=== PATIENT | female | born 1935 | race Caucasian/White ===

== ENCOUNTER → 2019-08-31 11:00 | Outpatient (BNVA) | payer MEDICAID, SELFPAY | PROVIDERS: PCP Nurse Practitioner Family; Visit Provider Nurse Practitioner Family | DX: I10 Essential (primary) hypertension (principal); E11.9 Type 2 diabetes mellitus without complications; E78.5 Hyperlipidemia, unspecified | CPT/HCPCS: 80053; 80061; 82044; 83036; 85025 ==

== ENCOUNTER → 2019-12-01 11:44 | Outpatient (BNVA) | payer MEDICAID, SELFPAY | PROVIDERS: PCP Nurse Practitioner Family; Visit Provider Nurse Practitioner Family | DX: E11.9 Type 2 diabetes mellitus without complications (principal) | CPT/HCPCS: 80053; 80061; 83036; 85025 ==

== ENCOUNTER → 2020-02-29 11:21 | Outpatient (BNVA) | payer MEDICAID, SELFPAY | PROVIDERS: PCP Nurse Practitioner Family; Visit Provider Nurse Practitioner Family | DX: E11.9 Type 2 diabetes mellitus without complications (principal); E78.5 Hyperlipidemia, unspecified; I10 Essential (primary) hypertension | CPT/HCPCS: 80053; 80061; 82306; 83036; 85025 ==

== ENCOUNTER 2020-04-26 13:44 | Inpatient (IN) | payer MEDICAID, SELFPAY ==
[2020-04-26] VITALS (68 sets, daily range): BP systolic 47–135; BP diastolic 25–84; PULSE 94–185; RESP 14–26; TEMP 32.2–34.9; O2SAT 89–100; BMI 21.7
--- NOTE | 2020-04-26 13:48 | CTR_ITS ---
PROCEDURE INFORMATION: Exam: CT Head Without Contrast Exam date and time: 04/26/2020 5:38 PM Age: 84 years old Clinical indication: Coma or unconsciousness; Additional info: Loc TECHNIQUE: Imaging protocol: Computed tomography of the head without contrast. Radiation optimization: All CT scans at this facility use at least one of these dose optimization techniques: automated exposure control; mA and/or kV adjustment per patient size (includes targeted exams where dose is matched to clinical indication); or iterative reconstruction. COMPARISON: No relevant prior studies available. RADIATION DOSE METRICS: Total DLP (mGy-cm): 841.2 FINDINGS: Brain: There is moderate cerebral atrophy. There is mild diffuse heterogeneity of the white matter attenuation, consistent with chronic white matter ischemic changes. No intracranial hemorrhage. No intracranial mass. No acute brain ischemia. No midline shift of brain. Simon matter and white matter interfaces are preserved. Cerebral ventricles: No ventriculomegaly. Bones/joints: Unremarkable. No acute fracture. Paranasal sinuses: Visualized sinuses are unremarkable. No fluid levels. Mastoid air cells: Visualized mastoid air cells are well aerated. Orbital cavity: Bilateral lens replacements. Vasculature: Intracranial atherosclerosis. Soft tissues: Unremarkable. CT/CT head wo con* [id number] IMPRESSION: Negative for acute intracranial abnormality. Radiation Dose CTDIVOL = (mGy): DLP = 841.2 (mGy-cm)
--- NOTE | 2020-04-26 13:50 | ECG_ITS ---
[facility] Test Date: 2020-04-26 Pat Name: Sheri Szymanski Department: Room: Gender: Female Seo Consultant: : [id number] Requested By: Kemal Herring Order Number: [id number] [place] MD: Enio Mackenzie M.D. Measurements Intervals Lapel Rate: 93 P: 64 OH: 140 QRS: 1 QRSD: 89 T: 84 QT: 377 QTc: 470 Interpretive Statements SINUS RHYTHM POSSIBLE LEFT ATRIAL ENLARGEMENT [-0.1mV P WAVE IN V1/V2] SEPTAL MYOCARDIAL INFARCTION , OF INDETERMINATE AGE [40+ ms Q WAVE IN V1/V2] Compared to ECG 07/10/2017 13:12:15 Myocardial infarct finding now present Sinus arrhythmia no longer present Electronically Signed On 04-26-2020 16:00:41 HEEL BLACKER by Enio Mackenzie M.D. [id number]
--- NOTE | 2020-04-26 13:54 | W.ED.GENADLT ---
HPI - General Adult General: Chief complaint: Altered Mental Status Stated complaint: DKA/ UNCONSCIOUS Time Seen by Provider: 04/26/20 13:48 History of Present Illness: HPI narrative: 84-year-old female presents to the emergency room via EMS after being intubated by RSI with ketamine and rocuronium in the field. She was found by her family unresponsive EMS reports when she when they arrived she had respiratory rate in the 20s he had a slight grimace but no significant response. His R side and intubated and arrived here. No CPR was done at any time. She is diabetic although she is not on any insulin. Family had last seen her last night. She has an IO in the left anterior tibia. She has no obvious injuries. EMS reports that the house was very rundown. Reports she had been feeling well earlier in the week had been little nauseous generally feeling sick and having flulike symptoms. Onset (ago): unknown Associated symptoms: Reports malaise and nausea; Deny chest pain, cough, dyspnea, fevers/chills, headache(s), short of breath or vomiting Treatments prior to arrival: other (Intubation) Review of Systems General: Reports: ROS unobtainable due to endotracheal tube (Some review of systems obtained from family) Const: Reports: malaise Card: Denies: chest pain Resp: Denies: dyspnea GI: Reports: nausea; Denies: vomiting Neuro: Denies: headache(s) PFS ED PFSH: Medical History Diabetes Hyperlipidemia Hypertension Surgical History History of left hip replacement (~2014) Family History Daughter Diabetes Denies family history of Anesthesia complication Bleeding disorder Social History Smoking and tobacco status: never smoked Alcohol intake: never Adopted: No Caregiver/support person: Yes Lives independently: Yes Housing: House Marital status: Single Current occupational exposures/hazards: No Pets and animals: Yes Pets & animals: cat(s) History of recent travel: No Sexually active: No Current gender identity: Female Mackenzie/Congregation: [employer] Special mackenzie needs: No Financial difficulty paying for basics: Not Applicable Physical Exam HENMT: COMMON NORMALS: normocephalic, atraumatic and hearing grossly normal bilaterally HEAD & SCALP: normocephalic and atraumatic Neck/C-Spine: COMMON NORMALS: full ROM, no lymphadenopathy, supple and no JVD Lymph: LYMPHATIC: no lymphadenopathy noted and no lymphedema noted Resp: COMMON NORMALS: normal respiratory effort, No retractions, No use of accessory muscles and clear to auscultation bilaterally AUSCULTATION: clear to auscultation bilaterally Cardio: COMMON NORMALS: no JVD, regular rate, regular rhythm and No murmurs present (Cardio) RATE: regular rate RHYTHM: regular rhythm GI: COMMON NORMALS: Soft to palpation and No hepatosplenomegaly present AUSCULTATION: Yes normoactive bowel sounds PALPATION: Yes Soft to palpation, No Tenderness to palpation present (GI), No Guarding due to palpation present (GI) and Yes No hepatosplenomegaly present Extremity: COMMON NORMALS: normal to inspection, capillary refill normal, no clubbing, cyanosis or edema, no calf tenderness and no pedal edema Skin: COMMON NORMALS: no rashes or lesions noted GENERAL SKIN EXAM: no rashes or lesions noted Procedures Central Line Placement Right SC: Time Out Performed: Yes Patient Placed on Monitor/Pulse Ox: Yes MD Prep: mask, gown and gloves Central Line Prep: Chlorhexidine scrub and sterile drapes applied Ultrasound Used for Placement: Yes Central Line Lumen Inserted: triple Post Procedure: sutured in place, good blood return, all ports aspirated, flushed, capped and sterile dressing applied Post Procedure X-Ray: tip of catheter in good position and no pneumothorax seen Patient Tolerated Procedure: well Complications: none Course Vital Signs: Vital signs: Vital Signs Temperature 100.4 F H 04/30/20 04:00 Pulse Rate 102 H 04/30/20 08:00 Respiratory Rate 15 04/30/20 11:25 Blood Pressure 147/63 04/30/20 09:00 Pulse Oximetry 93 04/30/20 09:00 MDM - General Adult MDM Narrative: Medical decision making narrative: Patient in pretty significant DKA with a peak pH is 6.96. She has been given fluids and insulin bicarb started on potassium. She is not needed any further sedation her pressure was almost nondetectable when she first arrived she is currently on Levophed. We are covering her with antibiotics due to just the logistics of all of her medications we have not yet had the CTs done to have a CT head abdomen and pelvis pending. I discussed with Dr. Herrera and orders have been written diabetic ketoacidosis Lab Data: Labs: Lab Results 04/26/20 04/26/20 04/26/20 Range/Units 13:49 14:00 14:00 WBC (4.0-10.0) 10^3/ uL RBC (4.1-5.3) 10^6/u L Hgb (11.5-15.3) g/dL Hct (37.0-47.0) % MCV (81-99) fL MCH (28.0-34.0) pg MCHC (30.0-36.0) g/dL RDW (12.1-15.1) % Plt Count (130-400) 10^3/c mm MPV (7.4-10.4) fL Neut % (Auto) % Lymph % (Auto) % [place]ac % (Auto) % Eos % (Auto) % Baso % (Auto) % Neut # (Auto) (1.8-7.7) 10^3/u L Lymph # (Auto) (0.8-4.8) 10^3/u L [place] # (Auto) (0.2-0.9) 10^3/u L Eos # (Auto) (0.0-0.8) 10^3/u L Baso # (Auto) (0.0-0.1) 10^3/u L Nucleated RBC % (a uto) % Nucleated RBCs # /100WBC PT (12.1-14.9) SECO NDS INR (0.8-1.2) APTT (23.9-36.7) SECO NDS Specimen Type Arterial Sample Site Radial, right ABG pH 6.96 L* (7.35-7.45) ABG pCO2 23.1 L (35-45) mmHg ABG pO2 491.0 H (80.0-100.0) mmH g ABG HCO3 5.2 L (22-26) mmol/L ABG O2 Saturation > 100.0 ABG Base Excess -25.5 L (-2.0-2.0) mmol/ L Rayshawn Test Pos A-a O2 Gradient 23.7 H (5-10) mmHg Hematocrit 44.8 (37-47) % Hgb O2 Saturation 98.7 (95-100) % Carboxyhemoglobin 0.3 L (0.4-20.1) %THgb Methemoglobin 1.0 (0.4-1.5) % Total Hemoglobin 14.6 (12-16) g/dL Sodium 141.0 (131-143) mmol/L Potassium 4.5 (3.5-5.0) mmol/L Glucose 743.0 H (70-115) mg/dL Ionized Calcium 1.3 (1.1-1.4) mmol/L O2 Delivery Device Vent FiO2 100.0 % Tidal Volume 0.35 PEEP 8.0 cmH20 Slitter And Cutter Operator ID Ed Chloride (98-107) mmol/L Carbon Dioxide (22-29) mmol/L Anion Gap (5-19) BUN (8-23) mg/dL Creatinine (0.5-0.9) mg/dL GFR Calculation POC Glucose (70-110) mg/dL Calculated Osmolal ity (285-295) mOsm/k g Lactic Acid 4.0 H (0.5-2.2) mmol/L Calcium (8.5-10.5) mg/dL Magnesium (1.7-2.3) mg/dL Total Bilirubin (0.15-1.2) mg/dL AST (0-32) U/L ALT (0-33) U/L Alkaline Phosphata se (35-105) IU/L Ammonia 33 (11-51) umol/L Creatine Kinase (26-192) U/L Troponin T Baselin e (0-10) ng/L Total Protein (6.6-8.7) g/dL Albumin (3.5-5.2) g/dL Globulin (1.3-4.6) g/dL Lipase (13-60) U/L Procalcitonin (0-0.5) ng/mL Urine Color (Yellow) Urine Appearance (CLEAR) Urine pH (5-7) Ur Specific Gravit y (1.005-1.030) Urine Protein (Negative) Urine Glucose (UA) (Normal) Urine Ketones (Negative) Urine Blood (Negative) Urine Nitrate (Negative) Urine Bilirubin (Negative) Urine Urobilinogen (Negative) mg/dL Ur Leukocyte Lashay ase (Negative) Urine RBC (0-2) /hpf Urine WBC (0-5) /hpf Ur Squamous Epith Cells (0-5) /hpf Amorphous Sediment /hpf Urine Bacteria (NONE) /hpf Hyaline Casts /lpf Fine Granular Cast s /lpf Urine Mucus /hpf Ur Random Sodium mmol/L Ur Random Potassiu m mmol/L Ur Random Chloride mmol/L Urine Opiates Scre en (Negative) ng/mL Ur Barbiturates Sc reen (Negative) ng/mL Ur Phencyclidine S crn (Negative) ng/mL Ur Amphetamines Sc reen (Negative) ng/mL U Benzodiazepines Scrn (Negative) ng/mL Urine Cocaine Scre en (Negative) ng/mL U Marijuana (THC) Screen (Negative) ng/mL Serum Ketones (Negative) 04/26/20 04/26/20 04/26/20 Range/Units 14:00 14:00 14:00 WBC 13.8 H (4.0-10.0) 10^3/ uL RBC 4.29 (4.1-5.3) 10^6/u L Hgb 14.0 (11.5-15.3) g/dL Hct 44.6 (37.0-47.0) % MCV 104.0 H (81-99) fL MCH 32.6 (28.0-34.0) pg MCHC 31.4 (30.0-36.0) g/dL RDW 13.6 (12.1-15.1) % Plt Count 222 (130-400) 10^3/c mm MPV 11.8 H (7.4-10.4) fL Neut % (Auto) 82.4 % Lymph % (Auto) 7.6 % Arenac % (Auto) 6.9 % Eos % (Auto) 0.1 % Baso % (Auto) 0.4 % Neut # (Auto) 11.37 H (1.8-7.7) 10^3/u L Lymph # (Auto) 1.1 (0.8-4.8) 10^3/u L A[place]ac # (Auto) 1.0 H (0.2-0.9) 10^3/u L Eos # (Auto) 0.0 (0.0-0.8) 10^3/u L Baso # (Auto) 0.1 (0.0-0.1) 10^3/u L Nucleated RBC % (a uto) 0 % Nucleated RBCs # 0.0 /100WBC PT (12.1-14.9) SECO NDS INR (0.8-1.2) APTT (23.9-36.7) SECO NDS Specimen Type Sample Site ABG pH (7.35-7.45) ABG pCO2 (35-45) mmHg ABG pO2 (80.0-100.0) mmH g ABG HCO3 (22-26) mmol/L ABG O2 Saturation ABG Base Excess (-2.0-2.0) mmol/ L Rayshawn Test A-a O2 Gradient (5-10) mmHg Hematocrit (37-47) % Hgb O2 Saturation (95-100) % Carboxyhemoglobin (0.4-20.1) %THgb Methemoglobin (0.4-1.5) % Total Hemoglobin (12-16) g/dL Sodium 139 (131-143) mmol/L Potassium 4.7 (3.5-5.0) mmol/L Glucose 754 H* (70-115) mg/dL Ionized Calcium (1.1-1.4) mmol/L O2 Delivery Device FiO2 % Tidal Volume PEEP cmH20 Slitter And Cutter Operator ID Chloride 98 (98-107) mmol/L Carbon Dioxide 6 L* (22-29) mmol/L Anion Gap 39.7 H (5-19) BUN 58 H (8-23) mg/dL Creatinine 2.9 H (0.5-0.9) mg/dL GFR Calculation Not Reportable POC Glucose (70-110) mg/dL Calculated Osmolal ity 341 H (285-295) mOsm/k g Lactic Acid (0.5-2.2) mmol/L Calcium 9.3 (8.5-10.5) mg/dL Magnesium 2.6 H (1.7-2.3) mg/dL Total Bilirubin 0.3 (0.15-1.2) mg/dL AST 9 (0-32) U/L ALT 10 (0-33) U/L Alkaline Phosphata se 60 (35-105) IU/L Ammonia (11-51) umol/L Creatine Kinase 128 (26-192) U/L Troponin T Baselin e 168 H* (0-10) ng/L Total Protein 6.0 L (6.6-8.7) g/dL Albumin 3.8 (3.5-5.2) g/dL Globulin 2.2 (1.3-4.6) g/dL Lipase 5681 H (13-60) U/L Procalcitonin 8.24 H (0-0.5) ng/mL Urine Color (Yellow) Urine Appearance (CLEAR) Urine pH (5-7) Ur Specific Gravit y (1.005-1.030) Urine Protein (Negative) Urine Glucose (UA) (Normal) Urine Ketones (Negative) Urine Blood (Negative) Urine Nitrate (Negative) Urine Bilirubin (Negative) Urine Urobilinogen (Negative) mg/dL Ur Leukocyte Lashay ase (Negative) Urine RBC (0-2) /hpf Urine WBC (0-5) /hpf Ur Squamous Epith Cells (0-5) /hpf Amorphous Sediment /hpf Urine Bacteria (NONE) /hpf Hyaline Casts /lpf Fine Granular Cast s /lpf Urine Mucus /hpf Ur Random Sodium mmol/L Ur Random Potassiu m mmol/L Ur Random Chloride mmol/L Urine Opiates Scre en (Negative) ng/mL Ur Barbiturates Sc reen (Negative) ng/mL Ur Phencyclidine S crn (Negative) ng/mL Ur Amphetamines Sc reen (Negative) ng/mL U Benzodiazepines Scrn (Negative) ng/mL Urine Cocaine Scre en (Negative) ng/mL U Marijuana (THC) Screen (Negative) ng/mL Serum Ketones (Negative) 04/26/20 04/26/20 04/26/20 Range/Units 14:00 14:00 14:12 WBC (4.0-10.0) 10^3/ uL RBC (4.1-5.3) 10^6/u L Hgb (11.5-15.3) g/dL Hct (37.0-47.0) % MCV (81-99) fL MCH (28.0-34.0) pg MCHC (30.0-36.0) g/dL RDW (12.1-15.1) % Plt Count (130-400) 10^3/c mm MPV (7.4-10.4) fL Neut % (Auto) % Lymph % (Auto) % [place] % (Auto) % Eos % (Auto) % Baso % (Auto) % Neut # (Auto) (1.8-7.7) 10^3/u L Lymph # (Auto) (0.8-4.8) 10^3/u L [place]ac # (Auto) (0.2-0.9) 10^3/u L Eos # (Auto) (0.0-0.8) 10^3/u L Baso # (Auto) (0.0-0.1) 10^3/u L Nucleated RBC % (a uto) % Nucleated RBCs # /100WBC PT 18.00 H (12.1-14.9) SECO NDS INR 1.44 H (0.8-1.2) APTT 27.2 (23.9-36.7) SECO NDS Specimen Type Sample Site ABG pH (7.35-7.45) ABG pCO2 (35-45) mmHg ABG pO2 (80.0-100.0) mmH g ABG HCO3 (22-26) mmol/L ABG O2 Saturation ABG Base Excess (-2.0-2.0) mmol/ L Rayshawn Test A-a O2 Gradient (5-10) mmHg Hematocrit (37-47) % Hgb O2 Saturation (95-100) % Carboxyhemoglobin (0.4-20.1) %THgb Methemoglobin (0.4-1.5) % Total Hemoglobin (12-16) g/dL Sodium (131-143) mmol/L Potassium (3.5-5.0) mmol/L Glucose (70-115) mg/dL Ionized Calcium (1.1-1.4) mmol/L O2 Delivery Device FiO2 % Tidal Volume PEEP cmH20 Slitter And Cutter Operator ID Chloride (98-107) mmol/L Carbon Dioxide (22-29) mmol/L Anion Gap (5-19) BUN (8-23) mg/dL Creatinine (0.5-0.9) mg/dL GFR Calculation POC Glucose > 600 H* (70-110) mg/dL Calculated Osmolal ity (285-295) mOsm/k g Lactic Acid (0.5-2.2) mmol/L Calcium (8.5-10.5) mg/dL Magnesium (1.7-2.3) mg/dL Total Bilirubin (0.15-1.2) mg/dL AST (0-32) U/L ALT (0-33) U/L Alkaline Phosphata se (35-105) IU/L Ammonia (11-51) umol/L Creatine Kinase (26-192) U/L Troponin T Baselin e (0-10) ng/L Total Protein (6.6-8.7) g/dL Albumin (3.5-5.2) g/dL Globulin (1.3-4.6) g/dL Lipase (13-60) U/L Procalcitonin (0-0.5) ng/mL Urine Color (Yellow) Urine Appearance (CLEAR) Urine pH (5-7) Ur Specific Gravit y (1.005-1.030) Urine Protein (Negative) Urine Glucose (UA) (Normal) Urine Ketones (Negative) Urine Blood (Negative) Urine Nitrate (Negative) Urine Bilirubin (Negative) Urine Urobilinogen (Negative) mg/dL Ur Leukocyte Lashay ase (Negative) Urine RBC (0-2) /hpf Urine WBC (0-5) /hpf Ur Squamous Epith Cells (0-5) /hpf Amorphous Sediment /hpf Urine Bacteria (NONE) /hpf Hyaline Casts /lpf Fine Granular Cast s /lpf Urine Mucus /hpf Ur Random Sodium mmol/L Ur Random Potassiu m mmol/L Ur Random Chloride mmol/L Urine Opiates Scre en (Negative) ng/mL Ur Barbiturates Sc reen (Negative) ng/mL Ur Phencyclidine S crn (Negative) ng/mL Ur Amphetamines Sc reen (Negative) ng/mL U Benzodiazepines Scrn (Negative) ng/mL Urine Cocaine Scre en (Negative) ng/mL U Marijuana (THC) Screen (Negative) ng/mL Serum Ketones Positive H (Negative) 04/26/20 04/26/20 04/26/20 Range/Units 14:49 14:49 15:24 WBC (4.0-10.0) 10^3/ uL RBC (4.1-5.3) 10^6/u L Hgb (11.5-15.3) g/dL Hct (37.0-47.0) % MCV (81-99) fL MCH (28.0-34.0) pg MCHC (30.0-36.0) g/dL RDW (12.1-15.1) % Plt Count (130-400) 10^3/c mm MPV (7.4-10.4) fL Neut % (Auto) % Lymph % (Auto) % [place] % (Auto) % Eos % (Auto) % Baso % (Auto) % Neut # (Auto) (1.8-7.7) 10^3/u L Lymph # (Auto) (0.8-4.8) 10^3/u L [place] # (Auto) (0.2-0.9) 10^3/u L Eos # (Auto) (0.0-0.8) 10^3/u L Baso # (Auto) (0.0-0.1) 10^3/u L Nucleated RBC % (a uto) % Nucleated RBCs # /100WBC PT (12.1-14.9) SECO NDS INR (0.8-1.2) APTT (23.9-36.7) SECO NDS Specimen Type Sample Site ABG pH (7.35-7.45) ABG pCO2 (35-45) mmHg ABG pO2 (80.0-100.0) mmH g ABG HCO3 (22-26) mmol/L ABG O2 Saturation ABG Base Excess (-2.0-2.0) mmol/ L Rayshawn Test A-a O2 Gradient (5-10) mmHg Hematocrit (37-47) % Hgb O2 Saturation (95-100) % Carboxyhemoglobin (0.4-20.1) %THgb Methemoglobin (0.4-1.5) % Total Hemoglobin (12-16) g/dL Sodium (131-143) mmol/L Potassium (3.5-5.0) mmol/L Glucose (70-115) mg/dL Ionized Calcium (1.1-1.4) mmol/L O2 Delivery Device FiO2 % Tidal Volume PEEP cmH20 Slitter And Cutter Operator ID Chloride (98-107) mmol/L Carbon Dioxide (22-29) mmol/L Anion Gap (5-19) BUN (8-23) mg/dL Creatinine (0.5-0.9) mg/dL GFR Calculation POC Glucose > 600 H* (70-110) mg/dL Calculated Osmolal ity (285-295) mOsm/k g Lactic Acid (0.5-2.2) mmol/L Calcium (8.5-10.5) mg/dL Magnesium (1.7-2.3) mg/dL Total Bilirubin (0.15-1.2) mg/dL AST (0-32) U/L ALT (0-33) U/L Alkaline Phosphata se (35-105) IU/L Ammonia (11-51) umol/L Creatine Kinase (26-192) U/L Troponin T Baselin e (0-10) ng/L Total Protein (6.6-8.7) g/dL Albumin (3.5-5.2) g/dL Globulin (1.3-4.6) g/dL Lipase (13-60) U/L Procalcitonin (0-0.5) ng/mL Urine Color Yellow (Yellow) Urine Appearance Clear (CLEAR) Urine pH 5 (5-7) Ur Specific Gravit y 1.020 (1.005-1.030) Urine Protein Trace (Negative) Urine Glucose (UA) 4+ H (Normal) Urine Ketones 2+ H (Negative) Urine Blood 2+ H (Negative) Urine Nitrate Negative (Negative) Urine Bilirubin Neg (Negative) Urine Urobilinogen Norm (Negative) mg/dL Ur Leukocyte Lashay ase Negative (Negative) Urine RBC 0-4 H (0-2) /hpf Urine WBC 0-4 H (0-5) /hpf Ur Squamous Epith Cells 0-4 H (0-5) /hpf Amorphous Sediment 1+ /hpf Urine Bacteria 1+ H (NONE) /hpf Hyaline Casts 0-4 H /lpf Fine Granular Cast s 0-4 H /lpf Urine Mucus 1+ /hpf Ur Random Sodium 38 mmol/L Ur Random Potassiu m 25 mmol/L Ur Random Chloride 13 mmol/L Urine Opiates Scre en Negative (Negative) ng/mL Ur Barbiturates Sc reen Negative (Negative) ng/mL Ur Phencyclidine S crn Negative (Negative) ng/mL Ur Amphetamines Sc reen Negative (Negative) ng/mL U Benzodiazepines Scrn Negative (Negative) ng/mL Urine Cocaine Scre en Negative (Negative) ng/mL U Marijuana (THC) Screen Negative (Negative) ng/mL Serum Ketones (Negative) Critical Care Time Critical Care Time: Critical Care Time: Yes Total Critical Care Time: 120 Attestation: This case had a high probability of a clinically significant, sudden, or life threatening deterioration of this patient's condition which required my full and direct attention, intervention and personal management. Discharge Plan Discharge Patient Disposition: Admitted As Inpatient Admit Provider: Vaibhav Palma Clinical Impression: Diabetic keto-acidosis Condition: Stable Coding Level of Care Code ED Director [employer] for Chg Fwd Exam Comprehensive
--- NOTE | 2020-04-26 14:07 | XR_ITS ---
WS: [id number] Left leg including the tibia and fibula, AP and lateral views, 04/26/2020 Clinical Data: possible missing needle parts Comparison: None. Findings: No fractures or dislocations are seen. The tibia and fibula are intact. The soft tissues are normal. No radiopaque needle fragments are seen in the soft tissues. XR/XR tibia fibula LT 2V [id number] Impression: Negative for radiopaque foreign bodies.
--- NOTE | 2020-04-26 14:08 | XR_ITS ---
WS: [id number] Portable AP upright chest, 04/26/2020 Clinical Data: dyspnea/cough Comparison: Portable chest, 06/01/2014. Findings: There is an endotracheal tube above the shelia. No nodules, masses or effusions are seen. N o pneumonia or pneumothorax is present. The left diaphragm is flattened. The heart is normal. Pulmona ry vascularity is not increased. The aortic arch and descending aorta show calcification and tortuosi ty. Monitor leads are on the chest wall. XR/XR chest 1V portable [id number] Impression: 1. Satisfactory position of endotracheal tube. 2. Atherosclerosis.
[2020-04-26 14:15] LABS: Glucose Point of Care > 600 mg/dL (70-110)
[2020-04-26 14:22] LABS: Basophils # 0.1 10^3/uL (0.0-0.1); Basophils % 0.4 %; Eosinophils % 0.1 %; Hematocrit 44.6 % (37.0-47.0); Lymphocytes # 1.1 10^3/uL (0.8-4.8); Lymphocytes % 7.6 %; Mean Corpuscular HGB Conc 31.4 g/dL (30.0-36.0); Mean Corpuscular Hemoglobin 32.6 pg (28.0-34.0); Mean Platelet Volume 11.8 fL (7.4-10.4); Monocytes % 6.9 %; Neutrophils # 11.37 10^3/uL (1.8-7.7); Neutrophils % 82.4 %; Nucleated Red Blood Cells % 0 %; Platelet Count 222 10^3/cmm (130-400); Red Blood Count 4.29 10^6/uL (4.1-5.3); Red Cell Distribution Width 13.6 % (12.1-15.1); White Blood Count 13.8 10^3/uL (4.0-10.0)
[2020-04-26 14:22] LABS: ABG PCO2 23.1 mmHg (35-45); ABG PH Result 6.96 (7.35-7.45); Alveolar-Arterial Oxygen Gradi 23.7 mmHg (5-10); Arterial Blood Gas Hematocrit 44.8 % (37-47); Base Excess ABG -25.5 mmol/L (-2.0-2.0); Blood Gas Allen Test Pos; Blood Gas Operator Identificat ED; Blood Gas Sample Site Radial, right; Blood Gas Sample Type Arterial; Blood Gas Tidal Volume 0.35; Carboxyhemoglobin 0.3 %THgb (0.4-20.1); HCO3 ABG 5.2 mmol/L (22-26); HGB O2 Sat 98.7 % (95-100); Ionized Calcium Level - ABG 1.3 mmol/L (1.1-1.4); Oxygen Device VENT; Oxygen Saturation ABG > 100.0; Potassium Level - ABG 4.5 mmol/L (3.5-5.0); Total Hemoglobin 14.6 g/dL (12-16)
[2020-04-26] MEDS: ondansetron 2 mg/ML SDV 2 mL 4 MG IVP (14:29)
[2020-04-26] MEDS: levofloxacin-dextrose 5 % 750 MG/150 ML PREMIX 100 MG IV (14:31)
[2020-04-26 14:44] LABS: INR 1.44 (0.8-1.2)
[2020-04-26 14:45] LABS: Partial Thromboplastin Time 27.2 SECONDS (23.9-36.7)
[2020-04-26] MEDS: sodium bicarbonate 8.4% 1 mEq/mL 50mL Syr 100 MEQ IVP (14:46)
[2020-04-26 14:49] LABS: Ammonia 33 umol/L (11-51)
[2020-04-26 14:51] LABS: Troponin(5th) Baseline 168 ng/L (0-10)
[2020-04-26] MEDS: lidocaine 1% 5 ML in potassium chloride premix 100 ML 25 ML IV (14:52)
--- NOTE | 2020-04-26 14:54 | PC.NURSE ---
EKG done at 1350 and shown to ER doctor
[2020-04-26 14:58] LABS: Procalcitonin 8.24 ng/mL (0-0.5)
[2020-04-26] MEDS: insulin regular-human 100 units/1 mL 10 UNIT IVP (14:58)
[2020-04-26] MEDS: insulin regular-human 250 UNIT in sodium chloride 0.9% 250 ML IV (15:00)
[2020-04-26 15:08] LABS: Urine Appearance Clear (CLEAR); Urine Color Yellow (Yellow); pH Urine 5 (5-7)
[2020-04-26 15:09] LABS: Add Urine Culture? No; Add Urine Microscopic? YES; Amorphous Sediment Urine 1+ /hpf; Bacteria Urine 1+ /hpf; Bilirubin Urine Neg (Negative); Blood Urine 2+ (Negative); Fine Granular Casts Urine 0-4 /lpf; Glucose Urine UA 4+ (Normal); Hyaline Casts Urine 0-4 /lpf; Ketones Urine 2+ (Negative); Leukocyte Esterase Urine Negative (Negative); Mucus Urine 1+ /hpf; Nitrate Urine Negative (Negative); Protein Urine Trace (Negative); RBC Urine 0-4 /hpf (0-2); Squamous Epithelial Cell Urine 0-4 /hpf (0-5); Urobilinogen Urine Norm (Negative); WBC Urine 0-4 /hpf (0-5)
[2020-04-26 15:09] LABS: Alanine Aminotransferase 10 U/L (0-33); Albumin Level 3.8 g/dL (3.5-5.2); Alkaline Phosphatase 60 IU/L (35-105); Anion Gap 39.7 (5-19); Aspartate Amino Transferase 9 U/L (0-32); Blood Urea Nitrogen 58 mg/dL (8-23); Calcium 9.3 mg/dL (8.5-10.5); Chloride 98 mmol/L (98-107); Creatine Phosphokinase 128 U/L (26-192); Globulin 2.2 g/dL (1.3-4.6); Magnesium 2.6 mg/dL (1.7-2.3); Potassium 4.7 mmol/L (3.5-5.1); Sodium 139 mmol/L (136-145); Total Bilirubin 0.3 mg/dL (0.15-1.2)
[2020-04-26 15:14] LABS: Carbon Dioxide 6 mmol/L (22-29)
[2020-04-26 15:17] LABS: Ketone (Acetest) Serum Positive (Negative)
[2020-04-26] MEDS: sodium bicarbonate 150 MEQ in dextrose 5% 1,000 ML 100 MEQ IV (15:17)
[2020-04-26 15:18] LABS: Osmolality Calculated 341 mOsm/kg (285-295)
[2020-04-26 15:19] LABS: Glucose 754 mg/dL (65-115)
[2020-04-26 15:32] LABS: Glucose Point of Care > 600 mg/dL (70-110)
--- NOTE | 2020-04-26 15:42 | CTR_ITS ---
PROCEDURE INFORMATION: Exam: CT Angiography Chest With Contrast Exam date and time: 04/26/2020 5:38 PM Age: 84 years old Clinical indication: Abdominal tenderness; Shortness of breath; Additional info: Resp failure, dka TECHNIQUE: Imaging protocol: Computed tomographic angiography of the chest with contrast. 3D rendering (Not supervised by radiologist): MIP and/or 3D reconstructed images were created by the technologist. Radiation optimization: All CT scans at this facility use at least one of these dose optimization techniques: automated exposure control; mA and/or kV adjustment per patient size (includes targeted exams where dose is matched to clinical indication); or iterative reconstruction. Contrast material: VISI 320; Contrast volume: 95 ml; Contrast route: INTRAVENOUS (IV); COMPARISON: CR XR chest 1V portable [id number] 04/26/2020 4:23 PM RADIATION DOSE METRICS: Total DLP (mGy-cm): 1535.38 FINDINGS: Tubes, catheters and devices: Endotracheal tube is positioned about 2.5 cm above the shelia. Right chest central venous catheter placed via right subclavian vein terminates in the mid superior vena cava in good position. Pulmonary arteries: Main pulmonary artery mildly dilated. No pulmonary artery filling defects. Aorta: Moderate calcified atherosclerotic plaque of thoracic aorta without acute abnormality. Thyroid: Mild soft tissue edema or free fluid around the region of the thyroid gland is nonspecific. Lungs: Moderate emphysema. Mild dependent opacities in the lower lobes most consistent with subsegmental atelectasis. No focal pulmonary consolidation. Pleural spaces: Negative for pleural effusion. Negative for pneumothorax. Heart: No pericardial effusion. No cardiac chamber dilation. Lymph nodes: Unremarkable. No enlarged lymph nodes. Bones/joints: No aggressive bone lesions. No acute thoracic fractures are identified. In the right lateral paraspinal aspect of T10-T11 level there is a rounded low-attenuation mass with circumscribed borders which appears to extend from the right neural foramen region with widening and scalloping of the neural foramen itself. The lesion measures about 3.4 cm x 3.1 cm. There may be additional, smaller are rounded neural foraminal lesions at other intervertebral levels such as the left side of T10-T11, bilaterally at T9-T10. Soft tissues: Unremarkable. IMPRESSION: 1. Negative for pulmonary embolism. 2. Moderate emphysema. 3. Bilateral lower lobe subsegmental atelectasis. 4. Incidental finding of paraspinal masses, most prominent in the right lateral paraspinal aspect of T10-T11 with some scalloping and expansion of the right neural foramen evident. 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 There may be smaller tumors of other intervertebral levels as well. PROCEDURE INFORMATION: Exam: CT Abdomen And Pelvis With Contrast Exam date and time: 04/26/2020 5:38 PM Age: 84 years old Clinical indication: Abdominal tenderness; Shortness of breath; Additional info: Resp failure, dka TECHNIQUE: Imaging protocol: Computed tomography of the abdomen and pelvis with contrast. Radiation optimization: All CT scans at this facility use at least one of these dose optimization techniques: automated exposure control; mA and/or kV adjustment per patient size (includes targeted exams where dose is matched to clinical indication); or iterative reconstruction. Contrast material: VISI 320; Contrast volume: 95 ml; Contrast route: INTRAVENOUS (IV); COMPARISON: CR XR chest 1V portable [id number] 04/26/2020 4:23 PM RADIATION DOSE METRICS: Total DLP (mGy-cm): 1535.38 FINDINGS: Liver: Normal. No mass. Gallbladder and bile ducts: Normal. No calcified stones. No ductal dilation. Pancreas: Diffuse atrophy of the pancreas with fatty replacement. No focal mass. Spleen: Normal. No splenomegaly. Adrenal glands: Possibly small nodule of the right adrenal gland. 1.7 cm x 1.2 cm enhancing nodule. Kidneys and ureters: Atrophic renal parenchyma. Several bilateral simple renal cortical cysts. No acute perinephric inflammation. Stomach and bowel: Stomach is moderately distended with fluid. No evidence of bowel obstruction. Appendix: No evidence of appendicitis. Intraperitoneal space: No loculated intraperitoneal fluid collection. Vasculature: Large volume of calcified atherosclerotic wall plaque of abdominal aorta. No aneurysm. No active bleeding. No arterial occlusion. Lymph nodes: Unremarkable. No enlarged lymph nodes. Urinary bladder: Bladder decompressed via Ferris catheter. Reproductive: Hysterectomy. Bones/joints: Left hip arthroplasty with unremarkable appearance. Soft tissues: Upper abdominal fat stranding changes are noted which are nonspecific. CT/CT angio chest w abd pel w con IMPRESSION: 1. Mild fat stranding changes in the upper abdomen, cannot exclude sequela of acute pancreatitis. Otherwise, no convincing evidence of acute abdominopelvic abnormality. 2. Incidental finding of small right adrenal nodule, indeterminate characterization by this exam. 3. Bilateral renal cortical cystic lesions with simple CT features. COMMENTS: Consistent with the [employer]'s Incidental Findings Committee white paper (J Am Shine Radiol 2018): Any incidental renal lesion less than 1 cm or classified as too small to characterize, or any incidental cystic renal lesion characterized as simple-appearing, is likely benign. No follow-up imaging is recommended for these lesions per consensus recommendations based on imaging criteria. Radiation Dose CTDIVOL = (mGy): DLP = 1535.38~1535.38 (mGy-cm)
--- NOTE | 2020-04-26 15:50 | ECG_ITS ---
[facility] Test Date: 2020-04-26 Pat Name: Sheri Szymanski Department: Room: [facility]04 Gender: Female Clinical Appeals Rn: : 1935 Requested By: Kemal Herring Order Number: [id number] [place] MD: Enio Mackenzie M.D. 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 [id number]
[2020-04-26] MEDS: piperacillin-tazobactam 3.375 GM in sodium chloride 0.9% (plus) 50 ML IV (15:54)
--- NOTE | 2020-04-26 15:55 | USCV_ITS ---
Sheri Szymanski Age: 84 Gender: F : 1935 Exam Date: 04/26/2020 15:58 Ordering Phys: Vaibhav Palma MD Technologist: Ronald Garcia Exam Location: [facility] – [place] Indication: TACH 140 HR BP: 100 / 68 HR: 157 Rhythm: Sinus Technical Quality: Fair MEASUREMENTS (Male / Female) Normal Values 2D ECHO LV Ejection Fraction MOD 2C 64.1 % LV Ejection Fraction 2C AL 65.5 % LA Width 3.2 cm LA Height 3.6 cm RA Width 2.6 cm RA Height 3.7 cm FINDINGS Left Ventricle Normal left ventricular cavity size. Normal left ventricular systolic function. Left ventricular ejection fraction is estimated at 60 %. In the presence of tachycardia most likely atrial fibrillation diastolic function cannot be assessed accurately. Right Ventricle Right Atrium Left Atrium Mitral Valve Aortic Valve Tricuspid Valve Pulmonic Valve Pericardium Aorta CONCLUSIONS 1-Normal left ventricular cavity size. Normal left ventricular systolic function. Left ventricular ejection fraction is estimated at 60 %. In the presence of tachycardia most likely atrial fibrillation diastolic function cannot be assessed accurately. 2-There is no pericardial effusion. 3-In the absence of Doppler data cannot assess valvular regurgitation or stenosis however it appeared to me that the valves are opening and closing fine. Please order echocardiogram once heart rate is stable for full exam including Doppler assessment. 4-There is no pericardial effusion. 5-There are no prior echocardiogram studies to compare. Camacho Roman MD (Electronically Signed) Final Date: 26 April 2020 18:19 S
[2020-04-26 16:09] LABS: Reflex Lactate Order REFLEX LACTIC ORDERD
[2020-04-26] MEDS: neomycin-poly-bacitracin oint 0.9 gm Pkt 1 APPLIC TOPICAL (16:12)
--- NOTE | 2020-04-26 16:15 | PM.HP ---
Providers/Chief Complaint Admitting Physician: Vaibhav Palma MD Primary Care Provider: GEO Rueda Chief Complaint: DKA/ UNCONSCIOUS History of Present Illness Sheri Szymanski is a 84 year old female with past medical history of hypertension, hyperlipidemia, type 2 diabetes mellitus with most recent HbA1c 6.4 in February 2020 was brought into the EMS today after she was found unresponsive at her home. She was intubated in the field. Most of the history taken by an daughters who are at bedside. Daughter spoke to her at on 10 AM yesterday morning and after that nobody was able to get in touch with her so they called EMS today. On arrival EMS found her unresponsive and hence she was intubated. As per the daughter patient has been fairly well other than occasional abdominal pain and nausea for last 2 weeks. They deny of patient having any cough, fever, known exposure to Covid COVID-19, recent changes in medications. 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 Arrival to the ER patient's blood pressure was 50 systolic and by temperature was 92 Fahrenheit. Blood work in the ER showed a white count 15,000, hemoglobin of 14, INR of 1.4, pH of 6.9, CO2 of 23, PO2 of 49.1 100% FiO2 vent PEEP of 8. Chemistry showed a sodium of 139, chloride of 98, bicarb of 6, potassium of 4.7, BUN of 58, creatinine of 2.9, blood glucose of 08/20/1951, lactate of 4, magnesium of 2.6, baseline troponin of 168, pro calcitonin of 8.2, serum ketones positive. Chest x-ray was negative for any signs of infiltrate. On my arrival patient's heart rate is 142 bpm with blood pressure of 90 systolic she is received 2 L of IV fluid bolus, she is on insulin drip at 2, Levophed at 8, bicarb drip not on any sedation with a bear hugger, patient is not responsive to physical and painful stimulus. Review of Systems General: Reports: ROS unobtainable due to endotracheal tube Medications/Allergies Home Medications Medication Instructions Recorded Confirmed Last Taken Type aspirin 81 mg PO DAILY@04/26/20 04/26/20 04/25/20 History glipizide 5 mg PO DAILY@04/26/20 04/26/20 04/25/20 History lisinopril 20 mg PO DAILY@04/26/20 04/26/20 04/25/20 History lovastatin 20 mg PO DAILY@169904/26/20 04/26/20 04/25/20 History metformin 500 mg PO BID@07,169904/26/20 04/26/20 04/25/20 History metoprolol tartrate 50 mg PO BID@,169904/26/20 04/26/20 04/25/20 History sodium chloride 1 g PO DAILY@04/26/20 04/26/20 04/25/20 History Allergies Allergy/AdvReac Type Severity Reaction Status Date / Time No Known Allergies Allergy Verified 02/29/20 10:19 PFSH Acute PFSH: Medical History (Updated 04/26/20 @ 18:42 by Eric Fink MD) Diabetes Hyperlipidemia Hypertension Surgical History History of left hip replacement (~2014) Family History Daughter Diabetes Denies family history of Anesthesia complication Bleeding disorder Social History Smoking and tobacco status: never smoked Alcohol intake: never Adopted: No Caregiver/support person: Yes Lives independently: Yes Housing: House Marital status: Single Current occupational exposures/hazards: No Pets and animals: Yes Pets & animals: cat(s) History of recent travel: No Sexually active: No Current gender identity: Female Mackenzie/Restorationism: Presybeterian Special mackenzie needs: No Financial difficulty paying for basics: Not Applicable Vitals/I&O/Wt Last Vital Signs Temp 92.9 F L 04/26/20 13:45 Pulse 94 04/26/20 13:45 Resp 14 04/26/20 14:30 BP 50/25 04/26/20 13:45 Pulse Ox 89 L 04/26/20 13:45 04/26/20 04/26/20 04/26/20 06:59 14:59 22:59 Intake Total 2.027 / 2.027 1861.809 / 1863.836 Balance 2.027 / 2.027 1861.809 / 1863.836 Weight last 48 hrs Weight 61.235 kg Physical Exam Narrative: EXAM NARRATIVE: General: Sedated, intubated, dehydrated, pupils sluggishly reactive, cold to touch HEENT: PERRLA, Chest: Normal vesicular breath sounds, no added sounds, equal good air entry bilaterally CVS: S1-S2 regular frequent VPCs, no murmurs, tachycardia, no gallops, no rubs Abdomen: Soft, nontender, no organomegaly, bowel sounds present but sluggish Neuro: Sedated Extremities: Bilateral extremities no cyanosis, peripheral pulses palpable, no swelling Data : 04/26/20 14:00 04/26/20 19:50 Micro: Microbiology 04/26/20 14:15 Blood Culture - Preliminary Blood SPECIMEN COLLECTED 04/26/20 14:00 Blood Culture - Preliminary Blood SPECIMEN COLLECTED A&P Assessment and plan (1) Septic shock: Status: Acute (2) Unresponsive state: Status: Acute (3) Endotracheally intubated: Status: Acute (4) Metabolic acidosis: Status: Acute (5) Diabetic keto-acidosis: Status: Acute (6) FRANKLIN (acute kidney injury): Status: Acute (7) Elevated troponin: Status: Acute Additional A&P Information 84-year-old female found unresponsive at home for unknown time found to be hypotensive, intubated in the field with metabolic acidosis, DKA of unknown cause. 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 Start patient on propofol and fentanyl once patient becomes mildly responsive. Sedation vacation daily. CT head to rule out bleed. Patient does not become responsive next 24 hours we will do MRI of brain, EEG to rule out seizure disorder the patient does not have any history of seizures in the past. Check prolactin. Pulmonary: Keep saturation over 92%. We will change vent settings as per the next ABG. CT chest with contrast to rule out pulmonary embolism. DuoNebs every 6 hour, but desonide twice daily for now. Cardiovascular: Keep mean artery pressure over 65. Continue IV fluids at 100 cc/h after finishing 3 L bolus. Start patient on Levophed. Will titrate keeping mean arterial pressure over 65 mmHg. Baseline troponin 168 with mild changes in EKG. Case discussed with Dr. Roman. He states it is possible that patient has old changes. Trend troponins. If CT head negative for any acute bleed we will start patient on full dose anticoagulation with heparin drip via monitoring hemoglobin. Start echocardiogram. Endocrine: Currently patient in DKA with elevated ketones, of elevated blood sugars. Start patient insulin drip as per DKA protocol. Continue with normal saline at 100 cc/h after finishing the fluid bolus. BMP every 4 hours. Will monitor potassium levels. Once potassium is less than 4 we will start patient on fluid we are 40 mEq potassium replacement. Renal: Metabolic acidosis: Combination of DKA and lactic acidosis. Continue IV fluids and insulin as above. We will monitor potassium levels. Start patient on bicarb drip as patient's pH is less than 7. Once pH is more than 7.1 can discontinue the bicarb drip. ABG every 12 hours. ID: Check procalcitonin. Check blood culture, urine culture, sputum culture, MRSA swab. For now start patient empirically on Vanco Zosyn and azithromycin all renally dosed. CT abdomen pelvis with contrast to rule out any infective focus. GI: Pepcid for PUD prophylaxis. We will start NG tube feeds from tomorrow. GIven the h/o nausea and sudden DKA will have to r/o pancreatitis. Check Lipase, CT abd pelvis w contrast Check iron panel, TSH, prolactin, lipase, lower limb Dopplers to rule out DVT. Consult Dr. Fink for pack out operator. Have requested ER for central line as patient will require multiple drips. CODE STATUS: Discussed with daughters at bedside. Patient does not have any designated DPOA on file. Next of kin for the patient would be both daughters and they are agreeable to make medical decisions for patient. Full code for now. Pepcid for PD prophylaxis. We will start DVT prophylaxis if patient does not have any brain bleed or DVT in lower limbs. N.p.o. Severely guarded prognosis. Discussed in detail with patient none given her unknown type of being unresponsive, severe acidosis with pH of 6.9, septic shock with blood pressures in the 50s and patient requiring mechanical ventilation it makes patient extremely sick. Both daughters verbalized understanding. Admit to ICU. 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 The critical care time is as shown. This time is in addition to time spent performing any reported procedures but includes the following: [x] Data and vital sign review and interpretation [x] Patient assessment, examination and intervention [x] Documentation [x] Medication orders and management Critical Care Time (min): 100 Coding Level of Care Code Acute Paleontological Helper for g Fwd Diagnoses Septic shock A41.9; R65.21 Unresponsive state R41.89 Endotracheally intubated Z97.8 Metabolic acidosis E87.2 Diabetic keto-acidosis E11.10 FRANKLIN (acute kidney injury) N17.9 Elevated troponin R77.8
[2020-04-26] MEDS: vancomycin 1,000 MG in sodium chloride 0.9% 250 ML 250 MG IV (16:23)
--- NOTE | 2020-04-26 16:27 | XRR_ITS ---
PROCEDURE INFORMATION: Exam: XR Chest, 1 View Exam date and time: 04/26/2020 4:35 PM Age: 84 years old Clinical indication: Cough and dyspnea; Additional info: Dyspnea/cough TECHNIQUE: Imaging protocol: XR of the chest Views: 1 view. COMPARISON: CR XR chest 1V portable [id number] 04/26/2020 2:17 PM FINDINGS: Tubes, catheters and devices: Endotracheal tube 4.5 cm above shelia. Central venous catheter placed via right subclavian vein terminates distal SVC in good position. Lungs: Mild to moderate emphysematous changes of lungs. No focal lung opacities. Pleural spaces: Unremarkable. No pleural effusion. No pneumothorax. Heart/Mediastinum: Unremarkable. No cardiomegaly. Vasculature: Mild to moderate atherosclerosis of aortic arch. Bones/joints: Unremarkable. XR/XR chest 1V portable [id number] IMPRESSION: 1. No acute pulmonary disease identified. 2. Satisfactory positioning of endotracheal tube and central venous catheter.
[2020-04-26 16:54] LABS: Amphetamines Screen Urine Negative (Negative); Barbiturates Screen Urine Negative (Negative); Benzodiazepines Screen Urine Negative (Negative); Cocaine Screen Urine Negative (Negative); Opiate Screen Urine Negative (Negative); PCP Screen Urine Negative (Negative); THC Screen Urine Negative (Negative)
[2020-04-26 16:56] LABS: Anion Gap 30.6 (5-19); Blood Urea Nitrogen 53 mg/dL (8-23); Calcium 6.8 mg/dL (8.5-10.5); Carbon Dioxide 11 mmol/L (22-29); Chloride 106 mmol/L (98-107); Lactic Acid level (Lactate) 1.8 mmol/L (0.5-2.2); Osmolality Calculated 342 mOsm/kg (285-295); Potassium 3.6 mmol/L (3.5-5.1); Sodium 144 mmol/L (136-145)
[2020-04-26 16:58] LABS: Glucose 623 mg/dL (65-115)
[2020-04-26 17:00] LABS: Troponin 5 2HR Delta -8.2 ABS# (0-10)
[2020-04-26 17:01] LABS: Troponin 5 2HR 159.8 ng/L (0-10)
[2020-04-26 17:11] LABS: Lipase 5681 U/L (13-60)
[2020-04-26 17:18] LABS: Potassium, Radom Urine 25 mmol/L; Urine Random Sodium 38 mmol/L
[2020-04-26 17:20] LABS: Urine Random Chloride 13 mmol/L
[2020-04-26 17:22] LABS: Glucose Point of Care > 600 mg/dL (70-110)
[2020-04-26 17:28] LABS: Thyroid Stimulating Hormone 0.85 uIU/mL (0.27-4.20)
[2020-04-26 17:29] LABS: Iron 41 ug/dL (37-145); NT Pro B Type Natriuretic Pept 1972 pg/mL (0-450); Percent Saturation 24.8 % (20-50); Total Iron Binding Capacity 165 mcg/dl; Unsaturated Iron Binding 124 ug/dL (112-347)
[2020-04-26 17:36] LABS: ABG PCO2 32.1 mmHg (35-45); Arterial Blood Gas Hematocrit 41.1 % (37-47); Base Excess ABG -18.5 mmol/L (-2.0-2.0); Blood Gas Allen Test Pos; Blood Gas Operator Identificat ED; Blood Gas Sample Site Radial, left; Blood Gas Sample Type Arterial; Carboxyhemoglobin 0.4 %THgb (0.4-20.1); HGB O2 Sat 98.4 % (95-100); Ionized Calcium Level - ABG 1.1 mmol/L (1.1-1.4); Methemoglobin 0.8 % (0.4-1.5); Oxygen Saturation ABG 99.7; Potassium Level - ABG 3.5 mmol/L (3.5-5.0); Total Hemoglobin 13.4 g/dL (12-16)
[2020-04-26 17:38] LABS: Alveolar-Arterial Oxygen Gradi 11.1 mmHg (5-10); Oxygen Device VENT
[2020-04-26] MEDS: midazolam 1 mg/mL INJ 2 mL 2 MG IVP (17:49)
[2020-04-26] MEDS: famotidine 20 mg/2 mL INJ IVP (17:49)
[2020-04-26] MEDS: iodixanol 320 mg/mL 100mL Btl IV (18:06)
--- NOTE | 2020-04-26 18:08 | PM.CONSULT ---
Providers/Reason For Consult Consulting Physican/Specialty*: Pulmonary and critical care medicine Reason for Consult*: Critically ill patient with multiorgan dysfunction in the setting of diabetic ketoacidosis, severe hypothermia, pancreatitis Attending Physician: Vaibhav Palma MD Primary Care Provider: GEO Rueda History of Present Illness History of Present Illness The CT scan of the head which did not reveal any intracranial abnormalities. The patient underwent aNancy C Stephon is a 84 year old female with a past medical history of hypertension, hyperlipidemia type 2 diabetes with recent A1c of 6.4 in February 2020. The history was obtained from the medical record. According to the medical record, it appears that the last time anyone had contracted with the patient was 10 AM yesterday when the patient talk to her daughter. According to the daughter, the patient had been suffering from nausea abdominal pain over the past couple of weeks. As no one could contact with the patient the daughter had communicated with EMS and on arrival the patient was found to be unresponsive. She was intubated there and was brought to the emergency department. In the emergency department the patient was hypotensive, and was found to be in in severe anion gap metabolic acidosis with blood sugar level of 724. The initial anion gap was 35 with minimal metabolic alkalosis. The patient has elevated lipase of 5681 without any increase in liver enzymes or bilirubin level. The patient also has acute kidney injury. Elevated lactic acid therefore which has normalized. The patient has received IV fluids with normal saline, bicarb drip and an insulin drip. Her initial blood gas showed a pH of 6.96, PCO2 of 23 and PO2 of 491 on 100% oxygen. The latest blood gas showed improvement of pH of 7.1, PCO2 of 32 and PO2 of 159 on 40% oxygen. There is no oxygenation problem. A chest x-ray did not reveal any significant abnormalities. The CT scan of the head did not reveal any intracranial abnormalities. Patient had received a CT scan of the chest abdomen pelvis with contrast. There is no pulmonary embolism. The patient has mild emphysematous changes. Bilateral subsegmental atelectasis. There is no evidence of consolidation. On abdomen pelvis CT scan there is no evidence of biliary stone. The patient has stranding in the upper abdomen in the peripancreatic area consistent with pancreatitis. There is moderate gastric dilation. I have performed a bedside ultrasound. The patient has normal IVC. The cardiac motion is normal. There is no evidence of abnormal cardiac function. The ejection fraction is good. No significant valvular abnormalities was identified. Review of Systems Narrative: Unable to assess Meds/Allergies Home Medications and Allergies Home Medications Medication Instructions Recorded Confirmed Last Taken Type aspirin 81 mg PO DAILY@04/26/20 04/26/20 04/25/20 History glipizide 5 mg PO DAILY@04/26/20 04/26/20 04/25/20 History lisinopril 20 mg PO DAILY@04/26/20 04/26/20 04/25/20 History lovastatin 20 mg PO DAILY@169904/26/20 04/26/20 04/25/20 History metformin 500 mg PO BID@04/26/20 04/26/20 04/25/20 History metoprolol tartrate 50 mg PO BID@,169904/26/20 04/26/20 04/25/20 History sodium chloride 1 g PO DAILY@04/26/20 04/26/20 04/25/20 History Allergies Allergy/AdvReac Type Severity Reaction Status Date / Time No Known Allergies Allergy Verified 02/29/20 10:19 Current Medications Current Medications Generic Name Dose Route Start Last Admin Trade Name Freq PRN Reason Stop Dose Admin Famotidine 20 mg 04/26/20 18:30 04/26/20 17:49 Famotidine 20 Mg/2 Ml Inj IVP 20 mg Q12H FRANK Administration Norepinephrine Bitartrate 4 mg 254 mls @ 0 mls/hr 04/26/20 14:15 04/26/20 17:13 / Dextrose IV 8 mcg/min .Q0M FRANK 30.5 mls/hr Titration Protocol Per Protocol Insulin Human Regular 250 unit 252.5 mls @ 0 mls/hr 04/26/20 14:30 04/26/20 15:26 / Sodium Chloride IV 8 unit/hr .Q0M FRANK 8.1 mls/hr Titration Protocol Per Protocol Lidocaine HCl 5 ml/ Potassium 105 mls @ 25 mls/hr 04/26/20 14:29 04/26/20 14:52 Chloride IV 04/26/20 18:40 25 mls/hr ONCE ONE Administration Sodium Bicarbonate 150 meq/ 1,150 mls @ 100 mls/hr 04/26/20 15:00 04/26/20 15:17 Dextrose IV 100 mls/hr .[id number] FRANK Administration Iodixanol 0 ml 04/26/20 18:06 04/26/20 18:06 Iodixanol 320 Mg/Ml 100ml Btl IV 04/26/20 18:07 95 ml ONCE ONE Administration PFSH Acute PFSH: Medical History (Updated 04/26/20 @ 18:42 by Eric Fink MD) Diabetes Hyperlipidemia Hypertension Surgical History History of left hip replacement (~2014) Family History Daughter Diabetes Denies family history of Anesthesia complication Bleeding disorder Social History Smoking and tobacco status: never smoked Alcohol intake: never Adopted: No Caregiver/support person: Yes Lives independently: Yes Housing: House Marital status: Single Current occupational exposures/hazards: No Pets and animals: Yes Pets & animals: cat(s) History of recent travel: No Sexually active: No Current gender identity: Female Mackenzie/Episcopalian: Gnosticist Special mackenzie needs: No Financial difficulty paying for basics: Not Applicable Vitals/I&O/Wt Last Vital Signs Temp 90.0 F L 04/26/20 16:27 Pulse 166 H 04/26/20 16:55 Resp 18 04/26/20 17:27 BP 100/68 04/26/20 16:55 Pulse Ox 100 04/26/20 16:55 04/26/20 04/26/20 04/26/20 06:59 14:59 22:59 Intake Total 2.027 / 2.027 2132.929 / 2134.956 Balance 2.027 / 2.027 2132.929 / 2134.956 Weight last 48 hrs Weight 135 lb Physical Exam Narrative: EXAM NARRATIVE: General: Patient is intubated not responsive, spontaneously moving her face Neck: No JVD Respiratory: Auscultation: Bilateral clear to auscultation both anterior and posteriorly, minimal crackles at the bases, no wheezing or rhonchi Cardiovascular: Tachycardia, S1-S2, no murmur, no peripheral edema Abdomen: Soft, visible discomfort with palpation of the upper abdomen, positive but sluggish bowel sound Skin: No rash Neuro: Unable to assess Urinary Catheter Management^: Ferris: Cath Placed During This Visit: yes Urinary Catheter Date of Insertion: 04/26/20 Urinary Catheter Time of Insertion: 14:40 Data Micro: Micro: Microbiology 04/26/20 14:15 Blood Culture - Pr eliminary Blood SPECIMEN [facility] 04/26/20 14:00 Blood Culture - Pr eliminary Blood SPECIMEN [facility] Other Data: Attestation for Other Data: I personally reviewed and interpreted the following: Other data: I have reviewed the patient laboratory, microbiologic and radiologic data. See HPI for detail A&P Assessment and plan (1) Acute pancreatitis: The patient has elevated lipase level as well as radiologic evidence of pancreatitis. The etiology of the pancreatitis is unclear. The patient most likely developed diabetic ketoacidosis in the setting of pancreatitis. Currently the patient is on broad-spectrum antibiotic. She is also getting volume resuscitated. Status: Acute (2) Diabetic ketoacidosis: Patient is on insulin drip. The patient has hypernatremia is corrected for hyperglycemia. The maintenance fluid will be half NS. When the blood sugar drops below 250 the patient can be switched to D5 half NS. Every 4 hours BMP, mag Phos level. The potassium level needs to be greater than 4 and a phosphate level more than 2. The patient's acidosis is getting better. The bicarbonate drip can be discontinued now I predict the bicarbonate level to get better with the insulin drip. Status: Acute (3) Endotracheally intubated: The patient is currently intubated and mechanically ventilated. This is secondary to her mental status. There is no evidence of hypoxic or hypercapnic respiratory failure. The patient has bilateral lower lobe atelectasis. There is no obvious evidence for aspiration pneumonia leading to consolidation however there is always a possibility to develop once the patient is hydrated. Status: Acute (4) Septic shock: The patient is requiring small dose of Levophed currently. Status: Acute (5) Unresponsive state: The patient does not have any CT evidence of intracranial abnormalities. I believe the altered mental status was likely secondary to severe acidosis from pancreatitis. I expect this to get better with improvement of metabolic status. Status: Acute (6) FRANKLIN (acute kidney injury): Patient is suffering from prerenal FRANKLIN. Patient also received IV contrast. We will continue with supportive therapy. We will closely manage volume status. Status: Acute Coding Level of Care Code Acute Managed Services Sales Consultant for g Fwd Diagnoses Acute pancreatitis K85.90 Diabetic ketoacidosis E11.10 Endotracheally intubated Z97.8 Septic shock A41.9; R65.21 Unresponsive state R41.89 FRANKLIN (acute kidney injury) N17.9
[2020-04-26 18:33] LABS: Glucose Point of Care 541 mg/dL (70-110)
[2020-04-26] MEDS: propofol 1,000 MG/100 ML INJ 9.2 MG IV (18:46)
--- NOTE | 2020-04-26 19:20 | PC.NURSE ---
Philomena Mclaughlin (Daughter) Home:[phone] Marilyn Martinez (Daughter)
--- NOTE | 2020-04-26 19:36 | PC.NURSE ---
Family notified of patient's status and plan of care, numbers obtained and noted in nurse's notes
--- NOTE | 2020-04-26 19:37 | PC.NURSE ---
Patient placed on valentino hugger due to core temp of 93.4F. Esophageal probe placed for continuous temp monitoring
--- NOTE | 2020-04-26 19:50 | ECG_ITS ---
[facility] Test Date: 2020-04-26 Pat Name: Sheri Szymanski Department: Room: ICU04 Gender: Female Endocrinology Physician: : [id number] Requested By: Kemal Herring Order Number: [id number] [place] MD: Tristan Polanco M.D. Measurements Intervals [place] Rate: 121 P: 61 NH: 126 QRS: -51 QRSD: 85 T: 66 QT: 361 QTc: 514 Interpretive Statements SINUS TACHYCARDIA LEFT ANTERIOR FASCICULAR BLOCK [QRS AXIS <= -45, QR IN I, RS IN II] SEPTAL MYOCARDIAL INFARCTION [40+ ms Q WAVE IN V1/V2], PROBABLY OLD MODERATE T-WAVE ABNORMALITY, CONSIDER LATERAL ISCHEMIA [-0.1+ mV T WAVE IN I/aVL/V5/V6] Compared to ECG 04/26/2020 16:20:25 Left anterior fascicular block now present T-wave abnormality now present Possible ischemia now present Atrial fibrillation no longer present Left-axis deviation no longer present Myocardial infarct finding still present Electronically Signed On 04-28-2020 19:28:34 REPORTING COORDINATOR by Tristan Polanco M.D. [id number]
[2020-04-26] MEDS: budesonide 0.5 mg/2 mL Neb INHALATION (20:12)
[2020-04-26 20:29] LABS: Blood Urea Nitrogen 53 mg/dL (8-23); Calcium 7.3 mg/dL (8.5-10.5); Chloride 107 mmol/L (98-107); Osmolality Calculated 333 mOsm/kg (285-295); Sodium 142 mmol/L (136-145)
[2020-04-26 20:41] LABS: Carbon Dioxide 9 mmol/L (22-29); Glucose 549 mg/dL (65-115)
[2020-04-26 20:42] LABS: Anion Gap 30.1 (5-19); Potassium 4.1 mmol/L (3.5-5.1); Troponin 5 6HR 143.1 ng/L (0-10); Troponin 5 6HR Delta -24.9 ng/L (0-12)
[2020-04-26] MEDS: sodium chloride 0.9% 500 ML 999 ML IV (21:10)
[2020-04-26] MEDS: sodium chlor 0.45% +KCl 20 mEq 20 MEQ/1,000 ML BAG 150 MEQ IV (21:24)
[2020-04-27] VITALS (88 sets, daily range): BP systolic 87–122; BP diastolic 50–67; PULSE 114–140; RESP 13–27; TEMP 34.9–37.2; O2SAT 92–100; BMI 21.7
[2020-04-27 00:18] LABS: Hematocrit 39.2 % (37.0-47.0); Hemoglobin 13.2 g/dL (11.5-15.3)
[2020-04-27 00:38] LABS: Anion Gap 20.2 (5-19); Blood Urea Nitrogen 54 mg/dL (8-23); Calcium 7.6 mg/dL (8.5-10.5); Carbon Dioxide 18 mmol/L (22-29); Chloride 111 mmol/L (98-107); Glucose 317 mg/dL (65-115); Magnesium 1.3 mg/dL (1.7-2.3); Osmolality Calculated 329 mOsm/kg (285-295); Potassium 3.2 mmol/L (3.5-5.1); Sodium 146 mmol/L (136-145)
[2020-04-27 00:47] LABS: Glucose Point of Care 299 mg/dL (70-110)
[2020-04-27 00:47] LABS: Glucose Point of Care 353 mg/dL (70-110)
[2020-04-27 00:59] LABS: Phosphorus 0.4 mg/dL (2.5-4.5)
[2020-04-27] MEDS: magnesium sulfate premix 2 GM/50 ML PIGGYBACK IV (02:17)
[2020-04-27 03:00] LABS: Glucose Point of Care 545 mg/dL (70-110)
[2020-04-27 03:00] LABS: Glucose Point of Care 517 mg/dL (70-110)
[2020-04-27 03:00] LABS: Glucose Point of Care 495 mg/dL (70-110)
[2020-04-27 03:00] LABS: Glucose Point of Care 549 mg/dL (70-110)
[2020-04-27 03:00] LABS: Glucose Point of Care 406 mg/dL (70-110)
[2020-04-27] MEDS: propofol 1,000 MG/100 ML INJ 7.3 MG IV (03:58)
[2020-04-27] MEDS: piperacillin-tazobactam 3.375 GM in sodium chloride 0.9% (plus) 50 ML IV ×2 (04:22→17:22)
[2020-04-27] MEDS: D5-NS 0.45% + KCL 20 mEq 20 MEQ/1,000 ML BAG 75 MEQ IV ×3 (04:22→21:18)
[2020-04-27 04:56] LABS: ABG PCO2 32.1 mmHg (35-45); ABG PH Result 7.34 (7.35-7.45); Arterial Blood Gas Hematocrit 41.2 % (37-47); Base Excess ABG -7.5 mmol/L (-2.0-2.0); Blood Gas Sample Type Arterial; Carboxyhemoglobin 0.5 %THgb (0.4-20.1); HCO3 ABG 17.2 mmol/L (22-26); Ionized Calcium Level - ABG 1.1 mmol/L (1.1-1.4); Methemoglobin 0.9 % (0.4-1.5); Oxygen Saturation ABG 99.4; Potassium Level - ABG 3.9 mmol/L (3.5-5.0); Total Hemoglobin 13.4 g/dL (12-16)
[2020-04-27 05:01] LABS: Blood Gas Operator Identificat JB
[2020-04-27 05:20] LABS: Basophils % 0.1 %; Hematocrit 37.8 % (37.0-47.0); Hemoglobin 12.9 g/dL (11.5-15.3); Lymphocytes # 0.6 10^3/uL (0.8-4.8); Lymphocytes % 8.1 %; Mean Corpuscular HGB Conc 34.1 g/dL (30.0-36.0); Mean Corpuscular Hemoglobin 32.3 pg (28.0-34.0); Mean Corpuscular Volume 94.7 fL (81-99); Mean Platelet Volume 11.8 fL (7.4-10.4); Monocytes # 0.9 10^3/uL (0.2-0.9); Monocytes % 12.7 %; Neutrophils # 5.19 10^3/uL (1.8-7.7); Neutrophils % 76.6 %; Nucleated Red Blood Cells % 0 %; Platelet Count 146 10^3/cmm (130-400); Red Blood Count 3.99 10^6/uL (4.1-5.3); Red Cell Distribution Width 13.2 % (12.1-15.1); White Blood Count 6.8 10^3/uL (4.0-10.0)
[2020-04-27 05:34] LABS: Alanine Aminotransferase 17 U/L (0-33); Albumin Level 2.9 g/dL (3.5-5.2); Alkaline Phosphatase 45 IU/L (35-105); Anion Gap 17.8 (5-19); Aspartate Amino Transferase 37 U/L (0-32); Blood Urea Nitrogen 54 mg/dL (8-23); Calcium 7.4 mg/dL (8.5-10.5); Carbon Dioxide 19 mmol/L (22-29); Chloride 113 mmol/L (98-107); Glucose 120 mg/dL (65-115); Magnesium 2.8 mg/dL (1.7-2.3); Osmolality Calculated 318 mOsm/kg (285-295); Potassium 3.8 mmol/L (3.5-5.1); Sodium 146 mmol/L (136-145); Total Bilirubin 0.3 mg/dL (0.15-1.2); Total Protein 4.9 g/dL (6.6-8.7)
[2020-04-27 05:34] LABS: Alveolar-Arterial Oxygen Gradi 5.1 mmHg (5-10); Blood Gas Sample Site Brachial, left; Blood Gas Tidal Volume 0.35; Oxygen Device VENT
[2020-04-27 05:37] LABS: Lactate (Lactic Acid level) 3.3 mmol/L (0.5-2.2)
[2020-04-27] MEDS: insulin regular-human 250 UNIT in sodium chloride 0.9% 250 ML 5.7 UNIT IV (05:38)
--- NOTE | 2020-04-27 06:00 | XR_ITS ---
WS: [id number] Portable AP semiupright chest, 04/27/2020 Clinical Data: covid Comparison: Portable chest, 04/26/2020 Findings: The right subclavian catheter, endotracheal tube, nasogastric tube and monitor leads remain the same. The heart is normal. The aortic arch and descending aorta show tortuosity. No pneumonia or pneumothorax is seen. XR/XR chest 1V portable [id number] Impression: 1. No change in position of endotracheal tube and right subclavian catheter. 2. Insertion of nasogastric tube.
[2020-04-27 06:01] LABS: Creatine Phosphokinase 1534 U/L (26-192); Phosphorus 0.8 mg/dL (2.5-4.5)
[2020-04-27 06:08] LABS: Glucose Point of Care 211 mg/dL (70-110)
[2020-04-27 06:08] LABS: Glucose Point of Care 147 mg/dL (70-110)
[2020-04-27 06:08] LABS: Glucose Point of Care 112 mg/dL (70-110)
[2020-04-27 06:08] LABS: Glucose Point of Care 134 mg/dL (70-110)
[2020-04-27 06:08] LABS: Glucose Point of Care 246 mg/dL (70-110)
[2020-04-27 06:08] LABS: Glucose Point of Care 213 mg/dL (70-110)
[2020-04-27 06:08] LABS: Glucose Point of Care 123 mg/dL (70-110)
[2020-04-27 06:08] LABS: Glucose Point of Care 153 mg/dL (70-110)
[2020-04-27] MEDS: famotidine 20 mg/2 mL INJ IVP (06:12)
[2020-04-27 07:29] LABS: Glucose Point of Care 149 mg/dL (70-110)
[2020-04-27] MEDS: budesonide 0.5 mg/2 mL Neb INHALATION ×2 (08:50→20:40)
--- NOTE | 2020-04-27 09:00 | P.PN_ITS ---
Subjective Subjective: Interval history: No events overnight. Patient has remained stable. On examination heart rate is 110 bpm with blood pressure of 115/60 mmHg on mechanical ventilation saturating 98% T-max overall overnight 99 Fahrenheit with the lowest temperature of 94.8 Fahrenheit. On examination patient is on sedation with propofol and fentanyl, responding to physical stimulus, on insulin drip, Levophed of 4. Vitals/I&O/Wt Last Vital Signs Temp 99 F 04/27/20 06:00 Pulse 121 H 04/27/20 08:52 Resp 18 04/27/20 08:50 BP 101/54 04/27/20 06:15 Pulse Ox 98 04/27/20 08:50 04/26/20 04/27/20 04/27/20 22:59 06:59 14:59 Intake Total 2551.179 / 2553.206 192.428 / 2745.634 2967 / 2967 Output Total 700 / 700 625 / 1325 Balance 1851.179 / 1853.206 -432.572 / 4721.527 3206 / 2967 Weight last 48 hrs Weight 61.235 kg Weight 61.235 kg Physical Exam Narrative: EXAM NARRATIVE: General: Sedated, intubated, minimal response with sedation on physical touch HEENT: PERRLA, Chest: Normal vesicular breath sounds, no added sounds, equal good air entry bilaterally CVS: S1-S2 regular frequent VPCs, no murmurs, tachycardia, no gallops, no rubs Abdomen: Soft, nontender, no organomegaly, bowel sounds present but sluggish Neuro: Sedated Extremities: Bilateral extremities no cyanosis, peripheral pulses palpable, no swelling Urinary Catheter Management^: Ferris: Cath Placed During This Visit: yes Reason for Continuing Indwelling Catheter: Accurate Measurement of Urinary Output in Critically Ill Patients Urinary Catheter Date of Insertion: 04/26/20 Urinary Catheter Time of Insertion: 14:40 Data : 04/27/20 04:15 04/27/20 09:26 Micro: Microbiology 04/27/20 05:10 Legionella Urinary Antigen - Final Urine Catheterized 04/26/20 14:15 Blood Culture - Preliminary Blood SPECIMEN COLLECTED 04/26/20 14:00 Blood Culture - Preliminary Blood SPECIMEN COLLECTED A&P Assessment and plan (1) Septic shock: Status: Acute (2) Unresponsive state: Status: Acute (3) Endotracheally intubated: Status: Acute (4) Metabolic acidosis: Status: Acute (5) Diabetic keto-acidosis: Status: Acute (6) FRANKLIN (acute kidney injury): Status: Acute (7) Elevated troponin: Status: Acute Additional A&P Information 84-year-old female found unresponsive at home for unknown time found to be hypotensive, intubated in the field with metabolic acidosis, DKA because of acute pancreatitis seen on CT scan. Shock: Most likely a combination of profound inflammation vasoplegia along with hypovolemia in setting of acute pancreatitis. Continue with IV fluids while monitoring for fluid overload. Wean off Levophed keeping mean arterial pressure over 65 mmHg. For now increase fluid with D5 half NS to 125 cc/h. Will monitor urine output and if declining can continue fluids with small dose of Lasix. Endotracheally intubated: Intubated yesterday by EMS due to unresponsive state to protect the airway. Metabolic acidosis has resolved. Patient is responding minimally while on sedation. Continue sedation today with fentanyl and propofol. Sedation vacation and possible extubation in next 24 hours. Continue with DuoNebs every 4 hours, budesonide twice daily. Diabetic ketoacidosis: Resolving. Anion gap has closed. Patient continues to have non-anion gap acidosis at present. For now continue the insulin drip keeping blood sugars between 200-50. Most likely can transition over to insulin sliding scale next 24 hours. Metabolic acidosis: Non-anion gap. Continue with IV fluids as above. FRANKLIN: Because of dehydration, shock. Continue to monitor electrolytes and replete accordingly. Replete phosphorus with potassium phosphate 30 mEq twice daily along with 1 g of IV calcium. Add potassium to IV fluids. Repeat BMP and ABG in afternoon. Continue vancomycin and Zosyn both renally dosed. We will continue to follow culture results. For now we will plan to do antibiotics for next 5 days. If MRSA negative can discontinue vancomycin at that time. Elevated troponins: Troponin trending down yesterday. EKG has remained stable. Most likely secondary to demand ischemia. We will continue to monitor. Repeat troponin today morning. CODE STATUS: Discussed with daughters at bedside. Patient does not have any designated DPOA on file. Next of kin for the patient would be both daughters and they are agreeable to make medical decisions for patient. Full code for now. Pepcid for PD prophylaxis. Heparin 5000 every 12 for DVT prophylaxis N.p.o. Severely guarded prognosis. Care in detail with patient's daughter. Discussed that patient is improving but still not out of the story as she is intubated and on pressors. Also discussed that etiology of her problem is most likely from acute pancreatitis. Attestations Medical Necessity Statement*: Partial hospitalization for management of shock, non-anion gap acidosis, DKA, acute kidney injury, endotracheally intubated because of acute pancreatitis as she was found in an unresponsive state and patient remains critically ill. Critical Care Time: The high probability of a clinically significant, sudden or life threatening deterioration of the patient's renal, cardiovascular, endocrine system(s) required my full and direct attention, intervention and personal management. The critical care time is as shown. This time is in addition to time spent performing any reported procedures but includes the fo llowing: [x] Data and vital sign review and interpretation [x] Patient assessment, examination and intervention [x] Documentation [x] Medication orders and management Critical Care Time (min): 90 Coding Level of Care Code Acute Him Clerk for [facility] Fwd Diagnoses Septic shock A41.9; R65.21 Unresponsive state R41.89 Endotracheally intubated Z97.8 Metabolic acidosis E87.2 Diabetic keto-acidosis E11.10 FRANKLIN (acute kidney injury) N17.9 Elevated troponin R77.8
[2020-04-27 10:06] LABS: Glucose Point of Care 126 mg/dL (70-110)
[2020-04-27] MEDS: pantoprazole 40 mg SDV IVP ×2 (10:12→20:24)
[2020-04-27 10:17] LABS: Procalcitonin 3.49 ng/mL (0-0.5)
[2020-04-27 10:29] LABS: Blood Urea Nitrogen 58 mg/dL (8-23); Calcium 7.3 mg/dL (8.5-10.5); Carbon Dioxide 16 mmol/L (22-29); Chloride 112 mmol/L (98-107); Glucose 115 mg/dL (65-115); Osmolality Calculated 315 mOsm/kg (285-295); Sodium 144 mmol/L (136-145)
[2020-04-27 10:37] LABS: Anion Gap 20.6 (5-19); Potassium 4.6 mmol/L (3.5-5.1)
--- NOTE | 2020-04-27 12:45 | P.PN_ITS ---
Subjective Subjective: Interval history: Patient was seen and examined this morning. She is certainly more awake and able to answer very simple questions by nodding her head. Blood gas this morning revealed normalization of the pH. Metabolic work-up is significantly improved. Blood sugar has also come down with the insulin drip. Anion gap metabolic acidosis the patient has converted to non-anion gap metabolic acidosis at this time. Urine output has been good. The patient was visibly grimacing with palpation of her abdomen. The patient is on control mode of ventilation. Chest x-ray this morning revealed no infiltrate. Medications: Reviewed: Yes Vitals/I&O/Wt Last Vital Signs Temp 97.8 F 04/27/20 07:15 Pulse 129 H 04/27/20 09:15 Resp 13 04/27/20 11:35 BP 122/67 04/27/20 09:15 Pulse Ox 98 04/27/20 08:50 04/26/20 04/27/20 04/27/20 22:59 06:59 14:59 Intake Total 2551.179 / 2553.206 192.428 / 2745.634 3077 / 3077 Output Total 700 / 700 625 / 1325 825 / 825 Balance 1851.179 / 1853.206 -432.572 / 3167.538 2218 / 2252 Weight last 48 hrs Weight 135 lb Weight 135 lb Physical Exam Narrative: EXAM NARRATIVE: General: Patient is intubated, sedated but arousable and able to answer very simple questions by nodding her head Neck: No JVD Respiratory: Auscultation: Bilateral clear to auscultation both anterior and posteriorly, minimal crackles at the bases, no wheezing or rhonchi Cardiovascular: Regular rate and rhythm, S1-S2, no murmur, no peripheral edema Abdomen: Soft, visible discomfort with palpation of the upper abdomen, positive but sluggish bowel sound Skin: No rash Neuro: Arousable and nodding to simple questions Urinary Catheter Management^: Ferris: Cath Placed During This Visit: yes Reason for Continuing Indwelling Catheter: Accurate Measurement of Urinary Output in Critically Ill Patients Urinary Catheter Date of Insertion: 04/26/20 Urinary Catheter Time of Insertion: 14:40 Data : 04/27/20 04:15 04/27/20 09:26 Micro: Microbiology 04/27/20 05:10 Legionella Urinary Antigen - Final Urine Catheterized 04/26/20 14:15 Blood Culture - Preliminary Blood SPECIMEN COLLECTED 04/26/20 14:00 Blood Culture - Preliminary Blood SPECIMEN COLLECTED A&P Assessment and plan (1) Acute pancreatitis: The patient has acute pancreatitis. The etiology of the pancreatitis is unclear. It is possible that the patient had a gallstone that has passed. Her liver enzymes are normal. There is no evidence of her having necrotizing pancreatitis. Her white count has come down, there is no fever. The patient is broadly covered with antibiotic. One of the challenges is going to be management of the pain. She will likely n eed opioid medications. We will continue with judicious fluid management. Intra-abdominal oozing in the setting of severe inflammation from pancreatitis may lead to abdominal compartment syndrome. Fortunately, so far her urine output has been good and there is no evidence of that. Status: Acute (2) Diabetic ketoacidosis: The anion gap metabolic acidosis from DKA has improved. Now the patient has non-anion gap metabolic acidosis which is expected with resolution of the DKA. This is likely to get better within the next 12 to 24 hours. We should be able to switch her from insulin drip to at least long-acting insulin in the near future. Status: Acute (3) Endotracheally intubated: The acid-base status has improved significantly. Will come down on the sedation and put the patient on pressure support ventilation. The patient will likely be ready for extubation later today or tomorrow. If necessary, she can be extubated on a very small dose of fentanyl to control her abdominal pain. Status: Acute (4) Septic shock: The shock was likely secondary to combination of profound inflammation and vasoplegia in the setting of pancreatitis and profound volume depletion. The patient is on a minimal dose of Levophed and you should be able to stop it in the near future. Status: Acute (5) Unresponsive state: Her mental status is improving rapidly. The patient will likely be completely with it very soon once the sedation is titrated down. Status: Acute (6) FRANKLIN (acute kidney injury): The patient likely had FRANKLIN in the setting of volume depletion. She also received contrast which can affect kidney function and usually stable within 48 hours. Fortunately, the patient has good urine output. We will continue to monitor this closely. Status: Acute Attestations Medical Necessity Statement*: Will defer to the primary team Coding Level of Care Code Acute Financial Officer for [employer] Fwd Diagnoses Acute pancreatitis K85.90 Diabetic ketoacidosis E11.10 Endotracheally intubated Z97.8 Septic shock A41.9; R65.21 Unresponsive state R41.89 FRANKLIN (acute kidney injury) N17.9
--- NOTE | 2020-04-27 13:29 | PC.CHAP ---
Pastoral Care Encounter/Spiritual Assessment Type of Contact [] Declined clinical material handler visit [] Patient/Family/Request visit [] Outpatient visit [] Follow-up visit [] Physician referral [] Code/Alert [xx] Routine visit [] Staff referral [] Actively dying [] Patient sleeping [] Family support [] [] Out of room [] Palliative care [] [] Receiving care in room [] Pre-surgical visit [] Trauma [] Long length of stay [xx] ICU visit [] Other: Relational/Emotional Strength [] Patient feels connected with others/family/visitors/staff [] Distress [] Loneliness/isolation [] Abandonment Spirituality of Patient [] Person of Mackenzie [] Attends [employer] of their Mackenzie [] Believes in Prayer [] Reads Bible or Synagogue materials [] There are Spiritual issues to be addressed [employer] Supervisor Interventions [] Prayer [] Active listening [] Non-anxious presence [] Spiritual/emotional support [] Crisis/trauma care [] Spiritual counseling [] Bereavement support [] Provided bereavement packet [] Provided Bible/devotional materials [] Provided toy/stuffed animal, coloring book to patient or family member [] Provided Communion [] Anointing/[place] [] Salvation [] Completed spiritual assessment [] Other: Impact on Illness or Injury [] Angry [] Fearful [] Anxious [] Often cries [] Exhaustion [] Unable to work [] Unable to attend buddhist [] Unable to walk/stand [] Unable to read [] Unable to drive [] Unable to eat/drink [] Unable to sleep [] Unable to be with family [] Patient intubated [xx] Other: Patient on ventilator. Summary R[employer] And C[employer] Supervisor denied access as patient on ventilator. Ramp And Cargo Supervisor prayed outside of patient's room. Time spent with patient 4 minutes
[2020-04-27 16:35] LABS: Lactate (Lactic Acid level) 2.1 mmol/L (0.5-2.2)
[2020-04-27 16:40] LABS: ABG PCO2 25.5 mmHg (35-45); ABG PH Result 7.34 (7.35-7.45); Alveolar-Arterial Oxygen Gradi 6.8 mmHg (5-10); Arterial Blood Gas Hematocrit 41.3 % (37-47); Base Excess ABG -10.2 mmol/L (-2.0-2.0); Blood Gas Allen Test Pos; Blood Gas Operator Identificat CAK; Blood Gas Sample Site Radial, left; Blood Gas Sample Type Arterial; Carboxyhemoglobin 0.6 %THgb (0.4-20.1); HCO3 ABG 13.8 mmol/L (22-26); HGB O2 Sat 97.8 % (95-100); Oxygen Device VENT; Oxygen Saturation ABG 99.3; Potassium Level - ABG 6.1 mmol/L (3.5-5.0); Total Hemoglobin 13.5 g/dL (12-16)
[2020-04-27 16:47] LABS: Troponin T (5th) Once 178 ng/L (0-10)
[2020-04-27] MEDS: FUROsemide 10 mg/mL SDV 4mL 40 MG IVP (17:21)
[2020-04-27] MEDS: heparin 5,000 unit/mL INJ 1 mL 5000 UNIT SUBCUT (17:22)
[2020-04-27 18:11] LABS: Glucose Point of Care 144 mg/dL (70-110)
[2020-04-27 18:11] LABS: Glucose Point of Care 315 mg/dL (70-110)
[2020-04-27 18:11] LABS: Glucose Point of Care 267 mg/dL (70-110)
[2020-04-27 18:11] LABS: Glucose Point of Care 196 mg/dL (70-110)
[2020-04-27 18:11] LABS: Glucose Point of Care 133 mg/dL (70-110)
[2020-04-27 18:11] LABS: Glucose Point of Care 256 mg/dL (70-110)
[2020-04-27 18:11] LABS: Glucose Point of Care 204 mg/dL (70-110)
[2020-04-27 18:11] LABS: Glucose Point of Care 265 mg/dL (70-110)
--- NOTE | 2020-04-27 19:00 | PC.NURSE ---
Addendum entered by Julieta Umana RN 05/04/20 03:38: Witnessed 75mL waste of propofol with Tanner Martins RN Original Note: Waste of propofol 75 ml, Witnessed via Salud Umana RN.
--- NOTE | 2020-04-27 21:18 | PC.NURSE ---
due to rate changes throughout the day, medication is not timed accordingly. previous infusion almost complete
[2020-04-27 23:18] LABS: Glucose Point of Care 254 mg/dL (70-110)
[2020-04-27 23:18] LABS: Glucose Point of Care 264 mg/dL (70-110)
[2020-04-27 23:18] LABS: Glucose Point of Care 243 mg/dL (70-110)
[2020-04-27 23:18] LABS: Glucose Point of Care 267 mg/dL (70-110)
[2020-04-27 23:18] LABS: Glucose Point of Care 320 mg/dL (70-110)
[2020-04-28] VITALS (38 sets, daily range): BP systolic 88–124; BP diastolic 53–79; PULSE 113–138; RESP 15–36; TEMP 36.3–37.2; O2SAT 90–99; BMI 21.7
[2020-04-28 03:05] LABS: Glucose Point of Care 178 mg/dL (70-110)
[2020-04-28 03:05] LABS: Glucose Point of Care 193 mg/dL (70-110)
[2020-04-28 03:05] LABS: Glucose Point of Care 159 mg/dL (70-110)
[2020-04-28 03:05] LABS: Glucose Point of Care 192 mg/dL (70-110)
[2020-04-28 04:09] LABS: Glucose Point of Care 127 mg/dL (70-110)
[2020-04-28] MEDS: piperacillin-tazobactam 3.375 GM in sodium chloride 0.9% (plus) 50 ML IV ×2 (04:31→17:03)
[2020-04-28] MEDS: heparin 5,000 unit/mL INJ 1 mL 5000 UNIT SUBCUT (04:31)
[2020-04-28 04:33] LABS: ABG PCO2 25.5 mmHg (35-45); ABG PH Result 7.37 (7.35-7.45); Alveolar-Arterial Oxygen Gradi 6.3 mmHg (5-10); Arterial Blood Gas Hematocrit 38.7 % (37-47); Base Excess ABG -9.1 mmol/L (-2.0-2.0); Blood Gas Allen Test Pos; Blood Gas Operator Identificat JB; Blood Gas Sample Site Radial, right; Blood Gas Sample Type Arterial; Blood Gas Tidal Volume 0.35; Carboxyhemoglobin 0.4 %THgb (0.4-20.1); HCO3 ABG 14.6 mmol/L (22-26); HGB O2 Sat 98.6 % (95-100); Methemoglobin 0.3 % (0.4-1.5); Oxygen Device VENT; Oxygen Saturation ABG 99.3; Potassium Level - ABG 5.4 mmol/L (3.5-5.0); Total Hemoglobin 12.6 g/dL (12-16)
[2020-04-28 04:42] LABS: Basophils % 0.3 %; Eosinophils % 0.1 %; Hematocrit 35.4 % (37.0-47.0); Hemoglobin 12.1 g/dL (11.5-15.3); Lymphocytes # 0.6 10^3/uL (0.8-4.8); Lymphocytes % 5.1 %; Mean Corpuscular HGB Conc 34.2 g/dL (30.0-36.0); Mean Corpuscular Hemoglobin 32.1 pg (28.0-34.0); Mean Corpuscular Volume 93.9 fL (81-99); Mean Platelet Volume 11.9 fL (7.4-10.4); Monocytes # 1.2 10^3/uL (0.2-0.9); Monocytes % 9.6 %; Neutrophils # 9.97 10^3/uL (1.8-7.7); Neutrophils % 83.1 %; Nucleated Red Blood Cells % 0.3 %; Platelet Count 89 10^3/cmm (130-400); Red Blood Count 3.77 10^6/uL (4.1-5.3); Red Cell Distribution Width 14.2 % (12.1-15.1)
[2020-04-28 05:09] LABS: Alanine Aminotransferase 18 U/L (0-33); Albumin Level 2.7 g/dL (3.5-5.2); Alkaline Phosphatase 49 IU/L (35-105); Anion Gap 18.6 (5-19); Aspartate Amino Transferase 35 U/L (0-32); Blood Urea Nitrogen 62 mg/dL (8-23); Calcium 6.4 mg/dL (8.5-10.5); Carbon Dioxide 16 mmol/L (22-29); Chloride 112 mmol/L (98-107); Globulin 2.3 g/dL (1.3-4.6); Glucose 83 mg/dL (65-115); Magnesium 2.2 mg/dL (1.7-2.3); Osmolality Calculated 309 mOsm/kg (285-295); Phosphorus 3.9 mg/dL (2.5-4.5); Potassium 5.6 mmol/L (3.5-5.1); Sodium 141 mmol/L (136-145); Total Bilirubin 0.3 mg/dL (0.15-1.2)
[2020-04-28] MEDS: D5-NS 0.45% + KCL 20 mEq 20 MEQ/1,000 ML BAG 125 MEQ IV (05:53)
[2020-04-28] MEDS: budesonide 0.5 mg/2 mL Neb INHALATION ×2 (08:59→20:55)
[2020-04-28] MEDS: sodium chloride 0.45% 1,000 ML 75 ML IV (09:11)
[2020-04-28 09:24] LABS: Lactate (Lactic Acid level) 1.8 mmol/L (0.5-2.2)
--- NOTE | 2020-04-28 09:25 | XRR_ITS ---
PROCEDURE INFORMATION: Exam: XR Chest, 1 View Exam date and time: 04/28/2020 9:31 AM Age: 84 years old Clinical indication: Shortness of breath. Intubated. TECHNIQUE: Imaging protocol: XR of the chest Views: 1 view. COMPARISON: CR XR chest 1V portable [id number] 04/27/2020 6:25 AM FINDINGS: Tubes, catheters and devices: Endotracheal tube with tip 3.8 cm above the shelia. Nasogastric tube with tip at the GE junction. Recommend advancement. Lungs: There is retrocardiac consolidation at the left base that may reflect atelectasis or pneumonia. A mass at the posterior right base is better seen on CT. Pleural spaces: No pleural effusion. No pneumothorax. Heart/Mediastinum: The cardiac silhouette is unchanged. No gross evidence of pneumomediastinum. Vasculature: Right subclavian central venous access device with tip at the SVC/right atrial junction. Bones/joints: No gross fracture. XR/XR chest 1V portable [id number] IMPRESSION: 1. Nasogastric tube with tip at the GE junction. Recommend advancement. 2. Endotracheal tube with tip 3.8 cm above the shelia. 3. Right subclavian central venous access device with tip at the SVC/right atrial junction. 4. There is retrocardiac consolidation at the left base that may reflect atelectasis or pneumonia. 5. A mass at the posterior right base is better seen on CT.
--- NOTE | 2020-04-28 09:30 | ECG_ITS ---
[facility] Test Date: 2020-04-28 Pat Name: Sheri Szymanski Department: Room: ICU04 Gender: Female Anesthesiology Physician: : [id number] Requested By: Vaibhav Palma Order Number: [id number] [place] MD: Tristan Polanco M.D. Measurements Intervals [place] Rate: 121 P: IN: QRS: -54 QRSD: 75 T: 82 QT: 340 QTc: 484 Interpretive Statements Possible multifocal atrial tachycardia LOW QRS VOLTAGE IN PRECORDIAL LEADS [QRS DEFLECTION < 1.0 mV IN CHEST LEADS] POSSIBLE RIGHT VENTRICULAR CONDUCTION DELAY [RSR (QR) IN V1/V2] LEFT ANTERIOR FASCICULAR BLOCK [QRS AXIS <= -45, QR IN I, RS IN II] POSSIBLE ANTERIOR MYOCARDIAL INFARCTION [30 ms Q WAVE IN V3/V4, OR R < 0.2 mV IN V4], OF INDETERMINATE AGE Compared to ECG 04/26/2020 21:29:58 Ventricular premature complex(es) now present Aberrant conduction of supraventricular beat(s) now present Low QRS voltage now present Sinus tachycardia no longer present.T-wave abnormality no longer present Possible ischemia no longer present.Myocardial infarct finding still present Electronically Signed On 04-28-2020 19:24:47 [employer]NAGER [employer] by Tristan Polanco M.D. [id number]
--- NOTE | 2020-04-28 09:31 | PM.PN ---
Subjective Subjective: Interval history: No acute events overnight. Patient has remained hemodynamically stable. Patient seen multiple times today. Patient has been kept off sedation to monitor for brain functions. She is on minimal pressor support and off insulin drip. She is only on fentanyl of 1, she is awake but lethargic and drowsy. She is also on Levophed of 2 with mean arterial pressure of 71. Patient was kept on pressure support for over 5 hours today with plan for possible extubation but as she continued to remain lethargic she is put back on full support. Patient has remained afebrile with T-max in last 24-hour 99 with mean arterial pressure mostly over 70 and heart rate running as high as 110 to 120 bpm. Patient had a good urine response to IV 40 mg Lasix today. Medications: Reviewed: Yes Vitals/I&O/Wt Last Vital Signs Temp 98.9 F 04/28/20 04:23 Pulse 119 H 04/28/20 09:01 Resp 20 H 04/28/20 08:59 BP 88/62 04/28/20 04:00 Pulse Ox 93 04/28/20 08:59 04/27/20 04/28/20 04/28/20 22:59 06:59 14:59 Intake Total 864.728 / 4987.395 1146.392 / 6133.787 280.638 / 280.638 Output Total 250 / 1075 325 / 1400 Balance 614.728 / 3912.395 821.392 / 4733.787 280.638 / 280.638 Weight last 48 hrs Weight 61.235 kg Weight 61.235 kg Weight 61.235 kg Physical Exam Narrative: EXAM NARRATIVE: General: Sedated but arousable to physical stimulus. Lethargic. HEENT: PERRLA, Chest: Normal vesicular breath sounds, no added sounds, equal good air entry bilaterally CVS: S1-S2 regular frequent VPCs, no murmurs, tachycardia, no gallops, no rubs Abdomen: Soft, nontender, no organomegaly, bowel sounds present but sluggish Neuro: Sedated but arousable not following simple commands Extremities: Bilateral extremities no cyanosis, peripheral pulses palpable, no swelling Urinary Catheter Management^: [place]: Cath Placed During This Visit: yes Reason for Continuing Indwelling Catheter: Accurate Measurement of Urinary Output in Critically Ill Patients Urinary Catheter Date of Insertion: 04/26/20 Urinary Catheter Time of Insertion: 14:40 Data : 04/28/20 04:00 04/28/20 04:00 Other Labs: Pertinent Labs During Stay 04/26/20 04/26/20 04/26/20 14:00 14:00 16:20 Lactic Acid (Sepsis) 1.8 Iron TIBC % Saturation Creatine Kinase 128 Troponin T Gen 5 ng/L NT-Pro-B Natriuret Pep Lipase 5681 H Procalcitonin 8.24 H TSH Serum Ketones Positive H 04/26/20 04/26/20 04/27/20 16:30 16:30 04:15 Lactic Acid (Sepsis) Iron 41 TIBC 165 % Saturation 24.8 Creatine Kinase 1534 H* D Troponin T Gen 5 ng/L NT-Pro-B Natriuret Pep 1972 H Lipase Procalcitonin TSH 0.85 Serum Ketones 04/27/20 04/27/20 04/28/20 09:26 16:05 04:00 Lactic Acid (Sepsis) Iron TIBC % Saturation Creatine Kinase 755 H* Troponin T Gen 5 ng/L 178 H* NT-Pro-B Natriuret Pep Lipase Procalcitonin 3.49 H TSH Serum Ketones Micro: Microbiology 04/26/20 14:15 Blood Culture - Preliminary Blood NEGATIVE TO DATE 04/26/20 14:00 Blood Culture - Preliminary Blood NEGATIVE TO DATE 04/27/20 05:10 Legionella Urinary Antigen - Final Urine Catheterized Microbiology 04/26/20 18:28 Sputum - Endotracheal Tube Aspirate Sputum Culture - Preliminary 04/28/20 07:30 Stool Occult Blood (FIT) - Final 04/26/20 14:15 Blood Blood Culture - Preliminary NEGATIVE TO DATE 04/26/20 14:00 Blood Blood Culture - Preliminary NEGATIVE TO DATE 04/27/20 05:10 Urine Catheterized Legionella Urinary Antigen - Final A&P Assessment and plan (1) Septic shock: Status: Acute (2) Unresponsive state: Status: Acute (3) Endotracheally intubated: Status: Acute (4) Metabolic acidosis: Status: Acute (5) Diabetic keto-acidosis: Status: Acute (6) FRANKLIN (acute kidney injury): Status: Acute (7) Elevated troponin: Status: Acute Additional A&P Information 84-year-old female found unresponsive at home for unknown time found to be hypotensive, intubated in the field with metabolic acidosis, DKA because of acute pancreatitis seen on CT scan. Shock: Most likely a combination of profound inflammation vasoplegia along with hypovolemia in setting of acute pancreatitis. Keep mean artery pressure over 65. Wean Levophed accordingly. Patient seems to be going in fluid overload because of peripheral pooling from acute pancreatitis. Stop IV fluids for now. Monitor urine output. Lasix 40 mg IV stat. For now patient is overall 7 L positive since admission. Endotracheally intubated: High anion gap metabolic acidosis resolved. Persistent normal anion gap acidosis though well compensated as seen on ABG most likely secondary to RTA. Check urinalysis for pH. Intubated yesterday by EMS due to unresponsive state to protect the airway. Patient did well with pressure support but not awake enough to be extubated today. Sedation vacation for morning tomorrow with fentanyl down to 1 and possible extubation in next 24 hours. Duo nebs every 6 hours, budesonide twice daily. Diabetic ketoacidosis: Resolved. Anion gap closed. Stop insulin drip and switch to insulin sliding scale every 6 hours at moderate dose protocol. Metabolic acidosis: Non-anion gap. Cannot rule out RTA given the FRANKLIN. Urine lites, urine chloride, urine analysis to check pH. FRANKLIN: Because of dehydration, shock. Continue to monitor electrolytes and replete accordingly. Continue to monitor urine output. IV Lasix 40 mg stat. Medical reconciliation done for nephrotoxic drugs. Continue vancomycin and Zosyn both renally dosed. We will continue to follow culture results. For now we will plan to do antibiotics for next 5 days. If MRSA negative can discontinue vancomycin at that time. Thrombocytopenia: Platelet count 88,000 today coming down from 228,000 from admission. Can be secondary to severe sepsis versus HIT. Check HIT panel. Stop anticoagulation for now. Continue to monitor platelet and hemoglobin. GI bleed: Stool for occult blood positive. Continue Protonix 40 mg twice daily. Continue to monitor hemoglobin. Elevated troponins: Troponin trending down yesterday. EKG has remained stable. Most likely secondary to demand ischemia. We will continue to monitor. Repeat troponin today morning. CODE STATUS: Discussed with daughters at bedside. Patient does not have any designated DPOA on file. Next of kin for the patient would be both daughters and they are agreeable to make medical decisions for patient. Full code for now. Pepcid for PUD prophylaxis. 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 Severely guarded prognosis. Care in detail with patient's daughter. Discussed that patient is improving but still not out of the story as she is intubated and on pressors. Also discussed that etiology of her problem is most likely from acute pancreatitis. Attestations Medical Necessity Statement*: Patient requires further hospitalization for management of shock, electively intubated, normal anion gap metabolic acidosis, acute kidney injury, developing thrombocytopenia in setting of severe pancreatitis Critical Care Time: The high probability of a clinically significant, sudden or life threatening deterioration of the patient's multiorgan system(s) required my full and direct attention, intervention and personal management. The critical care time is as shown. 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
[2020-04-28] MEDS: dextrose 50% syringe 50 mL IVP (09:52)
[2020-04-28] MEDS: FUROsemide 10 mg/mL SDV 4mL 40 MG IVP (09:52)
[2020-04-28] MEDS: insulin regular-human 10 UNIT in SYRINGE 1 EACH IVP (09:53)
[2020-04-28 10:12] LABS: Creatine Phosphokinase 755 U/L (26-192)
[2020-04-28] MEDS: pantoprazole 40 mg SDV IVP ×2 (10:30→21:00)
[2020-04-28 11:30] LABS: Glucose Point of Care 116 mg/dL (70-110)
[2020-04-28 11:30] LABS: Glucose Point of Care 119 mg/dL (70-110)
[2020-04-28 11:55] LABS: Glucose Point of Care 334 mg/dL (70-110)
[2020-04-28 12:07] LABS: Glucose Point of Care 197 mg/dL (70-110)
[2020-04-28] MEDS: vancomycin 1,000 MG in sodium chloride 0.9% 250 ML 250 MG IV (16:18)
[2020-04-28 17:23] LABS: Glucose Point of Care 190 mg/dL (70-110)
[2020-04-28 18:21] LABS: Add Urine Microscopic? YES; Bilirubin Urine Neg (Negative); Blood Urine 3+ (Negative); Glucose Urine UA 2+ (Normal); Ketones Urine Negative (Negative); Leukocyte Esterase Urine Negative (Negative); Nitrate Urine Negative (Negative); Protein Urine Neg (Negative); Urine Color Yellow (Yellow); Urobilinogen Urine Norm (Negative); pH Urine 5 (5-7)
[2020-04-28 18:36] LABS: Add Urine Culture? Yes; Amorphous Sediment Urine 3+ /hpf; Bacteria Urine 1+ /hpf; RBC Urine 25-40 /hpf (0-2); Squamous Epithelial Cell Urine 0-4 /hpf (0-5); WBC Urine 0-4 /hpf (0-5)
[2020-04-28 18:49] LABS: Urine Random Chloride 99 mmol/L; Urine Random Sodium 83 mmol/L
[2020-04-29] VITALS (36 sets, daily range): BP systolic 91–140; BP diastolic 46–70; PULSE 100–245; RESP 12–29; TEMP 36.6–38.6; O2SAT 95–100; BMI 22.2
[2020-04-29 00:50] LABS: Glucose Point of Care 139 mg/dL (70-110)
[2020-04-29 04:18] LABS: ABG PCO2 23.1 mmHg (35-45); ABG PH Result 7.41 (7.35-7.45); Arterial Blood Gas Hematocrit 33.7 % (37-47); Base Excess ABG -8.6 mmol/L (-2.0-2.0); Blood Gas Allen Test Pos; Blood Gas Sample Site Radial, right; Blood Gas Sample Type Arterial; Blood Gas Tidal Volume 0.35; HCO3 ABG 14.5 mmol/L (22-26); Oxygen Device VENT; PO2 ABG 93.7 mmHg (80.0-100.0)
[2020-04-29] MEDS: piperacillin-tazobactam 3.375 GM in sodium chloride 0.9% (plus) 50 ML IV ×2 (04:28→17:33)
[2020-04-29 04:50] LABS: Hematocrit 30.3 % (37.0-47.0); Hemoglobin 10.3 g/dL (11.5-15.3); Mean Corpuscular Hemoglobin 32.3 pg (28.0-34.0); Mean Platelet Volume 12.4 fL (7.4-10.4); Platelet Count 100 10^3/cmm (130-400); Red Blood Count 3.19 10^6/uL (4.1-5.3); Red Cell Distribution Width 14.8 % (12.1-15.1); White Blood Count 17.6 10^3/uL (4.0-10.0)
[2020-04-29 05:13] LABS: Alanine Aminotransferase 14 U/L (0-33); Albumin Level 2.4 g/dL (3.5-5.2); Alkaline Phosphatase 61 IU/L (35-105); Anion Gap 17.8 (5-19); Aspartate Amino Transferase 21 U/L (0-32); Blood Urea Nitrogen 64 mg/dL (8-23); Calcium 7.1 mg/dL (8.5-10.5); Carbon Dioxide 14 mmol/L (22-29); Chloride 108 mmol/L (98-107); Creatine Phosphokinase 270 U/L (26-192); Creatinine Clr Calc Pharmacy 12.8544; Globulin 2.4 g/dL (1.3-4.6); Glucose 239 mg/dL (65-115); Magnesium 1.8 mg/dL (1.7-2.3); Osmolality Calculated 304 mOsm/kg (285-295); Phosphorus 3.9 mg/dL (2.5-4.5); Potassium 5.8 mmol/L (3.5-5.1); Sodium 134 mmol/L (136-145); Total Bilirubin 0.5 mg/dL (0.15-1.2); Total Protein 4.8 g/dL (6.6-8.7)
[2020-04-29 05:48] LABS: Glucose Point of Care 272 mg/dL (70-110)
--- NOTE | 2020-04-29 06:00 | XRR_ITS ---
PROCEDURE INFORMATION: Exam: XR Chest, 1 View Exam date and time: 04/29/2020 5:51 AM Age: 84 years old Clinical indication: Shortness of breath; Additional info: Covid TECHNIQUE: Imaging protocol: XR of the chest Views: 1 view. COMPARISON: CR (CHEST, ) 04/28/2020 1:42 PM FINDINGS: Tubes, catheters and devices: An endotracheal tube is present with its tip 4.5 cm above the shelia. The tip of a nasogastric tube projects at the gastroesophageal junction and should be advanced further into the stomach. A right subclavian catheter tip projects on the SVC. Lungs: Unremarkable. No consolidation. Pleural spaces: Unremarkable. No pleural effusion. No pneumothorax. Heart/Mediastinum: Heart is not enlarged. The aorta is calcified and tortuous. Bones/joints: Unremarkable. XR/XR chest 1V portable [id number] IMPRESSION: 1. Satisfactory position of the endotracheal tube and central venous catheter. 2. The tip of the nasogastric tube is at the gastroesophageal junction and could be advanced further into the stomach. 3. No acute cardiopulmonary abnormality.
[2020-04-29 06:02] LABS: Slide Review Slide Review Perform
[2020-04-29 08:10] LABS: Absolute Segmented Neutrophil 10.4 10/cmm (1.6-7.1); Band Neutrophils Absolute 6.2 10^3/cmm (0.0-1.2); Lymphocytes 1 %; Monocytes Absolute 0.9 10^3/cmm (0.1-0.6); Segmented Neutrophils 59 %; Total Cells Counted 100 (0-100)
[2020-04-29 08:18] LABS: Absolute Neutrophil 16.5 10^3/cmm (1.4-6.5); Eosinophils 0 %; Platelet Estimate Decreased (Normal); Toxic Granulation 1+
[2020-04-29] MEDS: budesonide 0.5 mg/2 mL Neb INHALATION ×2 (08:57→20:04)
--- NOTE | 2020-04-29 10:27 | PM.PN ---
Subjective Subjective: Interval history: No acute events overnight. On examination patient lying comfortably in bed. Following simple commands. Awakens to verbal stimulus. Moving left arm and leg though minimal movement on the right side. Patient has preferential turning of the neck towards the left. Denies any pain. Communicating through blinking of the eye. Patient has remained hemodynamically stable and afebrile overnight. T-max in last 24 hours 99 Fahrenheit. Currently on fentanyl of 1, Levophed of 2 with minimal vent settings of FiO2 24%, tidal volume 350, PEEP of 5. During my visit patient was put over on CPAP mode with which she worked well for around 4 to 5 hours after which she was put back on ventilator support. Urine output in last 24 hours 1600 cc. Medications: Reviewed: Yes Vitals/I&O/Wt Last Vital Signs Temp 99 F 04/29/20 09:20 Pulse 120 H 04/29/20 09:00 Resp 20 H 04/29/20 10:05 BP 119/55 04/29/20 09:00 Pulse Ox 98 04/29/20 09:00 04/28/20 04/29/20 04/29/20 22:59 06:59 14:59 Intake Total 172.527 / 573.265 15.417 / 588.682 250 / 250 Output Total 1675 / 1675 Balance -1502.473 / -1101.735 15.417 / -1086.318 250 / 250 Weight last 48 hrs Weight 62.596 kg Weight 61.235 kg Physical Exam Narrative: EXAM NARRATIVE: General: More awake but lethargic and tired HEENT: PERRLA, Chest: Normal vesicular breath sounds, no added sounds, equal good air entry bilaterally CVS: S1-S2 regular frequent VPCs, no murmurs, tachycardia, no gallops, no rubs Abdomen: Soft, nontender, no organomegaly, bowel sounds present but sluggish Neuro: More awake today, following simple commands, tracking with eyes, moving left arm and left leg, minimal movement on the right side, pupils bilaterally equal and reactive Extremities: Bilateral extremities no cyanosis, peripheral pulses palpable, no swelling Urinary Catheter Management^: Ferris: Cath Placed During This Visit: yes Reason for Continuing Indwelling Catheter: Accurate Measurement of Urinary Output in Critically Ill Patients Urinary Catheter Date of Insertion: 04/26/20 Urinary Catheter Time of Insertion: 14:40 Data : 04/29/20 04:30 04/29/20 13:01 Other Labs: Abnormal lab results 04/28/20 04/28/20 04/29/20 Range/Units 16:45 17:17 00:46 WBC (4.0-10.0) 10^3/uL RBC (4.1-5.3) 10^6/uL Hgb (11.5-15.3) g/dL Hct (37.0-47.0) % Plt Count (130-400) 10^3/cmm MPV (7.4-10.4) fL Absolute Neutrophils (1.4-6.5) 10^3/cmm Abs Segm Neuts (Man) (1.6-7.1) 10/cmm Abs Band Neuts (Man) (0.0-1.2) 10^3/cmm Absolute Monocytes (0.1-0.6) 10^3/cmm Toxic Granulation Platelet Estimate (Normal) PT (12.1-14.9) SECONDS INR (0.8-1.2) APTT (23.9-36.7) SECONDS Fibrinogen (174-498) mg/dL Fibrin Degrad Products (NEG) ug/mL D-Dimer (0-0.59) ug/mIFEU ABG pCO2 (35-45) mmHg ABG HCO3 (22-26) mmol/L ABG Base Excess (-2.0-2.0) mmol/L Hematocrit (37-47) % Sodium (136-145) mmol/L Potassium (3.5-5.1) mmol/L Chloride (98-107) mmol/L Carbon Dioxide (22-29) mmol/L Anion Gap (5-19) BUN (8-23) mg/dL Creatinine (0.5-0.9) mg/dL Glucose (65-115) mg/dL POC Glucose 190 H 139 H (70-110) mg/dL Calculated Osmolality (285-295) mOsm/kg Calcium (8.5-10.5) mg/dL Lactate Dehydrogenase (135-214) U/L Creatine Kinase (26-192) U/L Total Protein (6.6-8.7) g/dL Albumin (3.5-5.2) g/dL Urine Appearance Sl cloudy A (CLEAR) Urine Glucose (UA) (Normal) Urine Blood 3+ H (Negative) Urine RBC 25-40 H (0-2) /hpf Urine WBC 0-4 H (0-5) /hpf Ur Squamous Epith Cells 0-4 H (0-5) /hpf Urine Bacteria 1+ H (NONE) /hpf Random Vancomycin (20.0-40.0) ug/mL 04/29/20 04/29/20 04/29/20 Range/Units 04:05 04:30 04:30 WBC 17.6 H (4.0-10.0) 10^3/uL RBC 3.19 L (4.1-5.3) 10^6/uL Hgb 10.3 L (11.5-15.3) g/dL Hct 30.3 L (37.0-47.0) % Plt Count 100 L (130-400) 10^3/cmm MPV 12.4 H (7.4-10.4) fL Absolute Neutrophils 16.5 H (1.4-6.5) 10^3/cmm Abs Segm Neuts (Man) 10.4 H (1.6-7.1) 10/cmm Abs Band Neuts (Man) 6.2 H (0.0-1.2) 10^3/cmm Absolute Monocytes 0.9 H (0.1-0.6) 10^3/cmm Toxic Granulation 1+ H Platelet Estimate Decreased L (Normal) PT (12.1-14.9) SECONDS INR (0.8-1.2) APTT (23.9-36.7) SECONDS Fibrinogen (174-498) mg/dL Fibrin Degrad Products (NEG) ug/mL D-Dimer (0-0.59) ug/mIFEU ABG pCO2 23.1 L (35-45) mmHg ABG HCO3 14.5 L (22-26) mmol/L ABG Base Excess -8.6 L (-2.0-2.0) mmol/L Hematocrit 33.7 L (37-47) % Sodium 134 L (136-145) mmol/L Potassium 5.8 H (3.5-5.1) mmol/L Chloride 108 H (98-107) mmol/L Carbon Dioxide 14 L (22-29) mmol/L Anion Gap (5-19) BUN 64 H (8-23) mg/dL Creatinine 3.2 H (0.5-0.9) mg/dL Glucose 239 H (65-115) mg/dL POC Glucose (70-110) mg/dL Calculated Osmolality 304 H (285-295) mOsm/kg Calcium 7.1 L (8.5-10.5) mg/dL Lactate Dehydrogenase (135-214) U/L Creatine Kinase 270 H (26-192) U/L Total Protein 4.8 L (6.6-8.7) g/dL Albumin 2.4 L (3.5-5.2) g/dL Urine Appearance (CLEAR) Urine Glucose (UA) (Normal) Urine Blood (Negative) Urine RBC (0-2) /hpf Urine WBC (0-5) /hpf Ur Squamous Epith Cells (0-5) /hpf Urine Bacteria (NONE) /hpf Random Vancomycin (20.0-40.0) ug/mL 04/29/20 04/29/20 04/29/20 Range/Units 05:46 11:11 11:11 WBC (4.0-10.0) 10^3/uL RBC (4.1-5.3) 10^6/uL Hgb (11.5-15.3) g/dL Hct (37.0-47.0) % Plt Count (130-400) 10^3/cmm MPV (7.4-10.4) fL Absolute Neutrophils (1.4-6.5) 10^3/cmm Abs Segm Neuts (Man) (1.6-7.1) 10/cmm Abs Band Neuts (Man) (0.0-1.2) 10^3/cmm Absolute Monocytes (0.1-0.6) 10^3/cmm Toxic Granulation Platelet Estimate (Normal) PT 21.20 H (12.1-14.9) SECONDS INR 1.76 H (0.8-1.2) APTT 42.7 H (23.9-36.7) SECONDS Fibrinogen 559 H (174-498) mg/dL Fibrin Degrad Products Pos, 10-40 H (NEG) ug/mL D-Dimer 5.93 H (0-0.59) ug/mIFEU ABG pCO2 (35-45) mmHg ABG HCO3 (22-26) mmol/L ABG Base Excess (-2.0-2.0) mmol/L Hematocrit (37-47) % Sodium (136-145) mmol/L Potassium (3.5-5.1) mmol/L Chloride (98-107) mmol/L Carbon Dioxide (22-29) mmol/L Anion Gap (5-19) BUN (8-23) mg/dL Creatinine (0.5-0.9) mg/dL Glucose (65-115) mg/dL POC Glucose 272 H (70-110) mg/dL Calculated Osmolality (285-295) mOsm/kg Calcium (8.5-10.5) mg/dL Lactate Dehydrogenase (135-214) U/L Creatine Kinase (26-192) U/L Total Protein (6.6-8.7) g/dL Albumin (3.5-5.2) g/dL Urine Appearance (CLEAR) Urine Glucose (UA) (Normal) Urine Blood (Negative) Urine RBC (0-2) /hpf Urine WBC (0-5) /hpf Ur Squamous Epith Cells (0-5) /hpf Urine Bacteria (NONE) /hpf Random Vancomycin 18.7 L (20.0-40.0) ug/mL 04/29/20 04/29/20 04/29/20 Range/Units 12:12 13:01 13:35 WBC (4.0-10.0) 10^3/uL RBC (4.1-5.3) 10^6/uL Hgb (11.5-15.3) g/dL Hct (37.0-47.0) % Plt Count (130-400) 10^3/cmm MPV (7.4-10.4) fL Absolute Neutrophils (1.4-6.5) 10^3/cmm Abs Segm Neuts (Man) (1.6-7.1) 10/cmm Abs Band Neuts (Man) (0.0-1.2) 10^3/cmm Absolute Monocytes (0.1-0.6) 10^3/cmm Toxic Granulation Platelet Estimate (Normal) PT (12.1-14.9) SECONDS INR (0.8-1.2) APTT (23.9-36.7) SECONDS Fibrinogen (174-498) mg/dL Fibrin Degrad Products (NEG) ug/mL D-Dimer (0-0.59) ug/mIFEU ABG pCO2 (35-45) mmHg ABG HCO3 (22-26) mmol/L ABG Base Excess (-2.0-2.0) mmol/L Hematocrit (37-47) % Sodium (136-145) mmol/L Potassium (3.5-5.1) mmol/L Chloride (98-107) mmol/L Carbon Dioxide 14 L (22-29) mmol/L Anion Gap 20.5 H (5-19) BUN 65 H (8-23) mg/dL Creatinine 3.5 H (0.5-0.9) mg/dL Glucose 314 H (65-115) mg/dL POC Glucose 368 H (70-110) mg/dL Calculated Osmolality 315 H (285-295) mOsm/kg Calcium 7.4 L (8.5-10.5) mg/dL Lactate Dehydrogenase 374 H (135-214) U/L Creatine Kinase (26-192) U/L Total Protein 5.0 L (6.6-8.7) g/dL Albumin 2.8 L (3.5-5.2) g/dL Urine Appearance (CLEAR) Urine Glucose (UA) 4+ H (Normal) Urine Blood 3+ H (Negative) Urine RBC 5-10 H (0-2) /hpf Urine WBC (0-5) /hpf Ur Squamous Epith Cells 0-4 H (0-5) /hpf Urine Bacteria 1+ H (NONE) /hpf Random Vancomycin (20.0-40.0) ug/mL Laboratory Results Impressions Head CT 04/26/20 13:48 IMPRESSION: Negative for acute intracranial abnormality. Radiation Dose CTDIVOL = (mGy): DLP = 841.2 (mGy-cm) Tibia/Fibula X-Ray 04/26/20 14:07 Impression: Negative for radiopaque foreign bodies. Chest/Abdomen/Pelvis CT 04/26/20 15:42 IMPRESSION: 1. Mild fat stranding changes in the upper abdomen, cannot exclude sequela of acute pancreatitis. Otherwise, no convincing evidence of acute abdominopelvic abnormality. 2. Incidental finding of small right adrenal nodule, indeterminate characterization by this exam. 3. Bilateral renal cortical cystic lesions with simple CT features. COMMENTS: Consistent with the [employer] [place]'s Incidental Findings Committee white paper (J Am Shine Radiol 2018): Any incidental renal lesion less than 1 cm or classified as too small to characterize, or any incidental cystic renal lesion characterized as simple-appearing, is likely benign. No follow-up imaging is recommended for these lesions per consensus recommendations based on imaging criteria. Radiation Dose CTDIVOL = (mGy): DLP = 1535.38~1535.38 (mGy-cm) Chest X-Ray 04/29/20 06:00 IMPRESSION: 1. Satisfactory position of the endotracheal tube and central venous catheter. 2. The tip of the nasogastric tube is at the gastroesophageal junction and could be advanced further into the stomach. 3. No acute cardiopulmonary abnormality. Renal Ultrasound 04/29/20 12:27 IMPRESSION: 1. Mild right hydronephrosis. 2. Benign right renal cysts. 3. The kidneys are normal in size and echogenicity. Micro: Microbiology 04/26/20 18:28 Sputum Culture - Preliminary Sputum - Endotracheal Tube Aspirate 04/28/20 07:30 Occult Blood (FIT) - Final Stool Microbiology 04/26/20 18:28 Sputum - Endotracheal Tube Aspirate Sputum Culture - Final 04/28/20 07:30 Stool Occult Blood (FIT) - Final 04/26/20 14:15 Blood Blood Culture - Preliminary NEGATIVE TO DATE 04/26/20 14:00 Blood Blood Culture - Preliminary NEGATIVE TO DATE 04/27/20 05:10 Urine Catheterized Legionella Urinary Antigen - Final A&P Assessment and plan (1) Septic shock: Status: Acute (2) Unresponsive state: Status: Acute (3) Endotracheally intubated: Status: Acute (4) Metabolic acidosis: Status: Acute (5) Diabetic keto-acidosis: Status: Acute (6) FRANKLIN (acute kidney injury): Status: Acute (7) Elevated troponin: Status: Acute Additional A&P Information 84-year-old female found unresponsive at home for unknown time found to be hypotensive, intubated in the field with metabolic acidosis, DKA because of acute pancreatitis seen on CT scan. Shock: Most likely a combination of profound inflammation vasoplegia along with hypovolemia in setting of acute pancreatitis. Keep mean artery pressure over 65. Wean Levophed accordingly. Good urine output in last 24 hours. Since morning patient has had 800 cc in 6 hours. Hold off on any further Lasix. Start patient on albumin every 8 hourly. We will continue to monitor urine output and if required will start patient on gentle hydration. Endotracheally intubated: High anion gap metabolic acidosis resolved. Persistent normal anion gap acidosis though well compensated as seen on ABG most likely secondary to RTA. Patient did well with pressure support, awake today but lethargic. Case discussed with nephrology who are concerned that if patient is extubated she might not be able to compensate enough for metabolic acidosis due to kidney injury and severe sepsis. We will put patient back on full support later in the day today with a tidal volume of 300 as per the ideal body weight and extubated next 1 to 2 days depending on the metabolic panel. Duo nebs every 6 hours, budesonide twice daily. Metabolic acidosis: Non-anion gap. Cannot rule out RTA given the FRANKLIN. Urine lites, urine chloride, urine analysis to check pH. FRANKLIN: Because of dehydration, shock and possible LUCIA. Creatinine worsening today. Will consult nephrology given worsening creatinine and ongoing metabolic acidosis. Continue to monitor electrolytes and replete accordingly. Check renal ultrasound. Continue vancomycin and Zosyn both renally dosed. We will continue to follow culture results. Check Vanco random level. We will plan to continue the antibiotics for at least 24 hours post extubation. Thrombocytopenia: Platelet count 88,000 today coming down from 228,000 from admission. HIT panel awaited. Check DIC panel given anemia and thrombocytopenia. Stop anticoagulation for now. Continue to monitor platelet and hemoglobin. GI bleed: Stool for occult blood positive. Continue Protonix 40 mg twice daily. Continue to monitor hemoglobin. Diabetic ketoacidosis: Resolved. Anion gap closed. Stop insulin drip and switch to insulin sliding scale every 6 hours at moderate dose protocol. Elevated troponins: Troponin trending down yesterday. EKG has remained stable. Most likely secondary to demand ischemia. We will continue to monitor. Repeat troponin today morning. CODE STATUS: Discussed with daughters at bedside. Patient does not have any designated DPOA on file. Next of kin for the patient would be both daughters and they are agreeable to make medical decisions for patient. Full code for now. Pepcid for PUD prophylaxis. 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 Severely guarded prognosis. Care in detail with patient's daughter. Discussed that patient is improving but still not out of the story as she is intubated and on pressors. Also discussed that etiology of her problem is most likely from acute pancreatitis. Check CT head without contrast. Attestations Medical Necessity Statement*: Patient requires further hospitalization for management of shock secondary to profound inflammation with aplasia, hypovolemia in setting of pancreatitis, acute kidney injury, thrombocytopenia possible DIC, endotracheally intubated status. Critical Care Time: The high probability of a clinically significant, sudden or life threatening deterioration of the patient's multiple organ system(s) required my full and direct attention, intervention and personal management. The critical care time is as shown. This time is in addition to time spent performing any reported procedures but includes the following: [x] Data and vital sign review and interpretation [x] Patient assessment, examination and intervention [x] Documentation [x] Medication orders and management Critical Care Time (min): 90 Coding Level of Care Code Acute Boat Dispatcher for g Fwd Diagnoses Septic shock A41.9; R65.21 Unresponsive state R41.89 Endotracheally intubated Z97.8 Metabolic acidosis E87.2 Diabetic keto-acidosis E11.10 FRANKLIN (acute kidney injury) N17.9 Elevated troponin R77.8
[2020-04-29] MEDS: pantoprazole 40 mg SDV IVP ×2 (10:41→21:16)
[2020-04-29] MEDS: dextrose 50% syringe 50 mL IVP (10:52)
[2020-04-29] MEDS: insulin regular-human 10 UNIT in SYRINGE 1 EACH 1000 UNIT IVP (10:52)
[2020-04-29] MEDS: sodium bicarbonate 8.4% 1 mEq/mL 50mL Syr 50 MEQ IVP (10:58)
--- NOTE | 2020-04-29 11:13 | PC.NURSE ---
d50 insulin and bicarb given at this time per orders sedation weaned off to awaken for extubation
[2020-04-29 11:34] LABS: INR 1.76 (0.8-1.2)
[2020-04-29 11:35] LABS: Fibrinogen 559 mg/dL (174-498); Partial Thromboplastin Time 42.7 SECONDS (23.9-36.7)
[2020-04-29 11:59] LABS: D Dimer 5.93 ug/mIFEU (0-0.59)
--- NOTE | 2020-04-29 12:11 | PM.CONSULT ---
Providers/Reason For Consult Consulting Physican/Specialty*: shaina alexis md/ telenephrology Reason for Consult*: FRANKLIN and hyperkalemia, met acidosis Attending Physician: Vaibhav Palma MD Primary Care Provider: GEO Rueda History of Present Illness History of Present Illness Sheri Szymanski is a 84 year old female admitted on 04/26/20 w/ pancreatitis, septic shock, hypotension, franklin, DKA. Pt was intubated, given ivf, abx, insulin drip. DKA improved. however remians intubated, now hyperkalemia, and Non AGMA, cr went from 2.3- 3.2 overnight. renal called to see pt. Review of Systems General: Reports: ROS unobtainable due to mental status Meds/Allergies Home Medications and Allergies Home Medications Medication Instructions Recorded Confirmed Last Taken Type aspirin 81 mg PO DAILY@04/26/20 04/26/20 04/25/20 History glipizide 5 mg PO DAILY@04/26/20 04/26/20 04/25/20 History lisinopril 20 mg PO DAILY@04/26/20 04/26/20 04/25/20 History lovastatin 20 mg PO DAILY@169904/26/20 04/26/20 04/25/20 History metformin 500 mg PO BID@,169904/26/20 04/26/20 04/25/20 History metoprolol tartrate 50 mg PO BID@,169904/26/20 04/26/20 04/25/20 History sodium chloride 1 g PO DAILY@04/26/20 04/26/20 04/25/20 History Allergies Allergy/AdvReac Type Severity Reaction Status Date / Time No Known Allergies Allergy Verified 02/29/20 10:19 Current Medications Current Medications Generic Name Dose Route Start Last Admin Trade Name Freq PRN Reason Stop Dose Admin Budesonide 0.5 mg 04/26/20 20:00 04/29/20 08:57 Budesonide 0.5 Mg/2 Ml Neb INHALATION 0.5 mg BID.RESPIRATORY FRANK Administration Heparin Sodium (Beef Lung) 5,000 unit 04/27/20 17:00 04/28/20 04:31 Heparin 5,000 Unit/Ml Inj 1 Ml SUBCUT 5,000 unit Q12H FRANK Administration Norepinephrine Bitartrate 4 mg 254 mls @ 0 mls/hr 04/26/20 14:15 04/29/20 02:32 / Dextrose IV 2 mcg/min .Q0M FRANK 7.6 mls/hr Administration Protocol Per Protocol Fentanyl 1,000 mcg/ Sodium 100 mls @ 0 mls/hr 04/26/20 16:00 04/29/20 00:10 Chloride IV 25 mcg/hr .Q0M FRANK 2.5 mls/hr Titration Protocol Per Protocol Propofol 1,000 mg in 100 mls @ 0 mls/hr 04/26/20 16:00 04/28/20 07:47 Diprivan IV Infused .Q0M FRANK Titration Protocol Per Protocol Piperacillin Sod/Tazobactam 50 mls @ 12.5 mls/hr 04/27/20 04:00 04/29/20 10:48 Sod 3.375 gm/ Sodium Chloride IV Infused Q12H FRANK Infusion Protocol Vancomycin HCl 1,000 mg/ 250 mls @ 250 mls/hr 04/28/20 16:30 04/29/20 07:50 Sodium Chloride IV Infused Q48H FRANK Infusion Protocol Sodium Chloride 1,000 mls @ 75 mls/hr 04/28/20 07:45 04/28/20 09:11 Sodium Chloride 0.45% IV 75 mls/hr .[id number] FRANK Administration Albumin Human 25 gm in 100 mls @ 60 mls/hr 04/29/20 08:00 04/29/20 10:48 Albumin IV 04/30/20 07:59 Infused Q8H FRANK Infusion Insulin Aspart 0 unit 04/29/20 00:00 04/29/20 05:53 Insulin Aspart 100 Unit/1 Ml SUBCUT 10 unit Q6H FRANK Administration Protocol Pantoprazole Sodium 40 mg 04/27/20 09:00 04/29/20 10:41 Pantoprazole 40 Mg Sdv IVP 40 mg Q12H FRANK Administration PFSH Acute PFSH: Medical History (Updated 04/26/20 @ 18:42 by Eric Fink MD) Diabetes Hyperlipidemia Hypertension Surgical History History of left hip replacement (~2014) Family History Daughter Diabetes Denies family history of Anesthesia complication Bleeding disorder Social History Smoking and tobacco status: never smoked Alcohol intake: never Adopted: No Caregiver/support person: Yes Lives independently: Yes Housing: House Marital status: Single Current occupational exposures/hazards: No Pets and animals: Yes Pets & animals: cat(s) History of recent travel: No Sexually active: No Current gender identity: Female Mackenzie/Baptism: Adventism Special mackenzie needs: No Financial difficulty paying for basics: Not Applicable Vitals/I&O/Wt Last Vital Signs Temp 99 F 04/29/20 09:20 Pulse 120 H 04/29/20 09:00 Resp 20 H 04/29/20 10:05 BP 119/55 04/29/20 09:00 Pulse Ox 98 04/29/20 09:00 04/28/20 04/29/20 04/29/20 22:59 06:59 14:59 Intake Total 172.527 / 573.265 15.417 / 588.682 400 / 400 Output Total 1675 / 1675 Balance -1502.473 / -1101.735 15.417 / -1086.318 400 / 400 Weight last 48 hrs Weight 62.596 kg Weight 61.235 kg Physical Exam Narrative: EXAM NARRATIVE: on low dose levophed @ 2, vent cpap/ kami 5/ fio2=40% vs noted- sinus tach heent- nc/at neck supple lungs cta heart tachy abd soft, +Bs, NT ext no edema neuro- sedated Pulses + b/l Urinary Catheter Management^: Ferris: Cath Placed During This Visit: yes Reason for Continuing Indwelling Catheter: Accurate Measurement of Urinary Output in Critically Ill Patients Urinary Catheter Date of Insertion: 04/26/20 Urinary Catheter Time of Insertion: 14:40 Data Micro: Micro: Microbiology 04/26/20 18:28 Sputum Culture - F inal Sputum - Endotrac heal Tube Aspirate 04/28/20 07:30 Occult Blood (FIT) - Final Stool A&P Additional A&P Information 84 yr old female 1. pancreatitis- repeat lipase/ amylase levels 2. franklin- baseline cr 0.6- presented w/ cr 2.9 -improved to 2.3- on admission was prerenal and nemo-i and DKA. Also concern for atn -cr remained stable till today- repeat ua -concern for ATN/ LUCIA- now 3 days s/p contrast in setting of FRANKLIN and DM -mild rhabdo ck 1534- 270 -not cause of franklin -check vanco level -avoid nephrotoxins -consider fluid bolus or albumin -given thrombocytopenia- likely from sepsis- willc heck ldh, retic, and haptoglobin -notice hgb also dropped -monitor chemistries -monitor uop 3. leukocytosis 4. acid base- met acidosis w/ resp compensation- balanced -mild inc AGMA-from FRANKLIN -can repeat ua 5. hyponatremia- from /2 ns 6/ hyperkalemia- from FRANKLIN and pt was given k. -d/c k from fluids seen w/ RN discussed w/ hospitalist time spent 1 hr seeing pt, reviewing chart and coordinating care Consult Attestations Medical Necessity Statement: franklin, hyperkalemia, pancreatitis, met acidosis, VDRF Time Spent in Patient Care: Greater than 35 minutes Coding Level of Care Code Acute Varitype Operator for Benedicto Hanna
[2020-04-29 12:17] LABS: Glucose Point of Care 368 mg/dL (70-110)
[2020-04-29 12:21] LABS: Vancomycin Random 18.7 ug/mL (20.0-40.0)
--- NOTE | 2020-04-29 12:27 | USR_ITS ---
PROCEDURE INFORMATION: Exam: US Retroperitoneal; Complete; Kidneys and Bladder Exam date and time: 04/29/2020 12:30 PM Age: 84 years old Clinical indication: Other: Lab work; Patient HX: On vent so PT history. ; Additional info: Ernie TECHNIQUE: Imaging protocol: Real-time ultrasound of the retroperitoneum with image documentation. Complete exam focused on the kidneys and bladder. COMPARISON: US abdomen limited [id number] 06/28/2017 9:17 PM FINDINGS: Right kidney: The right kidney is normal in size. There is a 2.1 cm benign cyst at the superior pole of the right kidney and a 1.2 cm benign cyst at the inferior pole of the right kidney. There is mild right hydronephrosis. No solid masses are seen in the right kidney. There are no calcifications in the right kidney. Left kidney: Visualization of the left kidney is suboptimal due to patient positioning. No significant abnormalities are seen in the left kidney. Urinary bladder: The urinary bladder is collapsed around a Ferris catheter. US/US renal BI* [id number] IMPRESSION: 1. Mild right hydronephrosis. 2. Benign right renal cysts. 3. The kidneys are normal in size and echogenicity.
[2020-04-29 14:02] LABS: Amylase 95 U/L (28-100); Lipase 47 U/L (13-60)
[2020-04-29 14:28] LABS: Alanine Aminotransferase 12 U/L (0-33); Albumin Level 2.8 g/dL (3.5-5.2); Alkaline Phosphatase 56 IU/L (35-105); Anion Gap 20.5 (5-19); Aspartate Amino Transferase 16 U/L (0-32); Blood Urea Nitrogen 65 mg/dL (8-23); Calcium 7.4 mg/dL (8.5-10.5); Carbon Dioxide 14 mmol/L (22-29); Chloride 107 mmol/L (98-107); Globulin 2.2 g/dL (1.3-4.6); Glucose 314 mg/dL (65-115); Lactate Dehydrogenase 374 U/L (135-214); Magnesium 1.8 mg/dL (1.7-2.3); Osmolality Calculated 315 mOsm/kg (285-295); Phosphorus 4.2 mg/dL (2.5-4.5); Potassium 4.5 mmol/L (3.5-5.1); Sodium 137 mmol/L (136-145); Total Bilirubin 0.5 mg/dL (0.15-1.2)
--- NOTE | 2020-04-29 15:10 | CTR_ITS ---
PROCEDURE INFORMATION: Exam: CT Head Without Contrast Exam date and time: 04/29/2020 3:42 PM Age: 84 years old Clinical indication: Weakness, extremity; Right; Patient HX: R sided weakness; Additional info: Right sided weakness TECHNIQUE: Imaging protocol: Computed tomography of the head without contrast. Radiation optimization: All CT scans at this facility use at least one of these dose optimization techniques: automated exposure control; mA and/or kV adjustment per patient size (includes targeted exams where dose is matched to clinical indication); or iterative reconstruction. COMPARISON: CT head wo con* [id number] 04/26/2020 6:13 PM RADIATION DOSE METRICS: Total DLP (mGy-cm): 777.1 FINDINGS: Brain: No evidence of acute infarct. No mass or mass effect. No intra axial hemorrhage. No extra axial fluid collection or hemorrhage. Subcortical white matter hypodensities again noted. Most prominent of which is in the left precentral gyrus and left frontoparietal doty radiata . 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 Septum cavum pellucidum variant. Cerebral ventricles: Symmetric and without enlargement. Bones/joints: No acute fracture. Paranasal sinuses: Visualized sinuses are well aerated. Mastoid air cells: Visualized mastoid air cells are well aerated. Soft tissues: No concerning abnormalities. CT/CT head wo con* [id number] IMPRESSION: 1. No acute intracranial abnormality. 2. Changes of chronic microvascular ischemic disease. Radiation Dose CTDIVOL = (mGy): DLP = 777.1 (mGy-cm)
[2020-04-29 15:17] LABS: Bilirubin Urine Neg (Negative); Blood Urine 3+ (Negative); Glucose Urine UA 4+ (Normal); Ketones Urine Negative (Negative); Leukocyte Esterase Urine Negative (Negative); Nitrate Urine Negative (Negative); Protein Urine Neg (Negative); Urine Appearance SL Hazy (CLEAR); Urine Color Yellow (Yellow); Urobilinogen Urine Norm (Negative); pH Urine 5 (5-7)
[2020-04-29 15:19] LABS: Bacteria Urine 1+ /hpf
[2020-04-29] MEDS: sodium chloride 0.9% 1,000 ML 50 ML IV (15:21)
[2020-04-29 15:28] LABS: Amorphous Sediment Urine 1+ /hpf; Squamous Epithelial Cell Urine 0-4 /hpf (0-5); WBC Urine RARE /hpf (0-5)
[2020-04-29 15:31] LABS: Add Urine Culture? No
[2020-04-29 16:44] LABS: ABG PCO2 25.1 mmHg (35-45); ABG PH Result 7.47 (7.35-7.45); Alveolar-Arterial Oxygen Gradi 7.2 mmHg (5-10); Arterial Blood Gas Hematocrit 31.7 % (37-47); Base Excess ABG -4.5 mmol/L (-2.0-2.0); Blood Gas Allen Test Pos; Blood Gas Operator Identificat CAK; Blood Gas Sample Site Radial, left; Blood Gas Sample Type Arterial; Carboxyhemoglobin 0.7 %THgb (0.4-20.1); HCO3 ABG 18.1 mmol/L (22-26); HGB O2 Sat 96.2 % (95-100); Ionized Calcium Level - ABG 1.1 mmol/L (1.1-1.4); Oxygen Device VENT; Oxygen Saturation ABG 97.8; PO2 ABG 84.3 mmHg (80.0-100.0); Potassium Level - ABG 4.5 mmol/L (3.5-5.0); Total Hemoglobin 10.4 g/dL (12-16)
[2020-04-29 17:23] LABS: Potassium, Radom Urine 31 mmol/L; Urine Random Chloride 77 mmol/L; Urine Random Sodium 73 mmol/L
[2020-04-29 17:31] LABS: Glucose Point of Care 174 mg/dL (70-110)
[2020-04-29 23:36] LABS: Glucose Point of Care 218 mg/dL (70-110)
[2020-04-30] VITALS (32 sets, daily range): BP systolic 107–152; BP diastolic 49–92; PULSE 98–125; RESP 15–25; TEMP 36.7–38.3; O2SAT 82–100
[2020-04-30] MEDS: piperacillin-tazobactam 3.375 GM in sodium chloride 0.9% (plus) 50 ML IV ×2 (03:19→16:22)
[2020-04-30 04:15] LABS: Basophils # 0.1 10^3/uL (0.0-0.1); Basophils % 0.5 %; Eosinophils # 0.2 10^3/uL (0.0-0.8); Eosinophils % 1.8 %; Hematocrit 23.3 % (37.0-47.0); Hemoglobin 7.9 g/dL (11.5-15.3); Lymphocytes # 0.4 10^3/uL (0.8-4.8); Lymphocytes % 4.5 %; Mean Corpuscular HGB Conc 33.9 g/dL (30.0-36.0); Mean Corpuscular Hemoglobin 32.8 pg (28.0-34.0); Mean Corpuscular Volume 96.7 fL (81-99); Mean Platelet Volume 11.6 fL (7.4-10.4); Monocytes # 0.9 10^3/uL (0.2-0.9); Monocytes % 9.3 %; Neutrophils # 7.69 10^3/uL (1.8-7.7); Neutrophils % 80.9 %; Nucleated Red Blood Cells % 0 %; Platelet Count 88 10^3/cmm (130-400); Red Blood Count 2.41 10^6/uL (4.1-5.3); Red Cell Distribution Width 15.1 % (12.1-15.1); White Blood Count 9.5 10^3/uL (4.0-10.0)
[2020-04-30 04:25] LABS: Slide Review Slide Review Perform
[2020-04-30 04:35] LABS: Alanine Aminotransferase 10 U/L (0-33); Alkaline Phosphatase 101 IU/L (35-105); Anion Gap 14.9 (5-19); Aspartate Amino Transferase 15 U/L (0-32); Blood Urea Nitrogen 62 mg/dL (8-23); Calcium 7.6 mg/dL (8.5-10.5); Carbon Dioxide 20 mmol/L (22-29); Chloride 115 mmol/L (98-107); Creatine Phosphokinase 143 U/L (26-192); Globulin 2.2 g/dL (1.3-4.6); Glucose 114 mg/dL (65-115); Osmolality Calculated 320 mOsm/kg (285-295); Potassium 3.9 mmol/L (3.5-5.1); Sodium 146 mmol/L (136-145); Total Bilirubin 0.6 mg/dL (0.15-1.2); Total Protein 5.2 g/dL (6.6-8.7)
[2020-04-30 04:53] LABS: ABG PCO2 29.2 mmHg (35-45); ABG PH Result 7.41 (7.35-7.45); Arterial Blood Gas Hematocrit 28.1 % (37-47); Base Excess ABG -5.2 mmol/L (-2.0-2.0); Blood Gas Sample Site Brachial, right; Blood Gas Sample Type Arterial; HCO3 ABG 18.6 mmol/L (22-26); Oxygen Device VENT; PO2 ABG 74.9 mmHg (80.0-100.0)
[2020-04-30 05:18] LABS: Glucose Point of Care 128 mg/dL (70-110)
[2020-04-30 05:24] LABS: INR 1.68 (0.8-1.2)
[2020-04-30 05:25] LABS: Partial Thromboplastin Time 40.9 SECONDS (23.9-36.7)
[2020-04-30 05:27] LABS: Fibrinogen 564 mg/dL (174-498)
--- NOTE | 2020-04-30 06:48 | P.PN_ITS ---
Subjective Subjective: Interval history: sleeping intubated, bleeding Medications: Reviewed: Yes Medication Review Details: Current Medications Acetaminophen (Acetaminophen 325 Mg Tablet) 650 mg PO Q6H PRN PRN Reason: Mild/Mod Pain Or Temp >/= 101 Budesonide (Budesonide 0.5 Mg/2 Ml Neb) 0.5 mg INHALATION BID.RESPIRATORY FRANK Last Admin: 04/29/20 20:04 Dose: 0.5 mg Documented by: Dextrose (Dextrose 50% Syringe 50 Ml) 25 ml IVP ONCE PRN; Protocol PRN Reason: hypoglycemia protocol Dextrose (Dextrose 50% Syringe 50 Ml) 50 ml IVP PRN PRN; Protocol PRN Reason: hypoglycemia protocol Glucagon (Glucagon 1 Mg/Ml Inj 1 Ml) 1 mg IM ONCE PRN; Protocol PRN Reason: Adult Acute Hypoglycemia Prot. Heparin Sodium (Beef Lung) (Heparin 5,000 Unit/Ml Inj 1 Ml) 5,000 unit SUBCUT Q12H FRANK Last Admin: 04/28/20 04:31 Dose: 5,000 unit Documented by: Hydromorphone HCl (Hydromorphone 1 Mg/Ml Inj 1 Ml) 1 mg IVP Q4H PRN PRN Reason: PS 6-10 Norepinephrine Bitartrate 4 mg (/ Dextrose) 254 mls @ 0 mls/hr IV .Q0M FRANK; Protocol Last Titration: 04/29/20 23:41 Dose: 0 mcg/min, 0 mls/hr Documented by: Fentanyl 1,000 mcg/ Sodium (Chloride) 100 mls @ 0 mls/hr IV .Q0M FRANK; Protocol Last Admin: 04/30/20 01:53 Dose: 50 mcg/hr, 5 mls/hr Documented by: Propofol (Diprivan) 1,000 mg in 100 mls @ 0 mls/hr IV .Q0M FRANK; Protocol Last Titration: 04/28/20 07:47 Dose: Infused Documented by: Piperacillin Sod/Tazobactam (Sod 3.375 gm/ Sodium Chloride) 50 mls @ 12.5 mls/hr IV Q12H FRANK; Protocol Last Admin: 04/30/20 03:19 Dose: 12.5 mls/hr Documented by: Vancomycin HCl 1,000 mg/ (Sodium Chloride) 250 mls @ 250 mls/hr IV Q48H FRANK; Protocol Last Infusion: 04/29/20 07:50 Dose: Infused Documented by: Dextrose (D5w) 500 mls @ 100 mls/hr IV ONCE PRN; Protocol PRN Reason: Adult Acute Hypoglycemia Prot Albumin Human (Albumin) 25 gm in 100 mls @ 60 mls/hr IV Q8H [facility] Stop: 04/30/20 07:59 Last Infusion: 04/30/20 01:52 Dose: Infused Documented by: Sodium Chloride (Sodium Chloride 0.45%) 1,000 mls @ 100 mls/hr IV .Q10H FRANK Insulin Aspart (Insulin Aspart 100 Unit/1 Ml) 0 unit SUBCUT Q6H FRANK; Protocol Last Admin: 04/30/20 05:40 Dose: Not Given Documented by: Ondansetron HCl (Ondansetron 2 Mg/Ml Sdv 2 Ml) 4 mg IVP Q8H PRN PRN Reason: vomiting, or N/V if npo Pantoprazole Sodium (Pantoprazole 40 Mg Sdv) 40 mg IVP Q12H FRANK Last Admin: 04/29/20 21:16 Dose: 40 mg Documented by: Vitals/I&O/Wt Last Vital Signs Temp 100.4 F H 04/30/20 04:00 Pulse 120 H 04/30/20 06:00 Resp 19 H 04/30/20 06:02 BP 143/72 04/30/20 06:00 Pulse Ox 93 04/30/20 06:00 04/29/20 04/29/20 04/30/20 14:59 22:59 06:59 Intake Total 400 / 400 1150.1 / 1550.1 329.715 / 1879.815 Output Total 670 / 670 300 / 970 1000 / 1970 Balance -270 / -270 850.1 / 580.1 -670.285 / -90.185 Weight last 48 hrs Weight 62.5 kg Weight 62.596 kg Physical Exam Narrative: EXAM NARRATIVE: off pressers. cont to spike low grade temps ,vent/ peep 5/RR14/ fio2=21% vs noted- sinus tach heent- nc/at neck supple lungs wheezes and crackles heart tachy abd soft, +Bs, NT, distended ext 1+ edema neuro- sedated Pulses + b/l Urinary Catheter Management^: Ferris: Cath Placed During This Visit: yes Reason for Continuing Indwelling Catheter: Accurate Measurement of Urinary Output in Critically Ill Patients Urinary Catheter Date of Insertion: 04/26/20 Urinary Catheter Time of Insertion: 14:40 Data : 04/30/20 03:33 04/30/20 03:33 Micro: Microbiology 04/26/20 18:28 Sputum Culture - Final Sputum - Endotracheal Tube Aspirate A&P Additional A&P Information 84 yr old female 1. pancreatitis- repeat lipase/ amylase levels normal 2. franklin- baseline cr 0.6- presented w/ cr 2.9 -improved to 2.3- on admission was prerenal and nemo-i and DKA. Also concern for atn -cr remained stable till yesterday- cr peaked at 3.5- now cr 3.3 and pt is urinating repeat ua w/ 4+ gluc, 3+ blood, 5-10 rbc- serologies sent -concern for ATN/ LUCIA- now 3 days s/p contrast in setting of FRANKLIN and DM -mild rhabdo ck 1534- 270 -not cause of franklin - vanco level 18.7- acceptable- keep trough under 19 -avoid nephrotoxins -given anemia and thrombocytopenia- likely from sepsis. However, we checked ldh 374 , retic count pending, haptoglobin -is normal at 145 -monitor chemistries -monitor uop 3. hypernatremia- change ivf to 1/2 ns 4. Q DIC, w/ thrombocytopenia, high INR and Fibrinogen 5.leukocytosis -improving -low grade temps -renal dose abx 6. acid base- met acidosis and resp alkalosis -mild inc AGMA-from FRANKLIN - co2 in chemistries is improving - repeat ua - no ketones 7. hypernatremia- likely from post ATN diuresis- change ivf to 1/2 ns 8. hyperkalemia- from FRANKLIN and pt was given k. -improved seen w/ RN- telehealth visit Attestations Medical Necessity Statement*: FRNAKLIN, VDRF, electrolyte abnormalities Time Spent in Patient Care: Greater than 35 minutes Coding Level of Care Code Acute Oil Sales And Service Rep for Benedicto Hanna
[2020-04-30] MEDS: budesonide 0.5 mg/2 mL Neb INHALATION (07:42)
[2020-04-30 08:22] LABS: Glucose Point of Care 181 mg/dL (70-110)
[2020-04-30] MEDS: sodium chloride 0.45% 1,000 ML 100 ML IV (08:49)
[2020-04-30] MEDS: pantoprazole 40 mg SDV IVP ×2 (08:50→21:29)
--- NOTE | 2020-04-30 09:00 | PC.NURSE ---
Dr Herrera at bedside assessing pt. Instructed to decrease Fentanyl to 10 mcg
--- NOTE | 2020-04-30 09:19 | P.PN_ITS ---
Subjective Subjective: Interval history: No acute events overnight. Patient lying comfortably in bed. She is on fentanyl of 1 and on half NS at 100 cc/h. She is awake alert but lethargic and following commands. During my examination with the patient patient was put on CPAP mode. Patient found to have low hemoglobin today with 2-3 episodes of dark brown bowel movements overnight. Surgery was consulted and patient underwent endoscopy which showed gastritis. Post endoscopy as patient was doing well she was extubated at around 3 PM. On reexamination patient was saturating 94% on 2 L nasal cannula, awake alert having strong cough, having complete conversation. Complaining of pain on the right side of the neck because of it she is not able to turn. She states this is acute and she has never had this pain before. Denies any nausea, vomiting, headache. Post extubation blood pressure 130/60 mmHg, heart rate 125 bpm. Medications: Reviewed: Yes Vitals/I&O/Wt Last Vital Signs Temp 100.4 F H 04/30/20 04:00 Pulse 112 H 04/30/20 07:44 Resp 04/30/20 07:45 BP 143/72 04/30/20 06:00 Pulse Ox 92 04/30/20 07:44 04/29/20 04/30/20 04/30/20 22:59 06:59 14:59 Intake Total 1150.1 / 1550.1 329.715 / 1879.815 35.583 / 35.583 Output Total 300 / 970 1000 / 1970 Balance 850.1 / 580.1 -670.285 / -90.185 35.583 / 35.583 Weight last 48 hrs Weight 62.5 kg Weight 62.596 kg Physical Exam Narrative: EXAM NARRATIVE: General: Tired, AO x3, following all commands HEENT: PERRLA, Chest: Normal vesicular breath sounds, no added sounds, equal good air entry bilaterally CVS: S1-S2 regular frequent VPCs, no murmurs, tachycardia, no gallops, no rubs Abdomen: Soft, nontender, no organomegaly, bowel sounds present but sluggish Neuro: AOx3, following all commands, power 4 x 5 left upper limb, 3 x 5 right upper limb Extremities: Bilateral extremities no cyanosis, peripheral pulses palpable, no swelling Urinary Catheter Management^: Ferris: Cath Placed During This Visit: yes Reason for Continuing Indwelling Catheter: Accurate Measurement of Urinary Output in Critically Ill Patients Urinary Catheter Date of Insertion: 04/26/20 Urinary Catheter Time of Insertion: 14:40 Data : 04/30/20 14:16 04/30/20 14:16 Other Labs: Abnormal lab results 04/29/20 04/29/20 04/29/20 Range/Units 16:32 17:26 23:33 WBC (4.0-10.0) 10^3/uL RBC (4.1-5.3) 10^6/uL Hgb (11.5-15.3) g/dL Hct (37.0-47.0) % RDW (12.1-15.1) % Plt Count (130-400) 10^3/cmm MPV (7.4-10.4) fL Lymph # (Auto) (0.8-4.8) 10^3/uL [place] # (Auto) (0.2-0.9) 10^3/uL PT (12.1-14.9) SECONDS INR (0.8-1.2) APTT (23.9-36.7) SECONDS Fibrinogen (174-498) mg/dL D-Dimer (0-0.59) ug/mIFEU ABG pH 7.47 H (7.35-7.45) ABG pCO2 25.1 L (35-45) mmHg ABG pO2 (80.0-100.0) mmHg ABG HCO3 18.1 L (22-26) mmol/L ABG Base Excess -4.5 L (-2.0-2.0) mmol/L Hematocrit 31.7 L (37-47) % Total Hemoglobin 10.4 L (12-16) g/dL Glucose 158.0 H (70-115) mg/dL Sodium (136-145) mmol/L Chloride (98-107) mmol/L Carbon Dioxide (22-29) mmol/L Anion Gap (5-19) BUN (8-23) mg/dL Creatinine (0.5-0.9) mg/dL POC Glucose 174 H 218 H (70-110) mg/dL Calculated Osmolality (285-295) mOsm/kg Calcium (8.5-10.5) mg/dL Total Protein (6.6-8.7) g/dL Albumin (3.5-5.2) g/dL Crossmatch 04/30/20 04/30/20 04/30/20 Range/Units 03:33 03:33 03:33 WBC (4.0-10.0) 10^3/uL RBC 2.41 L (4.1-5.3) 10^6/uL Hgb 7.9 L (11.5-15.3) g/dL Hct 23.3 L (37.0-47.0) % RDW (12.1-15.1) % Plt Count 88 L (130-400) 10^3/cmm MPV 11.6 H (7.4-10.4) fL Lymph # (Auto) 0.4 L (0.8-4.8) 10^3/uL [place] # (Auto) (0.2-0.9) 10^3/uL PT 20.40 H (12.1-14.9) SECONDS INR 1.68 H (0.8-1.2) APTT 40.9 H (23.9-36.7) SECONDS Fibrinogen 564 H (174-498) mg/dL D-Dimer 7.30 H (0-0.59) ug/mIFEU ABG pH (7.35-7.45) ABG pCO2 (35-45) mmHg ABG pO2 (80.0-100.0) mmHg ABG HCO3 (22-26) mmol/L ABG Base Excess (-2.0-2.0) mmol/L Hematocrit (37-47) % Total Hemoglobin (12-16) g/dL Glucose (70-115) mg/dL Sodium 146 H (136-145) mmol/L Chloride 115 H (98-107) mmol/L Carbon Dioxide 20 L (22-29) mmol/L Anion Gap (5-19) BUN 62 H (8-23) mg/dL Creatinine 3.3 H (0.5-0.9) mg/dL POC Glucose (70-110) mg/dL Calculated Osmolality 320 H (285-295) mOsm/kg Calcium 7.6 L (8.5-10.5) mg/dL Total Protein 5.2 L (6.6-8.7) g/dL Albumin 3.0 L (3.5-5.2) g/dL Crossmatch 04/30/20 04/30/20 04/30/20 Range/Units 04:46 05:13 06:34 WBC (4.0-10.0) 10^3/uL RBC (4.1-5.3) 10^6/uL Hgb (11.5-15.3) g/dL Hct (37.0-47.0) % RDW (12.1-15.1) % Plt Count (130-400) 10^3/cmm MPV (7.4-10.4) fL Lymph # (Auto) (0.8-4.8) 10^3/uL [place] # (Auto) (0.2-0.9) 10^3/uL PT (12.1-14.9) SECONDS INR (0.8-1.2) APTT (23.9-36.7) SECONDS Fibrinogen (174-498) mg/dL D-Dimer (0-0.59) ug/mIFEU ABG pH (7.35-7.45) ABG pCO2 29.2 L (35-45) mmHg ABG pO2 74.9 L (80.0-100.0) mmHg ABG HCO3 18.6 L (22-26) mmol/L ABG Base Excess -5.2 L (-2.0-2.0) mmol/L Hematocrit 28.1 L (37-47) % Total Hemoglobin (12-16) g/dL Glucose (70-115) mg/dL Sodium (136-145) mmol/L Chloride (98-107) mmol/L Carbon Dioxide (22-29) mmol/L Anion Gap (5-19) BUN (8-23) mg/dL Creatinine (0.5-0.9) mg/dL POC Glucose 128 H (70-110) mg/dL Calculated Osmolality (285-295) mOsm/kg Calcium (8.5-10.5) mg/dL Total Protein (6.6-8.7) g/dL Albumin (3.5-5.2) g/dL Crossmatch See Detail 04/30/20 04/30/20 04/30/20 Range/Units 08:19 14:16 14:16 WBC 10.7 H (4.0-10.0) 10^3/uL RBC 2.63 L (4.1-5.3) 10^6/uL Hgb 8.6 L (11.5-15.3) g/dL Hct 25.8 L (37.0-47.0) % RDW 15.4 H (12.1-15.1) % Plt Count 91 L (130-400) 10^3/cmm MPV 10.9 H (7.4-10.4) fL Lymph # (Auto) 0.4 L (0.8-4.8) 10^3/uL [place] # (Auto) 1.2 H (0.2-0.9) 10^3/uL PT (12.1-14.9) SECONDS INR (0.8-1.2) APTT (23.9-36.7) SECONDS Fibrinogen (174-498) mg/dL D-Dimer (0-0.59) ug/mIFEU ABG pH (7.35-7.45) ABG pCO2 (35-45) mmHg ABG pO2 (80.0-100.0) mmHg ABG HCO3 (22-26) mmol/L ABG Base Excess (-2.0-2.0) mmol/L Hematocrit (37-47) % Total Hemoglobin (12-16) g/dL Glucose 248 H (70-115) mg/dL Sodium (136-145) mmol/L Chloride 112 H (98-107) mmol/L Carbon Dioxide 13 L (22-29) mmol/L Anion Gap 23.2 H (5-19) BUN 58 H (8-23) mg/dL Creatinine 3.1 H (0.5-0.9) mg/dL POC Glucose 181 H (70-110) mg/dL Calculated Osmolality 322 H (285-295) mOsm/kg Calcium 7.8 L (8.5-10.5) mg/dL Total Protein 5.3 L (6.6-8.7) g/dL Albumin 3.0 L (3.5-5.2) g/dL Crossmatch Impressions Tibia/Fibula X-Ray 04/26/20 14:07 Impression: Negative for radiopaque foreign bodies. Chest/Abdomen/Pelvis CT 04/26/20 15:42 IMPRESSION: 1. Mild fat stranding changes in the upper abdomen, cannot exclude sequela of acute pancreatitis. Otherwise, no convincing evidence of acute abdominopelvic abnormality. 2. Incidental finding of small right adrenal nodule, indeterminate characterization by this exam. 3. Bilateral renal cortical cystic lesions with simple CT features. COMMENTS: Consistent with the [employer]'s Incidental Findings Committee white paper (J Am Shine Radiol 2018): Any incidental renal lesion less than 1 cm or classified as too small to characterize, or any incidental cystic renal lesion characterized as simple-appearing, is likely benign. No follow-up imaging is recommended for these lesions per consensus recommendations based on imaging criteria. Radiation Dose CTDIVOL = (mGy): DLP = 1535.38~1535.38 (mGy-cm) Chest X-Ray 04/29/20 06:00 IMPRESSION: 1. Satisfactory position of the endotracheal tube and central venous catheter. 2. The tip of the nasogastric tube is at the gastroesophageal junction and could be advanced further into the stomach. 3. No acute cardiopulmonary abnormality. Renal Ultrasound 04/29/20 12:27 IMPRESSION: 1. Mild right hydronephrosis. 2. Benign right renal cysts. 3. The kidneys are normal in size and echogenicity. Head CT 04/29/20 15:10 IMPRESSION: 1. No acute intracranial abnormality. 2. Changes of chronic microvascular ischemic disease. Radiation Dose CTDIVOL = (mGy): DLP = 777.1 (mGy-cm) Micro: Microbiology 04/28/20 16:45 Urine Culture - Final Urine Catheterized 04/26/20 18:28 Sputum Culture - Final Sputum - Endotracheal Tube Aspirate Microbiology 04/30/20 14:16 Blood Blood Culture - Preliminary SPECIMEN COLLECTED 04/30/20 14:16 Blood Blood Culture - Preliminary SPECIMEN COLLECTED 04/28/20 16:45 Urine Catheterized Urine Culture - Final 04/26/20 18:28 Sputum - Endotracheal Tube Aspirate Sputum Culture - Final 04/28/20 07:30 Stool Occult Blood (FIT) - Final 04/26/20 14:15 Blood Blood Culture - Preliminary NEGATIVE TO DATE 04/26/20 14:00 Blood Blood Culture - Preliminary NEGATIVE TO DATE 04/27/20 05:10 Urine Catheterized Legionella Urinary Antigen - Final A&P Assessment and plan (1) Septic shock: Status: Acute (2) Unresponsive state: Status: Acute (3) Endotracheally intubated: Status: Acute (4) Metabolic acidosis: Status: Acute (5) Diabetic keto-acidosis: Status: Acute (6) FRANKLIN (acute kidney injury): Status: Acute (7) Elevated troponin: Status: Acute Additional A&P Information 84-year-old female found unresponsive at home for unknown time found to be hypotensive, intubated in the field with metabolic acidosis, DKA because of acute pancreatitis seen on CT scan. Shock: Resolved. Patient off inotropes for last 24 hours. Most likely a combination of profound inflammation vasoplegia along with hypovolemia in setting of acute pancreatitis. DIC panel suggestive of overt DIC but improving. Endotracheally intubated: Extubated on April 30. Post extubation on 2 L nasal cannula saturating 94%. Comfortable. Following commands having complete conversation and a strong cough. Incentive spirometry. Levo albuterol every 6 hours, ipratropium every 6 hours, stop budesonide. Metabolic acidosis: Non-anion gap. Cannot rule out RTA given the FRANKLIN. FRANKLIN: Because of dehydration, shock and possible LUCIA. Creatinine worsening today. Will consult nephrology given worsening creatinine and ongoing metabolic acidosis. Continue to monitor electrolytes and replete accordingly. Appreciate renal recommendations. Continue vancomycin and Zosyn both renally dosed. We will continue to follow culture results. Check Vanco random level. We will plan to continue the antibiotics for at least 24 hours post extubation. Thrombocytopenia: Platelet count 88,000 today coming down from 228,000 from admission. HIT panel awaited. Check DIC panel given anemia and thrombocytopenia. Stop anticoagulation for now. Continue to monitor platelet and hemoglobin. GI bleed: Secondary to gastritis most likely from stress-induced as seen on endoscopy done on April 30. Continue Protonix 40 mg twice daily. Continue to monitor hemoglobin. Diabetic ketoacidosis: Resolved. Anion gap closed. Stop insulin drip and switch to insulin sliding scale every 6 hours at moderate dose protocol. Elevated troponins: Troponin trending down yesterday. EKG has remained stable. Most likely secondary to demand ischemia. We will continue to monitor. Repeat troponin today morning. CODE STATUS: Discussed with daughters at bedside. Patient does not have any designated DPOA on file. Next of kin for the patient would be both daughters and they are agreeable to make medical decisions for patient. Full code for now. Pepcid for PUD prophylaxis. 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 Severely guarded prognosis. Care in detail with patient's daughter. Discussed that patient is improving but still not out of the story as she is intubated and on pressors. Also discussed that etiology of her problem is most likely from acute pancreatitis. Daughter present at bedside. Discussed that patient is doing better. She is off ventilator and going forward it is all about physical therapy and getting stronger. Daughter is thankful for all the care. All the questions were answered. Attestations Medical Necessity Statement*: Patient was further hospitalization for management of resolving anemia, thrombocytopenia because of GI bleed, FRANKLIN because of inflammatory vasoplegic shock from acute pancreatitis. Extubated today. Critical Care Time: The high probability of a clinically significant, sudden or life threatening deterioration of the patient's pulmonary, GI, renal, hematology system(s) required my full and direct attention, intervention and personal management. The critical care time is as shown. This time is in addition to time spent performing any reported procedures but includes the following: [x] Data and vital sign review and interpretation [x] Patient assessment, examination and intervention [x] Documentation [x] Medication orders and management Critical Care Time (min): 90 Coding Level of Care Code Acute Front End Alignment Specialist for g Fwd Diagnoses Septic shock A41.9; R65.21 Unresponsive state R41.89 Endotracheally intubated Z97.8 Metabolic acidosis E87.2 Diabetic keto-acidosis E11.10 FRANKLIN (acute kidney injury) N17.9 Elevated troponin R77.8
--- NOTE | 2020-04-30 09:33 | PC.CHAP ---
Pastoral Care Encounter/Spiritual Assessment Type of Contact [] Declined tug boat captain visit [] Patient/Family/Request visit [] Outpatient visit [] Follow-up visit [] Physician referral [] Code/Alert [x] Routine visit [] Staff referral [] Actively dying [] Patient sleeping [] Family support [] [] Out of room [] Palliative care [] [] Receiving care in room [] Pre-surgical visit [] Trauma [] Long length of stay [x] ICU visit [] Other: Relational/Emotional Strength [] Patient feels connected with others/family/visitors/staff [] Distress [] Loneliness/isolation [] Abandonment Spirituality of Patient [] Person of Mackenzie [] Attends Catholic of their Mack[place] [] Believes in Prayer [] Reads Bible or Presybeterian materials [] There are Spiritual issues to be addressed Market Risk Specialist Interventions [x] Prayer [] Active listening [] Non-anxious presence [] Spiritual/emotional support [] Crisis/trauma care [] Spiritual counseling [] Bereavement support [] Provided bereavement packet [] Provided Bible/devotional materials [] Provided toy/stuffed animal, coloring book to patient or family member [] Provided Communion [] Anointing/[place] [] Salvation [x] Completed spiritual assessment [] Other: Impact on Illness or Injury [] Angry [] Fearful [] Anxious [] Often cries [] Exhaustion [] Unable to work [] Unable to attend scientologist [] Unable to walk/stand [] Unable to read [] Unable to drive [] Unable to eat/drink [] Unable to sleep [] Unable to be with family [] Patient intubated [] Other: Summary Time spent with patient
--- NOTE | 2020-04-30 11:17 | P.CONIM_ITS ---
Providers/Reason For Consult Consulting Physican/Specialty*: General Surgery Alexander Sales MD Reason for Consult*: Requesting EGD. Attending Physician: Vaibhav Palma MD Primary Care Provider: GEO Rueda History of Present Illness History of Present Illness Sheri Szymanski is a 84 year old female recently admitted after being found unresponsive at home. It had apparently been about 24 hours since one of the patient's daughters had spoken to her. She was intubated at the scene / in the field and was brought to the hospital where she was found to be in shock. She was found to have imaging and laboratory evidence of pancreatitis. The patient apparently has shown some improvement and is more alert now although she remains intubated. Her hemoglobin has dropped approximately 4 g since her admission. She has been having some evidence of very dark stool and some coffee -ground appearing material from her orogastric tube. The patient was on some subcutaneous heparin but that has been put on hold. She is on peptic ulcer disease prophylaxis. The patient is able to answer yes/no questions by nodding or shaking her head even though she is intubated. She denies any known history of peptic ulcer disease. She indicates that she does not take NSAIDs on a regular basis at home (other than a daily baby aspirin). Review of Systems General: Reports: 10 or more systems reviewed and unremarkable except in HPI and below (Not completely obtainable due to the fact that the patient is intubated) GI: Reports: other (No known history of peptic ulcer disease); Denies: abdominal pain Meds/Allergies Home Medications and Allergies Home Medications Medication Instructions Recorded Confirmed Last Taken Type aspirin 81 mg PO DAILY@04/26/20 04/26/20 04/25/20 History glipizide 5 mg PO DAILY@04/26/20 04/26/20 04/25/20 History lisinopril 20 mg PO DAILY@04/26/20 04/26/20 04/25/20 History lovastatin 20 mg PO DAILY@169904/26/20 04/26/20 04/25/20 History metformin 500 mg PO BID@04/26/20 04/26/20 04/25/20 History metoprolol tartrate 50 mg PO BID@04/26/20 04/26/20 04/25/20 History sodium chloride 1 g PO DAILY@07 04/26/20 04/26/20 04/25/20 History Allergies Allergy/AdvReac Type Severity Reaction Status Date / Time No Known Allergies Allergy Verified 02/29/20 10:19 Current Medications Current Medications Generic Name Dose Route Start Last Admin Trade Name Freq PRN Reason Stop Dose Admin Heparin Sodium (Beef Lung) 5,000 unit 04/27/20 17:00 04/28/20 04:31 Heparin 5,000 Unit/Ml Inj 1 Ml SUBCUT 5,000 unit Q12H FRANK Administration Norepinephrine Bitartrate 4 mg 254 mls @ 0 mls/hr 04/26/20 14:15 04/29/20 23:41 / Dextrose IV 0 mcg/min .Q0M FRANK 0 mls/hr Titration Protocol Per Protocol Fentanyl 1,000 mcg/ Sodium 100 mls @ 0 mls/hr 04/26/20 16:00 04/30/20 09:00 Chloride IV 10 mcg/hr .Q0M FRANK 1 mls/hr Titration Protocol Per Protocol Propofol 1,000 mg in 100 mls @ 0 mls/hr 04/26/20 16:00 04/28/20 07:47 Diprivan IV Infused .Q0M FRANK Titration Protocol Per Protocol Piperacillin Sod/Tazobactam 50 mls @ 12.5 mls/hr 04/27/20 04:00 04/30/20 03:19 Sod 3.375 gm/ Sodium Chloride IV 12.5 mls/hr Q12H FRANK Administration Protocol Vancomycin HCl 1,000 mg/ 250 mls @ 250 mls/hr 04/28/20 16:30 04/29/20 07:50 Sodium Chloride IV Infused Q48H FRANK Infusion Protocol Sodium Chloride 1,000 mls @ 50 mls/hr 04/30/20 06:30 04/30/20 08:49 Sodium Chloride 0.45% IV 100 mls/hr .Q20H FRANK Administration Insulin Aspart 0 unit 04/29/20 00:00 04/30/20 05:40 Insulin Aspart 100 Unit/1 Ml SUBCUT Not Given Q6H FRANK Protocol Pantoprazole Sodium 40 mg 04/27/20 09:00 04/30/20 08:50 Pantoprazole 40 Mg Sdv IVP 40 mg Q12H FRANK Administration PFSH Acute PFSH: Medical History Diabetes Hyperlipidemia Hypertension Surgical History History of left hip replacement (~2014) Family History Daughter Diabetes Denies family history of Anesthesia complication Bleeding disorder Social History Smoking and tobacco status: never smoked Alcohol intake: never Adopted: No Caregiver/support person: Yes Lives independently: Yes Housing: House Marital status: Single Current occupational exposures/hazards: No Pets and animals: Yes Pets & animals: cat(s) History of recent travel: No Sexually active: No Current gender identity: Female Mackenzie/Holiness: Pentecostalism Special mackenzie needs: No Financial difficulty paying for basics: Not Applicable Vitals/I&O/Wt Last Vital Signs Temp 100.4 F H 04/30/20 04:00 Pulse 102 H 04/30/20 08:00 Resp 15 04/30/20 07:45 BP 147/63 04/30/20 09:00 Pulse Ox 93 04/30/20 09:00 04/29/20 04/30/20 04/30/20 22:59 06:59 14:59 Intake Total 1150.1 / 1879.815 329.715 / 1879.815 35.583 / 35.583 Output Total 300 / 1970 1000 / 1970 Balance 850.1 / -90.185 -670.285 / -90.185 35.583 / 35.583 Weight last 48 hrs Weight 137 lb 12.623 oz Weight 138 lb Physical Exam Narrative: EXAM NARRATIVE: The patient was encountered in her room in the intensive care unit. She is intubated but is easily arousable. Her pupils seem equal. No carotid bruits are heard. The lungs seem clear anteriorly. The heart is regular. The abdomen reveals hypoactive bowel sounds but is soft and seemingly nontender. I cannot see any obvious surgical scars. No obvious masses are palpated. The extremities reveal no edema. The patient can squeeze my fingers with both hands fairly equally. Urinary Catheter Management^: Ferris: Cath Placed During This Visit: yes Reason for Continuing Indwelling Catheter: Accurate Measurement of Urinary Output in Critically Ill Patients Urinary Catheter Date of Insertion: 04/26/20 Urinary Catheter Time of Insertion: 14:40 Data Micro: Micro: Microbiology 04/28/20 16:45 Urine Culture - Fi nal Urine Catheterize d 04/26/20 18:28 Sputum Culture - F inal Sputum - Endotrac heal Tube Aspirate A&P Assessment and plan (1) Anemia due to blood loss: The patient's hemoglobin has dropped about 4 g since admission. Given her unconscious state for some time prior to arrival, I would imagine at least some of this is delusional, although there is clear evidence of melanotic stool and some coffee-ground appearing material via her orogastric tube. Status: Acute (2) Melena: I have discussed esophagogastroduodenoscopy with the patient as best as possible given her intubation. She seems to understand and is agreeable to proceeding. Status: Acute Consult Attestations Medical Necessity Statement: See admitting service's notation. Coding Level of Care Code Acute Nuclear Physics Professor for Benedicto Hanna Diagnoses Anemia due to blood loss D50.0 Melena K92.1
[2020-04-30 14:35] LABS: Basophils # 0.1 10^3/uL (0.0-0.1); Basophils % 0.8 %; Eosinophils # 0.2 10^3/uL (0.0-0.8); Eosinophils % 2.2 %; Hematocrit 25.8 % (37.0-47.0); Hemoglobin 8.6 g/dL (11.5-15.3); Lymphocytes # 0.4 10^3/uL (0.8-4.8); Lymphocytes % 3.6 %; Mean Corpuscular HGB Conc 33.3 g/dL (30.0-36.0); Mean Corpuscular Hemoglobin 32.7 pg (28.0-34.0); Mean Corpuscular Volume 98.1 fL (81-99); Mean Platelet Volume 10.9 fL (7.4-10.4); Monocytes # 1.2 10^3/uL (0.2-0.9); Monocytes % 11.1 %; Neutrophils # 7.41 10^3/uL (1.8-7.7); Nucleated Red Blood Cells % 0 %; Platelet Count 91 10^3/cmm (130-400); Red Blood Count 2.63 10^6/uL (4.1-5.3); Red Cell Distribution Width 15.4 % (12.1-15.1); White Blood Count 10.7 10^3/uL (4.0-10.0)
[2020-04-30 14:45] LABS: Neutrophils % 82.3 %
[2020-04-30 14:58] LABS: Alanine Aminotransferase 10 U/L (0-33); Alkaline Phosphatase 83 IU/L (35-105); Anion Gap 23.2 (5-19); Aspartate Amino Transferase 13 U/L (0-32); Blood Urea Nitrogen 58 mg/dL (8-23); Calcium 7.8 mg/dL (8.5-10.5); Carbon Dioxide 13 mmol/L (22-29); Chloride 112 mmol/L (98-107); Globulin 2.3 g/dL (1.3-4.6); Glucose 248 mg/dL (65-115); Osmolality Calculated 322 mOsm/kg (285-295); Potassium 4.2 mmol/L (3.5-5.1); Sodium 144 mmol/L (136-145); Total Bilirubin 0.5 mg/dL (0.15-1.2); Total Protein 5.3 g/dL (6.6-8.7)
--- NOTE | 2020-04-30 15:24 | PC.RESP ---
extubated pt extubated to room air. tolerated well
[2020-04-30] MEDS: metoprolol tartrate 1 mg/1 mL SDV 5 mL 5 MG IV (16:21)
[2020-04-30] MEDS: vancomycin 1,000 MG in sodium chloride 0.9% 250 ML 250 MG IV (16:22)
--- NOTE | 2020-04-30 16:37 | PC.NURSE ---
Fentanyl wasted with Jessi phillips RN 47 ml.
--- NOTE | 2020-04-30 16:44 | PC.NURSE ---
47 ml Fentanyl wasted with Vicky RN
[2020-04-30 18:11] LABS: Glucose Point of Care 268 mg/dL (70-110)
[2020-04-30] MEDS: levalbuterol 0.63 mg/3 mL Neb INHALATION ×2 (19:40→23:39)
[2020-04-30] MEDS: ipratropium 0.5 mg/2.5 mL Neb INHALATION (20:17)
[2020-04-30 23:26] LABS: Glucose Point of Care 248 mg/dL (70-110)
[2020-05-01] VITALS (29 sets, daily range): BP systolic 132–170; BP diastolic 63–102; PULSE 105–131; RESP 13–21; TEMP 36.8–37.1; O2SAT 90–99
[2020-05-01] MEDS: levalbuterol 0.63 mg/3 mL Neb INHALATION ×5 (03:30→20:07)
[2020-05-01] MEDS: piperacillin-tazobactam 3.375 GM in sodium chloride 0.9% (plus) 50 ML IV ×2 (04:54→16:36)
--- NOTE | 2020-05-01 06:00 | XR_ITS ---
WS: [id number] PORTABLE CHEST HISTORY: covid COMPARISON: 04/29/2020 RIGHT subclavian central line with tip in distal SVC. Hyperexpanded lungs. No pneumonia. Normal vasculature. No pleural effusion or pneumothorax. Cardiac size: Normal. Mediastinum/Aorta: Mild atherosclerosis aorta. No osseous abnormality seen. Nasogastric and endotracheal tubes have been removed since the prior study. XR/XR chest 1V portable [id number] IMPRESSION: Chronic emphysema. No pneumonia.
[2020-05-01 06:13] LABS: H. Pylori / CLO Test Negative
[2020-05-01 06:26] LABS: Glucose Point of Care 279 mg/dL (70-110)
[2020-05-01 06:30] LABS: Basophils % 0.1 %; Hematocrit 30.6 % (37.0-47.0); Hemoglobin 10.1 g/dL (11.5-15.3); Lymphocytes # 0.5 10^3/uL (0.8-4.8); Lymphocytes % 3.9 %; Mean Corpuscular Hemoglobin 32.8 pg (28.0-34.0); Mean Corpuscular Volume 99.4 fL (81-99); Monocytes # 1.7 10^3/uL (0.2-0.9); Monocytes % 14.1 %; Neutrophils # 9.25 10^3/uL (1.8-7.7); Neutrophils % 78.7 %; Nucleated Red Blood Cells % 0 %; Platelet Count 136 10^3/cmm (130-400); Red Blood Count 3.08 10^6/uL (4.1-5.3); Red Cell Distribution Width 15.4 % (12.1-15.1); White Blood Count 11.8 10^3/uL (4.0-10.0)
[2020-05-01 06:46] LABS: Alanine Aminotransferase 10 U/L (0-33); Albumin Level 3.1 g/dL (3.5-5.2); Alkaline Phosphatase 79 IU/L (35-105); Aspartate Amino Transferase 10 U/L (0-32); Blood Urea Nitrogen 54 mg/dL (8-23); Calcium 8.4 mg/dL (8.5-10.5); Carbon Dioxide 12 mmol/L (22-29); Chloride 110 mmol/L (98-107); Creatine Phosphokinase 91 U/L (26-192); Globulin 2.8 g/dL (1.3-4.6); Glucose 258 mg/dL (65-115); Magnesium 1.9 mg/dL (1.7-2.3); Osmolality Calculated 324 mOsm/kg (285-295); Sodium 145 mmol/L (136-145); Total Bilirubin 0.5 mg/dL (0.15-1.2); Total Protein 5.9 g/dL (6.6-8.7)
[2020-05-01 06:54] LABS: Vancomycin Trough 23.2 ug/mL (10-15)
[2020-05-01 07:06] LABS: Slide Review Slide Review Perform
[2020-05-01 07:49] LABS: Glucose Point of Care 268 mg/dL (70-110)
--- NOTE | 2020-05-01 08:23 | P.PN_ITS ---
Subjective Subjective: Interval history: extubated. still w/ black stools. no sob. no cp Medications: Reviewed: Yes Medication Review Details: Current Medications Acetaminophen (Acetaminophen 325 Mg Tablet) 650 mg PO Q6H PRN PRN Reason: Mild/Mod Pain Or Temp >/= 101 Dextrose (Dextrose 50% Syringe 50 Ml) 25 ml IVP ONCE PRN; Protocol PRN Reason: hypoglycemia protocol Dextrose (Dextrose 50% Syringe 50 Ml) 50 ml IVP PRN PRN; Protocol PRN Reason: hypoglycemia protocol Glucagon (Glucagon 1 Mg/Ml Inj 1 Ml) 1 mg IM ONCE PRN; Protocol PRN Reason: Adult Acute Hypoglycemia Prot. Heparin Sodium (Beef Lung) (Heparin 5,000 Unit/Ml Inj 1 Ml) 5,000 unit SUBCUT Q12H FRANK Last Admin: 04/28/20 04:31 Dose: 5,000 unit Documented by: Hydromorphone HCl (Hydromorphone 1 Mg/Ml Inj 1 Ml) 1 mg IVP Q4H PRN PRN Reason: PS 6-10 Piperacillin Sod/Tazobactam (Sod 3.375 gm/ Sodium Chloride) 50 mls @ 12.5 mls/hr IV Q12H FRANK; Protocol Last Admin: 05/01/20 04:54 Dose: 12.5 mls/hr Documented by: Vancomycin HCl 1,000 mg/ (Sodium Chloride) 250 mls @ 250 mls/hr IV Q48H FRANK; Protocol Last Infusion: 04/30/20 19:45 Dose: Infused Documented by: Dextrose (D5w) 500 mls @ 100 mls/hr IV ONCE PRN; Protocol PRN Reason: Adult Acute Hypoglycemia Prot Sodium Chloride (Sodium Chloride 0.45%) 1,000 mls @ 50 mls/hr IV .Q20H FRANK Last Infusion: 04/30/20 19:44 Dose: Infused Documented by: Insulin Aspart (Insulin Aspart 100 Unit/1 Ml) 0 unit SUBCUT Q6H FRANK; Protocol Last Admin: 05/01/20 06:23 Dose: 10 unit Documented by: Ipratropium [place] (Ipratropium 0.5 Mg/2.5 Ml Neb) 0.5 mg INHALATION TID.RESPIRATORY FRANK Last Admin: 04/30/20 20:17 Dose: 0.5 mg Documented by: Levalbuterol HCl (Levalbuterol 0.63 Mg/3 Ml Neb) 0.63 mg INHALATION Q4H.RESPIRATORY FRANK Last Admin: 05/01/20 03:30 Dose: 0.63 mg Documented by: Metoprolol Tartrate (Metoprolol Tartrate 1 Mg/1 Ml Sdv 5 Ml) 5 mg IV Q6H PRN PRN Reason: HR>110, hold for SBP<110mmhg Ondansetron HCl (Ondansetron 2 Mg/Ml Sdv 2 Ml) 4 mg IVP Q8H PRN PRN Reason: vomiting, or N/V if npo Pantoprazole Sodium (Pantoprazole 40 Mg Sdv) 40 mg IVP Q12H FRANK Last Admin: 04/30/20 21:29 Dose: 40 mg Documented by: Vitals/I&O/Wt Last Vital Signs Temp 98.6 F 05/01/20 04:00 Pulse 105 H 05/01/20 06:00 Resp 16 05/01/20 04:00 BP 140/69 05/01/20 04:00 Pulse Ox 91 05/01/20 04:00 04/30/20 05/01/20 05/01/20 22:59 06:59 14:59 Intake Total 2300 / 2385.583 Output Total 1550 / 1550 625 / 2175 Balance 750 / 835.583 -625 / 210.583 Weight last 48 hrs Weight 62.233 kg Weight 62.5 kg Physical Exam Narrative: EXAM NARRATIVE: off pressers. extubated. sinus tach Q A fib. temps improving comfortable in bed, NARD heent- nc/at neck supple lungs -improved air movement b/l heart tachy, + s1, s2 abd soft, +Bs, NT, non distended ext 1+ edema neuro- a,a, o x 2 Pulses + b/l Urinary Catheter Management^: Ferris: Cath Placed During This Visit: yes Reason for Continuing Indwelling Catheter: Accurate Measurement of Urinary Output in Critically Ill Patients Urinary Catheter Date of Insertion: 04/26/20 Urinary Catheter Time of Insertion: 14:40 Data : 05/01/20 06:20 05/01/20 06:20 Micro: Microbiology 04/30/20 14:16 Blood Culture - Preliminary Blood SPECIMEN COLLECTED 04/30/20 14:16 Blood Culture - Preliminary Blood SPECIMEN COLLECTED 04/28/20 16:45 Urine Culture - Final Urine Catheterized A&P Additional A&P Information 84 yr old female 1. pancreatitis- repeat lipase/ amylase levels normal 2. franklin- baseline cr 0.6- presented w/ cr 2.9 -improved to 2.3- on admission was prerenal and nemo-i and DKA. Also concern for atn -cr remained stable till 04/28/20- cr peaked at 3.5- now cr 2.9 and pt is urinating repeat ua w/ 4+ gluc, 3+ blood, 5-10 rbc- serologies sent -concern for ATN/ LUCIA- s/p contrast in setting of FRANKLIN and DM -mild rhabdo ck 1534- 270 -not cause of franklin - vanco level 23.2- keep trough under 19 -avoid nephrotoxins -given anemia and thrombocytopenia- likely from sepsis. However, we checked ldh 374 , retic count pending, haptoglobin -is normal at 145 -monitor chemistries -monitor uop -renal us- mild right hydronephrosis- please have urology see her when possible 3. hypernatremia- encourage free water 4. Q DIC, w/ thrombocytopenia, high INR and Fibrinogen 5.leukocytosis -wbx remains 11.8 -improving temps -renal dose abx 6. acid base- met acidosis and resp alkalosis - inc AGMA-from FRANKLIN w/ resp compensation- give bicarb - repeat ua - no ketones 7. meds reviewed 8. anemia from franklin and gastritis on EGD seen w/ RN- telehealth visit Attestations Medical Necessity Statement*: per medicine, inc AGMA Time Spent in Patient Care: 16 - 35 minutes Coding Level of Care Code Acute Senior Project Manager Engineering for Benedicto Hanna
[2020-05-01] MEDS: ipratropium 0.5 mg/2.5 mL Neb INHALATION ×3 (08:30→20:07)
[2020-05-01] MEDS: pantoprazole 40 mg SDV IVP ×2 (08:45→20:26)
[2020-05-01 09:58] LABS: Vancomycin Peak 25.3 ug/mL (20-40)
[2020-05-01 10:08] LABS: Albumin Level 2.8 g/dL (3.5-5.2); Anion Gap 19.3 (5-19); Blood Urea Nitrogen 51 mg/dL (8-23); Calcium 8.5 mg/dL (8.5-10.5); Carbon Dioxide 16 mmol/L (22-29); Chloride 111 mmol/L (98-107); Glucose 191 mg/dL (65-115); Lactate (Lactic Acid level) 1.5 mmol/L (0.5-2.2); Potassium 3.3 mmol/L (3.5-5.1); Sodium 143 mmol/L (136-145)
[2020-05-01 10:26] LABS: Vitamin B12 1833 pg/mL (232-1245)
--- NOTE | 2020-05-01 10:35 | PC.CHAP ---
Pastoral Care Encounter/Spiritual Assessment Type of Contact [] Declined lbd teacher visit [] Patient/Family/Request visit [] Outpatient visit [] Follow-up visit [] Physician referral [] Code/Alert [x] Routine visit [] Staff referral [] Actively dying [] Patient sleeping [] Family support [] [] Out of room [] Palliative care [] [] Receiving care in room [] Pre-surgical visit [] Trauma [] Long length of stay [x] ICU visit [] Other: Relational/Emotional Strength [] Patient feels connected with others/family/visitors/staff [] Distress [] Loneliness/isolation [] Abandonment Spirituality of Patient [] Person of Mackenzie [] Attends Restoration of their Mackenzie [] Believes in Prayer [] Reads Bible or Baptist materials [] There are Spiritual issues to be addressed International Marketing Manager Interventions [x] Prayer [] Active listening [] Non-anxious presence [] Spiritual/emotional support [] Crisis/trauma care [] Spiritual counseling [] Bereavement support [] Provided bereavement packet [] Provided Bible/devotional materials [] Provided toy/stuffed animal, coloring book to patient or family member [] Provided Communion [] Anointing/[place] [] Salvation [x] Completed spiritual assessment [] Other: Impact on Illness or Injury [] Angry [] Fearful [] Anxious [] Often cries [] Exhaustion [] Unable to work [] Unable to attend lutheran [] Unable to walk/stand [] Unable to read [] Unable to drive [] Unable to eat/drink [] Unable to sleep [] Unable to be with family [] Patient intubated [] Other: Summary eyes open... staff busy with patient Time spent with patient
--- NOTE | 2020-05-01 10:42 | MR_ITS ---
WS: [id number] MRI CERVICAL SPINE NONCONTRAST HISTORY: unable to turn head to right. COMPARISON: None available. Technique: Multiplanar, multisequence noncontrast imaging of the cervical spine. This is a significantly limited evaluation cervical spine due to motion. Increased cervical lordosis. No cord atrophy. Quality is not adequate to exclude cord edema or myelom alacia. No inferior displacement of the cerebellar tonsils. T5 hemangioma. Multilevel degenerative disc disease and osteophytosis. There is mild central and foraminal stenosis at least throughout the cervical spine from C3-4 through C6-7. The exact stenoses will be difficult to quantify. MR/MR cervical spin wo con* [id number] IMPRESSION: 1. Significantly limited evaluation of the cervical spine due to motion. 2. No high-grade central stenosis identified. There is multilevel mild central and foraminal stenoses at least from C3-4 through C6-7. More significant areas of stenosis may be present but difficult to quantify with this amount of gonzalo sexton
--- NOTE | 2020-05-01 10:42 | MR_ITS ---
WS: [id number] MRI BRAIN WITHOUT CONTRAST HISTORY: right sided weakness COMPARISON: CT head 04/29/2020. TECHNIQUE: Diffusion imaging, multiplanar T1, T2 and FLAIR imaging obtained. Small acute focal infarcts involving the posterior LEFT frontal cortex. There is an additional tiny l acunar infarct in the RIGHT cerebellum. Otherwise moderate to severe chronic microvascular ischemic c hanges in the white matter. No hemorrhage or mass effect. Ventricles and extra-axial spaces are normal. Incidental note is made of a cavum septum lucidum et ve rgae. No inferior displacement of cerebellar tonsils. The sella turcica and pituitary gland are unremarkabl e. Dural venous sinuses and [place] demonstrate no abnormality on this unenhanced studies. Paranasal sinuses: Clear. Mastoid air cells: Mild bilateral mastoid air cells effusions. Calvarium and scalp: Intact. MR/MR head wo con* [id number] IMPRESSION: 1. 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 Due to the distribution consider embolic source is in etiology. 2. Moderate atrophy and chronic microvascular ischemic changes.
[2020-05-01 10:44] LABS: Folate Level 9.4 ng/mL (4.8-37.3)
--- NOTE | 2020-05-01 11:45 | PC.NURSE ---
daughter here. consent for mri.
[2020-05-01 12:12] LABS: Glucose Point of Care 260 mg/dL (70-110)
--- NOTE | 2020-05-01 12:16 | ECG_ITS ---
[facility] Test Date: 2020-05-01 Pat Name: Sheri Szymanski Department: Room: [id number] Gender: Female Corporate Driver: : [id number] Requested By: Manav Buckner Order Number: [id number] [place] MD: Xiomy Roy M.D. Measurements Intervals [place] Rate: 123 P: 9 MI: 96 QRS: -34 QRSD: 73 T: 72 QT: 290 QTc: 416 Interpretive Statements SINUS TACHYCARDIA WITH SHORT MI INTERVAL MARKED LEFT AXIS DEVIATION [QRS AXIS < -30] PATTERN CONSISTENT WITH PULMONARY DISEASE Compared to ECG 04/28/2020 10:01:30 Short MI interval now present Left-axis deviation now present Left anterior fascicular block no longer present Myocardial infarct finding no longer present Electronically Signed On 05-01-2020 17:52:52 KNOWLEDGE ENGINEER by Xiomy Roy M.D. [id number]
[2020-05-01 12:20] LABS: Estmated Average Glucose 183
[2020-05-01] MEDS: sodium chloride 0.9% 1,000 ML 75 ML IV (14:37)
[2020-05-01] MEDS: insulin regular-human 250 UNIT in sodium chloride 0.9% 250 ML 8.7 UNIT IV (15:18)
[2020-05-01] MEDS: vancomycin 1,000 MG in sodium chloride 0.9% 250 ML 250 MG IV (16:37)
[2020-05-01 16:56] LABS: Albumin Level 2.9 g/dL (3.5-5.2); Anion Gap 24.2 (5-19); Blood Urea Nitrogen 56 mg/dL (8-23); Calcium 8.2 mg/dL (8.5-10.5); Carbon Dioxide 14 mmol/L (22-29); Chloride 109 mmol/L (98-107); Glucose 421 mg/dL (65-115); Phosphorus 2.5 mg/dL (2.5-4.5); Potassium 3.2 mmol/L (3.5-5.1); Sodium 144 mmol/L (136-145)
--- NOTE | 2020-05-01 18:08 | P.CONIM_ITS ---
Providers/Reason For Consult Consulting Physican/Specialty*: Manav Cali Reason for Consult*: Multiple strokes in multiple vascular distributions Attending Physician: Manav Cali Primary Care Provider: GEO Rueda History of Present Illness History of Present Illness Sheri Szymanski is a 84 year old woman who was intubated in the field by EMS. Her family found her in an unresponsive state and when EMS arrived her respiratory rate was in the 20s but she was unresponsive and was intubated to protect her airway. Her home was noted to be in poor condition. Her systolic blood pressure was 50 on arrival to the emergency department and temperature was 92. Dr. Herrera's admission note: Arrival to the ER patient's blood pressure was 50 systolic and by temperature was 92 Fahrenheit. Blood work in the ER showed a white count 15,000, hemoglobin of 14, INR of 1.4, pH of 6.9, CO2 of 23, PO2 of 49.1 100% FiO2 vent PEEP of 8. Chemistry showed a sodium of 139, chloride of 98, bicarb of 6, potassium of 4.7, BUN of 58, creatinine of 2.9, blood glucose of 08/20/1951, lactate of 4, magnesium of 2.6, baseline troponin of 168, pro calcitonin of 8.2, serum ketones positive. Chest x-ray was negative for any signs of infiltrate. On his physical she was unresponsive to physical including painful stimuli. Within a few days she was awake enough to answer simple questions. She was discovered to have acute pancreatitis which explained her frequent vomiting prior to admission. She had a CT scan of the head that showed no sign of an acute stroke but Dr. Marc ordered an MRI brain because he thought she was a little weak on her right side. She was complaining of pain on the right side of her neck so he did an MRI of her cervical spine also. I was consulted because MRI of the brain shows a tiny embolic appearing and artery lesion left middle cerebral artery posterior branch distribution. She also has what appears to be artifact in the cerebellum although it was read as a possible lacunar stroke. Review of Systems Narrative: She is awake now having been extubated earlier today. She has no complaints. She would like to eat. She denies shortness of breath. She does not remember much about coming in the hospital but she knows that she is at the hospital. Const: Reports: fever(s) and malaise Card: Denies: chest pain, palpitations or irregular heart rhythm Resp: Denies: dyspnea Meds/Allergies Home Medications and Allergies Home Medications Medication Instructions Recorded Confirmed Last Taken Type aspirin 81 mg PO DAILY@04/26/20 04/26/20 04/25/20 History glipizide 5 mg PO DAILY@04/26/20 04/26/20 04/25/20 History lisinopril 20 mg PO DAILY@04/26/20 04/26/20 04/25/20 History lovastatin 20 mg PO DAILY@169904/26/20 04/26/20 04/25/20 History metformin 500 mg PO BID@,169904/26/20 04/26/20 04/25/20 History metoprolol tartrate 50 mg PO BID@,169904/26/20 04/26/20 04/25/20 History sodium chloride 1 g PO DAILY@04/26/20 04/26/20 04/25/20 History Allergies Allergy/AdvReac Type Severity Reaction Status Date / Time No Known Allergies Allergy Verified 02/29/20 10:19 Current Medications Current Medications Generic Name Dose Route Start Last Admin Trade Name Freq PRN Reason Stop Dose Admin Heparin Sodium (Beef Lung) 5,000 unit 04/27/20 17:00 04/28/20 04:31 Heparin 5,000 Unit/Ml Inj 1 Ml SUBCUT 5,000 unit Q12H FRAKN Administration Piperacillin Sod/Tazobactam 50 mls @ 12.5 mls/hr 04/27/20 04:00 05/01/20 16:36 Sod 3.375 gm/ Sodium Chloride IV 12.5 mls/hr Q12H FRANK Administration Protocol Vancomycin HCl 1,000 mg/ 250 mls @ 250 mls/hr 04/28/20 16:30 05/01/20 16:37 Sodium Chloride IV 250 mls/hr Q48H FRANK Administration Protocol Sodium Bicarbonate 75 meq/ 1,000 mls @ 100 mls/hr 05/01/20 09:30 05/01/20 14:38 Dextrose IV 100 mls/hr .Q10H FRANK Administration Sodium Chloride 1,000 mls @ 75 mls/hr 05/01/20 11:00 05/01/20 14:37 Sodium Chloride 0.9% IV 75 mls/hr .[id number] FRANK Administration Insulin Human Regular 250 unit 252.5 mls @ 0 mls/hr 05/01/20 11:00 05/01/20 17:06 / Sodium Chloride IV 18.3 unit/hr .Q0M FRANK 18.5 mls/hr Titration Protocol Per Protocol Insulin Aspart 0 unit 04/29/20 00:00 05/01/20 14:39 Insulin Aspart 100 Unit/1 Ml SUBCUT Not Given Q6H FRANK Protocol Ipratropium Taft 0.5 mg 04/30/20 21:00 05/01/20 15:02 Ipratropium 0.5 Mg/2.5 Ml Neb INHALATION 0.5 mg TID.RESPIRATORY FRANK Administration Levalbuterol HCl 0.63 mg 04/30/20 20:00 05/01/20 15:01 Levalbuterol 0.63 Mg/3 Ml Neb INHALATION 0.63 mg Q4H.RESPIRATORY FRANK Administration Pantoprazole Sodium 40 mg 04/27/20 09:00 05/01/20 08:45 Pantoprazole 40 Mg Sdv IVP 40 mg Q12H FRANK Administration PFSH Acute PFSH: Medical History Changing skin lesion Diabetes Hyperlipidemia Hypertension Surgical History History of left hip replacement (~2014) Family History Daughter Diabetes Denies family history of Anesthesia complication Bleeding disorder Social History Smoking and tobacco status: never smoked Alcohol intake: never Adopted: No Caregiver/support person: Yes Lives independently: Yes Housing: House Marital status: Single Current occupational exposures/hazards: No Pets and animals: Yes Pets & animals: cat(s) History of recent travel: No Sexually active: No Current gender identity: Female Mackenzie/Mosque: Jehovah'S Witness Special mackenzie needs: No Financial difficulty paying for basics: Not Applicable Vitals/I&O/Wt Last Vital Signs Temp 98.7 F 05/01/20 08:00 Pulse 131 H 05/01/20 17:00 Resp 17 05/01/20 17:00 BP 132/90 05/01/20 17:00 Pulse Ox 97 05/01/20 17:00 05/01/20 05/01/20 05/01/20 06:59 14:59 22:59 Intake Total 530 / 530 195.66 / 725.66 Output Total 625 / 2175 Balance -625 / 210.583 530 / 530 195.66 / 725.66 Weight last 48 hrs Weight 137 lb 3.2 oz Weight 137 lb 12.623 oz Physical Exam Narrative: EXAM NARRATIVE: General: Attractive elderly woman who looks older than her age. Mental status exam: She is oriented to the month, the hospital and the year. She can tell me her birthdate. She can tell me the names of her daughters. She says she lives in [place]. Her speech is clear and fluent. She follows simple and complex commands and she can repeat a complex phrase. Cranial nerves: Visual torres full to confrontation although she neglects the right side on double simultaneous stimulation. She is dextral. Eye movements full without nystagmus. PERRL. Facial movements symmetric both at rest and with grimace. Tongue and palate midline. No dysarthria. Swallowing test at 90 degrees negative for aspiration. Motor: She ignores the right upper extremity and it lays flaccid at her side. Left upper extremity demonstrates 5 out of 5 strength in both legs are strong with no drift. When the right upper extremity is examined individually she gives fierce strength on rope twisting machine operator, although not full. She cannot perform fine movements in the right hand. Sensation: Intact distally to pin and touch in the 4 extremities. Deep tendon reflexes: Absent at the ankles. Toes downgoing. Gait: Not tested. Coordination: No cerebellar signs. Chest: Clear to auscultation Cardiovascular: S1 and S2 normal without murmur gallop. Regular rate and rhythm. Urinary Catheter Management^: Ferris: Cath Placed During This Visit: yes Reason for Continuing Indwelling Catheter: Accurate Measurement of Urinary Output in Critically Ill Patients Urinary Catheter Date of Insertion: 04/26/20 Urinary Catheter Time of Insertion: 14:40 Data Micro: Micro: Microbiology 04/30/20 14:16 Blood Culture - Pr eliminary Blood NEGATIVE TO EFRA E 04/30/20 14:16 Blood Culture - Pr eliminary Blood NEGATIVE TO EFRA E 04/26/20 14:15 Blood Culture - Fi nal Blood NO GROWTH AFTER 5 DAYS 04/26/20 14:00 Blood Culture - Fi nal Blood NO GROWTH AFTER 5 DAYS A&P Assessment and plan (1) Left acute arterial ischemic stroke, MCA (middle cerebral artery): This is an 84-year-old woman who presented hypotension most likely sec ondary to dehydration from repeatedly vomiting secondary to pancreatitis. She has an end artery left middle cerebral artery posterior branch stroke with weakness and neglect of the right arm and hand and no other findings. Her mental status suggests mild delirium versus chronic dementia, mild. Her MRI was read as showing a lacunar stroke in the cerebellum in addition to the lesion in her left middle cerebral artery and therefore transesophageal echocardiogram recommended to rule out cardiac valve vegetation or source for multiple emboli. Recommend not treating her with aspirin since her EGD showed gastritis. Plavix should be safer for her. She was on aspirin prior to admission. I would leave her on Plavix for a few months and I will be glad to follow her up in the clinic. I would not recommend any further testing beyond the transesophageal echo that is already planned. Status: Acute (2) Acute pancreatitis: Status: Acute (3) Metabolic acidosis: Status: Acute (4) Hypotension: Status: Acute Coding Level of Care Code Acute Leather Production Machine Operator for Benedicto Hanna Diagnoses Left acute arterial ischemic stroke, MCA (middle cerebral artery) I63.512 Acute pancreatitis K85.90 Metabolic acidosis E87.2 Hypotension I95.9
[2020-05-01] MEDS: potassium chloride ER 20 mEq Tablet 40 MEQ PO (18:41)
--- NOTE | 2020-05-01 19:57 | P.PN_ITS ---
Subjective Subjective: Interval history: The patient was extubated. Was noticed to have right upper extremity weakness almost complete. No nausea or vomiting. No diarrhea. Denies pain. Medications: Reviewed: Yes Medication Review Details: Generic Name Dose Route Start Last Admin Trade Name Freq PRN Reason Stop Dose Admin Heparin Sodium (Be ef Lung) 5,000 unit 04/27/20 17:00 04/28/20 04:31 Heparin 5,000 Un it/Ml Inj 1 Ml SUBCUT 5,000 unit Q12H FRANK Administration Piperacillin Sod/T azobactam 50 mls @ 12.5 mls /hr 04/27/20 04:00 05/01/20 16:36 Sod 3.375 gm/ So dium Chloride IV 12.5 mls/hr Q12H FRANK Administration Protocol Vancomycin HCl 1,0 00 mg/ 250 mls @ 250 mls /hr 04/28/20 16:30 05/01/20 17:50 Sodium Chloride IV Infused Q48H FRANK Infusion Protocol Sodium Bicarbonate 75 meq/ 1,000 mls @ 100 m ls/hr 05/01/20 09:30 05/01/20 14:38 Dextrose IV 100 mls/hr .Q10H FRANK Administration Sodium Chloride 1,000 mls @ 75 ml s/hr 05/01/20 11:00 05/01/20 14:37 Sodium Chloride 0.9% IV 75 mls/hr .[id number] FRANK Administration Insulin Human Regu lar 250 unit 252.5 mls @ 0 mls /hr 05/01/20 11:00 05/01/20 17:06 / Sodium Chlorid e IV 18.3 unit/hr .Q0M FRANK 18.5 mls/hr Titration Protocol Per Protocol Ipratropium Bromid e 0.5 mg 04/30/20 21:00 05/01/20 15:02 Ipratropium 0.5 Mg/2.5 Ml Neb INHALATION 0.5 mg TID.RESPIRATORY S CH Administration Levalbuterol HCl 0.63 mg 04/30/20 20:00 05/01/20 15:01 Levalbuterol 0.6 3 Mg/3 Ml Neb INHALATION 0.63 mg Q4H.RESPIRATORY S CH Administration Pantoprazole Sodiu m 40 mg 04/27/20 09:00 05/01/20 08:45 Pantoprazole 40 Mg Sdv IVP 40 mg Q12H FRANK Administration Vitals/I&O/Wt Last Vital Signs Temp 98.7 F 05/01/20 08:00 Pulse 131 H 05/01/20 17:00 Resp 17 05/01/20 17:00 BP 132/90 05/01/20 17:00 Pulse Ox 97 05/01/20 17:00 05/01/20 05/01/20 05/01/20 06:59 14:59 22:59 Intake Total 530 / 530 445.66 / 975.66 Output Total 625 / 2175 Balance -625 / 210.583 530 / 530 445.66 / 975.66 Weight last 48 hrs Weight 62.233 kg Weight 62.5 kg Physical Exam Narrative: EXAM NARRATIVE: Awake but still weak and lethargic. Responses are mostly adequate. Skin is warm and dry. Dry mucous membranes Eyes Waldemar, extraocular muscles are intact. Almost complete right upper extremity weakness. Mostly proximal. Distal muscle groups are slightly stronger. Hemineglect is present. Neck supple. No JVD Lungs clear to auscultation bilaterally. No respiratory distress Heart S1, S2, regular tachycardia Abdomen soft, nontender, bowel sounds are present Extremities no edema, cyanosis, or calf tenderness bilaterally. Urinary Catheter Management^: Ferris: Cath Placed During This Visit: yes Reason for Continuing Indwelling Catheter: Accurate Measurement of Urinary Output in Critically Ill Patients Urinary Catheter Date of Insertion: 04/26/20 Urinary Catheter Time of Insertion: 14:40 Data : 05/01/20 06:20 05/01/20 16:28 Micro: Microbiology 04/30/20 14:16 Blood Culture - Preliminary Blood NEGATIVE TO DATE 04/30/20 14:16 Blood Culture - Preliminary Blood NEGATIVE TO DATE 04/26/20 14:15 Blood Culture - Final Blood NO GROWTH AFTER 5 DAYS 04/26/20 14:00 Blood Culture - Final Blood NO GROWTH AFTER 5 DAYS A&P Assessment and plan (1) Septic shock: Status: Acute (2) Unresponsive state: Status: Acute (3) Endotracheally intubated: Status: Acute (4) Metabolic acidosis: Status: Acute (5) Diabetic keto-acidosis: Status: Acute (6) FRANKLIN (acute kidney injury): Status: Acute (7) Elevated troponin: Status: Acute Additional A&P Information 84-year-old female found unresponsive at home for unknown time found to be hypotensive, intubated in the field with metabolic acidosis, DKA because of acute pancreatitis seen on CT scan. Shock: Resolved. Patient off inotropes for last 24 hours. Most likely a combination of profound inflammation vasoplegia along with hypovolemia in setting of acute pancreatitis. DIC panel suggestive of overt DIC but improving. Endotracheally intubated: Extubated on April 30. Post extubation on 2 L nasal cannula saturating 94%. Comfortable. Following commands having complete conversation and a strong cough. Incentive spirometry. Levo albuterol every 6 hours, ipratropium every 6 hours, stop budesonide. Metabolic acidosis: Non-anion gap. Cannot rule out RTA given the FRANKLIN. FRANKLIN: Because of dehydration, shock and possible LUCIA. Creatinine worsening today. Will consult nephrology given worsening creatinine and ongoing metabolic acidosis. Continue to monitor electrolytes and replete accordingly. Appreciate renal recommendations. Continue vancomycin and Zosyn both renally dosed. We will continue to follow culture results. Check Vanco random level. We will plan to continue the antibiotics for at least 24 hours post extubation. Thrombocytopenia: Platelet count 88,000 today coming down from 228,000 from admission. HIT panel awaited. Check DIC panel given anemia and thrombocytopenia. Stop anticoagulation for now. Continue to monitor platelet and hemoglobin. GI bleed: Secondary to gastritis most likely from stress-induced as seen on endoscopy done on April 30. Continue Protonix 40 mg twice daily. Continue to monitor hemoglobin. Diabetic ketoacidosis: Resolved. Anion gap closed. Stop insulin drip and switch to insulin sliding scale every 6 hours at moderate dose protocol. Elevated troponins: Troponin trending down yesterday. EKG has remained stable. Most likely secondary to demand ischemia. We will continue to monitor. Repeat troponin today morning. CODE STATUS: Discussed with daughters at bedside. Patient does not have any designated DPOA on file. Next of kin for the patient would be both daughters and they are agreeable to make medical decisions for patient. Full code for now. Pepcid for PUD prophylaxis. 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 Severely guarded prognosis. Care in detail with patient's daughter. Discussed that patient is improving but still not out of the story as she is intubated and on pressors. Also discussed that etiology of her problem is most likely from acute pancreatitis. Daughter present at bedside. Discussed that patient is doing better. She is off ventilator and going forward it is all about physical therapy and getting stronger. Daughter is thankful for all the care. All the questions were an swered. [place] Sepsis and SIRS secondary to acute pancreatitis. Hemodynamically stable. Continue IV fluids. Continue antibiotics for now (V/Z). Are negative so far. We will recheck her lipase, lactic acid level, and procalcitonin in the morning. If there is no evidence of infection will consider de-escalating the antibiotics. DKA. Still acidotic. Acidosis could at least be partly related to acute kidney injury. However blood sugar levels are also high. Resuming insulin drip and close monitoring of blood sugar level. Increasing IV fluids. Will monitor for any signs of fluid overload. We will continue checking her chemistry panel and replacing electrolytes. Acute kidney injury probably secondary to above. Management per Dr. Martinez. Initiate his input. Acute respiratory failure secondary to above. Status post intubation and mechanical ventilation. Extubated. Currently stable. Continue close monitoring in ICU. Acute stroke. Affected areas are left frontal region and right cerebellum. Thromboembolic event is suspected. No anticoagulation due to concerns of possible hemorrhagic transformation and recent GI bleeding. We will start the patient on Plavix. JERMAINE by dr Roman. I appreciate his help. I also appreciate Dr. Noe's help and advice! Upper GI bleeding secondary to stress gastritis. Status post EGD. No evidence of active bleeding. On PPI. Acute blood loss anemia secondary to above. Continue monitoring. Currently stable. DVT prophylaxis. Heparin. Thrombocytopenia resolved. HIT testing is pending. Right renal cyst and a right adrenal nodule. Outpatient follow-up and possibly additional testing by the primary care team. The plan of care was discussed with the patient. Also I discussed her condition with her daughter who is at the bedside. I answered to numerous questions to best of my knowledge. She verbalized understanding and satisfaction with the conversation. Attestations Medical Necessity Statement*: The patient is with multiple severe health's problems in ICU requiring continued inpatient hospitalization Coding Level of Care Code Acute Bed Placement Coordinator for Chg Fwd Diagnoses Septic shock A41.9; R65.21 Unresponsive state R41.89 Endotracheally intubated Z97.8 Metabolic acidosis E87.2 Diabetic keto-acidosis E11.10 FRANKLIN (acute kidney injury) N17.9 Elevated troponin R77.8
[2020-05-01 22:02] LABS: Albumin Level 2.6 g/dL (3.5-5.2); Anion Gap 17.1 (5-19); Blood Urea Nitrogen 48 mg/dL (8-23); Calcium 8.3 mg/dL (8.5-10.5); Carbon Dioxide 19 mmol/L (22-29); Chloride 113 mmol/L (98-107); Glucose 233 mg/dL (65-115); Magnesium 1.6 mg/dL (1.7-2.3); Phosphorus 1.4 mg/dL (2.5-4.5); Potassium 3.1 mmol/L (3.5-5.1); Sodium 146 mmol/L (136-145)
[2020-05-02] VITALS (45 sets, daily range): BP systolic 100–167; BP diastolic 49–95; PULSE 111–133; RESP 10–40; TEMP 37.1–37.8; O2SAT 93–99
[2020-05-02] MEDS: levalbuterol 0.63 mg/3 mL Neb INHALATION ×6 (00:01→20:46)
[2020-05-02] MEDS: sodium chloride 0.9% 1,000 ML 75 ML IV (00:54)
[2020-05-02 04:49] LABS: Basophils % 0.1 %; Hemoglobin 9.7 g/dL (11.5-15.3); Mean Corpuscular Volume 96.3 fL (81-99)
[2020-05-02 05:03] LABS: Lactate (Lactic Acid level) 2.1 mmol/L (0.5-2.2)
[2020-05-02 05:12] LABS: Lipase 10 U/L (13-60)
[2020-05-02 05:13] LABS: C Reactive Protein 197.6 mg/L (0.0-4.9)
[2020-05-02 05:20] LABS: Eosinophils % 0.3 %; Lymphocytes # 0.6 10^3/uL (0.8-4.8); Lymphocytes % 5.5 %; Mean Corpuscular HGB Conc 33.4 g/dL (30.0-36.0); Mean Corpuscular Hemoglobin 32.2 pg (28.0-34.0); Mean Platelet Volume 10.8 fL (7.4-10.4); Monocytes # 1.3 10^3/uL (0.2-0.9); Monocytes % 12.1 %; Neutrophils # 8.21 10^3/uL (1.8-7.7); Neutrophils % 77.3 %; Nucleated Red Blood Cells % 0.2 %; Platelet Count 158 10^3/cmm (130-400); Procalcitonin 1.12 ng/mL (0-0.5); Red Blood Count 3.01 10^6/uL (4.1-5.3); White Blood Count 10.6 10^3/uL (4.0-10.0)
[2020-05-02 05:29] LABS: D Dimer 5.63 ug/mIFEU (0-0.59)
[2020-05-02 05:31] LABS: Alanine Aminotransferase 9 U/L (0-33); Albumin Level 2.7 g/dL (3.5-5.2); Alkaline Phosphatase 105 IU/L (35-105); Anion Gap 14.1 (5-19); Aspartate Amino Transferase 12 U/L (0-32); Blood Urea Nitrogen 42 mg/dL (8-23); Calcium 8.3 mg/dL (8.5-10.5); Carbon Dioxide 23 mmol/L (22-29); Chloride 111 mmol/L (98-107); Chol HDL Ratio 3.62 mg/dL (0.0-4.40); Cholesterol 105 mg/dL (0-200); Globulin 2.9 g/dL (1.3-4.6); Glucose 77 mg/dL (65-115); HDL Cholesterol 29 mg/dL (60-100); LDL Cholesterol Calculated 43 mg/dL (50-129); LDL HDL Ratio 1.48 RATIO (0.00-3.22); Magnesium 1.6 mg/dL (1.7-2.3); Osmolality Calculated 309 mOsm/kg (285-295); Phosphorus 1.6 mg/dL (2.5-4.5); Potassium 3.1 mmol/L (3.5-5.1); Sodium 145 mmol/L (136-145); Total Bilirubin 0.5 mg/dL (0.15-1.2); Total Protein 5.6 g/dL (6.6-8.7); Triglycerides 163 mg/dL (0-150)
[2020-05-02] MEDS: piperacillin-tazobactam 3.375 GM in sodium chloride 0.9% (plus) 50 ML IV ×2 (05:37→17:03)
--- NOTE | 2020-05-02 05:37 | PC.NURSE ---
Geena hung late due to transfering of patient and immediate access required on additional patient
[2020-05-02 06:06] LABS: Slide Review Slide Review Perform
[2020-05-02 06:14] LABS: Glucose Point of Care 346 mg/dL (70-110)
[2020-05-02 06:14] LABS: Glucose Point of Care 426 mg/dL (70-110)
[2020-05-02 06:14] LABS: Glucose Point of Care 339 mg/dL (70-110)
[2020-05-02 06:14] LABS: Glucose Point of Care 437 mg/dL (70-110)
[2020-05-02 07:35] LABS: Glucose Point of Care 83 mg/dL (70-110)
[2020-05-02 07:35] LABS: Glucose Point of Care 118 mg/dL (70-110)
[2020-05-02 07:35] LABS: Glucose Point of Care 166 mg/dL (70-110)
[2020-05-02 07:35] LABS: Glucose Point of Care 90 mg/dL (70-110)
[2020-05-02 07:35] LABS: Glucose Point of Care 71 mg/dL (70-110)
[2020-05-02 07:35] LABS: Glucose Point of Care 112 mg/dL (70-110)
[2020-05-02 07:35] LABS: Glucose Point of Care 239 mg/dL (70-110)
[2020-05-02 07:35] LABS: Glucose Point of Care 105 mg/dL (70-110)
[2020-05-02 07:35] LABS: Glucose Point of Care 275 mg/dL (70-110)
[2020-05-02 07:35] LABS: Glucose Point of Care 103 mg/dL (70-110)
[2020-05-02 07:35] LABS: Glucose Point of Care 306 mg/dL (70-110)
[2020-05-02] MEDS: potassium chloride ER 20 mEq Tablet 40 MEQ PO (07:42)
[2020-05-02] MEDS: ipratropium 0.5 mg/2.5 mL Neb INHALATION ×3 (08:05→20:46)
[2020-05-02] MEDS: dextrose 5%-ns 0.45% + KCl 40 1,000 ML 75 MEQ IV ×2 (08:13→20:19)
--- NOTE | 2020-05-02 08:59 | PM.PN ---
Subjective Subjective: Interval history: more awake. is NPO for echo as acute CVA. has beginning of sacral decub. follows commands. weak on rt side Medications: Reviewed: Yes Medication Review Details: Current Medications Acetaminophen (Acetaminophen 325 Mg Tablet) 650 mg PO Q6H PRN PRN Reason: Mild/Mod Pain Or Temp >/= 101 Clopidogrel Bisulfate (Clopidogrel 75 Mg Tablet) 75 mg PO DAILY FRANK Dextrose (Dextrose 50% Syringe 50 Ml) 25 ml IVP ONCE PRN; Protocol PRN Reason: hypoglycemia protocol Dextrose (Dextrose 50% Syringe 50 Ml) 50 ml IVP PRN PRN; Protocol PRN Reason: hypoglycemia protocol Dextrose (Dextrose 50% Syringe 50 Ml) 50 ml IVP PRN PRN; Protocol PRN Reason: hypoglycemia protocol Glucagon (Glucagon 1 Mg/Ml Inj 1 Ml) 1 mg IM ONCE PRN; Protocol PRN Reason: Adult Acute Hypoglycemia Prot. Glucagon (Glucagon 1 Mg/Ml Inj 1 Ml) 1 mg IM ONCE PRN; Protocol PRN Reason: Adult Acute Hypoglycemia Prot Heparin Sodium (Beef Lung) (Heparin 5,000 Unit/Ml Inj 1 Ml) 5,000 unit SUBCUT Q12H [facility] Last Admin: 04/28/20 04:31 Dose: 5,000 unit Documented by: Hydromorphone HCl (Hydromorphone 1 Mg/Ml Inj 1 Ml) 1 mg IVP Q4H PRN PRN Reason: PS 6-10 Piperacillin Sod/Tazobactam (Sod 3.375 gm/ Sodium Chloride) 50 mls @ 12.5 mls/hr IV Q12H FRANK; Protocol Last Admin: 05/02/20 05:37 Dose: 12.5 mls/hr Documented by: Vancomycin HCl 1,000 mg/ (Sodium Chloride) 250 mls @ 250 mls/hr IV Q48H FRANK; Protocol Last Infusion: 05/01/20 17:50 Dose: Infused Documented by: Dextrose (D5w) 500 mls @ 100 mls/hr IV ONCE PRN; Protocol PRN Reason: Adult Acute Hypoglycemia Prot Dextrose (D5w) 500 mls @ 100 mls/hr IV ONCE PRN; Protocol PRN Reason: Adult Acute Hypoglycemia Prot Insulin Human Regular 250 unit (/ Sodium Chloride) 252.5 mls @ 0 mls/hr IV .Q0M FRANK; Protocol Last Titration: 05/02/20 06:30 Dose: 1.7 unit/hr, 1.7 mls/hr Documented by: Sodium Bicarbonate 75 meq/ (Dextrose) 1,075 mls @ 100 mls/hr IV .[id number] [facility] Last Admin: 05/02/20 06:05 Dose: 100 mls/hr Documented by: Potassium Chloride/Dextrose/Sod Cl (Dextrose 5%-Ns 0.45% + Kcl 40) 1,000 mls @ 75 mls/hr IV .[id number] [facility] Last Infusion: 05/02/20 08:15 Dose: 75 mls/hr Documented by: Ipratropium [place] (Ipratropium 0.5 Mg/2.5 Ml Neb) 0.5 mg INHALATION TID.RESPIRATORY FRANK Last Admin: 05/02/20 08:05 Dose: 0.5 mg Documented by: Levalbuterol HCl (Levalbuterol 0.63 Mg/3 Ml Neb) 0.63 mg INHALATION Q4H.RESPIRATORY FRANK Last Admin: 05/02/20 08:05 Dose: 0.63 mg Documented by: Metoprolol Tartrate (Metoprolol Tartrate 1 Mg/1 Ml Sdv 5 Ml) 5 mg IV Q6H PRN PRN Reason: HR>110, hold for SBP<110mmhg Ondansetron HCl (Ondansetron 2 Mg/Ml Sdv 2 Ml) 4 mg IVP Q8H PRN PRN Reason: vomiting, or N/V if npo Pantoprazole Sodium (Pantoprazole 40 Mg Sdv) 40 mg IVP Q12H [facility] Last Admin: 05/01/20 20:26 Dose: 40 mg Documented by: Vitals/I&O/Wt Last Vital Signs Temp 98.8 F 05/02/20 04:00 Pulse 119 H 05/02/20 08:08 Resp 21 H 05/02/20 08:00 BP 166/85 05/02/20 03:00 Pulse Ox 96 05/02/20 08:00 05/01/20 05/02/20 05/02/20 22:59 06:59 14:59 Intake Total 584.293 / 8606.332 1602.133 / 2772.426 2.5 / 2.5 Output Total 250 / 250 300 / 550 Balance 334.293 / 946.597 7098.133 / 2222.426 2.5 / 2.5 Weight last 48 hrs Weight 62.641 kg Weight 62.233 kg Physical Exam Narrative: EXAM NARRATIVE: off pressers. extubated. A fib w/ RVR vs sinus tach. temps normal comfortable in bed, NARD heent- nc/at neck supple lungs -improved air movement b/l heart tachy, + s1, s2 abd soft, +Bs, NT, non distended ext 1+ edema neuro- a,a, o x 2+, rt sided weak Pulses + b/l Urinary Catheter Management^: Ferris: Cath Placed During This Visit: yes Reason for Continuing Indwelling Catheter: Accurate Measurement of Urinary Output in Critically Ill Patients Urinary Catheter Date of Insertion: 04/26/20 Urinary Catheter Time of Insertion: 14:40 Data : 05/02/20 03:55 05/02/20 03:55 Micro: Microbiology 04/30/20 14:16 Blood Culture - Preliminary Blood NEGATIVE TO DATE 04/30/20 14:16 Blood Culture - Preliminary Blood NEGATIVE TO DATE 04/26/20 14:15 Blood Culture - Final Blood NO GROWTH AFTER 5 DAYS 04/26/20 14:00 Blood Culture - Final Blood NO GROWTH AFTER 5 DAYS A&P Additional A&P Information 84 yr old female 1. pancreatitis- repeat lipase/ amylase levels normal 2. franklin- baseline cr 0.6- presented w/ cr 2.9 -improved to 2.3- on admission was prerenal and nemo-i and DKA. Also concern for atn -cr remained stable till 04/28/20- cr peaked at 3.5- now cr returned to 2.2 mg/dl and pt is urinating repeat ua w/ 4+ gluc, 3+ blood, 5-10 rbc- serologies sent -concern for ATN/ LUCIA- s/p contrast in setting of FRANKLIN and DM -mild rhabdo ck [id number] -not cause of franklin - vanco level 25.3- keep trough under 19- dec dose -avoid nephrotoxins -given anemia and thrombocytopenia- likely from sepsis. plts improving. hgb stable However, we checked ldh 374 , retic count pending, haptoglobin -is normal at 145 -monitor chemistries -monitor uop -renal us- mild right hydronephrosis- please have urology see her when possible 3. hypernatremia- encourage free water - change ivf to 1/2 ns w/ kcl 4. replace k and mag and monitor 5.acute CVA- f/u echo 6. acid base- met acidosis and resp alkalosis - inc AGMA-from FRANKLIN w/ resp compensation- dec bicarb - as hypokalemic and bicarb now 23. - repeat ua - no ketones 7. meds reviewed 8. anemia from franklin and gastritis on EGD 9. htn and acute cva- defer to neuro- if they want us to normalize her BP seen w/ RN- telehealth visit Attestations Medical Necessity Statement*: acute cva/ htn Time Spent in Patient Care: 16 - 35 minutes Coding Level of Care Code Acute Guest Relations Coordinator for Benedicto Hanna
--- NOTE | 2020-05-02 09:20 | PC.CHAP ---
Pastoral Care Encounter/Spiritual Assessment Type of Contact [] Declined distribution center administrator visit [] Patient/Family/Request visit [] Outpatient visit [] Follow-up visit [] Physician referral [] Code/Alert [x] Routine visit [] Staff referral [] Actively dying [] Patient sleeping [] Family support [] [] Out of room [] Palliative care [] [] Receiving care in room [] Pre-surgical visit [] Trauma [] Long length of stay [x] ICU visit [] Other: Relational/Emotional Strength [] Patient feels connected with others/family/visitors/staff [] Distress [] Loneliness/isolation [] Abandonment Spirituality of Patient [] Person of Mackenzie [] Attends Scientologist of their Mackenzie [] Believes in Prayer [] Reads Bible or Episcopal materials [] There are Spiritual issues to be addressed Ux Lead Interventions [x] Prayer [] Active listening [] Non-anxious presence [] Spiritual/emotional support [] Crisis/trauma care [] Spiritual counseling [] Bereavement support [] Provided bereavement packet [] Provided Bible/devotional materials [] Provided toy/stuffed animal, coloring book to patient or family member [] Provided Communion [] Anointing/[place] [] Salvation [x] Completed spiritual assessment [] Other: Impact on Illness or Injury [] Angry [] Fearful [] Anxious [] Often cries [] Exhaustion [] Unable to work [] Unable to attend holiness [] Unable to walk/stand [] Unable to read [] Unable to drive [] Unable to eat/drink [] Unable to sleep [] Unable to be with family [] Patient intubated [] Other: Summary Time spent with patient
[2020-05-02 09:22] LABS: Albumin Level 2.8 g/dL (3.5-5.2); Anion Gap 15.1 (5-19); Blood Urea Nitrogen 44 mg/dL (8-23); Calcium 8.5 mg/dL (8.5-10.5); Carbon Dioxide 22 mmol/L (22-29); Chloride 112 mmol/L (98-107); Glucose 70 mg/dL (65-115); Phosphorus 1.6 mg/dL (2.5-4.5); Potassium 3.1 mmol/L (3.5-5.1); Sodium 146 mmol/L (136-145)
[2020-05-02 11:13] LABS: SARS Covid-2 Antigen Negative (Negative)
--- NOTE | 2020-05-02 12:00 | USCV_ITS ---
Sheri Szymanski Age: 84 Gender: F : 1935 Exam Date: 05/02/2020 13:33 Ordering Phys: Manav Cali MD Technologist: Ronald Garcia Exam Location: [facility] [place] Indication: cva BP: / HR: Rhythm: Sinus Technical Quality: Excellent MEASUREMENTS (Male / Female) Normal Values Medications Patient given IV sedation by anesthesia service, for details please refer to the anesthesia report. Complications None. Proc. Components The JERMAINE probe was passed into the posterior pharynx , mid- esophagus, distal esophagus, and gastric fundus. JERMAINE was performed at multiple levels. The patient tolerated the procedure well and there were no complications. FINDINGS Left Ventricle Normal left ventricular cavity size. Normal left ventricular systolic function. No regional wall motion abnormalities. Left ventricular ejection fraction is estimated at 55 %. Right Ventricle The right ventricle is normal in size and function. Right Atrium The right atrium is normal in size. Left Atrium The left atrium is normal in size. LA Appendage No thrombus visualized in the left atrial appendage. Normal flow velocities in the left atrial appendage. IA Septum The interatrial septum is normal. No lozvr-[id number]-[id number] shunt seen at the atrial level with contrast. Mitral Valve Moderately thickened mitral valve. No mitral valve stenosis. Trace mitral valve regurgitation. Aortic Valve Moderate aortic valve calcification. No aortic valve stenosis. Trace aortic valve regurgitation. Tricuspid Valve Structurally normal tricuspid valve without significant stenosis or regurgitation. Pulmonary artery systolic pressure is normal. Pulmonic Valve Structurally normal pulmonic valve without significant stenosis. There is no pulmonic regurgitation. Pericardium Normal pericardium without effusion. Aorta Normal size aortic root and proximal ascending aorta. Moderate plaque seen in the aorta. CONCLUSIONS 1-Normal left ventricular cavity size. Normal left ventricular systolic function. No regional wall motion abnormalities. Left ventricular ejection fraction is estimated at 55 %. 2-No thrombus visualized in the left atrial appendage. Normal flow velocities in the left atrial appendage. 3-The interatrial septum is normal. No uvcfu-ih-ezll shunt seen at the atrial level with contrast. 4-Moderately thickened mitral valve. No mitral valve stenosis. Trace mitral valve regurgitation. 5-Moderate aortic valve calcification. No aortic valve stenosis. Trace aortic valve regurgitation. 6-Structurally normal tricuspid valve without significant stenosis or regurgitation. Pulmonary artery systolic pressure is normal. 7-Normal size aortic root and proximal ascending aorta. Moderate plaque seen in the aorta. 8-There are no prior Transechocardiogram studies to compare. Camacho Roman MD (Electronically Signed) Final Date: 02 May 2020 17:19 S
--- NOTE | 2020-05-02 13:48 | ANES.PREANE2 ---
Pre-Anesthetic Assessment Pre-Anesthetic Assessment: Height/Weight: Height 1.68 m Weight 62.641 kg Temp Pulse Resp BP Pulse Ox 98.8 F 124 H 20 H 127/77 95 05/02/20 04:00 05/02/20 12:22 05/02/20 12:15 05/02/20 10:00 05/02/20 12:15 Proposed Procedure: Operation Date: 05/02/20 12:00 Proposed Procedures p JERMAINE Familial anesthetic complications: None Was Beta Regina taken within 24 hours: Yes Last intake: NPO > 8 hrs Social: Social History: No alcohol and No tobacco Exam: Pre-Anes Outpt Exam: alert, oriented x 3, clear to auscultation bilaterally and regular rate & rhythm Airway: MP: 2 Dentition: Other (no teeth) CV/HEM: CV/HEM: Anemia and HTN : Comments: [facility] GI: Comments: pancreatitis Metabolic: Metabolic: DM Comments: recent DKA Neuropsych: Neuropsych: CVA (embolic?) Anesthetic Plan: ASA status: 3 Anesthesia: MAC Risk of > 500 ml blood loss (7ml/kg in children): No Meds/Allergies Current Medications: Current Medications Generic Name Dose Route Start Last Admin Trade Name Freq PRN Reason Stop Dose Admin Heparin Sodium (Be ef Lung) 5,000 unit 04/27/20 17:00 04/28/20 04:31 Heparin 5,000 Un it/Ml Inj 1 Ml SUBCUT 5,000 unit Q12H FRANK Administration Piperacillin Sod/T azobactam 50 mls @ 12.5 mls /hr 04/27/20 04:00 05/02/20 05:37 Sod 3.375 gm/ So dium Chloride IV 12.5 mls/hr Q12H FRANK Administration Protocol Vancomycin HCl 1,0 00 mg/ 250 mls @ 250 mls /hr 04/28/20 16:30 05/01/20 17:50 Sodium Chloride IV Infused Q48H FARNK Infusion Protocol Insulin Human Regu lar 250 unit 252.5 mls @ 0 mls /hr 05/01/20 11:00 05/02/20 06:30 / Sodium Chlorid e IV 1.7 unit/hr .Q0M FRANK 1.7 mls/hr Titration Protocol Per Protocol Potassium Chloride /Dextrose/Sod Cl 1,000 mls @ 75 ml s/hr 05/02/20 07:30 02/17/21 08:15 Dextrose 5%-Ns 0 .45% + Kcl 40 IV 75 mls/hr .[id number] FRANK Infusion Ipratropium Bromid e 0.5 mg 04/30/20 21:00 05/02/20 08:05 Ipratropium 0.5 Mg/2.5 Ml Neb INHALATION 0.5 mg TID.RESPIRATORY S CH Administration Levalbuterol HCl 0.63 mg 04/30/20 20:00 05/02/20 12:20 Levalbuterol 0.6 3 Mg/3 Ml Neb INHALATION 0.63 mg Q4H.RESPIRATORY S CH Administration Pantoprazole Sodiu m 40 mg 04/27/20 09:00 05/01/20 20:26 Pantoprazole 40 Mg Sdv IVP 40 mg Q12H FRANK Administration Additional Medication Information: Current Medications Acetaminophen (Acetaminophen 325 Mg Tablet) 650 mg PO Q6H PRN PRN Reason: Mild/Mod Pain Or Temp >/= 101 Clopidogrel Bisulfate (Clopidogrel 75 Mg Tablet) 75 mg PO DAILY FRANK Dextrose (Dextrose 50% Syringe 50 Ml) 25 ml IVP ONCE PRN; Protocol PRN Reason: hypoglycemia protocol Dextrose (Dextrose 50% Syringe 50 Ml) 50 ml IVP PRN PRN; Protocol PRN Reason: hypoglycemia protocol Dextrose (Dextrose 50% Syringe 50 Ml) 50 ml IVP PRN PRN; Protocol PRN Reason: hypoglycemia protocol Glucagon (Glucagon 1 Mg/Ml Inj 1 Ml) 1 mg IM ONCE PRN; Protocol PRN Reason: Adult Acute Hypoglycemia Prot. Glucagon (Glucagon 1 Mg/Ml Inj 1 Ml) 1 mg IM ONCE PRN; Protocol PRN Reason: Adult Acute Hypoglycemia Prot Heparin Sodium (Beef Lung) (Heparin 5,000 Unit/Ml Inj 1 Ml) 5,000 unit SUBCUT Q12H FRANK Last Admin: 04/28/20 04:31 Dose: 5,000 unit Documented by: Hydromorphone HCl (Hydromorphone 1 Mg/Ml Inj 1 Ml) 1 mg IVP Q4H PRN PRN Reason: PS 6-10 Piperacillin Sod/Tazobactam (Sod 3.375 gm/ Sodium Chloride) 50 mls @ 12.5 mls/hr IV Q12H FRANK; Protocol Last Admin: 05/02/20 05:37 Dose: 12.5 mls/hr Documented by: Vancomycin HCl 1,000 mg/ (Sodium Chloride) 250 mls @ 250 mls/hr IV Q48H FRANK; Protocol Last Infusion: 05/01/20 17:50 Dose: Infused Documented by: Dextrose (D5w) 500 mls @ 100 mls/hr IV ONCE PRN; Protocol PRN Reason: Adult Acute Hypoglycemia Prot Dextrose (D5w) 500 mls @ 100 mls/hr IV ONCE PRN; Protocol PRN Reason: Adult Acute Hypoglycemia Prot Insulin Human Regular 250 unit (/ Sodium Chloride) 252.5 mls @ 0 mls/hr IV .Q0M FRANK; Protocol Last Titration: 05/02/20 06:30 Dose: 1.7 unit/hr, 1.7 mls/hr Documented by: Sodium Bicarbonate 75 meq/ (Dextrose) 1,075 mls @ 100 mls/hr IV .[id number] FRANK Last Admin: 05/02/20 06:05 Dose: 100 mls/hr Documented by: Potassium Chloride/Dextrose/Sod Cl (Dextrose 5%-Ns 0.45% + Kcl 40) 1,000 mls @ 75 mls/hr IV .[id number] FRANK Last Infusion: 05/02/20 08:15 Dose: 75 mls/hr Documented by: Ipratropium [place] (Ipratropium 0.5 Mg/2.5 Ml Neb) 0.5 mg INHALATION TID.RESPIRATORY FRANK Last Admin: 05/02/20 08:05 Dose: 0.5 mg Documented by: Levalbuterol HCl (Levalbuterol 0.63 Mg/3 Ml Neb) 0.63 mg INHALATION Q4H.RESPIRATORY FRANK Last Admin: 05/02/20 08:05 Dose: 0.63 mg Documented by: Metoprolol Tartrate (Metoprolol Tartrate 1 Mg/1 Ml Sdv 5 Ml) 5 mg IV Q6H PRN PRN Reason: HR>110, hold for SBP<110mmhg Ondansetron HCl (Ondansetron 2 Mg/Ml Sdv 2 Ml) 4 mg IVP Q8H PRN PRN Reason: vomiting, or N/V if npo Pantoprazole Sodium (Pantoprazole 40 Mg Sdv) 40 mg IVP Q12H FRANK Last Admin: 05/01/20 20:26 Dose: 40 mg Documented by: PFSH Anesthesia PFS: Medical History Changing skin lesion Diabetes Hyperlipidemia Hypertension Surgical History History of left hip replacement (~2014) Family History Daughter Diabetes Denies family history of Anesthesia complication Bleeding disorder Social History Smoking and tobacco status: never smoked Alcohol intake: never Adopted: No Caregiver/support person: Yes Lives independently: Yes Housing: House Marital status: Single Current occupational exposures/hazards: No Pets and animals: Yes Pets & animals: cat(s) History of recent travel: No Sexually active: No Current gender identity: Female Mackenzie/Jehovah'S Witness: Jewish Special mackenzie needs: No Financial difficulty paying for basics: Not Applicable Data Anesthesia CBC & Chem 7: 05/02/20 03:55 05/02/20 03:55 Other Labs: Laboratory Results - last 48 hr 04/30/20 04/30/20 04/30/20 12:18 14:16 14:16 WBC 10.7 H RBC 2.63 L Hgb 8.6 L Hct 25.8 L MCV 98.1 MCH 32.7 MCHC 33.3 RDW 15.4 H Plt Count 91 L MPV 10.9 H Neut % (Auto) 82.3 Lymph % (Auto) 3.6 [place] % (Auto) 11.1 Eos % (Auto) 2.2 Baso % (Auto) 0.8 Neut # (Auto) 7.41 Lymph # (Auto) 0.4 L [place] # (Auto) 1.2 H Eos # (Auto) 0.2 Baso # (Auto) 0.1 Nucleated RBC % (auto) 0 Nucleated RBCs # 0.0 D-Dimer Sodium 144 Potassium 4.2 Chloride 112 H Carbon Dioxide 13 L Anion Gap 23.2 H BUN 58 H Creatinine 3.1 H GFR Calculation Not Reportable Glucose 248 H POC Glucose Estimat Average Glucose Hemoglobin A1c Calculated Osmolality 322 H Lactate Calcium 7.8 L Phosphorus 4.0 Magnesium Total Bilirubin 0.5 AST 13 ALT 10 Alkaline Phosphatase 83 Creatine Kinase C-Reactive Protein Total Protein 5.3 L Albumin 3.0 L Globulin 2.3 Triglycerides Cholesterol LDL Cholesterol, Calc HDL Cholesterol LDL/HDL Ratio Cholesterol/HDL Ratio Lipase Vitamin B12 Folate Procalcitonin Vancomycin Peak Vancomycin Trough H. pylori IgG Antibody Negative SARS-CoV-2 Ag (Rapid) 04/30/20 04/30/20 05/01/20 18:08 23:23 06:20 WBC 11.8 H RBC 3.08 L Hgb 10.1 L Hct 30.6 L MCV 99.4 H MCH 32.8 MCHC 33.0 RDW 15.4 H Plt Count 136 MPV 11.0 H Neut % (Auto) 78.7 Lymph % (Auto) 3.9 [place] % (Auto) 14.1 Eos % (Auto) 0.0 Baso % (Auto) 0.1 Neut # (Auto) 9.25 H Lymph # (Auto) 0.5 L [place] # (Auto) 1.7 H Eos # (Auto) 0.0 Baso # (Auto) 0.0 Nucleated RBC % (auto) 0 Nucleated RBCs # 0.0 D-Dimer Sodium Potassium Chloride Carbon Dioxide Anion Gap BUN Creatinine GFR Calculation Glucose POC Glucose 268 H 248 H Estimat Average Glucose Hemoglobin A1c Calculated Osmolality Lactate Calcium Phosphorus Magnesium Total Bilirubin AST ALT Alkaline Phosphatase Creatine Kinase C-Reactive Protein Total Protein Albumin Globulin Triglycerides Cholesterol LDL Cholesterol, Calc HDL Cholesterol LDL/HDL Ratio Cholesterol/HDL Ratio Lipase Vitamin B12 Folate Procalcitonin Vancomycin Peak Vancomycin Trough H. pylori IgG Antibody SARS-CoV-2 Ag (Rapid) 05/01/20 05/01/20 05/01/20 06:20 06:20 06:21 WBC RBC Hgb Hct MCV MCH MCHC RDW Plt Count MPV Neut % (Auto) Lymph % (Auto) [place] % (Auto) Eos % (Auto) Baso % (Auto) Neut # (Auto) Lymph # (Auto) [place] # (Auto) Eos # (Auto) Baso # (Auto) Nucleated RBC % (auto) Nucleated RBCs # D-Dimer Sodium 145 Potassium 4.0 Chloride 110 H Carbon Dioxide 12 L Anion Gap 27.0 H BUN 54 H Creatinine 2.9 H GFR Calculation Not Reportable Glucose 258 H POC Glucose 279 H Estimat Average Glucose Hemoglobin A1c Calculated Osmolality 324 H Lactate Calcium 8.4 L Phosphorus 4.0 Magnesium 1.9 Total Bilirubin 0.5 AST 10 ALT 10 Alkaline Phosphatase 79 Creatine Kinase 91 C-Reactive Protein Total Protein 5.9 L Albumin 3.1 L Globulin 2.8 Triglycerides Cholesterol LDL Cholesterol, Calc HDL Cholesterol LDL/HDL Ratio Cholesterol/HDL Ratio Lipase Vitamin B12 Folate Procalcitonin Vancomycin Peak Vancomycin Trough 23.2 H H. pylori IgG Antibody SARS-CoV-2 Ag (Rapid) 05/01/20 05/01/20 05/01/20 07:46 09:25 09:42 WBC RBC Hgb Hct MCV MCH MCHC RDW Plt Count MPV Neut % (Auto) Lymph % (Auto) [place] % (Auto) Eos % (Auto) Baso % (Auto) Neut # (Auto) Lymph # (Auto) [place] # (Auto) Eos # (Auto) Baso # (Auto) Nucleated RBC % (auto) Nucleated RBCs # D-Dimer Sodium Potassium Chloride Carbon Dioxide Anion Gap BUN Creatinine GFR Calculation Glucose POC Glucose 268 H Estimat Average Glucose 183 Hemoglobin A1c 8.0 H Calculated Osmolality Lactate Calcium Phosphorus Magnesium Total Bilirubin AST ALT Alkaline Phosphatase Creatine Kinase C-Reactive Protein Total Protein Albumin Globulin Triglycerides Cholesterol LDL Cholesterol, Calc HDL Cholesterol LDL/HDL Ratio Cholesterol/HDL Ratio Lipase Vitamin B12 Folate Procalcitonin Vancomycin Peak 25.3 Vancomycin Trough H. pylori IgG Antibody SARS-CoV-2 Ag (Rapid) 05/01/20 05/01/20 05/01/20 09:42 09:42 09:42 WBC RBC Hgb Hct MCV MCH MCHC RDW Plt Count MPV Neut % (Auto) Lymph % (Auto) [place] % (Auto) Eos % (Auto) Baso % (Auto) Neut # (Auto) Lymph # (Auto) [place] # (Auto) Eos # (Auto) Baso # (Auto) Nucleated RBC % (auto) Nucleated RBCs # D-Dimer Sodium 143 Potassium 3.3 L Chloride 111 H Carbon Dioxide 16 L Anion Gap 19.3 H BUN 51 H Creatinine 2.7 H GFR Calculation Not Reportable Glucose 191 H POC Glucose Estimat Average Glucose Hemoglobin A1c Calculated Osmolality Lactate Calcium 8.5 Phosphorus 3.0 Magnesium Total Bilirubin AST ALT Alkaline Phosphatase Creatine Kinase C-Reactive Protein Total Protein Albumin 2.8 L Globulin Triglycerides Cholesterol LDL Cholesterol, Calc HDL Cholesterol LDL/HDL Ratio Cholesterol/HDL Ratio Lipase Vitamin B12 1833 H Folate 9.4 Procalcitonin Vancomycin Peak Vancomycin Trough H. pylori IgG Antibody SARS-CoV-2 Ag (Rapid) 02/16/21 02/16/21 02/16/21 09:42 12:08 15:03 WBC RBC Hgb Hct MCV MCH MCHC RDW Plt Count MPV Neut % (Auto) Lymph % (Auto) [place] % (Auto) Eos % (Auto) Baso % (Auto) Neut # (Auto) Lymph # (Auto) [place] # (Auto) Eos # (Auto) Baso # (Auto) Nucleated RBC % (auto) Nucleated RBCs # D-Dimer Sodium Potassium Chloride Carbon Dioxide Anion Gap BUN Creatinine GFR Calculation Glucose POC Glucose 260 H 346 H Estimat Average Glucose Hemoglobin A1c Calculated Osmolality Lactate 1.5 Calcium Phosphorus Magnesium Total Bilirubin AST ALT Alkaline Phosphatase Creatine Kinase C-Reactive Protein Total Protein Albumin Globulin Triglycerides Cholesterol LDL Cholesterol, Calc HDL Cholesterol LDL/HDL Ratio Cholesterol/HDL Ratio Lipase Vitamin B12 Folate Procalcitonin Vancomycin Peak Vancomycin Trough H. pylori IgG Antibody SARS-CoV-2 Ag (Rapid) 05/01/20 05/01/20 05/01/20 16:15 16:28 17:02 WBC RBC Hgb Hct MCV MCH MCHC RDW Plt Count MPV Neut % (Auto) Lymph % (Auto) [place] % (Auto) Eos % (Auto) Baso % (Auto) Neut # (Auto) Lymph # (Auto) [place] # (Auto) Eos # (Auto) Baso # (Auto) Nucleated RBC % (auto) Nucleated RBCs # D-Dimer Sodium 144 Potassium 3.2 L Chloride 109 H Carbon Dioxide 14 L Anion Gap 24.2 H BUN 56 H Creatinine 2.7 H GFR Calculation Not Reportable Glucose 421 H POC Glucose 437 H 426 H Estimat Average Glucose Hemoglobin A1c Calculated Osmolality Lactate Calcium 8.2 L Phosphorus 2.5 Magnesium Total Bilirubin AST ALT Alkaline Phosphatase Creatine Kinase C-Reactive Protein Total Protein Albumin 2.9 L Globulin Triglycerides Cholesterol LDL Cholesterol, Calc HDL Cholesterol LDL/HDL Ratio Cholesterol/HDL Ratio Lipase Vitamin B12 Folate Procalcitonin Vancomycin Peak Vancomycin Trough H. pylori IgG Antibody SARS-CoV-2 Ag (Rapid) 05/01/20 05/01/20 05/01/20 18:41 20:09 21:02 WBC RBC Hgb Hct MCV MCH MCHC RDW Plt Count MPV Neut % (Auto) Lymph % (Auto) [place] % (Auto) Eos % (Auto) Baso % (Auto) Neut # (Auto) Lymph # (Auto) [place] # (Auto) Eos # (Auto) Baso # (Auto) Nucleated RBC % (auto) Nucleated RBCs # D-Dimer Sodium Potassium Chloride Carbon Dioxide Anion Gap BUN Creatinine GFR Calculation Glucose POC Glucose 339 H 306 H 275 H Estimat Average Glucose Hemoglobin A1c Calculated Osmolality Lactate Calcium Phosphorus Magnesium Total Bilirubin AST ALT Alkaline Phosphatase Creatine Kinase C-Reactive Protein Total Protein Albumin Globulin Triglycerides Cholesterol LDL Cholesterol, Calc HDL Cholesterol LDL/HDL Ratio Cholesterol/HDL Ratio Lipase Vitamin B12 Folate Procalcitonin Vancomycin Peak Vancomycin Trough H. pylori IgG Antibody SARS-CoV-2 Ag (Rapid) 05/01/20 05/01/20 05/01/20 21:28 22:00 23:22 WBC RBC Hgb Hct MCV MCH MCHC RDW Plt Count MPV Neut % (Auto) Lymph % (Auto) [place] % (Auto) Eos % (Auto) Baso % (Auto) Neut # (Auto) Lymph # (Auto) [place] # (Auto) Eos # (Auto) Baso # (Auto) Nucleated RBC % (auto) Nucleated RBCs # D-Dimer Sodium 146 H Potassium 3.1 L Chloride 113 H Carbon Dioxide 19 L Anion Gap 17.1 BUN 48 H Creatinine 2.5 H GFR Calculation Not Reportable Glucose 233 H POC Glucose 239 H 166 H Estimat Average Glucose Hemoglobin A1c Calculated Osmolality Lactate Calcium 8.3 L Phosphorus 1.4 L Magnesium 1.6 L Total Bilirubin AST ALT Alkaline Phosphatase Creatine Kinase C-Reactive Protein Total Protein Albumin 2.6 L Globulin Triglycerides Cholesterol LDL Cholesterol, Calc HDL Cholesterol LDL/HDL Ratio Cholesterol/HDL Ratio Lipase Vitamin B12 Folate Procalcitonin Vancomycin Peak Vancomycin Trough H. pylori IgG Antibody SARS-CoV-2 Ag (Rapid) 05/02/20 05/02/20 05/02/20 00:39 01:30 02:48 WBC RBC Hgb Hct MCV MCH MCHC RDW Plt Count MPV Neut % (Auto) Lymph % (Auto) [place] % (Auto) Eos % (Auto) Baso % (Auto) Neut # (Auto) Lymph # (Auto) [place] # (Auto) Eos # (Auto) Baso # (Auto) Nucleated RBC % (auto) Nucleated RBCs # D-Dimer Sodium Potassium Chloride Carbon Dioxide Anion Gap BUN Creatinine GFR Calculation Glucose POC Glucose 118 H 71 90 Estimat Average Glucose Hemoglobin A1c Calculated Osmolality Lactate Calcium Phosphorus Magnesium Total Bilirubin AST ALT Alkaline Phosphatase Creatine Kinase C-Reactive Protein Total Protein Albumin Globulin Triglycerides Cholesterol LDL Cholesterol, Calc HDL Cholesterol LDL/HDL Ratio Cholesterol/HDL Ratio Lipase Vitamin B12 Folate Procalcitonin Vancomycin Peak Vancomycin Trough H. pylori IgG Antibody SARS-CoV-2 Ag (Rapid) 05/02/20 05/02/20 05/02/20 03:31 03:55 03:55 WBC 10.6 H RBC 3.01 L Hgb 9.7 L Hct 29.0 L MCV 96.3 MCH 32.2 MCHC 33.4 RDW 15.0 Plt Count 158 MPV 10.8 H Neut % (Auto) 77.3 Lymph % (Auto) 5.5 [place] % (Auto) 12.1 Eos % (Auto) 0.3 Baso % (Auto) 0.1 Neut # (Auto) 8.21 H Lymph # (Auto) 0.6 L [place] # (Auto) 1.3 H Eos # (Auto) 0.0 Baso # (Auto) 0.0 Nucleated RBC % (auto) 0.2 Nucleated RBCs # 0.0 D-Dimer Sodium 145 Potassium 3.1 L Chloride 111 H Carbon Dioxide 23 Anion Gap 14.1 BUN 42 H Creatinine 2.2 H GFR Calculation Not Reportable Glucose 77 POC Glucose 83 Estimat Average Glucose Hemoglobin A1c Calculated Osmolality 309 H Lactate Calcium 8.3 L Phosphorus 1.6 L Magnesium 1.6 L Total Bilirubin 0.5 AST 12 ALT 9 Alkaline Phosphatase 105 Creatine Kinase C-Reactive Protein Total Protein 5.6 L Albumin 2.7 L Globulin 2.9 Triglycerides 163 H Cholesterol 105 LDL Cholesterol, Calc 43 L HDL Cholesterol 29 L LDL/HDL Ratio 1.48 Cholesterol/HDL Ratio 3.62 Lipase Vitamin B12 Folate Procalcitonin 1.12 H Vancomycin Peak Vancomycin Trough H. pylori IgG Antibody SARS-CoV-2 Ag (Rapid) 05/02/20 05/02/20 05/02/20 03:55 03:55 03:55 WBC RBC Hgb Hct MCV MCH MCHC RDW Plt Count MPV Neut % (Auto) Lymph % (Auto) [place] % (Auto) Eos % (Auto) Baso % (Auto) Neut # (Auto) Lymph # (Auto) [place] # (Auto) Eos # (Auto) Baso # (Auto) Nucleated RBC % (auto) Nucleated RBCs # D-Dimer 5.63 H Sodium Potassium Chloride Carbon Dioxide Anion Gap BUN Creatinine GFR Calculation Glucose POC Glucose Estimat Average Glucose Hemoglobin A1c Calculated Osmolality Lactate Calcium Phosphorus Magnesium Total Bilirubin AST ALT Alkaline Phosphatase Creatine Kinase C-Reactive Protein 197.6 H Total Protein Albumin Globulin Triglycerides Cholesterol LDL Cholesterol, Calc HDL Cholesterol LDL/HDL Ratio Cholesterol/HDL Ratio Lipase 10 L Vitamin B12 Folate Procalcitonin Vancomycin Peak Vancomycin Trough H. pylori IgG Antibody SARS-CoV-2 Ag (Rapid) 05/02/20 05/02/20 05/02/20 03:55 03:55 05:27 WBC RBC Hgb Hct MCV MCH MCHC RDW Plt Count MPV Neut % (Auto) Lymph % (Auto) [place] % (Auto) Eos % (Auto) Baso % (Auto) Neut # (Auto) Lymph # (Auto) [place] # (Auto) Eos # (Auto) Baso # (Auto) Nucleated RBC % (auto) Nucleated RBCs # D-Dimer Sodium 146 H Potassium 3.1 L Chloride 112 H Carbon Dioxide 22 Anion Gap 15.1 BUN 44 H Creatinine 2.2 H GFR Calculation Not Reportable Glucose 70 POC Glucose 105 Estimat Average Glucose Hemoglobin A1c Calculated Osmolality Lactate 2.1 Calcium 8.5 Phosphorus 1.6 L Magnesium Total Bilirubin AST ALT Alkaline Phosphatase Creatine Kinase C-Reactive Protein Total Protein Albumin 2.8 L Globulin Triglycerides Cholesterol LDL Cholesterol, Calc HDL Cholesterol LDL/HDL Ratio Cholesterol/HDL Ratio Lipase Vitamin B12 Folate Procalcitonin Vancomycin Peak Vancomycin Trough H. pylori IgG Antibody SARS-CoV-2 Ag (Rapid) 05/02/20 05/02/20 05/02/20 06:35 07:29 09:10 WBC RBC Hgb Hct MCV MCH MCHC RDW Plt Count MPV Neut % (Auto) Lymph % (Auto) [place] % (Auto) Eos % (Auto) Baso % (Auto) Neut # (Auto) Lymph # (Auto) [place] # (Auto) Eos # (Auto) Baso # (Auto) Nucleated RBC % (auto) Nucleated RBCs # D-Dimer Sodium Potassium Chloride Carbon Dioxide Anion Gap BUN Creatinine GFR Calculation Glucose POC Glucose 103 112 H Estimat Average Glucose Hemoglobin A1c Calculated Osmolality Lactate Calcium Phosphorus Magnesium Total Bilirubin AST ALT Alkaline Phosphatase Creatine Kinase C-Reactive Protein Total Protein Albumin Globulin Triglycerides Cholesterol LDL Cholesterol, Calc HDL Cholesterol LDL/HDL Ratio Cholesterol/HDL Ratio Lipase Vitamin B12 Folate Procalcitonin Vancomycin Peak Vancomycin Trough H. pylori IgG Antibody SARS-CoV-2 Ag (Rapid) Negative Micro: Microbiology 04/30/20 14:16 Blood Culture - Preliminary Blood NEGATIVE TO DATE 04/30/20 14:16 Blood Culture - Preliminary Blood NEGATIVE TO DATE 04/26/20 14:15 Blood Culture - Final Blood NO GROWTH AFTER 5 DAYS 04/26/20 14:00 Blood Culture - Final Blood NO GROWTH AFTER 5 DAYS Cardiac Studies: No Data to Display
--- NOTE | 2020-05-02 14:18 | PC.NURSE ---
preparing for judy preparing for t..e.e
--- NOTE | 2020-05-02 14:27 | PM.PN ---
Subjective Subjective: Interval history: The patient is doing better today. Awake and alert. More responsive. No acute distress. Still has right-sided weakness. Denies nausea or vomiting. No chest pain, shortness of breath, cough, palpitations. N.p.o. Will go for JERMAINE later today. Medications: Reviewed: Yes Medication Review Details: Generic Name Dose Route Start Last Admin Trade Name Lloydq PRN Reason Stop Dose Admin Heparin Sodium (Be ef Lung) 5,000 unit 04/27/20 17:00 04/28/20 04:31 Heparin 5,000 Un it/Ml Inj 1 Ml SUBCUT 5,000 unit Q12H FRANK Administration Piperacillin Sod/T azobactam 50 mls @ 12.5 mls /hr 04/27/20 04:00 05/02/20 10:00 Sod 3.375 gm/ So dium Chloride IV Infused Q12H FRANK Infusion Protocol Vancomycin HCl 1,0 00 mg/ 250 mls @ 250 mls /hr 04/28/20 16:30 05/01/20 17:50 Sodium Chloride IV Infused Q48H FRANK Infusion Protocol Insulin Human Regu lar 250 unit 252.5 mls @ 0 mls /hr 05/01/20 11:00 05/02/20 06:30 / Sodium Chlorid e IV 1.7 unit/hr .Q0M FRANK 1.7 mls/hr Titration Protocol Per Protocol Potassium Chloride /Dextrose/Sod Cl 1,000 mls @ 75 ml s/hr 05/02/20 07:30 05/02/20 08:15 Dextrose 5%-Ns 0 .45% + Kcl 40 IV 75 mls/hr .[id number] FRANK Infusion Ipratropium Bromid e 0.5 mg 04/30/20 21:00 05/02/20 08:05 Ipratropium 0.5 Mg/2.5 Ml Neb INHALATION 0.5 mg TID.RESPIRATORY S CH Administration Levalbuterol HCl 0.63 mg 04/30/20 20:00 05/02/20 12:20 Levalbuterol 0.6 3 Mg/3 Ml Neb INHALATION 0.63 mg Q4H.RESPIRATORY S CH Administration Pantoprazole Sodiu m 40 mg 04/27/20 09:00 05/01/20 20:26 Pantoprazole 40 Mg Sdv IVP 40 mg Q12H FRANK Administration Vitals/I&O/Wt Last Vital Signs Temp 98.8 F 05/02/20 04:00 Pulse 124 H 05/02/20 12:22 Resp 20 H 05/02/20 12:15 BP 127/77 05/02/20 10:00 Pulse Ox 95 05/02/20 12:15 05/01/20 05/02/20 05/02/20 22:59 06:59 14:59 Intake Total 584.293 / 5473.667 7246.133 / 2772.426 52.5 / 52.5 Output Total 250 / 250 300 / 550 Balance 334.293 / 834.440 9134.133 / 2222.426 52.5 / 52.5 Weight last 48 hrs Weight 62.641 kg Weight 62.233 kg Physical Exam Narrative: EXAM NARRATIVE: Awake, alert and oriented. Responses are adequate. Skin is warm and dry. MMM Eyes Waldemar, extraocular muscles are intact. Almost complete right upper extremity weakness, unchanged. Mostly proximal. Distal muscle groups are a little spared. Hemineglect is present. Neck supple. No JVD Lungs clear to auscultation bilaterally. No respiratory distress Heart S1, S2, regular tachycardia Abdomen soft, nontender, bowel sounds are present Extremities no edema, cyanosis, or calf tenderness bilaterally. Urinary Catheter Management^: Ferris: Cath Placed During This Visit: yes Reason for Continuing Indwelling Catheter: Accurate Measurement of Urinary Output in Critically Ill Patients Urinary Catheter Date of Insertion: 04/26/20 Urinary Catheter Time of Insertion: 14:40 Data : 05/02/20 03:55 05/02/20 03:55 Micro: Microbiology 04/30/20 14:16 Blood Culture - Preliminary Blood NEGATIVE TO DATE 04/30/20 14:16 Blood Culture - Preliminary Blood NEGATIVE TO DATE 04/26/20 14:15 Blood Culture - Final Blood NO GROWTH AFTER 5 DAYS 04/26/20 14:00 Blood Culture - Final Blood NO GROWTH AFTER 5 DAYS A&P Assessment and plan (1) Septic shock: Status: Acute (2) Unresponsive state: Status: Acute (3) Endotracheally intubated: Status: Acute (4) Metabolic acidosis: Status: Acute (5) Diabetic keto-acidosis: Status: Acute (6) FRANKLIN (acute kidney injury): Status: Acute (7) Elevated troponin: Status: Acute Additional A&P Information 84-year-old female found unresponsive at home for unknown time found to be hypotensive, intubated in the field with metabolic acidosis, DKA because of acute pancreatitis seen on CT scan. Shock: Resolved. Patient off inotropes for last 24 hours. Most likely a combination of profound inflammation vasoplegia along with hypovolemia in setting of acute pancreatitis. DIC panel suggestive of overt DIC but improving. Endotracheally intubated: Extubated on April 30. Post extubation on 2 L nasal cannula saturating 94%. Comfortable. Following commands having complete conversation and a strong cough. Incentive spirometry. Levo albuterol every 6 hours, ipratropium every 6 hours, stop budesonide. Metabolic acidosis: Non-anion gap. Cannot rule out RTA given the FRANKLIN. FRANKLIN: Because of dehydration, shock and possible LUCIA. Creatinine worsening today. Will consult nephrology given worsening creatinine and ongoing metabolic acidosis. Continue to monitor electrolytes and replete accordingly. Appreciate renal recommendations. Continue vancomycin and Zosyn both renally dosed. We will continue to follow culture results. Check Vanco random level. We will plan to continue the antibiotics for at least 24 hours post extubation. Thrombocytopenia: Platelet count 88,000 today coming down from 228,000 from admission. HIT panel awaited. Check DIC panel given anemia and thrombocytopenia. Stop anticoagulation for now. Continue to monitor platelet and hemoglobin. GI bleed: Secondary to gastritis most likely from stress-induced as seen on endoscopy done on April 30. Continue Protonix 40 mg twice daily. Continue to monitor hemoglobin. Diabetic ketoacidosis: Resolved. Anion gap closed. Stop insulin drip and switch to insulin sliding scale every 6 hours at moderate dose protocol. Elevated troponins: Troponin trending down yesterday. EKG has remained stable. Most likely secondary to demand ischemia. We will continue to monitor. Repeat troponin today morning. CODE STATUS: Discussed with daughters at bedside. Patient does not have any designated DPOA on file. Next of kin for the patient would be both daughters and they are agreeable to make medical decisions for patient. Full code for now. Pepcid for PUD prophylaxis. 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 Severely guarded prognosis. Care in detail with patient's daughter. Discussed that patient is improving but still not out of the story as she is intubated and on pressors. Also discussed that etiology of her problem is most likely from acute pancreatitis. Daughter present at bedside. Discussed that patient is doing better. She is off ventilator and going forward it is all about physical therapy and getting stronger. Daughter is thankful for all the care. All the questions were answered. [place] Sepsis and SIRS secondary to acute pancreatitis. Hemodynamically stable and improved. Continue IV fluids at decreased rate. Adjustments are done by Dr. Rasheed. Continue antibiotics for now (V/Z). Altered are negative so far. Her calcitonin is improved. Lipase level is normalized. If there is no evidence of infection will consider de-escalating the antibiotics soon. DKA. Acidosis is resolved. Hyperglycemia is well controlled with insulin drip. It is hard to assess the amount of Lantus she will need because she is still n.p.o and I do not know how well she will eat. Eventually we will also stop her D5 in IV fluids. I would prefer to keep her on insulin drip until we stabilize her oral intake and calculate her Lantus need after her procedure today. We will continue checking her chemistry panel and replacing electrolytes. Hypokalemia and hypomagnesemia. Already replaced by Dr. Rasheed. Hypophosphatemia. Will discuss with Dr. Saavedra Acute kidney injury probably secondary to above. Management per Dr. Martinez. Improving. Acute respiratory failure secondary to above. Status post intubation and mechanical ventilation. Extubated. Currently stable. Continue close monitoring in ICU. Acute stroke. Affected areas are left frontal region and right cerebellum. Thromboembolic event is suspected. No anticoagulation due to concerns of possible hemorrhagic transformation and recent GI bleeding. Continue Plavix. JERMAINE by dr Roman today. I appreciate his help. I also appreciate Dr. Noe's help and advice! Upper GI bleeding secondary to stress gastritis. Status post EGD. No evidence of active bleeding. On PPI. Acute blood loss anemia secondary to above. Continue monitoring. Currently stable. DVT prophylaxis. Heparin. Thrombocytopenia resolved. HIT testing is pending. Right renal cyst and a right adrenal nodule. Outpatient follow-up and possibly additional testing by the primary care team. The plan of care was discussed with the patient. Also I discussed her condition with her daughter who is at the bedside. I answered to numerous questions to best of my knowledge. She verbalized understanding and satisfaction with the conversation. Attestations Medical Necessity Statement*: Critical care time spent on this encounter is 40 minutes. 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
[2020-05-02 14:54] LABS: Glucose Point of Care 119 mg/dL (70-110)
[2020-05-02 14:54] LABS: Glucose Point of Care 143 mg/dL (70-110)
[2020-05-02 14:54] LABS: Glucose Point of Care 98 mg/dL (70-110)
[2020-05-02 14:54] LABS: Glucose Point of Care 101 mg/dL (70-110)
[2020-05-02 14:54] LABS: Glucose Point of Care 97 mg/dL (70-110)
--- NOTE | 2020-05-02 15:01 | PC.NURSE ---
roxi. t.e.e. well. remains sedate but will arouse
--- NOTE | 2020-05-02 15:13 | ANE.PACU2 ---
Inpatient post-anesthesia follow up: Airway intact: Yes Vital signs: Temperature 98.8 F Pulse Rate [Monito r] 94 Pulse Rate 124 Respiratory Rate 20 Blood Pressure [Ri ght Arm] 50/25 Blood Pressure 127/77 Pulse Oximetry 95 Oxygen Delivery Me thod Room Air Oxygen Flow Rate Fraction of Inspir ed Oxygen 21 Hydration adequate: Yes Nausea and vomiting: No Pain level: 1 Mental status: Baseline
[2020-05-02 16:23] LABS: Glucose Point of Care 138 mg/dL (70-110)
[2020-05-02 16:28] LABS: Alanine Aminotransferase 10 U/L (0-33); Albumin Level 2.6 g/dL (3.5-5.2); Alkaline Phosphatase 80 IU/L (35-105); Anion Gap 13.7 (5-19); Aspartate Amino Transferase 14 U/L (0-32); Blood Urea Nitrogen 37 mg/dL (8-23); Calcium 7.8 mg/dL (8.5-10.5); Carbon Dioxide 23 mmol/L (22-29); Chloride 112 mmol/L (98-107); Globulin 2.7 g/dL (1.3-4.6); Glucose 145 mg/dL (65-115); Magnesium 1.8 mg/dL (1.7-2.3); Osmolality Calculated 311 mOsm/kg (285-295); Potassium 3.7 mmol/L (3.5-5.1); Sodium 145 mmol/L (136-145); Total Bilirubin 0.4 mg/dL (0.15-1.2); Total Protein 5.3 g/dL (6.6-8.7)
[2020-05-02] MEDS: pantoprazole 40 mg SDV IVP ×2 (16:35→20:26)
[2020-05-02] MEDS: clopidogrel 75 mg Tablet PO (16:35)
[2020-05-02 17:17] LABS: Vancomycin Trough 17.6 ug/mL (10-15)
--- NOTE | 2020-05-02 17:58 | PC.NURSE ---
labs to owen haley and lupe.
[2020-05-02 18:16] LABS: Glucose Point of Care 124 mg/dL (70-110)
[2020-05-02 18:16] LABS: Glucose Point of Care 206 mg/dL (70-110)
[2020-05-02 18:59] LABS: Phosphorus 1.8 mg/dL (2.5-4.5)
--- NOTE | 2020-05-02 23:12 | PC.NURSE ---
INSULIN GTT: Called Dr. Simmons about insulin gtt and anion gap being closed. Dr. Simmons gave verbal orders to turn off insulin gtt, stop IV fluids, and is going to enter orders for Lantus. Continue care.
[2020-05-02] MEDS: insulin glargine 100 units/1 mL 10 UNIT SUBCUT (23:27)
[2020-05-02 23:32] LABS: Glucose Point of Care 142 mg/dL (70-110)
[2020-05-02 23:32] LABS: Glucose Point of Care 107 mg/dL (70-110)
[2020-05-02 23:32] LABS: Glucose Point of Care 90 mg/dL (70-110)
[2020-05-02 23:32] LABS: Glucose Point of Care 191 mg/dL (70-110)
[2020-05-02 23:32] LABS: Glucose Point of Care 95 mg/dL (70-110)
[2020-05-03] VITALS (28 sets, daily range): BP systolic 107–157; BP diastolic 49–112; PULSE 98–132; RESP 16–28; TEMP 37.1–37.6; O2SAT 92–100
[2020-05-03] MEDS: levalbuterol 0.63 mg/3 mL Neb INHALATION ×3 (00:48→08:48)
[2020-05-03] MEDS: piperacillin-tazobactam 3.375 GM in sodium chloride 0.9% (plus) 50 ML IV ×2 (03:11→17:31)
[2020-05-03 04:12] LABS: C Reactive Protein 152.1 mg/L (0.0-4.9)
[2020-05-03 04:28] LABS: Basophils # 0.1 10^3/uL (0.0-0.1); Basophils % 0.8 %; Eosinophils # 0.1 10^3/uL (0.0-0.8); Eosinophils % 0.6 %; Hematocrit 26.8 % (37.0-47.0); Hemoglobin 8.8 g/dL (11.5-15.3); Lymphocytes # 0.5 10^3/uL (0.8-4.8); Lymphocytes % 3.4 %; Mean Corpuscular HGB Conc 32.8 g/dL (30.0-36.0); Mean Corpuscular Hemoglobin 32.7 pg (28.0-34.0); Mean Corpuscular Volume 99.6 fL (81-99); Mean Platelet Volume 11.1 fL (7.4-10.4); Monocytes # 0.8 10^3/uL (0.2-0.9); Monocytes % 6.1 %; Neutrophils % 86.6 %; Nucleated Red Blood Cells % 0 %; Platelet Count 169 10^3/cmm (130-400); Red Blood Count 2.69 10^6/uL (4.1-5.3); Red Cell Distribution Width 15.1 % (12.1-15.1); White Blood Count 13.3 10^3/uL (4.0-10.0)
[2020-05-03 04:43] LABS: Procalcitonin 0.83 ng/mL (0-0.5)
[2020-05-03 04:55] LABS: Alanine Aminotransferase 9 U/L (0-33); Albumin Level 2.3 g/dL (3.5-5.2); Alkaline Phosphatase 92 IU/L (35-105); Anion Gap 14.7 (5-19); Aspartate Amino Transferase 14 U/L (0-32); Blood Urea Nitrogen 35 mg/dL (8-23); Calcium 7.8 mg/dL (8.5-10.5); Carbon Dioxide 20 mmol/L (22-29); Chloride 117 mmol/L (98-107); Globulin 2.7 g/dL (1.3-4.6); Glucose 273 mg/dL (65-115); Magnesium 2.1 mg/dL (1.7-2.3); Osmolality Calculated 322 mOsm/kg (285-295); Potassium 4.7 mmol/L (3.5-5.1); Sodium 147 mmol/L (136-145); Total Bilirubin 0.4 mg/dL (0.15-1.2)
--- NOTE | 2020-05-03 05:44 | PC.NURSE ---
Patient pulled out central line completely. This nurse, cleaned patient up and applied 2x2 with tegaderm. Continue care.
[2020-05-03 07:45] LABS: Glucose Point of Care 290 mg/dL (70-110)
--- NOTE | 2020-05-03 08:11 | P.PN_ITS ---
Subjective Subjective: Interval history: states she feels fair. no n/v/f/c/louis/d/sob. still weak Medications: Reviewed: Yes Medication Review Details: Current Medications Acetaminophen (Acetaminophen 325 Mg Tablet) 650 mg PO Q6H PRN PRN Reason: Mild/Mod Pain Or Temp >/= 101 Clopidogrel Bisulfate (Clopidogrel 75 Mg Tablet) 75 mg PO DAILY [facility] Last Admin: 05/02/20 16:35 Dose: 75 mg Documented by: Dextrose (Dextrose 50% Syringe 50 Ml) 25 ml IVP ONCE PRN; Protocol PRN Reason: hypoglycemia protocol Dextrose (Dextrose 50% Syringe 50 Ml) 50 ml IVP PRN PRN; Protocol PRN Reason: hypoglycemia protocol Dextrose (Dextrose 50% Syringe 50 Ml) 50 ml IVP PRN PRN; Protocol PRN Reason: hypoglycemia protocol Dextrose (Dextrose 50% Syringe 50 Ml) 25 ml IVP ONCE PRN; Protocol PRN Reason: hypoglycemia protocol Dextrose (Dextrose 50% Syringe 50 Ml) 50 ml IVP PRN PRN; Protocol PRN Reason: hypoglycemia protocol Glucagon (Glucagon 1 Mg/Ml Inj 1 Ml) 1 mg IM ONCE PRN; Protocol PRN Reason: Adult Acute Hypoglycemia Prot. Glucagon (Glucagon 1 Mg/Ml Inj 1 Ml) 1 mg IM ONCE PRN; Protocol PRN Reason: Adult Acute Hypoglycemia Prot Glucagon (Glucagon 1 Mg/Ml Inj 1 Ml) 1 mg IM ONCE PRN; Protocol PRN Reason: Adult Acute Hypoglycemia Prot. Heparin Sodium (Beef Lung) (Heparin 5,000 Unit/Ml Inj 1 Ml) 5,000 unit SUBCUT Q12H [facility] Last Admin: 04/28/20 04:31 Dose: 5,000 unit Documented by: Hydromorphone HCl (Hydromorphone 1 Mg/Ml Inj 1 Ml) 1 mg IVP Q4H PRN PRN Reason: PS 6-10 Piperacillin Sod/Tazobactam (Sod 3.375 gm/ Sodium Chloride) 50 mls @ 12.5 mls/hr IV Q12H [facility]; Protocol Last Infusion: 05/03/20 05:46 Dose: Infused Documented by: Dextrose (D5w) 500 mls @ 100 mls/hr IV ONCE PRN; Protocol PRN Reason: Adult Acute Hypoglycemia Prot Dextrose (D5w) 500 mls @ 100 mls/hr IV ONCE PRN; Protocol PRN Reason: Adult Acute Hypoglycemia Prot Insulin Human Regular 250 unit (/ Sodium Chloride) 252.5 mls @ 0 mls/hr IV .Q0M FRANK; Protocol Last Titration: 05/02/20 23:15 Dose: 0 unit/hr, 0 mls/hr Documented by: Potassium Chloride/Dextrose/Sod Cl (Dextrose 5%-Ns 0.45% + Kcl 40) 1,000 mls @ 75 mls/hr IV .[id number] FRANK Last Infusion: 05/02/20 23:21 Dose: 0 mls/hr Documented by: Vancomycin HCl 1,000 mg/ (Sodium Chloride) 250 mls @ 250 mls/hr IV Q48H FRANK; Protocol Dextrose (D5w) 500 mls @ 100 mls/hr IV ONCE PRN; Protocol PRN Reason: Adult Acute Hypoglycemia Prot Insulin Aspart (Insulin Aspart 100 Unit/1 Ml) 0 unit SUBCUT WM&BEDTIME FRANK; Protocol Insulin Glargine (Insulin Glargine 100 Units/1 Ml) 10 unit SUBCUT BEDTIME FRANK Last Admin: 05/02/20 23:27 Dose: 10 unit Documented by: Ipratropium [place] (Ipratropium 0.5 Mg/2.5 Ml Neb) 0.5 mg INHALATION TID.RESPIRATORY FRANK Last Admin: 05/02/20 20:46 Dose: 0.5 mg Documented by: Levalbuterol HCl (Levalbuterol 0.63 Mg/3 Ml Neb) 0.63 mg INHALATION Q4H.RESPIRATORY FRANK Last Admin: 05/03/20 03:37 Dose: 0.63 mg Documented by: Metoprolol Tartrate (Metoprolol Tartrate 1 Mg/1 Ml Sdv 5 Ml) 5 mg IV Q6H PRN PRN Reason: HR>110, hold for SBP<110mmhg Ondansetron HCl (Ondansetron 2 Mg/Ml Sdv 2 Ml) 4 mg IVP Q8H PRN PRN Reason: vomiting, or N/V if npo Pantoprazole Sodium (Pantoprazole 40 Mg Sdv) 40 mg IVP Q12H FRANK Last Admin: 05/02/20 20:26 Dose: 40 mg Documented by: Vitals/I&O/Wt Last Vital Signs Temp 99.6 F 05/03/20 04:00 Pulse 120 H 05/03/20 06:00 Resp 22 H 05/03/20 04:00 BP 122/52 05/03/20 04:00 Pulse Ox 96 05/03/20 04:00 05/02/20 05/03/20 05/03/20 22:59 06:59 14:59 Intake Total 1277.275 / 1329.775 500.492 / 1830.267 Output Total 375 / 375 500 / 875 Balance 902.275 / 954.775 0.492 / 955.267 Weight last 48 hrs Weight 62 kg Weight 62.641 kg Physical Exam Narrative: EXAM NARRATIVE: off pressers. extubated. remains ins sinus tach. temps normal comfortable in bed, NARD heent- nc/at neck supple lungs -CTA b/l heart tachy, + s1, s2 abd soft, +Bs, NT, non distended ext 1+ edema neuro- a,a, o x 2+, rt sided weak Pulses + b/l exam by RB- telehealth visit Urinary Catheter Management^: Ferris: Cath Placed During This Visit: yes Reason for Continuing Indwelling Catheter: Accurate Measurement of Urinary Output in Critically Ill Patients Urinary Catheter Date of Insertion: 04/26/20 Urinary Catheter Time of Insertion: 14:40 Data : 05/03/20 03:30 05/03/20 03:30 A&P Additional A&P Information 84 yr old female 1. pancreatitis- repeat lipase/ amylase levels normal 2. franklin- baseline cr 0.6- presented w/ cr 2.9 -improved to 2.3- on admission was prerenal and nemo-i and DKA. Also concern for atn -cr remained stable till 04/28/20- cr peaked at 3.5- now cr returned to 1.8 mg/dl and pt is urinating repeat ua w/ 4+ gluc, 3+ blood, 5-10 rbc- serologies sent -concern for ATN/ LUCIA- s/p contrast in setting of FRANKLIN and DM -mild rhabdo ck [id number] -not cause of franklin - vanco - keep trough under 19- -avoid nephrotoxins -given anemia and thrombocytopenia- likely from sepsis. plts improving. hgb stable However, we checked ldh 374 , retic count pending, haptoglobin -is normal at 145 -monitor chemistries -monitor uop -renal us- mild right hydronephrosis- please have urology see her when possible 3. hypernatremia- encourage free water - 4. stop potassium repletion -give neutra=phos -give mag as needed 5.acute CVA- f/u JERMAINE -done yesterday - relatively normal except for plaque in aorta 6. acid base- met acidosis and resp alkalosis - inc AGMA-from FRANKLIN w/ resp compensation- low dose sodium bicarb - as bicarb down to 20. - repeat ua - no ketones 7. meds reviewed 8. anemia from franklin and gastritis on EGD % sat 25% 9. htn and acute cva- defer to neuro-will raise BP 10. dm control seen w/ RN- telehealth visit Attestations Medical Necessity Statement*: CVA, franklin Time Spent in Patient Care: 16 - 35 minutes Coding Level of Care Code Acute Emergency Physician for eBnedicto Hanna
[2020-05-03] MEDS: ipratropium 0.5 mg/2.5 mL Neb INHALATION (08:48)
[2020-05-03] MEDS: phosphorus 250 mg Tablet PO ×2 (09:33→17:37)
[2020-05-03] MEDS: sodium bicarbonate 650 mg Tablet PO ×2 (09:33→17:37)
[2020-05-03] MEDS: clopidogrel 75 mg Tablet PO (09:33)
[2020-05-03 10:18] LABS: Anti-streptolysin O <50 IU/mL (<200)
--- NOTE | 2020-05-03 10:20 | PC.CHAP ---
Pastoral Care Encounter/Spiritual Assessment Type of Contact [] Declined preventive maintenance coordinator visit [] Patient/Family/Request visit [] Outpatient visit [] Follow-up visit [] Physician referral [] Code/Alert [x] Routine visit [] Staff referral [] Actively dying [] Patient sleeping [] Family support [] [] Out of room [] Palliative care [] [] Receiving care in room [] Pre-surgical visit [] Trauma [] Long length of stay [x] ICU visit [] Other: Relational/Emotional Strength [] Patient feels connected with others/family/visitors/staff [] Distress [] Loneliness/isolation [] Abandonment Spirituality of Patient [x] Person of Mackenzie [] Attends Orthodox of their [place] [] Believes in Prayer [] Reads Bible or Gnosticist materials [] There are Spiritual issues to be addressed Channel Supervisor Interventions [x] Prayer [x] Active listening [x] Non-anxious presence [x] Spiritual/emotional support [] Crisis/trauma care [] Spiritual counseling [] Bereavement support [] Provided bereavement packet [] Provided Bible/devotional materials [] Provided toy/stuffed animal, coloring book to patient or family member [] Provided Communion [] Anointing/[place] [] Salvation [x] Completed spiritual assessment [] Other: Impact on Illness or Injury [] Angry [] Fearful [] Anxious [] Often cries [] Exhaustion [] Unable to work [] Unable to attend restorationism [] Unable to walk/stand [] Unable to read [] Unable to drive [] Unable to eat/drink [] Unable to sleep [] Unable to be with family [] Patient intubated [] Other: Summary preventive maintenance coordinator entered room.. prayed with patient Time spent with patient 5 min
--- NOTE | 2020-05-03 10:49 | PC.NURSE ---
Patient had pulled out Central line this morning. Day ICU nurses have attempted IV placement with ultrasound assistance and were unsuccessful. Nurse called ER and requested another nurse try ultra sound guided IV.
--- NOTE | 2020-05-03 11:47 | P.PN_ITS ---
Subjective Subjective: Interval history: The patient reports feeling better today. The nurse reports increased oral intake of fluids and food. Right upper extremity weakness is unchanged. Denies any pain. No nausea or vomiting. No fever or chills. Medications: Reviewed: Yes Medication Review Details: Generic Name Dose Route Start Last Admin Trade Name Carol Ann PRN Reason Stop Dose Admin Clopidogrel Bisulf ate 75 mg 05/02/20 09:00 05/03/20 09:33 Clopidogrel 75 M g Tablet PO 75 mg DAILY FRANK Administration Heparin Sodium (Be ef Lung) 5,000 unit 04/27/20 17:00 04/28/20 04:31 Heparin 5,000 Un it/Ml Inj 1 Ml SUBCUT 5,000 unit Q12H FRANK Administration Piperacillin Sod/T azobactam 50 mls @ 12.5 mls /hr 04/27/20 04:00 05/03/20 05:46 Sod 3.375 gm/ So dium Chloride IV Infused Q12H FRANK Infusion Protocol Insulin Human Regu lar 250 unit 252.5 mls @ 0 mls /hr 05/01/20 11:00 05/02/20 23:15 / Sodium Chlorid e IV 0 unit/hr .Q0M FRANK 0 mls/hr Titration Protocol Per Protocol Insulin Aspart 0 unit 05/03/20 08:00 05/03/20 08:18 Insulin Aspart 1 00 Unit/1 Ml SUBCUT 10 unit WM&BEDTIME FRANK Administration Protocol Insulin Glargine 10 unit 05/02/20 23:15 05/02/20 23:27 Insulin Glargine 100 Units/1 Ml SUBCUT 10 unit BEDTIME FRANK Administration Potassium Phosphat e 250 mg 05/03/20 09:00 05/03/20 09:33 Phosphorus 250 M g Tablet PO 250 mg BID FRANK Administration Sodium Bicarbonate 650 mg 05/03/20 09:00 05/03/20 09:33 Sodium Bicarbona te 650 Mg Tablet PO 650 mg BID FRANK Administration Vitals/I&O/Wt Last Vital Signs Temp 99.2 F 05/03/20 08:00 Pulse 125 H 05/03/20 08:51 Resp 17 05/03/20 08:45 BP 131/62 05/03/20 08:00 Pulse Ox 94 05/03/20 08:45 05/02/20 05/03/20 05/03/20 22:59 06:59 14:59 Intake Total 1277.275 / 1329.775 500.492 / 1830.267 480 / 480 Output Total 375 / 375 500 / 875 250 / 250 Balance 902.275 / 954.775 0.492 / 955.267 230 / 230 Weight last 48 hrs Weight 62 kg Weight 62.641 kg Physical Exam Narrative: EXAM NARRATIVE: Awake, alert and oriented. Responses are adequate. Skin is warm and dry. MMM Eyes Waldemar, extraocular muscles are intact. Almost complete right upper extremity weakness, unchanged. Mostly proximal. Distal muscle groups are a little spared. Hemineglect is present. Neck supple. No JVD Lungs clear to auscultation bilaterally. No respiratory distress Heart S1, S2, regular tachycardia Abdomen soft, nontender, bowel sounds are present Extremities no edema, cyanosis, or calf tenderness bilaterally. Urinary Catheter Management^: Ferris: Cath Placed During This Visit: yes Reason for Continuing Indwelling Catheter: Accurate Measurement of Urinary Output in Critically Ill Patients Urinary Catheter Date of Insertion: 04/26/20 Urinary Catheter Time of Insertion: 14:40 Data : 05/03/20 03:30 05/03/20 03:30 Other Labs: Laboratory Results WBC 13.3 10^3/uL (4.0-10.0) H 05/03/20 03:30 RBC 2.69 10^6/uL (4.1-5.3) L 05/03/20 03:30 Hgb 8.8 g/dL (11.5-15.3) L 05/03/20 03:30 Hct 26.8 % (37.0-47.0) L 05/03/20 03:30 MCV 99.6 fL (81-99) H 05/03/20 03:30 MCH 32.7 pg (28.0-34.0) 05/03/20 03:30 MCHC 32.8 g/dL (30.0-36.0) 05/03/20 03:30 RDW 15.1 % (12.1-15.1) 05/03/20 03:30 Plt Count 169 10^3/cmm (130-400) 05/03/20 03:30 MPV 11.1 fL (7.4-10.4) H 05/03/20 03:30 Neut % (Auto) 86.6 % 05/03/20 03:30 Lymph % (Auto) 3.4 % 05/03/20 03:30 Cooke % (Auto) 6.1 % 05/03/20 03:30 Eos % (Auto) 0.6 % 05/03/20 03:30 Baso % (Auto) 0.8 % 05/03/20 03:30 Reticulocyte % (Auto) 1.6000 % 04/30/20 03:33 Neut # (Auto) 11.50 10^3/uL (1.8-7.7) H 05/03/20 03:30 Lymph # (Auto) 0.5 10^3/uL (0.8-4.8) L 05/03/20 03:30 Cooke # (Auto) 0.8 10^3/uL (0.2-0.9) 05/03/20 03:30 Eos # (Auto) 0.1 10^3/uL (0.0-0.8) 05/03/20 03:30 Baso # (Auto) 0.1 10^3/uL (0.0-0.1) 05/03/20 03:30 Nucleated RBC % (auto) 0 % 05/03/20 03:30 Total Counted 100 (0-100) 04/29/20 04:30 Atypical Lymphs % 0.0 % (0-5) 04/29/20 04:30 Absolute Neutrophils 16.5 10^3/cmm (1.4-6.5) H 04/29/20 04:30 Segmented Neutrophils 59 % 04/29/20 04:30 Abs Segm Neuts (Man) 10.4 10/cmm (1.6-7.1) H 04/29/20 04:30 Band Neutrophils 35.0 % 04/29/20 04:30 Abs Band Neuts (Man) 6.2 10^3/cmm (0.0-1.2) H 04/29/20 04:30 Lymphocytes (Manual) 1 % 04/29/20 04:30 Monocytes (Manual) 5.0 % 04/29/20 04:30 Absolute Monocytes 0.9 10^3/cmm (0.1-0.6) H 04/29/20 04:30 Eosinophils (Manual) 0 % 04/29/20 04:30 Absolute Eosinophils 0.0 10^3/cmm (0.0-0.7) 04/29/20 04:30 Basophils (Manual) 0.0 % 04/29/20 04:30 Absolute Basophils 0.0 10^3/cmm (0.0-0.2) 04/29/20 04:30 Nucleated RBCs # 0.0 /100WBC 05/03/20 03:30 Toxic Granulation 1+ H 04/29/20 04:30 Platelet Estimate Decreased (Normal) L 04/29/20 04:30 Haptoglobin 145.0 mg/L (30-200) 04/29/20 13:01 PT 20.40 SECONDS (12.1-14.9) H 04/30/20 03:33 INR 1.68 (0.8-1.2) H 04/30/20 03:33 APTT 40.9 SECONDS (23.9-36.7) H 04/30/20 03:33 Fibrinogen 564 mg/dL (174-498) H 04/30/20 03:33 Fibrin Degrad Products Neg, <10 ug/mL (NEG) 04/30/20 03:33 D-Dimer 5.63 ug/mIFEU (0-0.59) H 05/02/20 03:55 Specimen Type Arterial 04/30/20 04:46 Sample Site Brachial, right 04/30/20 04:46 ABG pH 7.41 (7.35-7.45) 04/30/20 04:46 ABG pCO2 29.2 mmHg (35-45) L 04/30/20 04:46 ABG pO2 74.9 mmHg (80.0-100.0) L 04/30/20 04:46 ABG HCO3 18.6 mmol/L (22-26) L 04/30/20 04:46 ABG O2 Saturation 97.8 04/29/20 16:32 ABG Base Excess -5.2 mmol/L (-2.0-2.0) L 04/30/20 04:46 Rayshawn Test N/a 04/30/20 04:46 A-a O2 Gradient 7.2 mmHg (5-10) 04/29/20 16:32 Hematocrit 28.1 % (37-47) L 04/30/20 04:46 Hgb O2 Saturation 96.2 % (95-100) 04/29/20 16:32 Carboxyhemoglobin 0.7 %THgb (0.4-20.1) 04/29/20 16:32 Methemoglobin 1.0 % (0.4-1.5) 04/29/20 16:32 Total Hemoglobin 10.4 g/dL (12-16) L 04/29/20 16:32 Sodium 143.0 mmol/L (131-143) 04/29/20 16:32 Potassium 4.5 mmol/L (3.5-5.0) 04/29/20 16:32 Glucose 158.0 mg/dL (70-115) H 04/29/20 16:32 Ionized Calcium 1.1 mmol/L (1.1-1.4) 04/29/20 16:32 O2 Delivery Device Vent 04/30/20 04:46 Mechanical Rate 14.0 04/30/20 04:46 FiO2 21.0 % 04/30/20 04:46 Tidal Volume 0.30 04/30/20 04:46 PEEP 5.0 cmH20 04/30/20 04:46 Instrument Technician ID Hinja 04/30/20 04:46 Sodium 147 mmol/L (136-145) H 05/03/20 03:30 Potassium 4.7 mmol/L (3.5-5.1) 05/03/20 03:30 Chloride 117 mmol/L (98-107) H 05/03/20 03:30 Carbon Dioxide 20 mmol/L (22-29) L 05/03/20 03:30 Anion Gap 14.7 (5-19) 05/03/20 03:30 BUN 35 mg/dL (8-23) H 05/03/20 03:30 Creatinine 1.8 mg/dL (0.5-0.9) H 05/03/20 03:30 GFR Calculation Not Reportable 05/03/20 03:30 Glucose 273 mg/dL (65-115) H 05/03/20 03:30 POC Glucose 290 mg/dL (70-110) H 05/03/20 07:43 Estimat Average Glucose 183 05/01/20 09:42 Hemoglobin A1c 8.0 % (4.0-6.0) H 05/01/20 09:42 Calculated Osmolality 322 mOsm/kg (285-295) H 05/03/20 03:30 Lactic Acid 4.0 mmol/L (0.5-2.2) H 04/26/20 14:00 Lactic Acid (Sepsis) 1.8 mmol/L (0.5-2.2) 04/26/20 16:20 Lactate 2.1 mmol/L (0.5-2.2) 05/02/20 03:55 Calcium 7.8 mg/dL (8.5-10.5) L 05/03/20 03:30 Phosphorus 2.0 mg/dL (2.5-4.5) L 05/03/20 03:30 Magnesium 2.1 mg/dL (1.7-2.3) 05/03/20 03:30 Iron 41 ug/dL (37-145) 04/26/20 16:30 TIBC 165 mcg/dl 04/26/20 16:30 % Saturation 24.8 % (20-50) 04/26/20 16:30 Unsat Iron Binding 124 ug/dL (112-347) 04/26/20 16:30 Total Bilirubin 0.4 mg/dL (0.15-1.2) 05/03/20 03:30 AST 14 U/L (0-32) 05/03/20 03:30 ALT 9 U/L (0-33) 05/03/20 03:30 Alkaline Phosphatase 92 IU/L (35-105) 05/03/20 03:30 Ammonia 33 umol/L (11-51) 04/26/20 14:00 Lactate Dehydrogenase 374 U/L (135-214) H 04/29/20 13:01 Creatine Kinase 91 U/L (26-192) 05/01/20 06:20 Troponin T Gen 5 ng/L 178 ng/L (0-10) H* 04/27/20 16:05 Troponin T Baseline 168 ng/L (0-10) H* 04/26/20 14:00 Troponin T 120 Minute 159.8 ng/L (0-10) H 04/26/20 16:20 Delta Troponin T -8.2 ABS# (0-10) L 04/26/20 16:20 Troponin T Hi Sens 6Hr 143.1 ng/L (0-10) H 04/26/20 19:50 Troponin T Hi Sens 6Hr Delta -24.9 ng/L (0-12) L 04/26/20 19:50 C-Reactive Protein 152.1 mg/L (0.0-4.9) H 05/03/20 03:30 NT-Pro-B Natriuret Pep 1972 pg/mL (0-450) H 04/26/20 16:30 Total Protein 5.0 g/dL (6.6-8.7) L 05/03/20 03:30 Albumin 2.3 g/dL (3.5-5.2) L 05/03/20 03:30 Globulin 2.7 g/dL (1.3-4.6) 05/03/20 03:30 Triglycerides 163 mg/dL (0-150) H 05/02/20 03:55 Cholesterol 105 mg/dL (0-200) 05/02/20 03:55 LDL Cholesterol, Calc 43 mg/dL (50-129) L 05/02/20 03:55 HDL Cholesterol 29 mg/dL (60-100) L 05/02/20 03:55 LDL/HDL Ratio 1.48 RATIO (0.00-3.22) 05/02/20 03:55 Cholesterol/HDL Ratio 3.62 mg/dL (0.0-4.40) 05/02/20 03:55 Amylase 95 U/L (28-100) 04/29/20 13:01 Lipase 10 U/L (13-60) L 05/02/20 03:55 Vitamin B12 1833 pg/mL (232-1245) H 05/01/20 09:42 Folate 9.4 ng/mL (4.8-37.3) 05/01/20 09:42 Procalcitonin 0.83 ng/mL (0-0.5) H 05/03/20 03:30 TSH 0.85 uIU/mL (0.27-4.20) 04/26/20 16:30 Urine Color Yellow (Yellow) 04/29/20 13:35 Urine Appearance Sl hazy (CLEAR) 04/29/20 13:35 Urine pH 5 (5-7) 04/29/20 13:35 Ur Specific Empire 1.010 (1.005-1.030) 04/29/20 13:35 Urine Protein Neg (Negative) 04/29/20 13:35 Urine Glucose (UA) 4+ (Normal) H 04/29/20 13:35 Urine Ketones Negative (Negative) 04/29/20 13:35 Urine Blood 3+ (Negative) H 04/29/20 13:35 Urine Nitrate Negative (Negative) 04/29/20 13:35 Urine Bilirubin Neg (Negative) 04/29/20 13:35 Urine Urobilinogen Norm mg/dL (Negative) 04/29/20 13:35 Ur Leukocyte Esterase Negative (Negative) 04/29/20 13:35 Urine RBC 5-10 /hpf (0-2) H 04/29/20 13:35 Urine WBC Rare /hpf (0-5) 04/29/20 13:35 Ur Squamous Epith Cells 0-4 /hpf (0-5) H 04/29/20 13:35 Other Crystals /hpf 04/28/20 16:45 Amorphous Sediment 1+ /hpf 04/29/20 13:35 Urine Bacteria 1+ /hpf (NONE) H 04/29/20 13:35 Hyaline Casts 0-4 /lpf H 04/26/20 14:49 Fine Granular Casts 0-4 /lpf H 04/26/20 14:49 Urine Mucus 1+ /hpf 04/26/20 14:49 Ur Random Sodium 73 mmol/L 04/29/20 13:35 Ur Random Potassium 31 mmol/L 04/29/20 13:35 Ur Random Chloride 77 mmol/L 04/29/20 13:35 Vancomycin Peak 25.3 ug/mL (20-40) 05/01/20 09:25 Vancomycin Trough 17.6 ug/mL (10-15) H 05/02/20 15:33 Random Vancomycin 18.7 ug/mL (20.0-40.0) L 04/29/20 11:11 Urine Opiates Screen Negative ng/mL (Negative) 04/26/20 14:49 Ur Barbiturates Screen Negative ng/mL (Negative) 04/26/20 14:49 Ur Phencyclidine Scrn Negative ng/mL (Negative) 04/26/20 14:49 Ur Amphetamines Screen Negative ng/mL (Negative) 04/26/20 14:49 U Benzodiazepines Scrn Negative ng/mL (Negative) 04/26/20 14:49 Urine Cocaine Screen Negative ng/mL (Negative) 04/26/20 14:49 U Marijuana (THC) Screen Negative ng/mL (Negative) 04/26/20 14:49 Serum Ketones Positive (Negative) H 04/26/20 14:00 H. pylori IgG Antibody Negative 04/30/20 12:18 SARS-CoV-2 Ag (Rapid) Negative (Negative) 05/02/20 09:10 Anti-Streptolysin O Ab <50 IU/mL (<200) 04/29/20 13:01 Blood Type O Positive 04/30/20 06:34 Rho(D) Type Positive 04/30/20 06:34 Antibody Screen Negative 04/30/20 06:34 Crossmatch See Detail 04/30/20 06:34 Impressions Tibia/Fibula X-Ray 04/26/20 14:07 Impression: Negative for radiopaque foreign bodies. Chest/Abdomen/Pelvis CT 04/26/20 15:42 IMPRESSION: 1. Mild fat stranding changes in the upper abdomen, cannot exclude sequela of acute pancreatitis. Otherwise, no convincing evidence of acute abdominopelvic abnormality. 2. Incidental finding of small right adrenal nodule, indeterminate characterization by this exam. 3. Bilateral renal cortical cystic lesions with simple CT features. COMMENTS: Consistent with the [place] [employer]'s Incidental Findings Committee white paper (J Am Shine Radiol 2018): Any incidental renal lesion less than 1 cm or classified as too small to characterize, or any incidental cystic renal lesion characterized as simple-appearing, is likely benign. No follow-up imaging is recommended for these lesions per consensus recommendations based on imaging criteria. Radiation Dose CTDIVOL = (mGy): DLP = 1535.38~1535.38 (mGy-cm) Renal Ultrasound 04/29/20 12:27 IMPRESSION: 1. Mild right hydronephrosis. 2. Benign right renal cysts. 3. The kidneys are normal in size and echogenicity. Head CT 04/29/20 15:10 IMPRESSION: 1. No acute intracranial abnormality. 2. Changes of chronic microvascular ischemic disease. Radiation Dose CTDIVOL = (mGy): DLP = 777.1 (mGy-cm) Chest X-Ray 05/01/20 06:00 IMPRESSION: Chronic emphysema. No pneumonia. Cervical Spine MRI 05/01/20 10:42 IMPRESSION: 1. Significantly limited evaluation of the cervical spine due to motion. 2. No high-grade central stenosis identified. There is multilevel mild central and foraminal stenoses at least from C3-4 through C6-7. More significant areas of stenosis may be present but difficult to quantify with this amount of motion. Head MRI 05/01/20 10:42 IMPRESSION: 1. Small acute infarcts in the posterior LEFT frontal lobe cortex and a tiny acute lacunar infarct in the RIGHT cerebellum. Due to the distribution consider embolic source is in etiology. 2. Moderate atrophy and chronic microvascular ischemic changes. Micro: Microbiology 04/27/20 05:10 MRSA Culture - Final Nose A&P Assessment and plan (1) Septic shock: Status: Acute (2) Unresponsive state: Status: Acute (3) Endotracheally intubated: Status: Acute (4) Metabolic acidosis: Status: Acute (5) Diabetic keto-acidosis: Status: Acute (6) FRANKLIN (acute kidney injury): Status: Acute (7) Elevated troponin: Status: Acute Additional A&P Information 84-year-old female found unresponsive at home for unknown time found to be hypotensive, intubated in the field with metabolic acidosis, DKA because of acute pancreatitis seen on CT scan. Shock: Resolved. Patient off inotropes for last 24 hours. Most likely a combination of profound inflammation vasoplegia along with hypovolemia in setting of acute pancreatitis. DIC panel suggestive of overt DIC but improving. Endotracheally intubated: Extubated on April 30. Post extubation on 2 L nasal cannula saturating 94%. Comfortable. Following commands having complete conversation and a strong cough. Incentive spirometry. Levo albuterol every 6 hours, ipratropium every 6 hours, stop budesonide. Metabolic acidosis: Non-anion gap. Cannot rule out RTA given the FRANKLIN. FRANKLIN: Because of dehydration, shock and possible LUCIA. Creatinine worsening today. Will consult nephrology given worsening creatinine and ongoing metabolic acidosis. Continue to monitor electrolytes and replete accordingly. Appreciate renal recommendations. Continue vancomycin and Zosyn both renally dosed. We will continue to follow culture results. Check Vanco random level. We will plan to continue the antibiotics for at least 24 hours post extubation. Thrombocytopenia: Platelet count 88,000 today coming down from 228,000 from admission. HIT panel awaited. Check DIC panel given anemia and thrombocytopenia. Stop anticoagulation for now. Continue to monitor platelet and hemoglobin. GI bleed: Secondary to gastritis most likely from stress-induced as seen on endoscopy done on April 30. Continue Protonix 40 mg twice daily. Continue to monitor hemoglobin. Diabetic ketoacidosis: Resolved. Anion gap closed. Stop insulin drip and switch to insulin sliding scale every 6 hours at moderate dose protocol. Elevated troponins: Troponin trending down yesterday. EKG has remained stable. Most likely secondary to demand ischemia. We will continue to monitor. Repeat troponin today morning. CODE STATUS: Discussed with daughters at bedside. Patient does not have any designated DPOA on file. Next of kin for the patient would be both daughters and they are agreeable to make medical decisions for patient. Full code for now. Pepcid for PUD prophylaxis. 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 Severely guarded prognosis. Care in detail with patient's daughter. Discussed that patient is improving but still not out of the story as she is intubated and on pressors. Also discussed that etiology of her problem is most likely from acute pancreatitis. Daughter present at bedside. Discussed that patient is doing better. She is off ventilator and going forward it is all about physical therapy and getting stronger. Daughter is thankful for all the care. All the questions were an swered. [place] Sepsis and SIRS secondary to acute pancreatitis. Hemodynamically stable and improved. IV fluids are stopped. Starting de-escalation of antibiotics. Calcitonin has improved. Stopping vancomycin today. Lipase level is normalized. DKA. Resolved. Insulin drip is discontinued. Started on Lantus. Eating okay. We will continue adjusting insulin dose according to blood sugar levels and chemistry panel. Electrolyte abnormalities. Replaced. Continue monitoring. Acute kidney injury probably secondary to above. Management per Dr. Martinez. Improving. Acute respiratory failure secondary to above. Status post intubation and mechanical ventilation. Extubated. Currently stable. Acute stroke. Affected areas are left frontal region and right cerebellum. Thromboembolic event is suspected. No anticoagulation due to concerns of possible hemorrhagic transformation and recent GI bleeding. Continue Plavix. JERMAINE by dr Roman today was unremarkable. I appreciate his help. I also appreciate Dr. Noe's help and advice! Upper GI bleeding secondary to stress gastritis. Status post EGD. No evidence of active bleeding. On PPI. Acute blood loss anemia secondary to above. Continue monitoring. Currently stable. DVT prophylaxis. Heparin. Thrombocytopenia resolved. HIT testing is pending. Right renal cyst and a right adrenal nodule. Outpatient follow-up and possibly additional testing by the primary care team. The plan of care was discussed with the patient. She verbalized understanding and agreement Attestations Medical Necessity Statement*: Patient with several serious medical conditions. We are continuing adjustments of her medications and close monitoring. Probably needs placement. Coding Level of Care Code Acute Diesel Powerplant Mechanic for Chg Fwd Diagnoses Septic shock A41.9; R65.21 Unresponsive state R41.89 Endotracheally intubated Z97.8 Metabolic acidosis E87.2 Diabetic keto-acidosis E11.10 FRANKLIN (acute kidney injury) N17.9 Elevated troponin R77.8
[2020-05-03 12:04] LABS: Glucose Point of Care 258 mg/dL (70-110)
[2020-05-03 12:22] LABS: Anti-Double Strand DNA AB <1 IU/mL; Anti-Nuclear Antibody Screen NEGATIVE (NEGATIVE)
[2020-05-03 17:31] LABS: Glucose Point of Care 216 mg/dL (70-110)
[2020-05-03] MEDS: pantoprazole DR 40 mg Tablet PO (17:37)
--- NOTE | 2020-05-03 18:29 | PC.NURSE ---
SHift summary: Uneventful shift Patient rested in bed most of day, but sat in a chair for about 3 hours. Requires 2 person assist to get to chair. Brakfast, lunch and dinner blood sugars have been 290, 248, and 216 on a medium insulin dose Dr salomón lacey changes to lantus.
[2020-05-03 21:02] LABS: Glucose Point of Care 226 mg/dL (70-110)
[2020-05-03] MEDS: insulin glargine 100 units/1 mL 10 UNIT SUBCUT (22:11)
[2020-05-04] VITALS (12 sets, daily range): BP systolic 114–150; BP diastolic 57–87; PULSE 105–133; RESP 17–28; TEMP 36.6–37.7; O2SAT 92–97
--- NOTE | 2020-05-04 00:58 | PC.NURSE ---
00:50 Called report to [facility]. 00:58 transfered to CCU [id number]. Passed on in report to notify family of transfer in the morning and to please have primary re-evaluate VTE.
[2020-05-04] MEDS: piperacillin-tazobactam 3.375 GM in sodium chloride 0.9% (plus) 50 ML IV ×3 (03:31→21:03)
[2020-05-04 04:25] LABS: Basophils # 0.1 10^3/uL (0.0-0.1); Basophils % 0.6 %; Eosinophils # 0.1 10^3/uL (0.0-0.8); Eosinophils % 0.6 %; Hematocrit 27.1 % (37.0-47.0); Hemoglobin 8.9 g/dL (11.5-15.3); Lymphocytes # 0.6 10^3/uL (0.8-4.8); Lymphocytes % 3.1 %; Mean Corpuscular HGB Conc 32.8 g/dL (30.0-36.0); Mean Corpuscular Hemoglobin 32.8 pg (28.0-34.0); Mean Platelet Volume 10.8 fL (7.4-10.4); Monocytes # 0.7 10^3/uL (0.2-0.9); Monocytes % 3.7 %; Neutrophils % 89.7 %; Nucleated Red Blood Cells % 0 %; Platelet Count 177 10^3/cmm (130-400); Red Blood Count 2.71 10^6/uL (4.1-5.3); Red Cell Distribution Width 14.8 % (12.1-15.1); White Blood Count 17.6 10^3/uL (4.0-10.0)
[2020-05-04 04:29] LABS: Procalcitonin 0.78 ng/mL (0-0.5)
[2020-05-04 04:42] LABS: Alanine Aminotransferase 10 U/L (0-33); Albumin Level 2.3 g/dL (3.5-5.2); Alkaline Phosphatase 85 IU/L (35-105); Anion Gap 14.2 (5-19); Aspartate Amino Transferase 15 U/L (0-32); Blood Urea Nitrogen 33 mg/dL (8-23); Calcium 7.7 mg/dL (8.5-10.5); Carbon Dioxide 24 mmol/L (22-29); Chloride 109 mmol/L (98-107); Globulin 2.8 g/dL (1.3-4.6); Glucose 80 mg/dL (65-115); Magnesium 1.9 mg/dL (1.7-2.3); Osmolality Calculated 302 mOsm/kg (285-295); Phosphorus 1.9 mg/dL (2.5-4.5); Potassium 4.2 mmol/L (3.5-5.1); Sodium 143 mmol/L (136-145); Total Bilirubin 0.4 mg/dL (0.15-1.2); Total Protein 5.1 g/dL (6.6-8.7)
[2020-05-04 04:48] LABS: C Reactive Protein 125.5 mg/L (0.0-4.9)
[2020-05-04 06:47] LABS: Glucose Point of Care 140 mg/dL (70-110)
--- NOTE | 2020-05-04 08:08 | XR_ITS ---
WS: [id number] PORTABLE CHEST HISTORY: Pneumonia. COMPARISON: 05/01/2020 Slight elevation of the LEFT hemidiaphragm. Very minimal blunting of each costophrenic angle. No pneu monia. No pneumothorax. Cardiac size: Normal. Mediastinum/Aorta: Mild atherosclerosis aorta. No osseous abnormality seen. XR/XR chest 1V portable [id number] IMPRESSION: Very small bilateral pleural effusions versus pleural thickening. No pneumonia. Atherosclerosis aorta.
[2020-05-04] MEDS: phosphorus 250 mg Tablet PO ×2 (08:29→17:21)
[2020-05-04] MEDS: sodium bicarbonate 650 mg Tablet PO (08:30)
[2020-05-04] MEDS: clopidogrel 75 mg Tablet PO (08:33)
[2020-05-04] MEDS: pantoprazole DR 40 mg Tablet PO ×2 (08:33→17:21)
[2020-05-04 10:08] LABS: Add Urine Microscopic? YES; Bilirubin Urine Neg (Negative); Blood Urine 3+ (Negative); Glucose Urine UA 4+ (Normal); Ketones Urine Negative (Negative); Leukocyte Esterase Urine Negative (Negative); Nitrate Urine Negative (Negative); Protein Urine Trace (Negative); Specific Gravity, Urine 1.015 (1.005-1.030); Urine Appearance SL Hazy (CLEAR); Urine Color Yellow (Yellow); Urobilinogen Urine Norm (Negative)
[2020-05-04] MEDS: insulin glargine 100 units/1 mL 10 UNIT SUBCUT ×2 (10:08→21:03)
[2020-05-04 10:12] LABS: Add Urine Culture? No; Bacteria Urine 1+ /hpf; Mucus Urine TRACE /hpf; Squamous Epithelial Cell Urine 0-4 /hpf (0-5); WBC Urine RARE /hpf (0-5)
[2020-05-04 11:48] LABS: Glucose Point of Care 293 mg/dL (70-110)
--- NOTE | 2020-05-04 12:24 | P.PN_ITS ---
Subjective Subjective: Interval history: Ms. Szymanski remains comfortable, no acute issues overnight. Passing a robust amount of urine. Some swelling on her right side, none on the left, no other symptoms of hypervolemia. No uremic symptoms. She is a little drowsy today but apparently participating in therapy. Vitals/I&O/Wt Last Vital Signs Temp 98.4 F 05/04/20 11:07 Pulse 121 H 05/04/20 11:07 Resp 28 H 05/04/20 11:07 BP 134/78 05/04/20 11:07 Pulse Ox 97 05/04/20 11:07 05/03/20 05/04/20 05/04/20 22:59 06:59 14:59 Intake Total 200 / 680 3177 / 3857 120 / 120 Output Total 450 / 700 500 / 1200 Balance -250 / -20 2677 / 2657 120 / 120 Weight last 48 hrs Weight 62.233 kg Weight 62 kg Physical Exam Narrative: EXAM NARRATIVE: Constitutional: Awake, comfortable HEENT: Wet mucosa, no jvp, non icteric Lungs: Bilaterally clear without discernible wheeze, rales in all lung zones CVS: S1 S2, no murmurs Abdo: Soft, BS ok Ext 4: Minimal edema, peripheral perfusion with no cyanosis Neurological: right hemiplegia Urinary Catheter Management^: Ferris: Cath Placed During This Visit: yes Reason for Continuing Indwelling Catheter: Accurate Measurement of Urinary Output in Critically Ill Patients Urinary Catheter Date of Insertion: 04/26/20 Urinary Catheter Time of Insertion: 14:40 Data : 05/04/20 03:08 05/04/20 03:08 Micro: Microbiology 04/27/20 05:10 MRSA Culture - Final Nose A&P Additional A&P Information 1. FRANKLIN Recovering nicely now. Avoid usual nephrotoxins. 2. S/p CVA JERMAINE noted Plavix on board PT/OT 3. Chemistry DC sodium bicarb now, Kphos given to replace phos today Acute renal issues have now resolved, recommend follow-up with outpatient apparel stock checker following discharge in a few weeks time. I will sign off now, please not hesitate to call me should I be of further assistance, thank you for my involvement in her care. Junior Romeo MD Nephrology [phone] Patient seen and examined via telemedicine, with the assistance of the bedside RN > 25 min spent in evaluation and mgmt of patient Attestations Medical Necessity Statement*: eval for FRANKLIN Coding Level of Care Code Acute Angle Roll Operator for Benedicto Hanna
--- NOTE | 2020-05-04 14:09 | PC.CHAP ---
Pastoral Care Encounter/Spiritual Assessment Type of Contact [] Declined quality improvement analyst visit [xx] Patient/Family/Request visit [] Outpatient visit [xx] Follow-up visit [] Physician referral [] Code/Alert [xx] Routine visit [] Staff referral [] Actively dying [] Patient sleeping [] Family support [] [] Out of room [] Palliative care [] [] Receiving care in room [] Pre-surgical visit [] Trauma [xx] Long length of stay [] ICU visit [] Other: Relational/Emotional Strength [xx] Patient feels connected with others/family/visitors/staff [] Distress [] Loneliness/isolation [] Abandonment Spirituality of Patient [xx] Person of Mackenzie [] Attends Zoroastrian of their Mackenzie [xx] Believes in Prayer [xx] Reads Bible or Protestant materials [] There are Spiritual issues to be addressed Dietary Server Interventions [xx] Prayer [xx] Active listening [xx] Non-anxious presence [] Spiritual/emotional support [] Crisis/trauma care [] Spiritual counseling [] Bereavement support [] Provided bereavement packet [] Provided Bible/devotional materials [] Provided toy/stuffed animal, coloring book to patient or family member [] Provided Communion [] Anointing/[place] [] Salvation [xx] Completed spiritual assessment [] Other: Impact on Illness or Injury [] Angry [] Fearful [] Anxious [] Often cries [] Exhaustion [] Unable to work [] Unable to attend latter day [] Unable to walk/stand [] Unable to read [] Unable to drive [] Unable to eat/drink [] Unable to sleep [] Unable to be with family [] Patient intubated [] Other: Summary Patient stated she was near at time of arrival 8 days ago but feels good now. She is coherent and wanted to visit and prayer. She has had prayer every day she has been in hospital and thannks God for the prayer and her life. Patient asked quality improvement analyst to get nurse to fill up her water pitcher. Dietary Server complied. Time spent with patient 17 minutes
[2020-05-04 16:09] LABS: Glucose Point of Care 177 mg/dL (70-110)
--- NOTE | 2020-05-04 16:10 | ECG_ITS ---
[facility] Test Date: 2020-05-04 Pat Name: Sheri Szymanski Department: Room: 112 Gender: Female Absorption Operator: : [id number] Requested By: Manav Buckner Order Number: [id number] [place] MD: Xiomy Roy M.D. Measurements Intervals Manti Rate: 121 P: 58 NC: 124 QRS: -16 QRSD: 80 T: 71 QT: 311 QTc: 442 Interpretive Statements SINUS TACHYCARDIA WITH FREQUENT SUPRAVENTRICULAR PREMATURE COMPLEXES NONSPECIFIC T-WAVE ABNORMALITY Compared to ECG 05/01/2020 12:28:22 T-wave abnormality now present Short NC interval no longer present Left-axis deviation no longer present Electronically Signed On 05-05-2020 20:00:13 RADIO TELEVISION ANNOUNCER by Xiomy Roy M.D. [email or web address]
--- NOTE | 2020-05-04 16:45 | P.PN_ITS ---
Subjective Subjective: Interval history: Overall the patient is doing better. Looks better and reports feeling better. No active complaints. Still has right-sided weakness. Denies chest pain or palpitations. No other type of pain. No nausea or vomiting. No diarrhea. No fever or chills. No cough. The nurse is concerned about her not eating or drinking enough. Medications: Reviewed: Yes Medication Review Details: Generic Name Dose Route Start Last Admin Trade Name Carol Ann PRN Reason Stop Dose Admin Clopidogrel Bisulf ate 75 mg 05/02/20 09:00 05/04/20 08:33 Clopidogrel 75 M g Tablet PO 75 mg DAILY FRANK Administration Heparin Sodium (Be ef Lung) 5,000 unit 04/27/20 17:00 04/28/20 04:31 Heparin 5,000 Un it/Ml Inj 1 Ml SUBCUT 5,000 unit Q12H FRANK Administration Insulin Human Regu lar 250 unit 252.5 mls @ 0 mls /hr 05/01/20 11:00 05/02/20 23:15 / Sodium Chlorid e IV 0 unit/hr .Q0M FRANK 0 mls/hr Titration Protocol Per Protocol Piperacillin Sod/T azobactam 50 mls @ 12.5 mls /hr 05/04/20 12:00 05/04/20 12:17 Sod 3.375 gm/ So dium Chloride IV 12.5 mls/hr Q8H FRANK Administration Protocol Insulin Aspart 0 unit 05/03/20 08:00 05/04/20 12:17 Insulin Aspart 1 00 Unit/1 Ml SUBCUT 10 unit WM&BEDTIME FRANK Administration Protocol Insulin Glargine 10 unit 05/03/20 21:00 05/04/20 10:08 Insulin Glargine 100 Units/1 Ml SUBCUT 10 unit Q12H FRANK Administration Pantoprazole Sodiu m 40 mg 05/03/20 18:00 05/04/20 08:[address] 40 Mg Tablet PO 40 mg BID FRANK Administration Potassium Phosphat e 250 mg 05/03/20 09:00 05/04/20 08:29 Phosphorus 250 M g Tablet PO 250 mg BID FRANK Administration Vitals/I&O/Wt Last Vital Signs Temp 98.2 F 05/04/20 15:10 Pulse 133 H 05/04/20 15:10 Resp 26 H 05/04/20 15:10 BP 133/73 05/04/20 15:10 Pulse Ox 96 05/04/20 15:10 05/04/20 05/04/20 05/04/20 06:59 14:59 22:59 Intake Total 3177 / 3857 240 / 240 Output Total 500 / 1200 Balance 2677 / 2657 240 / 240 Weight last 48 hrs Weight 62.233 kg Weight 62 kg Physical Exam Narrative: EXAM NARRATIVE: Awake, alert and oriented. Responses are adequate. Skin is warm and dry. MMM Eyes Waldemar, extraocular muscles are intact. Almost complete right upper extremity weakness, unchanged. Mostly proximal. Distal muscle groups are a little spared. Hemineglect is present. Neck supple. No JVD Lungs clear to auscultation bilaterally. No respiratory distress Heart S1, S2, regular tachycardia Abdomen soft, nontender, bowel sounds are present Extremities no edema, cyanosis, or calf tenderness bilaterally. Urinary Catheter Management^: Ferris: Cath Placed During This Visit: yes Reason for Continuing Indwelling Catheter: Accurate Measurement of Urinary Output in Critically Ill Patients Urinary Catheter Date of Insertion: 04/26/20 Urinary Catheter Time of Insertion: 14:40 Data : 05/04/20 03:08 05/04/20 03:08 Micro: Microbiology 05/04/20 12:05 Blood Culture - Preliminary Blood SPECIMEN COLLECTED 05/04/20 11:50 Blood Culture - Preliminary Blood SPECIMEN COLLECTED A&P Assessment and plan (1) Septic shock: Status: Acute (2) Unresponsive state: Status: Acute (3) Endotracheally intubated: Status: Acute (4) Metabolic acidosis: Status: Acute (5) Diabetic keto-acidosis: Status: Acute (6) FRANKLIN (acute kidney injury): Status: Acute (7) Elevated troponin: Status: Acute Additional A&P Information 84-year-old female found unresponsive at home for unknown time found to be hypotensive, intubated in the field with metabolic acidosis, DKA because of acute pancreatitis seen on CT scan. Shock: Resolved. Patient off inotropes for last 24 hours. Most likely a combination of profound inflammation vasoplegia along with hypovolemia in setting of acute pancreatitis. DIC panel suggestive of overt DIC but improving. Endotracheally intubated: Extubated on April 30. Post extubation on 2 L nasal cannula saturating 94%. Comfortable. Following commands having complete conversation and a strong cough. Incentive spirometry. Levo albuterol every 6 hours, ipratropium every 6 hours, stop budesonide. Metabolic acidosis: Non-anion gap. Cannot rule out RTA given the FRANKLIN. FRANKLIN: Because of dehydration, shock and possible LUCIA. Creatinine worsening today. Will consult nephrology given worsening creatinine and ongoing metabolic acidosis. Continue to monitor electrolytes and replete accordingly. Appreciate renal recommendations. Continue vancomycin and Zosyn both renally dosed. We will continue to follow culture results. Check Vanco random level. We will plan to continue the antibiotics for at least 24 hours post extubation. Thrombocytopenia: Platelet count 88,000 today coming down from 228,000 from admission. HIT panel awaited. Check DIC panel given anemia and thrombocytopenia. Stop anticoagulation for now. Continue to monitor platelet and hemoglobin. GI bleed: Secondary to gastritis most likely from stress-induced as seen on endoscopy done on April 30. Continue Protonix 40 mg twice daily. Continue to monitor hemoglobin. Diabetic ketoacidosis: Resolved. Anion gap closed. Stop insulin drip and switch to insulin sliding scale every 6 hours at moderate dose protocol. Elevated troponins: Troponin trending down yesterday. EKG has remained stable. Most likely secondary to demand ischemia. We will continue to monitor. Repeat troponin today morning. CODE STATUS: Discussed with daughters at bedside. Patient does not have any designated DPOA on file. Next of kin for the patient would be both daughters and they are agreeable to make medical decisions for patient. Full code for now. Pepcid for PUD prophylaxis. 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 Severely guarded prognosis. Care in detail with patient's daughter. Discussed that patient is improving but still not out of the story as she is intubated and on pressors. Also discussed that etiology of her problem is most likely from acute pancreatitis. Daughter present at bedside. Discussed that patient is doing better. She is off ventilator and going forward it is all about physical therapy and getting stronger. Daughter is thankful for all the care. All the questions were answered. [place] Sepsis and SIRS secondary to acute pancreatitis. Hemodynamically stable and improved. A febrile but leukocytosis has worsened.procalcitonin and CRP are better. Vancomycin was discontinued yesterday. However she is still on Zosyn which we will continue. If her leukocytosis worsens or if she develops fever or any worsening inflammatory markers we will resume vancomycin again. DKA. Resolved. Insulin drip is discontinued. Started on Lantus. We will continue adjusting insulin dose according to blood sugar levels and chemistry panel. Tachycardia. I do not think that it is related to infection or fever. No pain. No significant anxiety. I suspect element of dehydration. I will start gentle IV fluids again. Will order twelve-lead EKG. Electrolyte abnormalities. Replaced. Continue monitoring. Acute kidney injury probably secondary to above. Management per Dr. Martinez. Improving. Acute respiratory failure secondary to above. Status post intubation and mechanical ventilation. Extubated. Currently stable. Acute stroke. Affected areas are left frontal region and right cerebellum. Thromboembolic event is suspected. No anticoagulation due to concerns of possible hemorrhagic transformation and recent GI bleeding. Continue Plavix. JERMAINE by dr Roman today was unremarkable. I appreciate his help. I also apprecia te Dr. Noe's help and advice! Upper GI bleeding secondary to stress gastritis. Status post EGD. No evidence of active bleeding. On PPI. Acute blood loss anemia secondary to above. Continue monitoring. Currently stable. DVT prophylaxis. Heparin. Thrombocytopenia resolved. HIT testing is pending. Right renal cyst and a right adrenal nodule. Outpatient follow-up and possibly additional testing by the primary care team. Initial admission CT is reviewed again. 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 She will require additional outpatient oncology evaluation. Referral will be provided at discharge. This was discussed with the patient and her daughter. They verbalized understanding and agreement. Attestations Medical Necessity Statement*: Still remains dehydrated. Has tachycardia. Requires IV fluids. Needs placement due to severe generalized deconditioning. 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
[2020-05-04 17:02] LABS: Heparin Induced Platelet AB NEGATIVE (NEGATIVE); Patient O.D 0.027
[2020-05-04] MEDS: sodium chloride 0.9% 1,000 ML 75 ML IV (17:21)
[2020-05-04 20:46] LABS: Glucose Point of Care 100 mg/dL (70-110)
[2020-05-05] VITALS (14 sets, daily range): BP systolic 133–168; BP diastolic 63–104; PULSE 102–131; RESP 10–30; TEMP 36.4–37; O2SAT 95–98
[2020-05-05] MEDS: acetaminophen 325 mg Tablet 650 MG PO ×3 (02:02→22:02)
[2020-05-05] MEDS: piperacillin-tazobactam 3.375 GM in sodium chloride 0.9% (plus) 50 ML IV ×3 (04:57→21:59)
[2020-05-05 05:45] LABS: Basophils # 0.1 10^3/uL (0.0-0.1); Basophils % 0.4 %; Eosinophils # 0.1 10^3/uL (0.0-0.8); Eosinophils % 0.9 %; Hematocrit 24.6 % (37.0-47.0); Hemoglobin 7.8 g/dL (11.5-15.3); Lymphocytes # 0.4 10^3/uL (0.8-4.8); Lymphocytes % 3.5 %; Mean Corpuscular HGB Conc 31.7 g/dL (30.0-36.0); Mean Corpuscular Hemoglobin 32.2 pg (28.0-34.0); Mean Corpuscular Volume 101.7 fL (81-99); Mean Platelet Volume 10.9 fL (7.4-10.4); Monocytes # 0.3 10^3/uL (0.2-0.9); Monocytes % 2.5 %; Neutrophils # 10.82 10^3/uL (1.8-7.7); Neutrophils % 91.5 %; Nucleated Red Blood Cells % 0 %; Platelet Count 166 10^3/cmm (130-400); Red Blood Count 2.42 10^6/uL (4.1-5.3); Red Cell Distribution Width 14.7 % (12.1-15.1); White Blood Count 11.8 10^3/uL (4.0-10.0)
[2020-05-05 06:36] LABS: Alanine Aminotransferase 10 U/L (0-33); Albumin Level 2.3 g/dL (3.5-5.2); Alkaline Phosphatase 95 IU/L (35-105); Anion Gap 15.6 (5-19); Aspartate Amino Transferase 18 U/L (0-32); Blood Urea Nitrogen 32 mg/dL (8-23); C Reactive Protein 147.8 mg/L (0.0-4.9); Calcium 7.4 mg/dL (8.5-10.5); Carbon Dioxide 20 mmol/L (22-29); Chloride 112 mmol/L (98-107); Globulin 2.7 g/dL (1.3-4.6); Glucose 120 mg/dL (65-115); Lipase 26 U/L (13-60); Magnesium 1.7 mg/dL (1.7-2.3); Osmolality Calculated 306 mOsm/kg (285-295); Potassium 3.6 mmol/L (3.5-5.1); Sodium 144 mmol/L (136-145); Total Bilirubin 0.3 mg/dL (0.15-1.2)
[2020-05-05 06:49] LABS: Glucose Point of Care 131 mg/dL (70-110)
[2020-05-05] MEDS: sodium chloride 0.9% 1,000 ML 75 ML IV (07:48)
[2020-05-05] MEDS: clopidogrel 75 mg Tablet PO (09:36)
[2020-05-05] MEDS: phosphorus 250 mg Tablet PO ×2 (09:36→18:36)
[2020-05-05] MEDS: pantoprazole DR 40 mg Tablet PO ×2 (09:36→18:36)
[2020-05-05] MEDS: insulin glargine 100 units/1 mL 10 UNIT SUBCUT ×2 (09:37→22:00)
--- NOTE | 2020-05-05 10:45 | USR_ITS ---
PROCEDURE INFORMATION: Exam: US Duplex Lower Extremity Veins, Bilateral Exam date and time: 05/05/2020 11:26 AM Age: 84 years old Clinical indication: Swelling (edema) of limb; Lower extremity, bilateral TECHNIQUE: Imaging protocol: Real-time duplex ultrasound of the extremities with 2-D hairston scale, color Doppler flow and spectral waveform analysis with image documentation. Complete exam focused on the bilateral lower extremity veins. COMPARISON: No relevant prior studies available. FINDINGS: Right deep veins: Unremarkable. The common femoral, femoral, proximal profunda femoral and popliteal veins are patent without thrombus. Normal Doppler waveforms. Normal compressibility and/or augmentation response. Right superficial veins: Saphenofemoral junction is patent without thrombus. Left deep veins: Unremarkable. The common femoral, femoral, proximal profunda femoral and popliteal veins are patent without thrombus. Normal Doppler waveforms. Normal compressibility and/or augmentation response. Left superficial veins: Saphenofemoral junction is patent without thrombus. Soft tissues: Unremarkable. US/CV venous duplex [facility] [id number] IMPRESSION: Negative for right or left leg DVT
--- NOTE | 2020-05-05 10:50 | PC.CHAP ---
Pastoral Care Encounter/Spiritual Assessment Type of Contact [] Declined scalper operator visit [XX] Patient/Family/Request visit [] Outpatient visit [XX] Follow-up visit [] Physician referral [] Code/Alert [] Routine visit [] Staff referral [] Actively dying [] Patient sleeping [] Family support [] [] Out of room [] Palliative care [] [] Receiving care in room [] Pre-surgical visit [] Trauma [] Long length of stay [] ICU visit [] Other: Relational/Emotional Strength [XX] Patient feels connected with others/family/visitors/staff [] Distress [] Loneliness/isolation [] Abandonment Spirituality of Patient [XX] Person of Mackenzie [] Attends Evangelical of their [place] [] Believes in Prayer [] Reads Bible or Restoration materials [] There are Spiritual issues to be addressed Print Project Manager Interventions [XX] Prayer [XX] Active listening [XX] Non-anxious presence [] Spiritual/emotional support [] Crisis/trauma care [] Spiritual counseling [] Bereavement support [] Provided bereavement packet [] Provided Bible/devotional materials [] Provided toy/stuffed animal, coloring book to patient or family member [] Provided Communion [] Anointing/[place] [] Salvation [] Completed spiritual assessment [XX] Other: assistance with drink Impact on Illness or Injury [] Angry [] Fearful [] Anxious [] Often cries [] Exhaustion [] Unable to work [] Unable to attend jainism [] Unable to walk/stand [] Unable to read [] Unable to drive [] Unable to eat/drink [] Unable to sleep [] Unable to be with family [] Patient intubated [] Other: Summary: Pt's family has requested daily prayer for her. Print Project Manager visited briefly as pt responded with only brief responses. SHe was appreciative of her family and of the prayer. Time spent with patient: 5 mins
[2020-05-05 10:58] LABS: Glucose Point of Care 166 mg/dL (70-110)
--- NOTE | 2020-05-05 11:30 | PC.NURSE ---
Family updated On the plans for today. informed dgtr at bedside of her an DARVIN venous duplex. Right arms has been elevated with pillow.
--- NOTE | 2020-05-05 15:27 | P.PN_ITS ---
Subjective Subjective: Interval history: No significant events or changes. Unchanged right-sided weakness. Denies any pain. No fever or chills. Had a bowel movement which was brown without blood. Medications: Reviewed: Yes Medication Review Details: Generic Name Dose Route Start Last Admin Trade Name Freq PRN Reason Stop Dose Admin Acetaminophen 650 mg 04/26/20 18:19 05/05/20 02:02 Acetaminophen 32 5 Mg Tablet PO 650 mg Q6H PRN Administration Mild/Mod Pain Or Temp >/= 101 Clopidogrel Bisulf ate 75 mg 05/02/20 09:00 05/05/20 09:36 Clopidogrel 75 M g Tablet PO 75 mg DAILY FRANK Administration Heparin Sodium (Be ef Lung) 5,000 unit 04/27/20 17:00 04/28/20 04:31 Heparin 5,000 Un it/Ml Inj 1 Ml SUBCUT 5,000 unit Q12H FRANK Administration Insulin Human Regu lar 250 unit 252.5 mls @ 0 mls /hr 05/01/20 11:00 05/02/20 23:15 / Sodium Chlorid e IV 0 unit/hr .Q0M FRANK 0 mls/hr Titration Protocol Per Protocol Piperacillin Sod/T azobactam 50 mls @ 12.5 mls /hr 05/04/20 12:00 05/05/20 12:59 Sod 3.375 gm/ So dium Chloride IV 12.5 mls/hr Q8H FRANK Administration Protocol Sodium Chloride 1,000 mls @ 75 ml s/hr 05/04/20 16:15 05/05/20 07:48 Sodium Chloride 0.9% IV 05/05/20 18:54 75 mls/hr .[id number] FRANK Administration Insulin Aspart 0 unit 05/03/20 08:00 05/05/20 13:00 Insulin Aspart 1 00 Unit/1 Ml SUBCUT 1 unit WM&BEDTIME FRANK Administration Protocol Pantoprazole Sodiu m 40 mg 05/03/20 18:00 05/05/20 09:[address] 40 Mg Tablet PO 40 mg BID FRANK Administration Potassium Phosphat e 250 mg 05/03/20 09:00 05/05/20 09:36 Phosphorus 250 M g Tablet PO 250 mg BID FRANK Administration Vitals/I&O/Wt Last Vital Signs Temp 98.6 F 05/05/20 14:51 Pulse 116 H 05/05/20 14:51 Resp 30 H 05/05/20 14:51 BP 147/77 05/05/20 14:51 Pulse Ox 98 05/05/20 14:51 05/05/20 05/05/20 05/05/20 06:59 14:59 22:59 Intake Total 50 / 350 1410 / 1410 Output Total 450 / 1100 600 / 600 Balance -400 / -750 1410 / 1410 -600 / 810 Weight last 48 hrs Weight 65.227 kg Weight 62.233 kg Physical Exam Narrative: EXAM NARRATIVE: Awake, alert and oriented. Responses are adequate. Skin is warm and dry. MMM Eyes Waldemar, extraocular muscles are intact. Almost complete right upper extremity weakness, unchanged. Mostly proximal. Distal muscle groups are a little spared. Hemineglect is present. Neck supple. No JVD Lungs clear to auscultation bilaterally. No respiratory distress Heart S1, S2, regular tachycardia Abdomen soft, nontender, bowel sounds are present Extremities no edema, cyanosis, or calf tenderness bilaterally. Urinary Catheter Management^: Ferris: Cath Placed During This Visit: yes Reason for Continuing Indwelling Catheter: Acute Urinary Retention or Obstruction Urinary Catheter Date of Insertion: 04/26/20 Urinary Catheter Time of Insertion: 14:40 Data : 05/05/20 04:24 05/05/20 04:24 Micro: Microbiology 04/30/20 14:16 Blood Culture - Final Blood NO GROWTH AFTER 5 DAYS 04/30/20 14:16 Blood Culture - Final Blood NO GROWTH AFTER 5 DAYS 05/04/20 12:05 Blood Culture - Preliminary Blood NEGATIVE TO DATE 05/04/20 11:50 Blood Culture - Preliminary Blood NEGATIVE TO DATE A&P Assessment and plan (1) Septic shock: Status: Acute (2) Unresponsive state: Status: Acute (3) Endotracheally intubated: Status: Acute (4) Metabolic acidosis: Status: Acute (5) Diabetic keto-acidosis: Status: Acute (6) FRANKLIN (acute kidney injury): Status: Acute (7) Elevated troponin: Status: Acute Additional A&P Information 84-year-old female found unresponsive at home for unknown time found to be hypot ensive, intubated in the field with metabolic acidosis, DKA because of acute pancreatitis seen on CT scan. Shock: Resolved. Patient off inotropes for last 24 hours. Most likely a combination of profound inflammation vasoplegia along with hypovolemia in setting of acute pancreatitis. DIC panel suggestive of overt DIC but improving. Endotracheally intubated: Extubated on April 30. Post extubation on 2 L nasal cannula saturating 94%. Comfortable. Following commands having complete conversation and a strong cough. Incentive spirometry. Levo albuterol every 6 hours, ipratropium every 6 hours, stop budesonide. Metabolic acidosis: Non-anion gap. Cannot rule out RTA given the FRANKLIN. FRANKLIN: Because of dehydration, shock and possible LUCIA. Creatinine worsening today. Will consult nephrology given worsening creatinine and ongoing metabolic acidosis. Continue to monitor electrolytes and replete accordingly. Appreciate renal recommendations. Continue vancomycin and Zosyn both renally dosed. We will continue to follow culture results. Check Vanco random level. We will plan to continue the antibiotics for at least 24 hours post extubation. Thrombocytopenia: Platelet count 88,000 today coming down from 228,000 from admission. HIT panel awaited. Check DIC panel given anemia and thrombocytopenia. Stop anticoagulation for now. Continue to monitor platelet and hemoglobin. GI bleed: Secondary to gastritis most likely from stress-induced as seen on endoscopy done on April 30. Continue Protonix 40 mg twice daily. Continue to monitor hemoglobin. Diabetic ketoacidosis: Resolved. Anion gap closed. Stop insulin drip and switch to insulin sliding scale every 6 hours at moderate dose protocol. Elevated troponins: Troponin trending down yesterday. EKG has remained stable. Most likely secondary to demand ischemia. We will continue to monitor. Repeat troponin today morning. CODE STATUS: Discussed with daughters at bedside. Patient does not have any designated DPOA on file. Next of kin for the patient would be both daughters and they are agreeable to make medical decisions for patient. Full code for now. Pepcid for PUD prophylaxis. 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 Severely guarded prognosis. Care in detail with patient's daughter. Discussed that patient is improving but still not out of the story as she is intubated and on pressors. Also discussed that etiology of her problem is most likely from acute pancreatitis. Daughter present at bedside. Discussed that patient is doing better. She is off ventilator and going forward it is all about physical therapy and getting stronger. Daughter is thankful for all the care. All the questions were answered. [place] Sepsis and SIRS secondary to acute pancreatitis. Hemodynamically stable and improved. A febrile but leukocytosis has worsened.procalcitonin and CRP are better. Vancomycin was discontinued. However she is still on Zosyn which we will continue. Her chest x-ray and UA were clear. However she still spikes fever. Leukocytosis is better. We will continue close monitoring. DKA. Resolved. Insulin drip is discontinued. Started on Lantus. Blood sugar levels are improved. We might need to decrease dose of Lantus to avoid hypoglycemia tomorrow. Continuing encouragement with food intake. Tachycardia. Sinus tachycardia. I do not think that it is related to infection or fever. No pain. No significant anxiety. I suspect element of dehydration. Continue gentle hydration. Electrolyte abnormalities. Replaced. Continue monitoring. Acute kidney injury probably secondary to above. Management per Dr. Martinez. Improving. Acute respiratory failure secondary to above. Status post intubation and mechanical ventilation. Extubated. Currently stable. Acute stroke. Affected areas are left frontal region and right cerebellum. Thromboembolic event is suspected. No anticoagulation due to concerns of possible hemorrhagic transformation and recent GI bleeding. Continue Plavix. JERMAINE by dr Roman today was unremarkable. I appreciate his help. I also appreciate Dr. Noe's help and advice! Upper GI bleeding secondary to stress gastritis. Status post EGD. No evidence of active bleeding. On PPI. Acute blood loss anemia secondary to above. Continue monitoring. Currently stable. DVT prophylaxis. Heparin. Thrombocytopenia resolved. HIT testing was negative. Right renal cyst and a right adrenal nodule. Outpatient follow-up and possibly additional testing by the primary care team. Initial admission CT is reviewed again. 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 She will require additional outpatient oncology evaluation. Referral will be provided at discharge. This was discussed with the patient and her daughter. They verbalized understanding and agreement. Attestations Medical Necessity Statement*: The condition is improved but not completely stable. Requires very close monitoring and adjustments of the treatments. 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
[2020-05-05 16:45] LABS: Glucose Point of Care 146 mg/dL (70-110)
[2020-05-05 20:26] LABS: Glucose Point of Care 152 mg/dL (70-110)
[2020-05-06] VITALS (10 sets, daily range): BP systolic 121–162; BP diastolic 54–90; PULSE 101–122; RESP 16–26; TEMP 36.4–38; O2SAT 95–98
[2020-05-06] MEDS: piperacillin-tazobactam 3.375 GM in sodium chloride 0.9% (plus) 50 ML IV ×3 (04:39→20:48)
[2020-05-06 06:21] LABS: Basophils % 0.5 %; Eosinophils # 0.1 10^3/uL (0.0-0.8); Eosinophils % 1.5 %; Hematocrit 27.7 % (37.0-47.0); Hemoglobin 8.2 g/dL (11.5-15.3); Lymphocytes # 0.6 10^3/uL (0.8-4.8); Lymphocytes % 7.7 %; Mean Corpuscular HGB Conc 29.6 g/dL (30.0-36.0); Mean Corpuscular Hemoglobin 31.2 pg (28.0-34.0); Mean Corpuscular Volume 105.3 fL (81-99); Mean Platelet Volume 10.3 fL (7.4-10.4); Monocytes # 0.3 10^3/uL (0.2-0.9); Monocytes % 4.1 %; Neutrophils # 6.75 10^3/uL (1.8-7.7); Neutrophils % 84.8 %; Nucleated Red Blood Cells % 0 %; Platelet Count 173 10^3/cmm (130-400); Red Blood Count 2.63 10^6/uL (4.1-5.3); Red Cell Distribution Width 14.7 % (12.1-15.1)
[2020-05-06 06:42] LABS: Glucose Point of Care 45 mg/dL (70-110)
[2020-05-06 06:42] LABS: Glucose Point of Care 49 mg/dL (70-110)
--- NOTE | 2020-05-06 06:45 | PC.NURSE ---
dressing changed to coccyx due to soiling. patient given glucerna and milk due to FBS of 49 will recheck patient is A&O and appropriately responsive
[2020-05-06 07:08] LABS: Albumin Level 2.2 g/dL (3.5-5.2); Anion Gap 15.4 (5-19); Blood Urea Nitrogen 27 mg/dL (8-23); Calcium 7.7 mg/dL (8.5-10.5); Carbon Dioxide 19 mmol/L (22-29); Chloride 112 mmol/L (98-107); Glucose 44 mg/dL (65-115); Magnesium 1.7 mg/dL (1.7-2.3); Phosphorus 3.3 mg/dL (2.5-4.5); Potassium 3.4 mmol/L (3.5-5.1); Sodium 143 mmol/L (136-145)
[2020-05-06 07:10] LABS: Glucose Point of Care 48 mg/dL (70-110)
[2020-05-06] MEDS: dextrose 50% syringe 50 mL 25 ML IVP (07:14)
[2020-05-06 07:46] LABS: Glucose Point of Care 92 mg/dL (70-110)
[2020-05-06 09:05] LABS: Glucose Point of Care 110 mg/dL (70-110)
[2020-05-06] MEDS: phosphorus 250 mg Tablet PO ×2 (09:14→17:40)
[2020-05-06] MEDS: pantoprazole DR 40 mg Tablet PO ×2 (09:17→17:40)
[2020-05-06] MEDS: clopidogrel 75 mg Tablet PO (09:17)
--- NOTE | 2020-05-06 10:17 | PC.CHAP ---
Pastoral Care Encounter/Spiritual Assessment Type of Contact [] Declined train brake operator visit [] Patient/Family/Request visit [] Outpatient visit [] Follow-up visit [] Physician referral [] Code/Alert [x] Routine visit [] Staff referral [] Actively dying [] Patient sleeping [] Family support [] [] Out of room [] Palliative care [] [] Receiving care in room [] Pre-surgical visit [] Trauma [] Long length of stay [] ICU visit [] Other: Relational/Emotional Strength [] Patient feels connected with others/family/visitors/staff [] Distress [] Loneliness/isolation [] Abandonment Spirituality of Patient [x] Person of Mackenzie [] Attends Christianity of their [place] [] Believes in Prayer [] Reads Bible or Yarsani materials [] There are Spiritual issues to be addressed Pipe Coverer Interventions [x] Prayer [x] Active listening [x] Non-anxious presence [x] Spiritual/emotional support [] Crisis/trauma care [] Spiritual counseling [] Bereavement support [] Provided bereavement packet [] Provided Bible/devotional materials [] Provided toy/stuffed animal, coloring book to patient or family member [] Provided Communion [] Anointing/[place] [] Salvation [x] Completed spiritual assessment [] Other: Impact on Illness or Injury [] Angry [] Fearful [] Anxious [] Often cries [] Exhaustion [] Unable to work [] Unable to attend restorationism [] Unable to walk/stand [] Unable to read [] Unable to drive [] Unable to eat/drink [] Unable to sleep [] Unable to be with family [] Patient intubated [] Other: Summary Chaplains prayed with Patient. Time spent with patient 8 minutes. Daily prayer Requested.
[2020-05-06] MEDS: acetaminophen 325 mg Tablet 650 MG PO ×2 (10:57→20:53)
[2020-05-06] MEDS: metoprolol tartrate 1 mg/1 mL SDV 5 mL 5 MG IV (11:01)
[2020-05-06 11:34] LABS: Glucose Point of Care 151 mg/dL (70-110)
--- NOTE | 2020-05-06 12:10 | P.PN_ITS ---
Subjective Subjective: Interval history: Developed hypoglycemia this morning. Hypoglycemia measures were provided. A symptomatic. Currently doing well. No fever or chills. No problems with breathing. She still has the same weakness in the right side. Medications: Reviewed: Yes Medication Review Details: Generic Name Dose Route Start Last Admin Trade Name Freq PRN Reason Stop Dose Admin Acetaminophen 650 mg 04/26/20 18:19 05/06/20 10:57 Acetaminophen 32 5 Mg Tablet PO 650 mg Q6H PRN Administration Mild/Mod Pain Or Temp >/= 101 Clopidogrel Bisulf ate 75 mg 05/02/20 09:00 05/06/20 09:17 Clopidogrel 75 M g Tablet PO 75 mg DAILY FRANK Administration Dextrose 25 ml 04/28/20 07:31 05/06/20 07:14 Dextrose 50% Syr desiree 50 Ml IVP 25 ml ONCE PRN Administration hypoglycemia prot ocol Protocol Heparin Sodium (Be ef Lung) 5,000 unit 04/27/20 17:00 04/28/20 04:31 Heparin 5,000 Un it/Ml Inj 1 Ml SUBCUT 5,000 unit Q12H FRANK Administration Insulin Human Regu lar 250 unit 252.5 mls @ 0 mls /hr 05/01/20 11:00 05/02/20 23:15 / Sodium Chlorid e IV 0 unit/hr .Q0M FRANK 0 mls/hr Titration Protocol Per Protocol Piperacillin Sod/T azobactam 50 mls @ 12.5 mls /hr 05/04/20 12:00 05/06/20 11:57 Sod 3.375 gm/ So dium Chloride IV 12.5 mls/hr Q8H FRANK Administration Protocol Insulin Aspart 0 unit 05/03/20 08:00 05/06/20 11:55 Insulin Aspart 1 00 Unit/1 Ml SUBCUT 4 unit WM&BEDTIME FRANK Administration Protocol Insulin Glargine 10 unit 05/05/20 21:00 05/05/20 22:00 Insulin Glargine 100 Units/1 Ml SUBCUT 10 unit BEDTIME FRANK Administration Metoprolol Tartrat e 5 mg 04/30/20 16:06 05/06/20 11:01 Metoprolol Tartr ate 1 Mg/1 Ml Sdv 5 Ml IV 5 mg Q6H PRN Administration HR>110, hold for SBP<110mmhg Pantoprazole Sodiu m 40 mg 05/03/20 18:00 05/06/20 09:[address] 40 Mg Tablet PO 40 mg BID FRANK Administration Potassium Phosphat e 250 mg 05/03/20 09:00 05/06/20 09:14 Phosphorus 250 M g Tablet PO 250 mg BID FRANK Administration Zolpidem Tartrate 10 mg 05/05/20 21:14 05/05/20 22:00 Zolpidem 10 Mg T ablet PO 10 mg BEDTIME PRN Administration SLEEP Vitals/I&O/Wt Last Vital Signs Temp 97.8 F 05/06/20 10:45 Pulse 117 H 05/06/20 10:45 Resp 26 H 05/06/20 10:45 BP 150/68 05/06/20 10:45 Pulse Ox 98 05/06/20 10:45 05/05/20 05/06/20 05/06/20 22:59 06:59 14:59 Intake Total 410 / 1820 200 / 2020 1050 / 1050 Output Total 600 / 600 Balance -190 / 1220 200 / 1420 1050 / 1050 Weight last 48 hrs Weight 65.726 kg Weight 65.227 kg Physical Exam Narrative: EXAM NARRATIVE: Awake, alert and oriented. Responses are adequate. Skin is warm and dry. MMM Eyes Waldemar, extraocular muscles are intact. Almost complete right upper extremity weakness, unchanged. Mostly proximal. Distal muscle groups are a little spared. Hemineglect is present. Neck supple. No JVD Lungs clear to auscultation bilaterally. No respiratory distress Heart S1, S2, regular tachycardia Abdomen soft, nontender, bowel sounds are present Extremities no edema, cyanosis, or calf tenderness bilaterally. Urinary Catheter Management^: Ferris: Cath Placed During This Visit: yes Reason for Continuing Indwelling Catheter: Acute Urinary Retention or Obstruction Urinary Catheter Date of Insertion: 04/26/20 Urinary Catheter Time of Insertion: 14:40 Data : 05/06/20 06:10 05/06/20 06:10 Micro: Microbiology 04/30/20 14:16 Blood Culture - Final Blood NO GROWTH AFTER 5 DAYS 04/30/20 14:16 Blood Culture - Final Blood NO GROWTH AFTER 5 DAYS 05/04/20 12:05 Blood Culture - Preliminary Blood NEGATIVE TO DATE 05/04/20 11:50 Blood Culture - Preliminary Blood NEGATIVE TO DATE A&P Assessment and plan (1) Septic shock: Status: Acute (2) Unresponsive state: Status: Acute (3) Endotracheally intubated: Status: Acute (4) Metabolic acidosis: Status: Acute (5) Diabetic keto-acidosis: Status: Acute (6) FRANKLIN (acute kidney injury): Status: Acute (7) Elevated troponin: Status: Acute Additional A&P Information 84-year-old female found unresponsive at home for unknown time found to be hypotensive, intubated in the field with metabolic acidosis, DKA because of acute pancreatitis seen on CT scan. Shock: Resolved. Patient off inotropes for last 24 hours. Most likely a combination of profound inflammation vasoplegia along with hypovolemia in setting of acute pancreatitis. DIC panel suggestive of overt DIC but improving. Endotracheally intubated: Extubated on April 30. Post extubation on 2 L nasal cannula saturating 94%. Comfortable. Following commands having complete conversation and a strong cough. Incentive spirometry. Levo albuterol every 6 hours, ipratropium every 6 hours, stop budesonide. Metabolic acidosis: Non-anion gap. Cannot rule out RTA given the FRANKLIN. FRANKLIN: Because of dehydration, shock and possible LUCIA. Creatinine worsening today. Will consult nephrology given worsening creatinine and ongoing metabolic acidosis. Continue to monitor electrolytes and replete accordingly. Appreciate renal recommendations. Continue vancomycin and Zosyn both renally dosed. We will continue to follow culture results. Check Vanco random level. We will plan to continue the antibiotics for at least 24 hours post extubation. Thrombocytopenia: Platelet count 88,000 today coming down from 228,000 from admission. HIT panel awaited. Check DIC panel given anemia and thrombocytopenia. Stop anticoagulation for now. Continue to monitor platelet and hemoglobin. GI bleed: Secondary to gastritis most likely from stress-induced as seen on endoscopy done on April 30. Continue Protonix 40 mg twice daily. Continue to monitor hemoglobin. Diabetic ketoacidosis: Resolved. Anion gap closed. Stop insulin drip and switch to insulin sliding scale every 6 hours at moderate dose protocol. Elevated troponins: Troponin trending down yesterday. EKG has remained stable. Most likely secondary to demand ischemia. We will continue to monitor. Repeat troponin today morning. CODE STATUS: Discussed with daughters at bedside. Patient does not have any designated DPOA on file. Next of kin for the patient would be both daughters and they are agreeable to make medical decisions for patient. Full code for now. Pepcid for PUD prophylaxis. 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 Severely guarded prognosis. Care in detail with patient's daughter. Discussed that patient is improving but still not out of the story as she is intubated and on pressors. Also discussed that etiology of her problem is most likely from acute pancreatitis. Daughter present at bedside. Discussed that patient is doing better. She is off ventilator and going forward it is all about physical therapy and getting stronger. Daughter is thankful for all the care. All the questions were answered. [place] Sepsis (PNA?)/SIRS secondary to acute pancreatitis. Hemodynamically stable and improved. Afebrile. Leukocytosis has resolved. Vancomycin was discontinued. However she is still on Zosyn which we will continue. We will consider further de-escalation of antibiotics if remains without evidence of uncontrolled infection. Her last chest x-ray and UA were clear. We will continue close monitoring. DKA. Resolved. Insulin drip is discontinued. Develop hypoglycemia this morning. Lantus dose is already decreased from 10 twice daily to 10 daily. Discussed with the nursing staff. I asked them to make sure that the patient eats well. She needs help due to her weakness. Tachycardia. Sinus tachycardia. I do not think that it is related to infection or fever. No pain. No significant anxiety. I suspect element of dehydration. Continue hydration and close monitoring. Electrolyte abnormalities. Replaced. Continue monitoring. Acute kidney injury probably secondary to above. Improved. Continue monitoring renal function. Acute respiratory failure secondary to above. Status post intubation and mechanical ventilation. Extubated. Currently stable. Acute stroke. Affected areas are left frontal region and right cerebellum. Thromboembolic event is suspected. No anticoagulation due to concerns of possible hemorrhagic transformation and recent GI bleeding. Continue Plavix per Dr. Noe's recommendation. JERMAINE by dr Roman was unremarkable. Neurolyse deconditioning and debilitated state secondary to above. The patient is being assessed for long-term facility placement. Upper GI bleeding secondary to stress gastritis. Status post EGD. No evidence of active bleeding. On PPI. Acute blood loss anemia secondary to above. Continue monitoring. Currently stable. DVT prophylaxis. Heparin. Thrombocytopenia resolved. HIT testing was negative. Right renal cyst and a right adrenal nodule. Outpatient follow-up and possibly additional testing by the primary care team. Initial admission CT is reviewed again. 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 She will require additional outpatient oncology evaluation. Referral will be provided at discharge. This was discussed with the patient and her daughter. They verbalized understanding and agreement. The plan of care was discussed with the patient and her granddaughter at the bedside. They verbalized understanding and agreement. Attestations Medical Necessity Statement*: Pending placement Coding Level of Care Code Acute Wireless Operator for Chg Fwd Diagnoses Septic shock A41.9; R65.21 Unresponsive state R41.89 Endotracheally intubated Z97.8 Metabolic acidosis E87.2 Diabetic keto-acidosis E11.10 FRANKLIN (acute kidney injury) N17.9 Elevated troponin R77.8
[2020-05-06 16:36] LABS: Glucose Point of Care 228 mg/dL (70-110)
[2020-05-06 20:15] LABS: Glucose Point of Care 75 mg/dL (70-110)
[2020-05-07] VITALS (19 sets, daily range): BP systolic 123–139; BP diastolic 55–84; PULSE 97–120; RESP 16–29; TEMP 36.4–38.3; O2SAT 93–98
[2020-05-07] MEDS: oxyCODONE 5 mg IR Tab/Cap PO (01:35)
[2020-05-07 03:05] LABS: Glucose Point of Care 340 mg/dL (70-110)
[2020-05-07] MEDS: piperacillin-tazobactam 3.375 GM in sodium chloride 0.9% (plus) 50 ML IV ×3 (03:38→20:09)
[2020-05-07] MEDS: acetaminophen 325 mg Tablet 650 MG PO ×2 (03:38→13:33)
[2020-05-07 06:36] LABS: Glucose Point of Care 179 mg/dL (70-110)
[2020-05-07] MEDS: phosphorus 250 mg Tablet PO ×2 (08:45→18:06)
[2020-05-07] MEDS: clopidogrel 75 mg Tablet PO (08:45)
[2020-05-07] MEDS: pantoprazole DR 40 mg Tablet PO ×2 (08:46→18:06)
--- NOTE | 2020-05-07 09:03 | US_ITS ---
WS: [id number] ULTRASOUND ABDOMEN CLINICAL INFORMATION: gallbladder and pancrease, reuccrent fevers COMPARISON: None. FINDINGS: Liver Size: Normal. Craniocaudal length: 11.0 cm. Echogenicity: Coarse Surface nodularity: None. Mass (size and location): None. Bile ducts Intrahepatic ducts: Normal. Common bile duct diameter: 0.8 cm. Gallbladder Normal gallbladder. Gallstones: None. Gallbladder sludge: None. Gallbladder wall thickening: None. Pericholecystic fluid: None. Sonographic Comer sign: Absent. Pancreas Ill-defined pancreas likely due to pancreatitis as seen on the recent CT. No visualized fluid collect ions. Spleen Splenomegaly: None. Craniocaudal length: 8.5 cm. Right kidney: Bilateral renal cysts. Hydronephrosis: Mild Size: 9.5 cm x 4.2 cm x 5.2 cm Left kidney: Bilateral renal cysts Hydronephrosis: Mild Size: 10.7 cm x 5.1 cm x 4.6 cm. Abdominal aorta and IVC Visualized portions are normal. Ascites: None. US/US abdomen complete* [id number] IMPRESSION: 1. Diffuse fatty infiltration of the liver. 2. Normal gallbladder. No cholelithiasis. Common bile duct upper limits of nor mal. 3. Incidental bilateral simple renal cysts. Prominent renal pelvis disease linda aterally unchanged since the recent CT April 26, 2020. 4. Ill-defined pancreas likely due to pancreatitis as seen on the recent CT. N o fluid collections.
[2020-05-07 10:46] LABS: Basophils % 0.4 %; Eosinophils # 0.2 10^3/uL (0.0-0.8); Eosinophils % 3.1 %; Hematocrit 23.3 % (37.0-47.0); Hemoglobin 7.3 g/dL (11.5-15.3); Lymphocytes # 0.6 10^3/uL (0.8-4.8); Lymphocytes % 10.2 %; Mean Corpuscular HGB Conc 31.3 g/dL (30.0-36.0); Mean Corpuscular Hemoglobin 32.6 pg (28.0-34.0); Mean Platelet Volume 10.2 fL (7.4-10.4); Monocytes # 0.3 10^3/uL (0.2-0.9); Monocytes % 5.7 %; Neutrophils # 4.31 10^3/uL (1.8-7.7); Neutrophils % 78.8 %; Nucleated Red Blood Cells % 0 %; Platelet Count 193 10^3/cmm (130-400); Red Blood Count 2.24 10^6/uL (4.1-5.3); Red Cell Distribution Width 14.4 % (12.1-15.1); White Blood Count 5.5 10^3/uL (4.0-10.0)
[2020-05-07 11:20] LABS: Procalcitonin 0.52 ng/mL (0-0.5)
[2020-05-07 11:21] LABS: Glucose Point of Care 133 mg/dL (70-110)
[2020-05-07 11:31] LABS: Alanine Aminotransferase 11 U/L (0-33); Albumin Level 2.3 g/dL (3.5-5.2); Alkaline Phosphatase 71 IU/L (35-105); Anion Gap 12.3 (5-19); Aspartate Amino Transferase 13 U/L (0-32); Blood Urea Nitrogen 25 mg/dL (8-23); C Reactive Protein 96.5 mg/L (0.0-4.9); Carbon Dioxide 22 mmol/L (22-29); Chloride 111 mmol/L (98-107); Globulin 2.8 g/dL (1.3-4.6); Glucose 131 mg/dL (65-115); Osmolality Calculated 300 mOsm/kg (285-295); Potassium 3.3 mmol/L (3.5-5.1); Sodium 142 mmol/L (136-145); Total Bilirubin 0.2 mg/dL (0.15-1.2); Total Protein 5.1 g/dL (6.6-8.7)
--- NOTE | 2020-05-07 11:57 | XR_ITS ---
WS: [id number] Exam: XR chest 1V portable [id number] Date/Time of Exam: 05/07/2020 12:13 PM Reason For Exam: recurrent fevers Comparison 05/04/2020. The lungs are clear and fully expanded. Cardiomediastinal structures are unremarkable. No pleural eff usions. Right apical pleural thickening. XR/XR chest 1V portable [id number] IMPRESSION: 1. No acute cardiopulmonary finding.
[2020-05-07 13:02] LABS: Blood Urine 3+ (Negative); Glucose Urine UA 2+ (Normal); Ketones Urine Negative (Negative); Protein Urine Trace (Negative); Urine Appearance Clear (CLEAR); Urine Color Straw (Yellow); pH Urine 5 (5-7)
[2020-05-07 13:03] LABS: Add Urine Culture? No; Add Urine Microscopic? YES; Bacteria Urine 1+ /hpf; Bilirubin Urine Neg (Negative); Coarse Granular Casts Urine 15-25 /lpf; Leukocyte Esterase Urine Negative (Negative); Mucus Urine TRACE /hpf; Nitrate Urine Negative (Negative); Squamous Epithelial Cell Urine 0-4 /hpf (0-5); Urobilinogen Urine Norm (Negative); WBC Urine 0-4 /hpf (0-5)
[2020-05-07] MEDS: metoprolol tartrate 1 mg/1 mL SDV 5 mL 5 MG IV (13:34)
--- NOTE | 2020-05-07 14:29 | PC.NURSE ---
Feeding assist Pt refused her meals. Choose glucerna. Encourage pt to drink. Dgtr at bedside. Updated with the plan and treatment for today.
--- NOTE | 2020-05-07 14:40 | PC.NURSE ---
Informed consent for blood transfusion Discuss to pt and dgtr regarding consent for blood transfusion. Pt choose her dgtr tracie to sign the consent. Dgtr verbalizes understanding of the reason for blood transfusion. Consent signed by dgtr since pt unable to sign and let her dgtr.
[2020-05-07 16:44] LABS: Glucose Point of Care 216 mg/dL (70-110)
--- NOTE | 2020-05-07 17:58 | PM.PN ---
Subjective Subjective: Interval history: Patient was examined multiple times throughout the day, once with her daughter at bedside, she was febrile overnight, has a cough, no shortness of breath, no abdominal pain, she has no particular complaints, she has had a stroke, she continues to have weakness on the right side, Medications: Reviewed: Yes Medication Review Details: Generic Name Dose Route Start Last Admin Trade Name Freq PRN Reason Stop Dose Admin Acetaminophen 650 mg 04/26/20 18:19 05/06/20 10:57 Acetaminophen 32 5 Mg Tablet PO 650 mg Q6H PRN Administration Mild/Mod Pain Or Temp >/= 101 Clopidogrel Bisulf ate 75 mg 05/02/20 09:00 05/06/20 09:17 Clopidogrel 75 M g Tablet PO 75 mg DAILY FRANK Administration Dextrose 25 ml 04/28/20 07:31 05/06/20 07:14 Dextrose 50% Syr desiree 50 Ml IVP 25 ml ONCE PRN Administration hypoglycemia prot ocol Protocol Heparin Sodium (Be ef Lung) 5,000 unit 04/27/20 17:00 04/28/20 04:31 Heparin 5,000 Un it/Ml Inj 1 Ml SUBCUT 5,000 unit Q12H FRANK Administration Insulin Human Regu lar 250 unit 252.5 mls @ 0 mls /hr 05/01/20 11:00 05/02/20 23:15 / Sodium Chlorid e IV 0 unit/hr .Q0M FRANK 0 mls/hr Titration Protocol Per Protocol Piperacillin Sod/T azobactam 50 mls @ 12.5 mls /hr 05/04/20 12:00 05/06/20 11:57 Sod 3.375 gm/ So dium Chloride IV 12.5 mls/hr Q8H FRANK Administration Protocol Insulin Aspart 0 unit 05/03/20 08:00 05/06/20 11:55 Insulin Aspart 1 00 Unit/1 Ml SUBCUT 4 unit WM&BEDTIME FRANK Administration Protocol Insulin Glargine 10 unit 05/05/20 21:00 05/05/20 22:00 Insulin Glargine 100 Units/1 Ml SUBCUT 10 unit BEDTIME FRANK Administration Metoprolol Tartrat e 5 mg 04/30/20 16:06 05/06/20 11:01 Metoprolol Tartr ate 1 Mg/1 Ml Sdv 5 Ml IV 5 mg Q6H PRN Administration HR>110, hold for SBP<110mmhg Pantoprazole Sodiu m 40 mg 05/03/20 18:00 05/06/20 09:[address] 40 Mg Tablet PO 40 mg BID FRANK Administration Potassium Phosphat e 250 mg 05/03/20 09:00 05/06/20 09:14 Phosphorus 250 M g Tablet PO 250 mg BID FRANK Administration Zolpidem Tartrate 10 mg 05/05/20 21:14 05/05/20 22:00 Zolpidem 10 Mg T ablet PO 10 mg BEDTIME PRN Administration SLEEP Vitals/I&O/Wt Last Vital Signs Temp 98.8 F 05/07/20 14:55 Pulse 100 05/07/20 14:55 Resp 28 H 05/07/20 14:55 BP 127/84 05/07/20 14:55 Pulse Ox 95 05/07/20 14:55 05/07/20 05/07/20 05/07/20 06:59 14:59 22:59 Intake Total 510 / 2330 650 / 650 170 / 820 Output Total 850 / 1600 700 / 700 Balance -340 / 730 650 / 650 -530 / 120 Weight last 48 hrs Weight 65.771 kg Weight 65.726 kg Physical Exam Const: COMMON NORMALS: no acute distress and patient oriented x3 HENMT: COMMON NORMALS: normocephalic HEAD & SCALP: normocephalic Neck/C-Spine: COMMON NORMALS: no JVD Resp: COMMON NORMALS: normal respiratory effort, No retractions, No use of accessory muscles and clear to auscultation bilaterally AUSCULTATION: clear to auscultation bilaterally Cardio: COMMON NORMALS: no JVD, regular rate, regular rhythm, S1 normal heart sound present and S2 normal heart sound present RATE: regular rate RHYTHM: regular rhythm HEART SOUNDS: S1 normal heart sound present and S2 normal heart sound present GI: COMMON NORMALS: Normal to inspection, nondistended, normoactive bowel sounds present, Soft to palpation, non-tender, No hepatosplenomegaly present, no masses and no bruits PALPATION: Yes Soft to palpation and Yes No hepatosplenomegaly present Extremity: COMMON NORMALS: capillary refill normal, no clubbing, cyanosis or edema, no calf tenderness and no pedal edema Neuro: COMMON NORMALS: patient oriented x3 OTHER: Patient is preferentially leaning to the left, right upper right lower extremity weakness, 2 out of 5 compared to 5 out of 5 on the left, no slurring of her speech, no facial droop, on mechanical soft diet Psych: COMMON NORMALS: mental status grossly normal Urinary Catheter Management^: Ferris: Cath Placed During This Visit: yes Reason for Continuing Indwelling Catheter: Acute Urinary Retention or Obstruction Urinary Catheter Date of Insertion: 04/26/20 Urinary Catheter Time of Insertion: 14:40 Data : 05/07/20 10:30 05/07/20 10:30 Micro: Microbiology 05/07/20 13:55 C.difficile Toxin B Gene (PCR) - Final Stool 05/07/20 10:19 Blood Culture - Preliminary Blood SPECIMEN COLLECTED 05/07/20 10:19 Blood Culture - Preliminary Blood SPECIMEN COLLECTED A&P Assessment and plan (1) Septic shock: Status: Acute (2) Unresponsive state: Status: Acute (3) Endotracheally intubated: Status: Acute (4) Metabolic acidosis: Status: Acute (5) Diabetic keto-acidosis: Status: Acute (6) FRANKLIN (acute kidney injury): Status: Acute (7) Elevated troponin: Status: Acute Additional A&P Information 84-year-old female found unresponsive at home for unknown time found to be hypotensive, intubated in the field with metabolic acidosis, DKA because of acute pancreatitis seen on CT scan. Shock: Secondary to pneumonia, SIRS secondary to acute pancreatitis Resolved. Patient off inotropes for last 48 hours Most likely a combination of profound inflammation vasoplegia along with hypovolemia in setting of acute pancreatitis. DIC panel suggestive of overt DIC but improving All cultures have been negative, however she remains febrile for last 24 hours Repeat blood cultures, urine cultures sputum culture chest x-ray, right upper quadrant ultrasound continue Zosyn for now Endotracheally intubated: Extubated on April 30. Currently on a soft mechanical diet Post extubation on 2 L nasal cannula saturating 94%. Comfortable. Following commands having complete conversation and a strong cough. Incentive spirometry. Levo albuterol every 6 hours, ipratropium every 6 hours, stop budesonide. Metabolic acidosis: Non-anion gap. Cannot rule out RTA given the FRANKLIN. FRANKLIN: resolving, creatinine 1.2 because of dehydration, shock and possible LUCIA. Zosyn we will continue to follow culture results. Thrombocytopenia: Platelet count 193 HIT panel awaited. Check DIC panel given anemia and thrombocytopenia. Stop anticoagulation for now. Continue to monitor platelet and hemoglobin. GI bleed: Secondary to gastritis most likely from stress-induced as seen on endoscopy done on April 30. Continue Protonix 40 mg twice daily. Hemoglobin 7.3, will give 1 unit PRBC, monitor hemoglobin Is on Plavix because of stroke Diabetic ketoacidosis: Resolved. Anion gap closed. Stop insulin drip and switch to insulin sliding scale every 6 hours at moderate dose protocol. Elevated troponins: Troponin trending down yesterday. EKG has remained stable. Most likely secondary to demand ischemia. We will continue to monitor. Repeat troponin today morning. Daughter present at bedside. Discussed that patient is doing better. She is off ventilator and going forward it is all about physical therapy and getting stronger. Daughter is thankful for all the care. All the questions were answered. [place] Sepsis (PNA?)/SIRS secondary to acute pancreatitis. Hemodynamically stable and improved. Afebrile. Leukocytosis has resolved. Vancomycin was discontinued. However she is still on Zosyn which we will continue. We will consider further de-escalation of antibiotics if remains without evidence of uncontrolled infection. Her last chest x-ray and UA were clear. We will continue close monitoring. DKA. Resolved. Lantus 10 units at bedtime, sliding scale Tachycardia. Sinus tachycardia. I do not think that it is related to infection or fever. No pain. No significant anxiety. I suspect element of dehydration. Continue hydration and close monitoring. Electrolyte abnormalities. Replaced. Continue monitoring. Acute kidney injury probably secondary to above. Improved. Continue monitoring renal function. Acute respiratory failure secondary to above. Status post intubation and mechanical ventilation. Extubated. Currently stable. Acute stroke. Affected areas are left frontal region and right cerebellum. Thromboembolic event is suspected. No anticoagulation due to concerns of possible hemorrhagic transformation and recent GI bleeding. Continue Plavix per Dr. Noe's recommendation. JERMAINE by dr Roman was unremarkable. Neurolyse deconditioning and debilitated state secondary to above. The patient is being assessed for snf facility placement. Acute blood loss anemia secondary to above. Continue monitoring. Currently stable. DVT prophylaxis. On hold Thrombocytopenia resolved. HIT testing was negative. Right renal cyst and a right adrenal nodule. Outpatient follow-up and possibly additional testing by the primary care team. Initial admission CT is reviewed again. 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 She will require additional outpatient oncology evaluation. Referral will be provided at discharge. This was discussed with the patient and her daughter. They verbalized understanding and agreement. The plan of care was discussed with the patient and her granddaughter at the bedside. They verbalized understanding and agreement. Attestations Medical Necessity Statement*: Patient requires hospitalization for shock, acute respiratory failure status post extubation, persistent fevers, anemia Coding Level of Care Code Acute Keyseating Machine Set Up Operator for g Fwd Diagnoses Septic shock A41.9; R65.21 Unresponsive state R41.89 Endotracheally intubated Z97.8 Metabolic acidosis E87.2 Diabetic keto-acidosis E11.10 FRANKLIN (acute kidney injury) N17.9 Elevated troponin R77.8
[2020-05-07] MEDS: sucralfate 1 gm Tablet PO ×2 (18:07→20:48)
--- NOTE | 2020-05-07 18:40 | PC.NURSE ---
Blood transfusion started Verfied blood and pt's arm band. Monitored pt's VS and for any blood transfusion reaction for 15 mins. No reactions noted.
[2020-05-07] MEDS: sodium chloride 0.9% (100 ml) 100 ML (18:41)
[2020-05-07 20:08] LABS: Glucose Point of Care 228 mg/dL (70-110)
[2020-05-07] MEDS: potassium chloride oral liq 20 mEq/15 mL UDC 40 MEQ PO (20:10)
[2020-05-07] MEDS: insulin glargine 100 units/1 mL 10 UNIT SUBCUT (20:50)
[2020-05-07 21:53] LABS: UFH High Dose, 100 IU/ML 0 % release; UFH Low Dose, 0.1 IU/ML 0 % release; UFH Low Dose, 0.5 IU/ML 0 % release; UFH SRA Result NEGATIVE (NEGATIVE)
[2020-05-08] VITALS (12 sets, daily range): BP systolic 127–150; BP diastolic 69–85; PULSE 94–124; RESP 12–26; TEMP 36.7–37.6; O2SAT 93–96
[2020-05-08] MEDS: acetaminophen 325 mg Tablet 650 MG PO ×4 (01:54→23:28)
[2020-05-08 03:55] LABS: Basophils % 0.6 %; Eosinophils # 0.2 10^3/uL (0.0-0.8); Eosinophils % 3.1 %; Hematocrit 28.3 % (37.0-47.0); Hemoglobin 9.1 g/dL (11.5-15.3); Lymphocytes # 0.5 10^3/uL (0.8-4.8); Lymphocytes % 8.3 %; Mean Corpuscular HGB Conc 32.2 g/dL (30.0-36.0); Mean Corpuscular Hemoglobin 31.4 pg (28.0-34.0); Mean Corpuscular Volume 97.6 fL (81-99); Monocytes # 0.4 10^3/uL (0.2-0.9); Monocytes % 6.4 %; Neutrophils # 5.06 10^3/uL (1.8-7.7); Neutrophils % 79.6 %; Nucleated Red Blood Cells % 0 %; Platelet Count 196 10^3/cmm (130-400); White Blood Count 6.4 10^3/uL (4.0-10.0)
[2020-05-08 04:25] LABS: Alanine Aminotransferase 12 U/L (0-33); Albumin Level 2.4 g/dL (3.5-5.2); Alkaline Phosphatase 76 IU/L (35-105); Anion Gap 13.8 (5-19); Aspartate Amino Transferase 14 U/L (0-32); Blood Urea Nitrogen 24 mg/dL (8-23); C Reactive Protein 98.9 mg/L (0.0-4.9); Calcium 8.1 mg/dL (8.5-10.5); Carbon Dioxide 21 mmol/L (22-29); Chloride 111 mmol/L (98-107); Glucose 97 mg/dL (65-115); Magnesium 1.5 mg/dL (1.7-2.3); Osmolality Calculated 298 mOsm/kg (285-295); Phosphorus 2.6 mg/dL (2.5-4.5); Potassium 3.8 mmol/L (3.5-5.1); Procalcitonin 0.43 ng/mL (0-0.5); Sodium 142 mmol/L (136-145); Total Bilirubin 0.3 mg/dL (0.15-1.2); Total Protein 5.4 g/dL (6.6-8.7)
[2020-05-08] MEDS: piperacillin-tazobactam 3.375 GM in sodium chloride 0.9% (plus) 50 ML IV ×3 (04:44→19:56)
[2020-05-08] MEDS: sucralfate 1 gm Tablet PO ×4 (06:06→20:33)
[2020-05-08 07:44] LABS: Glucose Point of Care 174 mg/dL (70-110)
[2020-05-08] MEDS: phosphorus 250 mg Tablet PO ×2 (08:22→16:56)
[2020-05-08] MEDS: clopidogrel 75 mg Tablet PO (08:22)
[2020-05-08] MEDS: pantoprazole DR 40 mg Tablet PO ×2 (08:22→16:56)
--- NOTE | 2020-05-08 08:51 | ECG_ITS ---
[facility] Test Date: 2020-05-08 Pat Name: Sheri Szymanski Department: Room: 112 Gender: Female Returned Materials Inspector: : [id number] Requested By: Edvin Oliver Order Number: [id number] [place] MD: Enio Mackenzie M.D. Measurements Intervals [place] Rate: 125 P: 51 MI: 140 QRS: -16 QRSD: 84 T: 60 QT: 290 QTc: 418 Interpretive Statements SINUS TACHYCARDIA ABNORMAL RHYTHM ECG Compared to ECG 05/04/2020 17:05:34 T-wave abnormality no longer present Electronically Signed On 05-08-2020 17:38:07 LICENSED PRACTICAL NURSE by Enio Mackenzie M.D. [id number]
[2020-05-08] MEDS: magnesium sulfate premix 2 GM/50 ML PIGGYBACK IV (09:46)
[2020-05-08] MEDS: metoprolol tartrate 25 mg Tablet 12.5 MG PO ×2 (09:46→20:33)
[2020-05-08 11:24] LABS: Glucose Point of Care 102 mg/dL (70-110)
[2020-05-08 11:39] LABS: SARS Covid-2 Antigen Negative (Negative)
[2020-05-08 11:40] LABS: Influenza A by IFA Negative (Negative); Influenza B by IFA Negative (Negative)
[2020-05-08 13:43] LABS: ANCA Interp Negative (Negative)
--- NOTE | 2020-05-08 16:23 | P.PN_ITS ---
Subjective Subjective: Interval history: Patient was examined this morning, she is much more alert, awake, she answers all questions appropriately, continues to have weakness on the right side, right upper right lower extremity, Medications: Reviewed: Yes Medication Review Details: Generic Name Dose Route Start Last Admin Trade Name Freq PRN Reason Stop Dose Admin Acetaminophen 650 mg 04/26/20 18:19 05/06/20 10:57 Acetaminophen 32 5 Mg Tablet PO 650 mg Q6H PRN Administration Mild/Mod Pain Or Temp >/= 101 Clopidogrel Bisulf ate 75 mg 05/02/20 09:00 05/06/20 09:17 Clopidogrel 75 M g Tablet PO 75 mg DAILY FRANK Administration Dextrose 25 ml 04/28/20 07:31 05/06/20 07:14 Dextrose 50% Syr desiree 50 Ml IVP 25 ml ONCE PRN Administration hypoglycemia prot ocol Protocol Heparin Sodium (Be ef Lung) 5,000 unit 04/27/20 17:00 04/28/20 04:31 Heparin 5,000 Un it/Ml Inj 1 Ml SUBCUT 5,000 unit Q12H FRANK Administration Insulin Human Regu lar 250 unit 252.5 mls @ 0 mls /hr 05/01/20 11:00 05/02/20 23:15 / Sodium Chlorid e IV 0 unit/hr .Q0M FRANK 0 mls/hr Titration Protocol Per Protocol Piperacillin Sod/T azobactam 50 mls @ 12.5 mls /hr 05/04/20 12:00 05/06/20 11:57 Sod 3.375 gm/ So dium Chloride IV 12.5 mls/hr Q8H FRANK Administration Protocol Insulin Aspart 0 unit 05/03/20 08:00 05/06/20 11:55 Insulin Aspart 1 00 Unit/1 Ml SUBCUT 4 unit WM&BEDTIME FRANK Administration Protocol Insulin Glargine 10 unit 05/05/20 21:00 05/05/20 22:00 Insulin Glargine 100 Units/1 Ml SUBCUT 10 unit BEDTIME FRANK Administration Metoprolol Tartrat e 5 mg 04/30/20 16:06 05/06/20 11:01 Metoprolol Tartr ate 1 Mg/1 Ml Sdv 5 Ml IV 5 mg Q6H PRN Administration HR>110, hold for SBP<110mmhg Pantoprazole Sodiu m 40 mg 05/03/20 18:00 05/06/20 09:[address] 40 Mg Tablet PO 40 mg BID FRANK Administration Potassium Phosphat e 250 mg 05/03/20 09:00 05/06/20 09:14 Phosphorus 250 M g Tablet PO 250 mg BID FRANK Administration Zolpidem Tartrate 10 mg 05/05/20 21:14 05/05/20 22:00 Zolpidem 10 Mg T ablet PO 10 mg BEDTIME PRN Administration SLEEP Vitals/I&O/Wt Last Vital Signs Temp 99.6 F 05/08/20 14:59 Pulse 106 H 05/08/20 14:59 Resp 12 05/08/20 14:59 BP 139/75 05/08/20 14:59 Pulse Ox 95 05/08/20 14:59 05/08/20 05/08/20 05/08/20 06:59 14:59 22:59 Intake Total 390 / 1910 580 / 580 Output Total 400 / 1650 Balance -10 / 260 580 / 580 Weight last 48 hrs Weight 67.495 kg Weight 65.771 kg Physical Exam Const: COMMON NORMALS: no acute distress and patient oriented x3 ORIENTATION/CONSCIOUSNESS: Yes awake, Yes oriented to person and Yes oriented to place; not oriented to time HENMT: COMMON NORMALS: normocephalic HEAD & SCALP: normocephalic Neck/C-Spine: COMMON NORMALS: no JVD Resp: COMMON NORMALS: normal respiratory effort, No retractions, No use of accessory muscles and clear to auscultation bilaterally AUSCULTATION: clear to auscultation bilaterally Cardio: COMMON NORMALS: no JVD, regular rate, regular rhythm, S1 normal heart sound present and S2 normal heart sound present RATE: regular rate RHYTHM: regular rhythm HEART SOUNDS: S1 normal heart sound present and S2 normal heart sound present GI: COMMON NORMALS: Normal to inspection, nondistended, normoactive bowel sounds present, Soft to palpation, non-tender, No hepatosplenomegaly present, no masses and no bruits PALPATION: Yes Soft to palpation and Yes No hepatosplenomegaly present Extremity: COMMON NORMALS: capillary refill normal, no clubbing, cyanosis or edema, no calf tenderness and no pedal edema Neuro: COMMON NORMALS: patient oriented x3 SENSORIUM/ORIENTATION: Yes o riented to person, Yes oriented to place and No oriented to time OTHER: Right upper extremity strength 2 out of 5, right lower extremity strength 2 out of 5 Psych: COMMON NORMALS: mental status grossly normal Urinary Catheter Management^: Ferris: Cath Placed During This Visit: yes Reason for Continuing Indwelling Catheter: Acute Urinary Retention or Obstruction Urinary Catheter Date of Insertion: 04/26/20 Urinary Catheter Time of Insertion: 14:40 Data : 05/08/20 03:00 05/08/20 03:00 Micro: Microbiology 05/07/20 10:19 Blood Culture - Preliminary Blood NEGATIVE TO DATE 05/07/20 10:19 Blood Culture - Preliminary Blood NEGATIVE TO DATE 05/07/20 11:30 Urine Culture - Preliminary Urine,Clean Catch 05/07/20 13:55 C.difficile Toxin B Gene (PCR) - Final Stool A&P Assessment and plan (1) Septic shock: Status: Acute (2) Unresponsive state: Status: Acute (3) Endotracheally intubated: Status: Acute (4) Metabolic acidosis: Status: Acute (5) Diabetic keto-acidosis: Status: Acute (6) FRANKLIN (acute kidney injury): Status: Acute (7) Elevated troponin: Status: Acute Additional A&P Information 84-year-old female found unresponsive at home for unknown time found to be hypotensive, intubated in the field with metabolic acidosis, DKA because of acute pancreatitis seen on CT scan. Shock: Secondary to pneumonia, SIRS secondary to acute pancreatitis Resolved. Patient off inotropes Most likely a combination of profound inflammation vasoplegia along with hypovolemia in setting of acute pancreatitis. DIC panel suggestive of overt DIC but improving All cultures have been negative Low-grade temperatures overnight Repeat blood cultures negative so far, urine cultures negative so far, sputum negative so far, chest x-ray no focal pneumonia, right upper quadrant ultrasound no evidence of acute cholecystitis Rapid flu negative, rapid nasal PCR for Covid negative Covid PCR ordered continue Zosyn for now Endotracheally intubated: Extubated on April 30. Currently on a soft mechanical diet Post extubation on 2 L nasal cannula saturating 94%. Comfortable. Following commands having complete conversation and a strong cough. Incentive spirometry. Levo albuterol every 6 hours, ipratropium every 6 hours, stop budesonide. Metabolic acidosis: Non-anion gap. Cannot rule out RTA given the FRANKLIN. FRANKLIN: resolving, creatinine 1.2 because of dehydration, shock and possible LUCIA. Zosyn we will continue to follow culture results. Thrombocytopenia: Platelet count within normal limits GI bleed: Secondary to gastritis most likely from stress-induced as seen on endoscopy done on April 30. Continue Protonix 40 mg twice daily. Hemoglobin 9.1, status post 1 unit PRBC Is on Plavix because of stroke Diabetic ketoacidosis: Resolved. Anion gap closed. On insulin sliding scale Elevated troponins: Troponin trending down yesterday. EKG has remained stable. Most likely secondary to demand ischemia. We will continue to monitor. Tachycardia. Sinus tachycardia. Possibly secondary to fevers, start metoprolol 12.5 twice daily Electrolyte abnormalities. Replaced. Continue monitoring. Acute respiratory failure secondary to above. Status post intubation and mechanical ventilation. Extubated. Currently stable. Acute stroke. Affected areas are left frontal region and right cerebellum. Thromboembolic event is suspected. No anticoagulation due to concerns of possible hemorrhagic transformation and recent GI bleeding. Continue Plavix per Dr. Noe's recommendation. JERMAINE by dr Roman was unremarkable. Currently right upper and right lower extremity weakness No slurring of her speech that I can discern Pur?ed diet Awaiting long-term placement Neurolyse deconditioning and debilitated state secondary to above. The patient is being assessed for retirement facility placement. DVT prophylaxis. SCDs Right renal cyst and a right adrenal nodule. Outpatient follow-up and possibly additional testing by the primary care team. Initial admission CT is reviewed again. 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 She will require additional outpatient oncology evaluation. Referral will be provided at discharge. This was discussed with the patient and her daughter. They verbalized understanding and agreement. The plan of care was discussed with the patient and her granddaughter at the bedside. They verbalized understanding and agreement. Attestations Medical Necessity Statement*: Patient requires hospitalization for CVA, shock, status post extubation, awaiting long-term placement Coding Level of Care Code Acute Looping Machine Operator for Chg Fwd Diagnoses Septic shock A41.9; R65.21 Unresponsive state R41.89 Endotracheally intubated Z97.8 Metabolic acidosis E87.2 Diabetic keto-acidosis E11.10 FRANKLIN (acute kidney injury) N17.9 Elevated troponin R77.8
[2020-05-08 16:55] LABS: Glucose Point of Care 179 mg/dL (70-110)
[2020-05-08 20:03] LABS: Glucose Point of Care 116 mg/dL (70-110)
[2020-05-08] MEDS: insulin glargine 100 units/1 mL 10 UNIT SUBCUT (20:33)
--- NOTE | 2020-05-08 21:20 | PC.NURSE ---
PT HAS CALLED OUT SEVERAL TIMES. PT STATES THAT HER HEAD HURT. ITS TOO EARLY FOR A PAIN PILL. PT WANTED HEAD TO BE RUBBED. PT STATES THAT HER BACK ITCHES. BACK WAS SCRATCHED. PT STATES THAT HER NECK HURTS. NECK WAS RUBBED. PT STATES THAT SHE CANT GO TO SLEEP. PT REFUSED PRN AMBIEN. PT HAS CALLED OUT OVER 20 TIMES. PT IS SCREAMING. STAFF SAID THAT SHE DID THIS ALL LAST NIGHT AND ALL OF TODAY. WILL CONTINUE TO MONITOR.
--- NOTE | 2020-05-08 23:39 | PC.NURSE ---
PT WAS GIVEN PRN TYLENOL FOR HEADACHE AND AMBIEN FOR INSOMNIA. WILL CONTINUE TO MONITOR.
[2020-05-09] VITALS (7 sets, daily range): BP systolic 142–158; BP diastolic 70–99; PULSE 90–115; RESP 12–22; TEMP 36.5–36.7; O2SAT 94–96
[2020-05-09] MEDS: piperacillin-tazobactam 3.375 GM in sodium chloride 0.9% (plus) 50 ML IV ×2 (04:22→11:14)
--- NOTE | 2020-05-09 04:29 | PC.NURSE ---
PT APPEARED TO HAVE RESTED. PT DENIES PAIN AT THIS TIME. WILL CONTINUE TO MONITOR.
[2020-05-09 06:09] LABS: Basophils % 0.6 %; Eosinophils # 0.2 10^3/uL (0.0-0.8); Eosinophils % 3.3 %; Hematocrit 28.7 % (37.0-47.0); Hemoglobin 9.2 g/dL (11.5-15.3); Lymphocytes # 0.6 10^3/uL (0.8-4.8); Lymphocytes % 12.7 %; Mean Corpuscular HGB Conc 32.1 g/dL (30.0-36.0); Mean Corpuscular Hemoglobin 31.8 pg (28.0-34.0); Mean Corpuscular Volume 99.3 fL (81-99); Mean Platelet Volume 11.3 fL (7.4-10.4); Monocytes # 0.3 10^3/uL (0.2-0.9); Monocytes % 5.8 %; Neutrophils # 3.49 10^3/uL (1.8-7.7); Nucleated Red Blood Cells % 0 %; Platelet Count 196 10^3/cmm (130-400); Red Blood Count 2.89 10^6/uL (4.1-5.3); Red Cell Distribution Width 15.6 % (12.1-15.1); White Blood Count 4.8 10^3/uL (4.0-10.0)
[2020-05-09] MEDS: sucralfate 1 gm Tablet PO ×2 (06:11→11:14)
[2020-05-09] MEDS: acetaminophen 325 mg Tablet 650 MG PO (06:11)
[2020-05-09 06:27] LABS: Slide Review Slide Review Perform
[2020-05-09 06:45] LABS: Glucose Point of Care 103 mg/dL (70-110)
[2020-05-09] MEDS: metoprolol tartrate 25 mg Tablet 12.5 MG PO (08:21)
[2020-05-09] MEDS: pantoprazole DR 40 mg Tablet PO (08:21)
[2020-05-09] MEDS: phosphorus 250 mg Tablet PO (08:21)
[2020-05-09] MEDS: clopidogrel 75 mg Tablet PO (08:22)
[2020-05-09 10:58] LABS: Glucose Point of Care 132 mg/dL (70-110)
--- NOTE | 2020-05-09 12:05 | PM.DCS ---
Discharge Providers Date of Admission: 04/26/20 15:43 Date of Discharge: May 09, 2020 Attending Provider at Admission: Vaibhav Palma MD Attending Provider at Discharge: Edvin Oliver MD Primary Care Provider: GEO Rueda Diagnoses at Discharge Discharge Diagnosis (1) Septic shock: Status: Acute (2) Unresponsive state: Status: Acute (3) Endotracheally intubated: Status: Acute (4) Metabolic acidosis: Status: Acute (5) Diabetic keto-acidosis: Status: Acute (6) FRANKLIN (acute kidney injury): Status: Acute (7) Elevated troponin: Status: Acute Reason for Visit Reason for Visit: DKA/ UNCONSCIOUS Hospital Course Hospital Course This is a 84-year-old female with a past medical history of hypertension, hyperlipidemia, noninsulin-dependent type 2 diabetes mellitus, who was brought in by EMS as she was found unresponsive at home, intubated in the field, hypotensive on admission, with evidence of metabolic acidosis, diabetic ketoacidosis, Patient was admitted to [facility], intensive care unit, she had a long complicated course summarized as below: Patient had acute hypoxic respiratory failure, -Resolved likely secondary to pneumonia, SIRS, pulmonary edema, intubated, placed on mechanical ventilation, monitored in the ICU, jackscrew worker was consulted, successfully extubated, moved to cardiac stepdown unit, on discharge was on room air. Discharged home on 3 remaining days of Augmentin and azithromycin. Severe acute pancreatitis with SIRS -Etiology unclear, no evidence of gallstones, no alcohol use, no steroid use, no trauma -Resolved Shock: Resolved Secondary to pneumonia, SIRS secondary to acute pancreatitis Was initially on inotropes, eventually weaned, remain normotensive Most likely a combination of profound inflammation vasoplegia along with hypovolemia in setting of acute pancreatitis. DIC panel suggestive of overt DIC, which subsequently resolved All cultures have been negative Low-grade temperatures: -Remains afebrile for the last 48 hours -Repeat blood cultures negative so far, urine cultures negative so far, sputum negative so far, chest x-ray no focal pneumonia, right upper quadrant ultrasound no evidence of acute cholecystitis -Rapid flu negative, rapid nasal PCR for Covid negative -Covid PCR pending -Discharged on Augmentin and azithromycin as above Diabetic ketoacidosis: Resolved, likely secondary to acute pancreatitis, discharged on Lantus 10 units at bedtime, insulin sliding scale Metabolic acidosis: Resolved FRANKLIN: resolving, creatinine 1.2 because of dehydration, shock and possible LUCIA. Thrombocytopenia: Resolved likely secondary to sepsis, bone marrow suppression GI bleed: Secondary to gastritis most likely from stress-induced as seen on endoscopy done on April 30. Discharged on Protonix 40 twice daily Hemoglobin 9.2 on discharge, status post 1 unit PRBC during hospital admission Is on Plavix because of stroke Elevated troponins: Most likely secondary to demand ischemia. Tachycardia. Sinus tachycardia. Possibly secondary to fevers, on metoprolol 12.5 twice daily Electrolyte abnormalities. Replaced. Continue monitoring. Acute stroke: -Timeframe uncertain -Affected areas are left frontal region and right cerebellum. Thromboembolic event is suspected but no documented A. fib events. No anticoagulation due to concerns of possible hemorrhagic transformation and recent GI bleeding. Continue Plavix per Dr. Noe's recommendation. JERMAINE by dr Roman was unremarkable. Currently right upper and right lower extremity weakness 2 out of 5 No productive or receptive aphasia Alert oriented x2 Follows commands No slurring of her speech that I can discern Pur?ed diet Discharge to alf -Follow-up with neurology, cardiology deconditioning and debilitated state secondary to above. Discharged to nursing darrian Right renal cyst and a right adrenal nodule. Outpatient follow-up and possibly additional testing by the primary care team. Initial admission CT is reviewed again. 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 She will require additional outpatient oncology evaluation. Referral will be provided at discharge. This was discussed with the patient and her daughter. They verbalized understanding and agreement. Physical Exam Const: COMMON NORMALS: no acute distress and patient oriented x3 ORIENTATION/CONSCIOUSNESS: Yes awake, Yes oriented to person and Yes oriented to place; not oriented to time HENMT: COMMON NORMALS: normocephalic HEAD & SCALP: normocephalic Neck/C-Spine: COMMON NORMALS: no JVD Resp: COMMON NORMALS: normal respiratory effort, No retractions, No use of accessory muscles and clear to auscultation bilaterally AUSCULTATION: clear to auscultation bilaterally Cardio: COMMON NORMALS: no JVD, regular rate, regular rhythm, S1 normal heart sound present and S2 normal heart sound present RATE: regular rate RHYTHM: regular rhythm HEART SOUNDS: S1 normal heart sound present and S2 normal heart sound present GI: COMMON NORMALS: Normal to inspection, nondistended, normoactive bowel sounds present, Soft to palpation, non-tender, No hepatosplenomegaly present, no masses and no bruits PALPATION: Yes Soft to palpation and Yes No hepatosplenomegaly present Extremity: COMMON NORMALS: capillary refill normal, no clubbing, cyanosis or edema, no calf tenderness and no pedal edema Neuro: COMMON NORMALS: patient oriented x3 SENSORIUM/ORIENTATION: Yes oriented to person, Yes oriented to place and No oriented to time OTHER: Right upper extremity strength 2 out of 5, right lower extremity strength 2 out of 5 Psych: COMMON NORMALS: mental status grossly normal Urinary Catheter Management^: Ferris: Cath Placed During This Visit: yes Reason for Continuing Indwelling Catheter: Accurate Measurement of Urinary Output in Critically Ill Patients Urinary Catheter Date of Insertion: 04/26/20 Urinary Catheter Time of Insertion: 14:40 Discharge Data Data Completed and Pending: Completed Studies During Hospitalization Category Date Time Status CT angio chest w abd pel w con Stat Cat Scan 04/26/20 15:[address] head wo con* 7 0450 Routine Cat Scan 04/29/20 15:[address] head wo con* 7 0450 Stat Cat Scan 04/26/20 13:48 Completed XR chest 1V kika ble 61141 Q48H Exams 04/27/20 06:00 Completed XR chest 1V kika ble 47838 Q48H Exams 04/29/20 06:00 Completed XR chest 1V kika ble 30275 Q48H Exams 05/01/20 06:00 Completed XR chest 1V kika ble 19739 Routine Exams 04/28/20 09:25 Completed XR chest 1V kika ble 71903 Routine Exams 05/04/20 08:08 Completed XR chest 1V kika ble 00035 Routine Exams 05/07/20 11:57 Completed XR chest 1V kika ble 77075 Stat Exams 04/26/20 14:08 Completed XR chest 1V kika ble 79623 Stat Exams 04/26/20 16:27 Completed XR tibia fibula L T 2V 61730 Stat Exams 04/26/20 14:07 Completed MR cervical spin wo con* 04857 Stat MRI 05/01/20 10:42 Completed MR head wo con* 7 0551 Stat MRI 05/01/20 10:42 Completed CV echo limited 9 2064 Stat Ultrasound 04/26/20 15:55 [place] [address] Routin e Ultrasound 05/05/20 10:45 Completed JERMAINE [CV echo alarcon sesophageal 19625] Routine Ultrasound 05/02/20 12:00 Completed US abdomen comple te* 81877 Routine Ultrasound 05/07/20 09:03 Completed US renal BI* 7677 0 Routine Ultrasound 04/29/20 12:27 Completed Pending at discharge Category Date Time Status FAYE Screen w/ Ref archie Routine Lab 04/29/20 13:01 Results Blood Culture Sta t Lab 05/04/20 12:05 Results Blood Culture Sta t Lab 05/07/20 10:19 Results C Reactive Protei n AM LABS Lab 05/10/20 04:00 Ordered Complete Blood Co unt w/Auto AM LABS Lab 05/10/20 04:00 Ordered Comprehensive Met abolic Panel AM LA BS Lab 05/10/20 04:00 Ordered Coronavirus Test [facility] ne Lab 05/08/20 10:42 Received Magnesium AM LABS Lab 05/10/20 04:00 Ordered Phosphorus AM LAB S Lab 05/10/20 04:00 Ordered Procalcitonin AM LABS Lab 05/10/20 04:00 Ordered Sputum Culture an d Gram Stain Stat Lab 05/07/20 09:03 Uncollected Urine Culture Sta t Lab 05/07/20 11:30 Results Labs from last 24 hours 05/09/20 05/09/20 05/09/20 10:52 06:42 05:30 WBC 4.8 RBC 2.89 L Hgb 9.2 L Hct 28.7 L MCV 99.3 H MCH 31.8 MCHC 32.1 RDW 15.6 H Plt Count 196 MPV 11.3 H Neut % (Auto) 73.0 Lymph % (Auto) 12.7 [place] % (Auto) 5.8 Eos % (Auto) 3.3 Baso % (Auto) 0.6 Neut # (Auto) 3.49 Lymph # (Auto) 0.6 L [place] # (Auto) 0.3 Eos # (Auto) 0.2 Baso # (Auto) 0.0 Nucleated RBC % (a uto) 0 Nucleated RBCs # 0.0 POC Glucose 132 H 103 Ref Test Comments 05/08/20 05/08/20 04/29/20 19:55 16:43 13:01 WBC RBC Hgb Hct MCV MCH MCHC RDW Plt Count MPV Neut % (Auto) Lymph % (Auto) [place] % (Auto) Eos % (Auto) Baso % (Auto) Neut # (Auto) Lymph # (Auto) [place] # (Auto) Eos # (Auto) Baso # (Auto) Nucleated RBC % (a uto) Nucleated RBCs # POC Glucose 116 H 179 H Ref Test Comments Negative Vitals: Last Vital Signs Temp 97.7 F 05/09/20 11:00 Pulse 95 05/09/20 11:00 Resp 12 05/09/20 11:00 BP 142/75 05/09/20 11:00 Pulse Ox 95 05/09/20 11:00 Discharge Plan Discharge Patient Disposition: Home Condition: Stable Prescriptions: New pantoprazole 40 mg Tablet,Delayed Release (Dr/Ec) 40 mg PO BID 30 Days Qty: 60 RF: 0 Lantus U-100 Insulin 100 unit/mL Solution 10 unit SUBCUT BEDTIME Qty: 10 RF: 0 clopidogrel 75 mg Tablet 75 mg PO DAILY 30 Days Qty: 30 RF: 0 insulin aspart U-100 [Novolog U-100 Insulin aspart] 100 unit/mL Solution 0 unit SUBCUT WM&BEDTIME 30 Days RF: 0 sucralfate 1 gram Tablet 1 g PO AC&BEDTIME 30 Days Qty: 60 RF: 0 metoprolol tartrate 25 mg Tablet 12.5 mg PO BID@0900,2100 30 Days Qty: 30 RF: 0 Continued metformin 500 mg tablet 500 mg PO BID@07,1700 RF: 0 lisinopril 20 mg tablet 20 mg PO DAILY@07 RF: 0 Discontinued aspirin 81 mg Tablet,Chewable 81 mg PO DAILY@07 RF: 0 sodium chloride 1 gram tablet 1 g PO DAILY@07 RF: 0 metoprolol tartrate 50 mg tablet 50 mg PO BID@07,1700 RF: 0 lovastatin 20 mg tablet 20 mg PO DAILY@1700 RF: 0 glipizide 5 mg tablet 5 mg PO DAILY@07 RF: 0 Other Ambulatory Orders: Complete Blood Count w/Auto (Routine) Timeframe: 1 Week Location: Determined by Patient Ordered By: Edvin Oliver Referrals: Allison Robert FNP [Primary Care Provider] - Alonso Lee MD [Hospitalist] - 1 month (paraspinal masses) Discharge Diet: As Directed Discharge Activity: As per PT/OT instructions Patient Instructions: GI Discharge Instructions Activity Restrictions/Additional Instructions: -Please check blood sugars 3 times daily -Insulin based on sliding scale -Lantus 10 units at bedtime -Monitor hemoglobin in 1 week Discharge Attestations Time Spent in Discharge Care*: greater than 30 min Quality Metrics Clinical Quality Measures During this hospital stay, did patient experience: Stroke Contraindication to Antithrombotic: Antithrombotic prescribed Contraindication to Anticoagulation: Adverse reaction to drug Contraindication to Statin: Statin prescribed Coding Level of Care Code Acute Yeast Culture Developer for Chg Fwd Diagnoses Septic shock A41.9; R65.21 Unresponsive state R41.89 Endotracheally intubated Z97.8 Metabolic acidosis E87.2 Diabetic keto-acidosis E11.10 FRANKLIN (acute kidney injury) N17.9 Elevated troponin R77.8
[2020-05-09 15:52] LABS: Coronavirus Test Green County Not Detected
--- NOTE | 2020-05-09 15:58 | PC.NURSE ---
patient refused to wear telemetry stickers and takes them off every time the nurse replaces them. will continue to educate patient.
--- NOTE | 2020-05-09 16:59 | PC.NURSE ---
report called to jace Luo at [facility]. Daughters [place] and Philomena notified of patient's discharge and have had the opportunity to visit the patient before she is sent to [facility].
--- NOTE | 2020-05-09 19:43 | PC.NURSE ---
Pt assisted to [employer] [facility] transport's cot via total lift with draw sheets. Pt belongings given to attendants.
== END 2020-05-09 19:45 | disposition home or self-care (01) | DRG 870 ==
LOC: ER 15:33 → ICU 15:56 → CSU 05-04 00:34 → ICU 05-04 00:55 → CSU 05-04 00:58
PROVIDERS: Hospitalist; Internal Medicine; Internal Medicine Critical Care Medicine; Internal Medicine Nephrology; Surgery; Admitting Provider Student in an Organized Health Care Education/Training Program; Emergency Provider Family Medicine; PCP Nurse Practitioner Family; Visit Provider Family Medicine
PROC: 0DJ08ZZ Inspection of Upper Intestinal Tract, Via Natural or Artificial Opening Endoscopic (ICD-10-PCS; CPT 43235; principal; 2020-04-30 12:00)
DX: A41.9 Sepsis, unspecified organism (principal); E11.10 Type 2 diabetes mellitus with ketoacidosis without coma; R65.21 Severe sepsis with septic shock; K29.71 Gastritis, unspecified, with bleeding; K85.90 Acute pancreatitis without necrosis or infection, unspecified; I63.512 Cerebral infarction due to unspecified occlusion or stenosis of left middle cerebral artery; J18.9 Pneumonia, unspecified organism; J96.01 Acute respiratory failure with hypoxia; E87.2 Acidosis; N17.9 Acute kidney failure, unspecified; D62 Acute posthemorrhagic anemia; I24.8 Other forms of acute ischemic heart disease; G95.9 Disease of spinal cord, unspecified; I10 Essential (primary) hypertension; E78.5 Hyperlipidemia, unspecified; Z96.642 Presence of left artificial hip joint; I95.9 Hypotension, unspecified; E86.0 Dehydration; D69.6 Thrombocytopenia, unspecified; M43.6 Torticollis; G83.21 Monoplegia of upper limb affecting right dominant side; R29.703 NIHSS score 3; Z79.84 Long term (current) use of oral hypoglycemic drugs; J43.9 Emphysema, unspecified; I08.3 Combined rheumatic disorders of mitral, aortic and tricuspid valves; E27.9 Disorder of adrenal gland, unspecified; N28.1 Cyst of kidney, acquired
CPT/HCPCS: 12345; 36415; 36416; 36430; 36556; 36592; 36600; 43239; 51702; 70450; 70551; 71045; 71275; 72141; 73590; 74177; 76700; 76770; 80048; 80051; 80053; 80061; 80069; 80202; 80306; 81001; 82009; 82140; 82150; 82274; 82330; 82436; 82550; 82607; 82746; 82803; 82805; 82962; 83010; 83036; 83516; 83540; 83550; 83605; 83615; 83690; 83735; 83880; 84100; 84133; 84145; 84300; 84443; 84484; 85007; 85014; 85018; 85025; 85045; 85362; 85378; 85384; 85610; 85730; 86038; 86060; 86140; 86225; 86850; 86900; 86920; 87040; 87070; 87077; 87086; 87426; 87449; 87493; 87635; 87641; 87804; 92507; 92526; 92610; 93005; 93308; 93312; 93320; 93325; 93970; 94002; 94003; 94640; 94799; 96372; 97110; 97112; 97161; 97167; 97530; 97535; 99291; C1751; C9113; J0610; J1644; J1815 ×2; J1940; J1956; J2250; J2405; J2543; J2704; J3010; J3370; J3475; J3480; J3490; J7030; J7040; J7050; J7614; J7626; J7644; P9016; P9047; Q3014; Q9967

== ENCOUNTER 2020-06-08 08:07 | Outpatient (CLI) | payer MEDICAID, SELFPAY ==
--- NOTE | 2020-06-11 07:53 | ONC CON_ITS ---
Dr. Lee New Patient Note Patient: Sheri Szymanski Unit #: [id number]: 1935 Dicatated By: Alonso Lee M.D.Date of Visit: Jun 08, 2020 Onc MED New Patient/Consult Referring Physician: Edvin Oliver Chief Complaint: Paraspinous mass. 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 She has hypertension, hyperlipidemia, and type 2 diabetes. On 04/26/2020 she was taken to the emergency room after she was found unresponsive at her home. She had required intubation in the field. On her initial evaluation, she was found to have septic shock with acute respiratory failure and acute renal injury in association with diabetic ketoacidosis. On her further evaluation she also was determined to have acute pancreatitis. She had a prolonged hospital course, which was further complicated by acute GI bleeding and by suspected strokes with her MRI of the brain showing small acute infarcts in the posterior left frontal lobe cortex and a tiny acute lacunar infarct in the right cerebellum. She had gradual recovery, and she was able to be discharged to [facility] on 05/09/2020. I am asked to see her in regard to abnormalities noted the chest CT which was done on her initial evaluation in the emergency room on 04/26/2020. The report describes a rounded low-attenuation mass in the right lateral paraspinal aspect of T10-T11. It appeared to extend from the right neuroforamen region with widening and scalloping of the neural foramen itself. It measured 3.4 x 3.1 cm. 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 There were possible additional smaller rounded neural foraminal lesions at other intervertebral levels including the left side of T10-T11 and bilaterally at T9-T10. At this point she continues to show gradual recovery at the care home. She is still weak, though, and she is mostly sedentary. She is able to ambulate short distances with assistance. Her appetite is still not good. She has mostly been subsisting on protein shakes. Her weight is down at least 12 pounds from normal. She does not have fever or night sweats. She does not complain of shortness of breath, cough, or chest pain. She has no GI complaints other than constipation. She has had an indwelling Ferris catheter, and it just recently been removed. She has had some pain in the tailbone area associated with a bed sore, but that is getting better. She has no other joint or bone pain. In particular, she does not have back pain, and she has no focal neurologic symptoms. Past Medical History: Her medical history includes hyperlipidemia, hypertension, and type II diabetes. Past Surgical History: Her surgical/procedural history includes repair of left femoral hernia with mesh plug in 2017, percutaneous pinning of left femoral neck fracture in May 2014, and subsequent left hip hemiarthroplasty and removal of cannulated screws from the left hip in September 2014. Medications: Acetaminophen 1 - 2 Tablet (of 325 mg) Oral daily PRN, Atorvastatin Calcium 1 Tablet (of 40 mg) Oral daily, Augmentin 1 Tablet (of 875-125 mg) Oral b.i.d., Azithromycin 1 Tablet (of 250 mg) Oral daily, Lantus 10 Units (of 100 Units/mL) Subcutaneous at bedtime, Lisinopril 1 (20 mg) Tablet Oral daily, metFORMIN HCl 1 (500 mg) Tablet Oral b.i.d., Metoprolol Tartrate (12.5 mg) Tablet Oral b.i.d., NovoLOG FlexPen (100 Units/mL) Subcutaneous Take as Directed, Pantoprazole Sodium 1 (40 mg) Tablet, enteric coated Oral b.i.d., Plavix 1 (75 mg) Tablet Oral daily, Remeron 1 (15 mg) Tablet Oral at bedtime, Sucralfate 1 (1 g) Tablet Oral pc (tid) & at bedtime Allergies: No Known Allergies. Social History: Ms. Szymasnki is . She has a history of smoking 3-4 cigarettes a day, but only for about a year. She does not drink alcohol. Family History: She is uncertain what happened to her parents, but both at an elderly age. A sister committed suicide. A brother at a young age with rheumatic fever. Her other siblings are still in good health, to her knowledge. A daughter has diabetes. Review Of Symptoms: Constitutional - She feels like she has been doing okay since being hospitalized. She is now living in the care home and requiring assistance with ambulation, meals, and bathing. Prior to that she was living at home alone and able to do all her own housework and ADL's. Her appetite is poor and her weight is down about 20 pounds over the last month. She is drinking Ensures a few times a day. No fever, night sweats, or hot flashes. ECOG score is 3, Eyes - No change in vision, ENMT - No hearing loss or tinnitus. She has a little sinus drainage. No mouth sores. No sore throat or difficulty swallowing, Hematologic/Lymphatic - No abnormal bruising or bleeding, Respiratory - No shortness of breath. No cough. No pleuritic pain or hemoptysis, Cardiovascular - No angina pain. No palpitations, Gastrointestinal - No nausea or vomiting. No heartburn or acid reflux. She has constipation. No blood in the stool or black stools. She had GI bleeding while in the hospital, Genitourinary (F) - She has had an indwelling Ferris catheter which has just recently been removed, Musculoskeletal - No joint or bone pain, Integumentary - She has a healing decubitus ulcer to her buttocks, Neurologic - No headache or dizziness. No numbness or tingling. No other focal neurologic symptoms, Psychiatric - No anxiety or depression. No insomnia. Vital Signs: Performed on Jun 08, 2020 08:36: 0, 20.90, 1.55 sq.m, 63 in, 97 %, 108 /min (HIGH), 17 /min, 97/63 mm(hg), 96.9 F (LOW), and 118 lbs (HIGH). Physical Examination: Constitutional - She appears generally weak, but not acutely ill, Eyes - Sclerae nonicteric. Conjunctivae clear, ENMT - No lesions noted in the oral cavity, Neck - No mass or thyromegaly, Hematologic/Lymphatic - No cervical or clavicular adenopathy, Respiratory - Lungs are clear with good air movement bilaterally, Cardiovascular - Heart rhythm is regular. There is no murmur, gallop, or rub noted, Breasts - There are no breast masses noted. There is no axillary adenopathy, Abdomen - Soft and non-tender. Liver and spleen are not enlarged. There is no abdominal mass or ascites noted and there is no inguinal adenopathy, Back/Spine - No spine or CVA tenderness noted, Extremities - Slight edema, Integumentary - No rashes. No suspicious skin lesions noted, Neurologic - No focal neurologic deficits noted. Problem List: 1. 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 It does not appear to be symptomatic. 2. Recent severe illness which included septic shock with acute respiratory failure and acute renal injury in association with diabetic ketoacidosis. She also had evidence of acute pancreatitis and acute GI bleeding. 3. She had evidence on MRI of small acute strokes. 4. Hypertension. 5. Hyperlipidemia. 6. Type 2 diabetes. 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 It was discovered in association with a severe illness which included septic shock with acute respiratory failure and acute renal injury in association with diabetic ketoacidosis. She also had evidence of acute pancreatitis and acute GI bleeding, and she had evidence on MRI of small acute strokes. She does not appear to have any symptoms assoiciated with the mass. The CT findings and the CT images were reviewed with the patient and her daughter. As noted, this appears to be most likely of neurogenic origin. It does not appear to be symptomatic. I will plan to review the CT with the radiologist, among other things to determine the accessibility of the lesion for biopsy, but in the meantime she will be scheduled for MRI of the thoracic spine. She will have further evaluation as indicated, which may include biopsy and/or referral to a neurosurgeon. Signed By: Alonso Lee M.D. <<Signature on File>>
== END 2020-06-08 08:08 | disposition home or self-care (01) ==
LOC: ONCMED 08:09
PROVIDERS: PCP Nurse Practitioner Family; Visit Provider Internal Medicine Medical Oncology
DX: R93.7 Abnormal findings on diagnostic imaging of other parts of musculoskeletal system (principal); I10 Essential (primary) hypertension; E78.5 Hyperlipidemia, unspecified; E11.9 Type 2 diabetes mellitus without complications; K85.90 Acute pancreatitis without necrosis or infection, unspecified; Z86.19 Personal history of other infectious and parasitic diseases; Z87.448 Personal history of other diseases of urinary system; Z86.73 Personal history of transient ischemic attack (TIA), and cerebral infarction without residual deficits
CPT/HCPCS: 99215

== ENCOUNTER 2020-07-10 14:48 | Outpatient (CLI) | payer MEDICAID, SELFPAY ==
--- NOTE | 2020-07-10 14:51 | MR_ITS ---
WS: [id number] MRI THORACIC SPINE with and without contrast. HISTORY: PARASPINOUS MASS BY CT SCAN COMPARISON: 04/26/2020 TECHNIQUE: Multiplanar sequences are performed in sagittal and axial planes. Postcontrast imaging als o submitted. Mild diffuse osteopenia. Slight increase in cervical lordosis and thoracic kyphosis. Increased T2 sig nal throughout the T5 vertebral body which is slightly lower signal intensity on the T1 sequences. Th ere is enhancement within this vertebral body. No associated soft tissue mass. C7-T1: Bilateral nonenhancing cystic masses in the far lateral foramen consistent with benign cysts. T1-2: Nonenhancing benign cyst in the LEFT neural foramen consistent with a nerve root sleeve cyst m easuring 1.0 cm. T2-3: Normal. T3-4: Normal. T4-5: Normal. T5-6: Normal. T6-7: Normal. T7-8: Moderate LEFT paracentral disc protrusion without cord contact. Nonenhancing RIGHT foraminal n erve root sleeve cyst. T8-9: Moderate-sized bilateral nonenhancing cystic masses in the foramen consistent with large nerve root sleeve cysts. Widening of the foramen with the largest measuring 1.5 cm on the LEFT. T9-10: Very large lobulated cystic masses in the neural foramen, RIGHT greater than LEFT. RIGHT none nhancing cyst measures 2.5 x 3.3 cm and is causing marked widening of the foramen. T10-11: Small LEFT nonenhancing nerve root sleeve cyst. T11-12: Subcentimeter RIGHT foraminal nerve root sleeve cyst. Seen on the axial postcontrast imaging there is an enhancing soft tissue mass measuring 2.2 x 1.6 cm in the posterior upper LEFT back at the T1 level. Also there is enhancement within the abnormal T5 ve rtebral body. Abnormal signal extends into the RIGHT pedicle. No compression upon the cord. There are nonenhancing cysts within the LEFT kidney. MR/MR thoracic spine wo/w [id number] IMPRESSION: 1. Previously described neuroforaminal mass at T10-11 with scalloping of the a djacent vertebral body corresponds to a nonenhancing cyst. 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 2. There is enhancement within the T5 vertebral body suspicious for metastatic disease. 3. Enhancing soft tissue mass in the posterior upper LEFT thorax at the T1 lev el measures 2.2 x 1.6 cm. Not identified on the CT from 04/26/2020. Recommend ad ditional evaluation by chest CT with contrast.
[2020-07-10] MEDS: gadobenate dimeglumine 20 mL vial IV (16:53)
== END 2020-07-10 14:49 | disposition home or self-care (01) ==
LOC: RADSHAW 14:50
PROVIDERS: PCP Nurse Practitioner Family; Visit Provider Internal Medicine Medical Oncology
DX: R22.2 Localized swelling, mass and lump, trunk (principal)
CPT/HCPCS: 72157; A9577

== ENCOUNTER 2020-10-04 19:15 | Inpatient (IN) | payer MEDICAID, SELFPAY ==
[2020-10-04 19:16] VITALS: BP 96/74; PULSE 115; RESP 18; TEMP 36.9; O2SAT 98; BMI 20.9
--- NOTE | 2020-10-04 19:31 | USCV_ITS ---
Sheri Szymanski Age: 84 Gender: F : 1935 Exam Date: 10/04/2020 20:31 Ordering Phys: Royal Jesus MD [facility] [place] Technologist: Exam Location: [facility] [place] Indication: RT LEG PAIN AND SWELLING HISTORY: Lower extremity swelling. PROCEDURES: Venous duplex imaging was performed in only the right lower extremity. The following venous structures were evaluated: common femoral vein, profunda vein, proximal portion of the greater saphenous vein, superficial femoral vein, and the popliteal vein. In addition, the posterior tibial and peroneal trunk were evaluated. On the right side, the common femoral, superficial femoral, profunda femoral, popliteal, posterior tibial, greater saphenous veins and the peroneal trunk were identified and interrogated in the standard fashion. These veins were found to be easily compressible with spontaneous blood flow. No evidence of insufficiency or thrombus noted. FINDINGS: RT LEG DVT FROM MID FEMURAL, POPLETEAL AND PERINEAL TRUNK. Echogenic material was noted in the lumen of the femoral, popliteal and peroneal trunk veins. The vein is partially collapsible CONCLUSIONS Features of DVT involving the peroneal trunk, popliteal , distal and mid femoral vein causing near total occlusion on the right side. Compared to the study from 05/05/2020, the DVT appears to be new Dr Tristan Polanco MD [facility] (Electronically Signed) Final Date: 05 October 2020 14:11 S
--- NOTE | 2020-10-04 21:07 | CTR_ITS ---
PROCEDURE INFORMATION: Exam: CTA Chest With Contrast Exam date and time: 10/04/2020 9:07 PM Age: 84 years old Clinical indication: Cough and shortness of breath; Patient HX: Cough/sob. Positive for dvt. ; Additional info: Dvt, cough, SOB TECHNIQUE: Imaging protocol: Computed tomographic angiography of the chest with contrast. 3D rendering (Not supervised by radiologist): MIP and/or 3D reconstructed images were created by the technologist. Radiation optimization: All CT scans at this facility use at least one of these dose optimization techniques: automated exposure control; mA and/or kV adjustment per patient size (includes targeted exams where dose is matched to clinical indication); or iterative reconstruction. Contrast material: VISI 320; Contrast volume: 62 ml; Contrast route: INTRAVENOUS (IV); COMPARISON: CT angio chest w abd pel w con 04/26/2020 6:18 PM RADIATION DOSE METRICS: Total DLP (mGy-cm): 647.38 FINDINGS: Pulmonary arteries: No pulmonary embolism. Aorta: No aortic dissection. Mild atherosclerotic disease of the aorta without aneurysm. Lungs: Single calcified pulmonary granuloma is present, consistent with prior granulomatous disease. Pleural spaces: Unremarkable. No pneumothorax. No pleural effusion. Heart: Unremarkable. No cardiomegaly. No pericardial effusion. Lymph nodes: Unremarkable. No enlarged lymph nodes. Pancreas: 1.7 x 2.3 cm pancreatic tail cyst. Bones/joints: Unremarkable. No acute fracture. Soft tissues: Unremarkable. Other findings: There is a water density structure which extends from the right neural foramen at T10 and measures approximately 3.[address]/CT angio chest PE protcl [id number] IMPRESSION: 1. No pulmonary embolism. 2. No aortic dissection. 3. Mild atherosclerotic disease of the aorta without aneurysm. 4. 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 (Reference: Devin, 2017) 5. 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 Small bilateral nerve sheath tumors extend from the neural foramina at T9. Nerve sheath tumors present at T8 as well. REFERENCES: Devin BASS, et al. Management of Incidental Pancreatic Cysts: A White Paper of the ACR Incidental Findings Committee. J Am Shine Radiol. 2017;14(7):911-923. Radiation Dose CTDIVOL = (mGy): DLP = 647.38 (mGy-cm)
[2020-10-04 21:42] LABS: Hematocrit 31.5 % (37.0-47.0); Mean Corpuscular HGB Conc 31.7 g/dL (30.0-36.0); Mean Corpuscular Hemoglobin 28.9 pg (28.0-34.0); Mean Platelet Volume 9.7 fL (7.4-10.4); Platelet Count 231 10^3/cmm (130-400); Red Blood Count 3.46 10^6/uL (4.1-5.3); Red Cell Distribution Width 13.8 % (12.1-15.1); White Blood Count 6.5 10^3/uL (4.0-10.0)
[2020-10-04 22:05] LABS: Alanine Aminotransferase 6 U/L (0-33); Albumin Level 3.3 g/dL (3.5-5.2); Alkaline Phosphatase 71 IU/L (35-105); Anion Gap 16.1 (5-19); Aspartate Amino Transferase 10 U/L (0-32); Blood Urea Nitrogen 44 mg/dL (8-23); C Reactive Protein 24.1 mg/L (0.0-4.9); Carbon Dioxide 19 mmol/L (22-29); Chloride 102 mmol/L (98-107); Glucose 274 mg/dL (65-115); Osmolality Calculated 295 mOsm/kg (285-295); Potassium 5.1 mmol/L (3.5-5.1); Sodium 132 mmol/L (136-145); Total Bilirubin 0.2 mg/dL (0.15-1.2); Total Protein 6.3 g/dL (6.6-8.7)
[2020-10-04 22:08] LABS: Absolute Eosinophils 0.2 10^3/cmm (0.0-0.7); Absolute Segmented Neutrophil 4.7 10/cmm (1.6-7.1); Band Neutrophils Absolute 0.3 10^3/cmm (0.0-1.2); Eosinophils 4 %; Lymphocytes 8 %; Lymphocytes Absolute 0.7 10^3/cmm (1.2-3.4); Monocytes Absolute 0.5 10^3/cmm (0.1-0.6); Platelet Estimate Normal (Normal); Segmented Neutrophils 73 %; Slide Review Slide Review Perform; Total Cells Counted 100 (0-100)
[2020-10-04 22:11] LABS: INR 0.96 (0.8-1.2)
[2020-10-04] MEDS: iodixanol 320 mg/mL 100mL Btl IV (22:26)
--- NOTE | 2020-10-04 23:18 | P.HP_ITS ---
Providers/Chief Complaint Admitting Physician: Tim Keating Primary Care Provider: Alonso Ngo DO Chief Complaint: poss blood clott History of Present Illness 84-year-old female 84-year-old female with a past medical history significant for hypertension , hyperlipidemia, type 2 diabetes mellitus , pancreatitis , GI bleed on Plavix requiring transfusion status post EGD showing gastritis on 05/06 , left frontal lobe /right lacunar CVA on 05/01/2020 and recently found to have a 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 Patient was complaining of pain and difficulty ambulating due to this. Symptoms have been ongoing for the past week . It was noted STEMI by emergency room physician that patient had extensive DVT of right lower extremity. [facility] Patient's daughter who assisted with the HPI stated patient did not have any respiratory distress or pleuritic chest pain. No nausea or vomiting. No fall or syncopal events. Patient was started on heparin drip and admitted to the hospital. Review of Systems General: Reports: 10 or more systems reviewed and unremarkable except in HPI and below Medications/Allergies Home Medications Medication Instructions Recorded Confirmed Last Taken Type acetaminophen [Tylenol] 650 mg PO Q6H PRN 10/04/20 10/04/20 10/02/20 History atorvastatin 40 mg PO BEDTIME@199910/04/20 10/04/20 10/03/20 History bisacodyl [Dulcolax (bisacodyl)] 10 mg PO DAILY PRN 10/04/20 10/04/20 Unknown History clopidogrel 75 mg PO DAILY@0800 10/04/20 10/04/20 10/04/20 History insulin aspart U-100 [Novolog 3 unit SUBCUT TID 10/04/20 10/04/20 10/04/20 03:52 History Flexpen U-100 Insulin] insulin aspart U-100 [Novolog See Rx Instructions .ROUTE .COMPLEX 10/04/20 10/04/20 10/04/20 History U-100 Insulin aspart] insulin glargine [Lantus U-100 18 unit SUBCUT BEDTIME@199910/04/20 10/04/20 10/03/20 History Insulin] iron 325 mg PO BID@08,2000 10/04/20 10/04/20 10/04/20 History levofloxacin 750 mg PO Q2D 10/04/20 10/04/20 10/03/20 History lisinopril 5 mg PO BEDTIME 10/04/20 10/04/20 10/03/20 History magnesium hydroxide [Milk of 30 ml PO DAILY PRN 10/04/20 10/04/20 Unknown History Magnesia] metoprolol tartrate 25 mg PO BID@0800,199910/04/20 10/04/20 10/04/20 History mirtazapine [Remeron] 15 mg PO BEDTIME@199910/04/20 10/04/20 10/03/20 History ondansetron HCl [Zofran] 4 mg PO Q6H PRN 10/04/20 10/04/20 09/25/20 History pantoprazole 40 mg PO BID@0800,199910/04/20 10/04/20 10/04/20 History sodium phosphates [Enema 118 ml RI DAILY PRN 10/04/20 10/04/20 Unknown History Disposable] sucralfate See Rx Instructions .ROUTE .COMPLEX 10/04/20 10/04/20 10/04/20 History Allergies Allergy/AdvReac Type Severity Reaction Status Date / Time No Known Allergies Allergy Verified 02/29/20 10:19 PFSH Acute PFSH: Medical History (Reviewed 10/04/20 @ 23:44 by Royal Jesus MD, [facility] Changing skin lesion Diabetes Hyperlipidemia Hypertension Surgical History (Reviewed 10/04/20 @ 23:44 by Royal Jesus MD, [facility] [place] History of left hip replacement (~2014) Family History (Reviewed 10/04/20 @ 23:44 by Royal Jesus MD, [facility] Daughter Diabetes Denies family history of Anesthesia complication Bleeding disorder Social History (Reviewed 10/04/20 @ 23:44 by Royal Jesus MD, [facility] [place] Smoking and tobacco status: never smoked Alcohol intake: never Adopted: No Caregiver/support person: Yes Lives independently: Yes Housing: House Marital status: Single Current occupational exposures/hazards: No Pets and animals: Yes Pets & animals: cat(s) History of recent travel: No Sexually active: No Current gender identity: Female Mackenzie/Mormonism: [employer]aritan Special mackenzie needs: No Financial difficulty paying for basics: Not Applicable Vitals/I&O/Wt Last Vital Signs Temp 98.2 F 10/05/20 00:51 Pulse 111 H 10/05/20 00:51 Resp 16 10/05/20 00:51 BP 111/59 10/05/20 00:51 Pulse Ox 99 10/05/20 00:51 10/04/20 10/04/20 10/05/20 14:59 22:59 06:59 Intake Total 107.712 / 107.712 Balance 107.712 / 107.712 Weight last 48 hrs Weight 62.006 kg Weight 58.967 kg Physical Exam Narrative: EXAM NARRATIVE: General- alert awake HEENT- grossly unremarkable CVS- normal sinus rhythm Chest- nonlabored respiration Abdomen- nondistended Extremities-right lower extremity edema over left Data : 10/04/20 20:38 10/04/20 20:38 A&P Assessment and plan (1) DVT (deep venous thrombosis): Continue heparin drip per protocol Monitor PTT /INR , hemoglobin Bleeding precautions Follow-up on official venous duplex read CT chest PE protocol-negative For PE Status: Acute Qualifiers: Affected thrombotic vein of extremity: femoral Chronicity: acute DVT location: lower extremity Laterality: right Qualified Code(s): I82.411 - Acute embolism and thrombosis of right femoral vein (2) History of GI bleed: Noted to have GI bleed in April Required 1 unit of PRBC transfusion at the time EGD was performed which showed gastritis Patient was continued on Plavix Currently on heparin If any recurrence we need to hold anticoagulation Monitor H&H Continue Protonix 40 mg b.i.d. Status: Acute (3) History of CVA (cerebrovascular accident): On Plavix however will hold due to bleeding risk Status: Acute (4) Diabetes: Sliding scale insulin Diabetic diet Status: Acute Qualifiers: Diabetes mellitus complication status: without complication Diabetes mellitus fdc insulin use: without salvage determiner use Diabetes mellitus type: type 2 Qualified Code(s): E11.9 - Type 2 diabetes mellitus without complications (5) Paraspinous mass: Following Oncology Per family request not informed patient Patient is not aware of diagnosis No plan workup inpatient Status: Acute (6) Hypertension: Verify home meds and resume Status: Acute Qualifiers: Hypertension type: essential hypertension Qualified Code(s): I10 - Essential (primary) hypertension (7) Hyperlipidemia: verify home med Status: Acute Qualifiers: Hyperlipidemia type: unspecified Qualified Code(s): E78.5 - Hyperlipidemia, unspecified Attestations Medical Necessity Statement*: Anticipate over 2 midnights stay in hospital for evaluation treatment of acute DVT Time Spent in Patient Care: Greater than 35 minutes (>than 50% of time spent in counselling and/or direct pt care on unit) . Coding Level of Care Code Acute Economic Historian for Benedicto Hanna Diagnoses DVT (deep venous thrombosis) I82.411 Affected thrombotic vein of extremity: femoral Chronicity: acute DVT location: lower extremity Laterality: right History of GI bleed Z87.19 History of CVA (cerebrovascular accident) Z86.73 Diabetes E11.9 Diabetes mellitus complication status: without complication Diabetes mellitus salvage determiner insulin use: without salvage determiner use Diabetes mellitus type: type 2 Paraspinous mass R22.2 Hypertension I10 Hypertension type: essential hypertension Hyperlipidemia E78.5 Hyperlipidemia type: unspecified
--- NOTE | 2020-10-04 23:42 | ED_ITS ---
HPI - Extremity Problem General: Chief complaint: Extremity Injury, Lower Stated complaint: poss blood clott Time Seen by Provider: 10/04/20 19:24 Source: patient, family (daughter), EMS and RN notes reviewed Mode of arrival: EMS History of Present Illness: HPI Narrative: Patient is an 84-year-old female who was brought in via EMS from the halfway for evaluation of a DVT. She has been having right lower extremity swelling for at least a week and an ultrasound done in the facility was apparently positive. We do not have the results of the ultrasound. The patient denies any pain. Her daughter spoke to me privately and stated that the mother was recently diagnosed with metastatic cancer but that the patient has not been informed. The daughter who is her designated power of tax associate attorney does not want to tell the patient at this time. The patient endorses a cough but denies any shortness of breath. MD Complaint: extremity pain and extremity swelling Onset (ago): week(s) (2) Pain Consistency: constant Location: right and lower extremity Quality: aching Radiation: none Relieving factors: nothing Exacerbating factors: nothing Associated symptoms: Deny arthralgias, chest pain, fever(s), myalgias, rash or short of breath Review of Systems General: Reports: 10 or more systems reviewed and unremarkable except in HPI and below Const: Denies: fever(s) Card: Denies: chest pain Skin/Breast: Denies: rash PFSH ED PFSH: Medical History Changing skin lesion Diabetes Hyperlipidemia Hypertension Surgical History History of left hip replacement (~2014) Family History Daughter Diabetes Denies family history of Anesthesia complication Bleeding disorder Social History Smoking and tobacco status: never smoked Alcohol intake: never Adopted: No Caregiver/support person: Yes Lives independently: Yes Housing: House Marital status: Single Current occupational exposures/hazards: No Pets and animals: Yes Pets & animals: cat(s) History of recent travel: No Sexually active: No Current gender identity: Female Mackenzie/Rastafari: Pentecostal Special mackenzie needs: No Financial difficulty paying for basics: Not Applicable Physical Exam Const: COMMON NORMALS: no acute distress, average body habitus, patient oriented x3, no limitations, healthy appearing, alert and well nourished HENMT: COMMON NORMALS: normocephalic, atraumatic and moist oral mucous membranes HEAD & SCALP: normocephalic and atraumatic Neck/C-Spine: COMMON NORMALS: no meningeal signs and no JVD Resp: COMMON NORMALS: normal respiratory effort, No retractions, No use of accessory muscles, clear to auscultation bilaterally and percussion normal AUSCULTATION: clear to auscultation bilaterally PERCUSSION: percussion normal Cardio: COMMON NORMALS: no JVD, regular rate, regular rhythm, S1 normal heart sound present, S2 normal heart sound present, No gallops present (Cardio), No clicks present (Cardio), No murmurs present (Cardio), No rub (Cardio) and Peripheral pulses 2+ throughout RATE: regular rate RHYTHM: regular rhythm HEART SOUNDS: S1 normal heart sound present and S2 normal heart sound present PERIPHERAL PULSES: Peripheral pulses 2+ throughout GI: COMMON NORMALS: Normal to inspection, nondistended, normoactive bowel sounds present, Soft to palpation, non-tender, No hepatosplenomegaly present, no masses and no bruits PALPATION: Yes Soft to palpation and Yes No hepatosplenomegaly present Extremity: COMMON NORMALS: normal to inspection, full ROM, capillary refill normal and no calf tenderness RIGHT LOWER EXTREMITY: Yes lower leg (right leg with 3+ edema and is about double the size of the left) Neuro: COMMON NORMALS: patient oriented x3 SENSORIUM/ORIENTATION: Yes alert MENINGEAL SIGNS: Yes no meningeal signs Skin: COMMON NORMALS: no rashes or lesions noted, no wounds, turgor normal, no jaundice, no petechiae and no mottling GENERAL SKIN EXAM: no rashes or lesions noted and turgor normal Course Consultations: Consultation #1: Discussed the patient with Dr. Keating, hospitalist and he kindly accepted the patient to his service. Time: 22:28 Vital Signs: Vital signs: Vital Signs Temperature 98.4 F 10/04/20 19:16 Pulse Rate 115 H 10/04/20 19:16 Respiratory Rate 18 10/04/20 19:16 Blood Pressure 96/74 10/04/20 19:16 Pulse Oximetry 98 10/04/20 19:16 MDM - Extremity (Nontraumatic) MDM Narrative: Medical decision making narrative: 84-year-old female who is a halfway resident and who has been in a halfway for about 5 months following a CVA. She has had 1 to 2 weeks of right lower extremity swelling and venous Doppler done today was positive for DVT. She was sent to the emergency department to be evaluated for these. In the emergency department she was noted to have an extensive right lower extremity DVT from her femoral down to her tibial veins. Her daughter states that she has had a history of GI bleed in the past. Because of these he was decided that it was prudent to admit her to the hospital and start on anticoagulation and observe her for any episodes of GI bleed and she will eventually be discharged back to the nursing facility. I had an extensive conversation with her daughter explaining that the patient is in a tough spot as she is high risk for bleeding if she has had a prior episode of GI bleed. However because she has an extensive DVT there is a big risk of a PE. After weighing the options the daughter decided to opt for anticoagulation at this time and to monitor her for signs of bleeding. Medical Records: Attestation: I reviewed the patient's medical records. Lab Data: Attestation: I reviewed the patient's lab results. Labs: Lab Results 10/04/20 10/04/20 10/04/20 Range/Units 20:38 20:38 21:54 WBC 6.5 (4.0-10.0) 10^3/ uL RBC 3.46 L (4.1-5.3) 10^6/u L Hgb 10.0 L (11.5-15.3) g/dL Hct 31.5 L (37.0-47.0) % MCV 91.0 (81-99) fL MCH 28.9 (28.0-34.0) pg MCHC 31.7 (30.0-36.0) g/dL RDW 13.8 (12.1-15.1) % Plt Count 231 (130-400) 10^3/c mm MPV 9.7 (7.4-10.4) fL Lymph % (Auto) Not Reportable [place] % (Auto) Not Reportable Lymph # (Auto) Not Reportable [place] # (Auto) Not Reportable Total Counted 100 (0-100) Atypical Lymphs % 3.0 (0-5) % Absolute Neutrophi ls 5.0 (1.4-6.5) 10^3/c mm Segmented Neutroph ils 73 % Abs Segm Neuts (Ma n) 4.7 (1.6-7.1) 10/cmm Band Neutrophils 4.0 % Abs Band Neuts (Ma n) 0.3 (0.0-1.2) 10^3/c mm Absolute Lymphocyt es 0.7 L (1.2-3.4) 10^3/c mm Lymphocytes (Manua l) 8 % Monocytes (Manual) 7.0 % Absolute Monocytes 0.5 (0.1-0.6) 10^3/c mm Eosinophils (Manua l) 4 % Absolute Eosinophi ls 0.2 (0.0-0.7) 10^3/c mm Basophils (Manual) 0.0 % Absolute Basophils 0.0 (0.0-0.2) 10^3/c mm Metamyelocytes 1.0 % Platelet Estimate Normal (Normal) PT 13.10 (12.1-14.9) SECO NDS INR 0.96 (0.8-1.2) Sodium 132 L (136-145) mmol/L Potassium 5.1 (3.5-5.1) mmol/L Chloride 102 (98-107) mmol/L Carbon Dioxide 19 L (22-29) mmol/L Anion Gap 16.1 (5-19) BUN 44 H (8-23) mg/dL Creatinine 1.2 H (0.5-0.9) mg/dL GFR Calculation Not Reportable Glucose 274 H (65-115) mg/dL Calculated Osmolal ity 295 (285-295) mOsm/k g Calcium 8.0 L (8.5-10.5) mg/dL Total Bilirubin 0.2 (0.15-1.2) mg/dL AST 10 (0-32) U/L ALT 6 (0-33) U/L Alkaline Phosphata se 71 (35-105) IU/L C-Reactive Protein 24.1 H (0.0-4.9) mg/L Total Protein 6.3 L (6.6-8.7) g/dL Albumin 3.3 L (3.5-5.2) g/dL Globulin 3.0 (1.3-4.6) g/dL Imaging Data^: CTA Chest: Attestation: I personally reviewed and interpreted this imaging study as follows: Radiologist's impression: [id number] [place], [place] [id number] Scan ReportSigned Patient: Sheri Szymanski #: [id number]: 1935cct#:[id number]/Sex: 84 / FADM Date: 10/04/20Loc: ERRoom/Bed:Attending Dr: Ordering Provider/Ordering MD: Ryoal Jesus [place] [facility] [place] of Service: 10/04/20 Procedure(s): CT angio chest PE protcl [id number] Accession Number(s): [id number] Report Number: [id number] PROCEDURE INFORMATION: Exam: CTA Chest With Contrast Exam date and time: 10/04/2020 9:07 PM Age: 84 years old Clinical indication: Cough and shortness of breath; Patient HX: Cough/sob. Positive for dvt. ; Additional info: Dvt, cough, SOB TECHNIQUE: Imaging protocol: Computed tomographic angiography of the chest with contrast. 3D rendering (Not supervised by radiologist): MIP and/or 3D reconstructed images were created by the technologist. Radiation optimization: All CT scans at this facility use at least one of these dose optimization techniques: automated exposure control; mA and/or kV adjustment per patient size (includes targeted exams where dose is matched to clinical indication); or iterative reconstruction. Contrast material: VISI 320; Contrast volume: 62 ml; Contrast route: INTRAVENOUS (IV); COMPARISON: CT angio chest w abd pel w con 04/26/2020 6:18 PM RADIATION DOSE METRICS: Total DLP (mGy-cm): 647.38 FINDINGS: Pulmonary arteries: No pulmonary embolism. Aorta: No aortic dissection. Mild atherosclerotic disease of the aorta without aneurysm. Lungs: Single calcified pulmonary granuloma is present, consistent with prior granulomatous disease. Pleural spaces: Unremarkable. No pneumothorax. No pleural effusion. Heart: Unremarkable. No cardiomegaly. No pericardial effusion. Lymph nodes: Unremarkable. No enlarged lymph nodes. Pancreas: 1.7 x 2.3 cm pancreatic tail cyst. Bones/joints: Unremarkable. No acute fracture. Soft tissues: Unremarkable. Other findings: There is a water density structure which extends from the right neural foramen at T10 and measures approximately 3.[address]/CT angio chest PE protcl [id number] IMPRESSION: 1. No pulmonary embolism. 2. No aortic dissection. 3. Mild atherosclerotic disease of the aorta without aneurysm. 4. 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 (Reference: Devin, 2017) 5. 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 Small bilateral nerve sheath tumors extend from the neural foramina at T9. Nerve sheath tumors present at T8 as well. REFERENCES: Devin BASS, et al. Management of Incidental Pancreatic Cysts: A White Paper of the ACR Incidental Findings Committee. J Am Shine Radiol. 2017;14(7):911-923. Radiation Dose CTDIVOL = (mGy): DLP = 647.38 (mGy-cm) Dictated By:Jaime Brantley By:Jaime Brantley Date/Time:10/04/202241 Discharge Plan Discharge Patient Disposition: Admitted As Inpatient Admit Provider: Tim Keating Clinical Impression: DVT (deep venous thrombosis) Qualifiers: DVT location: lower extremity Affected thrombotic vein of extremity: femoral Chronicity: acute Laterality: right Qualified Code(s): I82.411 - Acute embolism and thrombosis of right femoral vein Acute deep vein thrombosis (DVT) of popliteal vein Qualifiers: Laterality: right Qualified Code(s): I82.431 - Acute embolism and thrombosis of right popliteal vein Metastatic cancer Qualifiers: Area of secondary neoplastic involvement: unspecified site Qualified Code(s): C79.9 - Secondary malignant neoplasm of unspecified site Condition: Stable Coding Level of Care Code ED 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
[2020-10-05] VITALS (10 sets, daily range): BP systolic 96–122; BP diastolic 46–70; PULSE 84–127; RESP 16–24; TEMP 36.7–36.8; O2SAT 94–99
[2020-10-05] MEDS: heparin drip 25,000 UNIT/500 ML PREMIX 16.51 UNIT IV (00:20)
[2020-10-05] MEDS: sodium chloride 0.9% 1,000 ML 50 ML IV (01:04)
[2020-10-05] MEDS: heparin 5,000 unit/mL INJ 1 mL IV (01:04)
--- NOTE | 2020-10-05 01:20 | PC.NURSE ---
Addendum entered by Arabella Graff RN 10/05/20 01:22: Patient states that she is from a longterm in [place], but doesn't know what the name of it is. Patient states that she gets up with a walker at the longterm. Original Note: Patient arrived to the floor after report was received from the ED. Patient is able to tell me her medical history and answers all questions appropriately except the year. She states it is 2011. Bed alarm is set. Patient has been oriented to her room and to call light and verbalized understanding. Dr. Keating ordered okay to get patient up to bedside commode with assistance. Patient's right lower leg is red and swollen. Patient is in ST one-teens. Other vitals and assessment WNL.
--- NOTE | 2020-10-05 01:52 | PC.NURSE ---
Patient earlier stated that she gets [facility] with [facility]er at [facility]. Patient now states that they change her by rolling her in bed. Patient had incontinent episode in bed and refused to get up. Patient rolled with one assist and brief was changed.
[2020-10-05 06:30] LABS: Glucose Point of Care 284 mg/dL (70-110)
[2020-10-05] MEDS: metoprolol tartrate 25 mg Tablet PO ×2 (07:47→19:46)
[2020-10-05] MEDS: ferrous sulfate EC 325 mg Tablet PO ×2 (07:47→19:46)
[2020-10-05] MEDS: famotidine 20 mg Tablet PO ×2 (07:47→18:05)
[2020-10-05] MEDS: sucralfate 1 gm Tablet PO ×4 (07:47→19:46)
[2020-10-05] MEDS: pantoprazole DR 40 mg Tablet PO ×2 (07:47→18:05)
--- NOTE | 2020-10-05 07:53 | ECG_ITS ---
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 Measurements Intervals [place] Rate: 78 P: 61 AR: 177 QRS: -13 QRSD: 80 T: 55 QT: 338 QTc: 386 Interpretive Statements SINUS RHYTHM INTERPRETATION BASED ON A DEFAULT AGE OF 40 YEARS Compared to ECG 05/08/2020 09:24:39 Sinus tachycardia no longer present Electronically Signed On 10-05-2020 14:55:19 CDT by Tristan Polanco M.D. [email or web address] [email or web address].[id number] f
[2020-10-05 08:46] LABS: Basophils # 0.1 10^3/uL (0.0-0.1); Basophils % 1.1 %; Eosinophils # 0.2 10^3/uL (0.0-0.8); Eosinophils % 4.6 %; Hematocrit 33.1 % (37.0-47.0); Hemoglobin 10.4 g/dL (11.5-15.3); Lymphocytes # 0.6 10^3/uL (0.8-4.8); Lymphocytes % 12.4 %; Mean Corpuscular HGB Conc 31.4 g/dL (30.0-36.0); Mean Corpuscular Volume 92.2 fL (81-99); Mean Platelet Volume 10.1 fL (7.4-10.4); Monocytes # 0.3 10^3/uL (0.2-0.9); Monocytes % 5.7 %; Neutrophils # 3.39 10^3/uL (1.8-7.7); Neutrophils % 71.6 %; Nucleated Red Blood Cells % 0 %; Platelet Count 214 10^3/cmm (130-400); Red Blood Count 3.59 10^6/uL (4.1-5.3); Red Cell Distribution Width 13.7 % (12.1-15.1); White Blood Count 4.7 10^3/uL (4.0-10.0)
[2020-10-05 09:00] LABS: Partial Thromboplastin Time 123.8 SECONDS (23.9-36.7)
[2020-10-05 09:03] LABS: Alanine Aminotransferase 8 U/L (0-33); Albumin Level 3.2 g/dL (3.5-5.2); Alkaline Phosphatase 71 IU/L (35-105); Anion Gap 12.6 (5-19); Aspartate Amino Transferase 10 U/L (0-32); Blood Urea Nitrogen 42 mg/dL (8-23); Calcium 8.6 mg/dL (8.5-10.5); Carbon Dioxide 23 mmol/L (22-29); Chloride 107 mmol/L (98-107); Globulin 3.1 g/dL (1.3-4.6); Glucose 239 mg/dL (65-115); Osmolality Calculated 304 mOsm/kg (285-295); Potassium 4.6 mmol/L (3.5-5.1); Sodium 138 mmol/L (136-145); Total Bilirubin 0.2 mg/dL (0.15-1.2); Total Protein 6.3 g/dL (6.6-8.7)
[2020-10-05 12:06] LABS: Glucose Point of Care 70 mg/dL (70-110)
--- NOTE | 2020-10-05 14:11 | PM.PN ---
Subjective Subjective: Interval history: No overnight events hemoglobin has stayed stable no active GI bleed, hemodynamically stable, I will go ahead and discontinue heparin and switch her to Eliquis loading dose, will request BNP troponin and echo Vitals/I&O/Wt Last Vital Signs Temp 98.2 F 10/05/20 00:51 Pulse 115 H 10/05/20 05:57 Resp 20 H 10/05/20 04:00 BP 114/56 10/05/20 04:00 Pulse Ox 98 10/05/20 04:00 10/04/20 10/05/20 10/05/20 22:59 06:59 14:59 Intake Total 257.712 / 257.712 Balance 257.712 / 257.712 Weight last 48 hrs Weight 62.006 kg Weight 58.967 kg Physical Exam Narrative: EXAM NARRATIVE: Pleasant cooperative elderly female laying comfortably in her bed Saturating well on room air S1, S2 sinus rhythm Abdomen soft nontender No acute respiratory distress Lower extremity no edema gangrene or ulcer Pleasant mood EOMI, PERRLA GCS 15 No neurological deficits Patient was sitting comfortably in her bed Appears stated age Frail appearance Data : 10/05/20 08:22 10/05/20 08:22 A&P Assessment and plan (1) DVT (deep venous thrombosis): Status: Acute Qualifiers: Affected thrombotic vein of extremity: femoral Chronicity: acute DVT location: lower extremity Laterality: right Qualified Code(s): I82.411 - Acute embolism and thrombosis of right femoral vein (2) History of GI bleed: Status: Acute (3) History of CVA (cerebrovascular accident): Status: Acute (4) Paraspinous mass: Status: Acute (5) Acute deep vein thrombosis (DVT) of popliteal vein: Status: Acute Qualifiers: Laterality: right Qualified Code(s): I82.431 - Acute embolism and thrombosis of right popliteal vein (6) Metastatic cancer: Status: Acute Qualifiers: Area of secondary neoplastic involvement: unspecified site Qualified Code(s): C79.9 - Secondary malignant neoplasm of unspecified site (7) Left acute arterial ischemic stroke, MCA (middle cerebral artery): Status: Acute Additional A&P Information Acute DVT of right leg Involving peroneal trunk popliteal distal mid femoral vein Hemoglobin has stayed stable hemodynamically stable, no signs of PE, no need of echo or BNP at this time I will go ahead and switch her heparin to Eliquis in case of further episode of GI bleed, Eliquis should be held and IVC filter evaluation should be done With recent stroke and this DVT my suspicion would be higher for cancer related hypercoagulable state She is above 60 kg creatinine 1.1 would use full dose Eliquis for now We will continue Protonix Paraspinous mass: Daughter is insisting that we not disclose any information regarding possible cancer with mets to her she would like Dr. 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
[2020-10-05 15:13] LABS: NT Pro B Type Natriuretic Pept 363 pg/mL (0-450)
--- NOTE | 2020-10-05 16:13 | PC.NUTR ---
Nutrition assessment completed for low BMI. Unclear po intakes at this time per chart review. If po intakes poor, recommend consideration of removing Cardiac restriction from diet (change to Consistent Carb diet). Recommend addition of Glucerna with meals to provide additional kcal/protein. See RD assessment for further details.
[2020-10-05 18:14] LABS: Glucose Point of Care 261 mg/dL (70-110)
[2020-10-05] MEDS: atorvastatin 40 mg Tablet PO (19:46)
[2020-10-05] MEDS: apixaban 5 mg Tablet 10 MG PO (19:46)
[2020-10-05] MEDS: mirtazapine 15 mg Tablet PO (19:46)
[2020-10-05 20:49] LABS: Glucose Point of Care 71 mg/dL (70-110)
[2020-10-06 00:34] VITALS: BP 101/50; PULSE 91; RESP 19; TEMP 36.8
[2020-10-06 03:42] VITALS: PULSE 83
[2020-10-06 04:05] VITALS: BP 107/50; PULSE 83; RESP 21; TEMP 36.9
--- NOTE | 2020-10-06 04:15 | PC.NURSE ---
Patient's brief and linens are currently clean and dry. Will monitor for incontinence.
[2020-10-06 05:46] LABS: Basophils # 0.1 10^3/uL (0.0-0.1); Basophils % 1.2 %; Eosinophils # 0.3 10^3/uL (0.0-0.8); Eosinophils % 6.6 %; Hematocrit 29.7 % (37.0-47.0); Hemoglobin 9.4 g/dL (11.5-15.3); Lymphocytes # 0.8 10^3/uL (0.8-4.8); Lymphocytes % 17.9 %; Mean Corpuscular HGB Conc 31.6 g/dL (30.0-36.0); Mean Corpuscular Hemoglobin 29.5 pg (28.0-34.0); Mean Corpuscular Volume 93.1 fL (81-99); Mean Platelet Volume 10.2 fL (7.4-10.4); Monocytes # 0.5 10^3/uL (0.2-0.9); Monocytes % 12.5 %; Neutrophils # 2.54 10^3/uL (1.8-7.7); Neutrophils % 59.7 %; Nucleated Red Blood Cells % 0 %; Platelet Count 194 10^3/cmm (130-400); Red Blood Count 3.19 10^6/uL (4.1-5.3); Red Cell Distribution Width 13.8 % (12.1-15.1); White Blood Count 4.3 10^3/uL (4.0-10.0)
--- NOTE | 2020-10-06 06:11 | PC.NURSE ---
Patient is currently resting in bed with eyes closed. Will monitor.
[2020-10-06 06:25] LABS: Alanine Aminotransferase < 5 U/L (0-33); Albumin Level 2.9 g/dL (3.5-5.2); Alkaline Phosphatase 60 IU/L (35-105); Aspartate Amino Transferase 9 U/L (0-32); Blood Urea Nitrogen 37 mg/dL (8-23); Calcium 7.9 mg/dL (8.5-10.5); Carbon Dioxide 21 mmol/L (22-29); Chloride 104 mmol/L (98-107); Globulin 2.5 g/dL (1.3-4.6); Glucose 220 mg/dL (65-115); Osmolality Calculated 293 mOsm/kg (285-295); Sodium 134 mmol/L (136-145); Total Bilirubin 0.2 mg/dL (0.15-1.2); Total Protein 5.4 g/dL (6.6-8.7)
[2020-10-06 06:42] LABS: Glucose Point of Care 252 mg/dL (70-110)
[2020-10-06] MEDS: famotidine 20 mg Tablet PO (07:36)
[2020-10-06] MEDS: ferrous sulfate EC 325 mg Tablet PO (07:36)
[2020-10-06] MEDS: sucralfate 1 gm Tablet PO ×2 (07:36→12:02)
[2020-10-06] MEDS: metoprolol tartrate 25 mg Tablet PO (07:37)
[2020-10-06] MEDS: apixaban 5 mg Tablet 10 MG PO (07:37)
[2020-10-06] MEDS: pantoprazole DR 40 mg Tablet PO (07:37)
[2020-10-06 08:00] VITALS: BP 114/64; PULSE 94; RESP 22; TEMP 36.8; O2SAT 97
[2020-10-06 10:20] LABS: Hematocrit 30.6 % (37.0-47.0); Hemoglobin 9.6 g/dL (11.5-15.3)
--- NOTE | 2020-10-06 11:13 | P.DS_ITS ---
Discharge Providers Date of Admission: 10/04/20 22:43 Date of Discharge: October 06, 2020 Attending Provider at Admission: Tim Keating Attending Provider at Discharge: Camacho Simmons MD Primary Care Provider: Alonso Ngo DO Diagnoses at Discharge Discharge Diagnosis (1) DVT (deep venous thrombosis): Status: Acute Qualifiers: Affected thrombotic vein of extremity: femoral Chronicity: acute DVT location: lower extremity Laterality: right Qualified Code(s): I82.411 - Acute embolism and thrombosis of right femoral vein (2) History of GI bleed: Status: Acute (3) History of CVA (cerebrovascular accident): Status: Acute (4) Paraspinous mass: Status: Acute (5) Acute deep vein thrombosis (DVT) of popliteal vein: Status: Acute Qualifiers: Laterality: right Qualified Code(s): I82.431 - Acute embolism and thrombosis of right popliteal vein (6) Metastatic cancer: Status: Acute Qualifiers: Area of secondary neoplastic involvement: unspecified site Qualified Code(s): C79.9 - Secondary malignant neoplasm of unspecified site (7) Left acute arterial ischemic stroke, MCA (middle cerebral artery): Status: Acute Reason for Visit Reason for Visit: poss blood clot Hospital Course Hospital Course History of Present Illness 84-year-old female 84-year-old female with a past medical history significant for hypertension , hyperlipidemia, type 2 diabetes mellitus , pancreatitis , GI bleed on Plavix requiring transfusion status post EGD showing gastritis on 05/06 , left frontal lobe /right lacunar CVA on 05/01/2020 and recently found to have a 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 Patient was complaining of pain and difficulty ambulating due to this. Symptoms have been ongoing for the past week . It was noted STEMI by emergency room physician that patient had extensive DVT of right lower extremity. Report for this was not noted in [facility]. Patient's daughter who assisted with the HPI stated patient did not have any respiratory distress or pleuritic chest pain. No nausea or vomiting. No fall or syncopal events. Patient was started on heparin drip and admitted to the hospital. Hospital course Patient was admitted for management of right leg DVT, she was started on heparin drip, her hemoglobin stayed stable repeat H&H was done before discharge hemoglobin on discharge 9.6 no signs of PE active shortness of breath or chest pain. Heparin discontinued and she will be transition to Eliquis 10 mg twice a day for 7 days and then 5 mg twice a day onwards she weighs more than 60 kg, creatinine 1.1 improved from 1.2. Daughter who is her DPOA does not want to disclose any use of malignancy at this point and would like to follow-up with Dr. Lee and have a family meeting in detail. No further cancer work-up was pursued during this hospitalization. Venous Doppler: FINDINGS: October 05 RT LEG DVT FROM MID FEMURAL, POPLETEAL AND PERINEAL TRUNK. Echogenic material was noted in the lumen of the femoral, popliteal and peroneal trunk veins. The vein is partially collapsible CT/CT angio chest PE protcl [id number] IMPRESSION: 1. No pulmonary embolism. 2. No aortic dissection. 3. Mild atherosclerotic disease of the aorta without aneurysm. 4. 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 (Reference: Devin, 2017) 5. 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 Small bilateral nerve sheath tumors extend from the neural foramina at T9. Nerve sheath tumors present at T8 as well. Physical Exam Narrative: EXAM NARRATIVE: Pleasant cooperative elderly female laying comfortably in her bed Saturating well on room air S1, S2 sinus rhythm Abdomen soft nontender No acute respiratory distress Lower extremity no edema gangrene or ulcer Pleasant mood EOMI, PERRLA GCS 15 No neurological deficits Patient was sitting comfortably in her bed Appears stated age Frail appearance Discharge Data Data Completed and Pending: Completed Studies During Hospitalization Category Date Time Status CT angio chest PE protcl [id number] Stat Cat Scan 10/04/20 21:07 [place] [id number] Urgent Ultrasound 10/04/20 19:31 Completed Pending at discharge Category Date Time Status Complete Blood Co unt w/Auto AM LABS Lab 10/07/20 04:00 Ordered Comprehensive Met abolic Panel AM LA BS Lab 10/07/20 04:00 Ordered Labs from last 24 hours 10/06/20 10/06/20 10/06/20 08:46 06:23 04:41 WBC RBC Hgb 9.6 L Hct 30.6 L MCV MCH MCHC RDW Plt Count MPV Neut % (Auto) Lymph % (Auto) Mcdonough % (Auto) Eos % (Auto) Baso % (Auto) Neut # (Auto) Lymph # (Auto) Mcdonough # (Auto) Eos # (Auto) Baso # (Auto) Nucleated RBC % (a uto) Nucleated RBCs # Sodium 134 L Potassium 5.0 Chloride 104 Carbon Dioxide 21 L Anion Gap 14.0 BUN 37 H Creatinine 1.1 H GFR Calculation Not Reportable Glucose 220 H POC Glucose 252 H Calculated Osmolal ity 293 Calcium 7.9 L Total Bilirubin 0.2 AST 9 ALT < 5 Alkaline Phosphata se 60 NT-Pro-B Natriuret Pep Total Protein 5.4 L Albumin 2.9 L Globulin 2.5 10/06/20 10/05/20 10/05/20 04:41 20:28 17:46 WBC 4.3 RBC 3.19 L Hgb 9.4 L Hct 29.7 L MCV 93.1 MCH 29.5 MCHC 31.6 RDW 13.8 Plt Count 194 MPV 10.2 Neut % (Auto) 59.7 Lymph % (Auto) 17.9 Mcdonough % (Auto) 12.5 Eos % (Auto) 6.6 Baso % (Auto) 1.2 Neut # (Auto) 2.54 Lymph # (Auto) 0.8 Mcdonough # (Auto) 0.5 Eos # (Auto) 0.3 Baso # (Auto) 0.1 Nucleated RBC % (a uto) 0 Nucleated RBCs # 0.0 Sodium Potassium Chloride Carbon Dioxide Anion Gap BUN Creatinine GFR Calculation Glucose POC Glucose 71 261 H Calculated Osmolal ity Calcium Total Bilirubin AST ALT Alkaline Phosphata se NT-Pro-B Natriuret Pep Total Protein Albumin Globulin 10/05/20 10/05/20 11:56 08:22 WBC RBC Hgb Hct MCV MCH MCHC RDW Plt Count MPV Neut % (Auto) Lymph % (Auto) Mcdonough % (Auto) Eos % (Auto) Baso % (Auto) Neut # (Auto) Lymph # (Auto) Mcdonough # (Auto) Eos # (Auto) Baso # (Auto) Nucleated RBC % (a uto) Nucleated RBCs # Sodium Potassium Chloride Carbon Dioxide Anion Gap BUN Creatinine GFR Calculation Glucose POC Glucose 70 Calculated Osmolal ity Calcium Total Bilirubin AST ALT Alkaline Phosphata se NT-Pro-B Natriuret Pep 363 Total Protein Albumin Globulin Vitals: Last Vital Signs Temp 98.2 F 10/06/20 08:00 Pulse 94 10/06/20 08:00 Resp 22 H 10/06/20 08:00 BP 114/64 10/06/20 08:00 Pulse Ox 97 10/06/20 08:00 Discharge Plan Discharge Patient Disposition: Xfer SNF Condition: Stable Prescriptions: New apixaban 5 mg tablet 5 mg PO BID Qty: 60 RF: 3 Protonix [address] for susp in packet 40 mg PO BID Qty: 1 RF: 2 Continued atorvastatin 40 mg Tablet 40 mg PO BEDTIME@1999 RF: 0 Tylenol 325 mg Tablet 650 mg PO Q6H PRN (Reason: Pain) RF: 0 sucralfate 1 gram Tablet See Rx Instructions .ROUTE .COMPLEX RF: 0 Zofran 4 mg Tablet 4 mg PO Q6H PRN (Reason: NAUSESA/VOMITING) RF: 0 clopidogrel 75 mg Tablet 75 mg PO DAILY@08 RF: 0 Milk of Magnesia 400 mg/5 mL Suspension 30 ml PO DAILY PRN (Reason: Constipation) RF: 0 Novolog U-100 Insulin aspart 100 unit/mL Solution See Rx Instructions .ROUTE .COMPLEX RF: 0 pantoprazole 40 mg Tablet,Delayed Release (Dr/Ec) 40 mg PO BID@ RF: 0 iron 325 mg (65 mg iron) Tablet 325 mg PO BID@ RF: 0 Enema Disposable 19-7 gram/118 mL Enema 118 ml SD DAILY PRN (Reason: CONSTIAPTION) RF: 0 Dulcolax (bisacodyl) 5 mg Tablet,Delayed Release (Dr/Ec) 10 mg PO DAILY PRN (Reason: Constipation) RF: 0 lisinopril 5 mg Tablet 5 mg PO BEDTIME RF: 0 Remeron 15 mg Tablet 15 mg PO BEDTIME@1999 RF: 0 levofloxacin 750 mg Tablet 750 mg PO Q2D RF: 0 Novolog Flexpen U-100 Insulin 100 unit/mL (3 mL) Insulin Pen 3 unit SUBCUT TID RF: 0 metoprolol tartrate 25 mg Tablet 25 mg PO BID@ RF: 0 Lantus U-100 Insulin 100 unit/mL solution 18 unit SUBCUT BEDTIME@1999 RF: 0 Discharge Orders: Discharge Order (Routine); Ordered 10/06/20 Ordered By: Camacho Simmons Other Ambulatory Orders: Complete Blood Count w/Auto (Routine) Timeframe: 2 Days Location: Determined by Patient Ordered By: Camacho Simmons Referrals: [facility] [Outside] Alonso Lee MD [Hospitalist] - 2 weeks Discharge Diet: Diabetic Discharge Activity: Increase activity as tolerated, Use walker/crutches as instructed and Wheelchair as instructed Activity Restrictions/Additional Instructions: Take Eliquis 10 mg twice a day for 7 days then 5 mg twice a day onwards If you notice bleeding or CBC showing drop in hemoglobin then discontinue Eliquis, hemoglobin around 8-9 is acceptable Discharge Attestations Time Spent in Discharge Care*: less than 30 min Quality Metrics Clinical Quality Measures During this hospital stay, did patient experience: VTE Contraindication to Overlap Therapy: Overlap treatment not indicated VTE Discharge Education: Education about anticoagulant therapy/Care Notes given, Education about treatment options/disease process and Medication side effects education Deep Vein Thrombosis/Pulmonary Embolism Present on Admission: Yes Coding Level of Care Code Acute Chg FW DC note Diagnoses DVT (deep venous thrombosis) I82.411 Affected thrombotic vein of extremity: femoral Chronicity: acute DVT location: lower extremity Laterality: right History of GI bleed Z87.19 History of CVA (cerebrovascular accident) Z86.73 Paraspinous mass R22.2 Acute deep vein thrombosis (DVT) of popliteal vein I82.431 Laterality: right Metastatic cancer C79.9 Area of secondary neoplastic involvement: unspecified site Left acute arterial ischemic stroke, MCA (middle cerebral artery) I63.512
[2020-10-06 11:37] LABS: Glucose Point of Care 142 mg/dL (70-110)
[2020-10-06 11:55] VITALS: BP 116/54; PULSE 85; RESP 22; TEMP 36.4; O2SAT 97
--- NOTE | 2020-10-06 15:30 | PC.NURSE ---
pt left via [facility] transport. VS stable upon departure report called to antonio
[2020-10-06 16:30] VITALS: BP 116/54; PULSE 85; RESP 22; TEMP 36.4; O2SAT 97
== END 2020-10-06 16:32 | disposition skilled nursing facility (03) | DRG 301 ==
LOC: ER 21:00 → CSU 23:03
PROVIDERS: Admitting Provider Hospitalist; Emergency Provider Family Medicine; PCP Internal Medicine; Visit Provider Internal Medicine
DX: I82.411 Acute embolism and thrombosis of right femoral vein (principal); I82.431 Acute embolism and thrombosis of right popliteal vein; I82.451 Acute embolism and thrombosis of right peroneal vein; I10 Essential (primary) hypertension; E78.5 Hyperlipidemia, unspecified; E11.9 Type 2 diabetes mellitus without complications; Z86.73 Personal history of transient ischemic attack (TIA), and cerebral infarction without residual deficits; Z96.642 Presence of left artificial hip joint; R22.2 Localized swelling, mass and lump, trunk; Z79.02 Long term (current) use of antithrombotics/antiplatelets; Z79.4 Long term (current) use of insulin
CPT/HCPCS: 36415; 36416; 71275; 80053; 82962; 83880; 85007; 85014; 85018; 85025; 85610; 85730; 86140; 93005; 93971; 96365; 96366; 96372; 96375; 97161; 97530; 99285; J1644; J1815; J7030; Q9967

== ENCOUNTER 2021-02-19 11:50 | Outpatient (CLI) | payer MEDICAID, SELFPAY ==
[2021-02-19 13:05] VITALS: BP 131/83; PULSE 109; RESP 20; TEMP 36.9; O2SAT 98; BMI 25.9
[2021-02-19 15:16] VITALS: BP 129/81; PULSE 96; RESP 20; TEMP 36.6; O2SAT 99
== END 2021-02-19 11:51 | disposition home or self-care (01) ==
LOC: OPS 11:51
PROVIDERS: PCP Internal Medicine; Visit Provider Internal Medicine
DX: U07.1 COVID-19 (principal)
CPT/HCPCS: 96365

== ENCOUNTER 2021-06-14 16:35 | Emergency (ER) | payer MEDICAID, SELFPAY ==
[2021-06-14 16:38] VITALS: BP 153/94; PULSE 90; RESP 13; TEMP 36.7; O2SAT 93; BMI 27.4
[2021-06-14 16:48] VITALS: BP 140/67; PULSE 86; RESP 19; O2SAT 98
--- NOTE | 2021-06-14 16:48 | USR_ITS ---
PROCEDURE INFORMATION: Exam: US Duplex Right Lower Extremity Veins, Limited Exam date and time: 06/14/2021 5:11 PM Age: 85 years old Clinical indication: Pain; Leg, lower; Right; Additional info: Leg pain and swelling TECHNIQUE: Imaging protocol: Real-time Duplex ultrasound of the Right Lower Extremity with 2-D hairston scale, color Doppler flow and spectral waveform analysis with image documentation. Limited exam was focused on the right lower extremity veins. COMPARISON: US renal BI* [id number] 04/29/2020 11:41 AM FINDINGS: Right deep veins: The distal aspect of the superficial femoral vein is not completely compressible and there is limited color Doppler flow in this region. The common femoral, proximal and mid aspects of the superficial femoral vein, proximal profunda femoral and popliteal veins are patent without thrombus. Right superficial veins: Unremarkable. Saphenofemoral junction is patent without thrombus. Soft tissues: Unremarkable. US/[place] [id number] IMPRESSION: Findings suspicious for partially occlusive thrombus in the distal superficial femoral vein.
--- NOTE | 2021-06-14 17:11 | W.ED.EXTPRO ---
HPI - Extremity Problem General: Chief complaint: Extremity Injury, Lower Stated complaint: R LEG PAIN Time Seen by Provider: 06/14/21 16:41 History of Present Illness: Patient comes in from the group home with pain in her right leg. States it started out in the front of her leg and then moved to behind her knee. States she has a history of a previous blood clot. Denies any chest pain or shortness of breath. Associated symptoms: Deny chest pain, fever(s) or rash Review of Systems Const: Denies: fever(s) or body aches Eyes: Denies: change in vision or blurry vision ENMT: Denies: throat pain or odynophagia Card: Denies: chest pain or palpitations Resp: Denies: dyspnea or productive cough GI: Denies: abdominal pain, nausea or vomiting : Denies: flank pain or dysuria Musc: Reports: other (Right lower leg pain); Denies: neck pain or back pain Skin/Breast: Denies: rash or pruritus Neuro: Denies: headache(s) or numbness in extremities Psych: Denies: anxiety or change in appetite Endo: Denies: polyuria or excessive sweating PFSH ED PFSH: Medical History Changing skin lesion Diabetes Hyperlipidemia Hypertension Surgical History History of left hip replacement (~2014) Family History Daughter Diabetes Denies family history of Anesthesia complication Bleeding disorder Social History Smoking and tobacco status: never smoked Alcohol intake: never Adopted: No Caregiver/support person: Yes Lives independently: Yes Housing: House Marital status: Single Current occupational exposures/hazards: No Pets and animals: Yes Pets & animals: cat(s) History of recent travel: No Sexually active: No Current gender identity: Female Mackenzie/Hindu: Jainism Special mackenzie needs: No Financial difficulty paying for basics: Not Applicable Physical Exam Const: COMMON NORMALS: no acute distress, patient oriented x3, healthy appearing and alert HENMT: COMMON NORMALS: normocephalic and atraumatic HEAD & SCALP: normocephalic and atraumatic Eye: COMMON NORMALS: Equal, round and reactive pupils present and EOMs intact bilaterally PUPIL: Yes Equal, round and reactive pupils present Neck/C-Spine: COMMON NORMALS: full ROM and supple Resp: COMMON NORMALS: normal respiratory effort, No retractions and No use of accessory muscles Cardio: COMMON NORMALS: regular rate and regular rhythm RATE: regular rate RHYTHM: regular rhythm GI: COMMON NORMALS: Normal to inspection, nondistended, normoactive bowel sounds present, Soft to palpation and non-tender PALPATION: Yes Soft to palpation Back/Pelvis: COMMON NORMALS: thoracic and lumbar spine normal to inspection and no thoracic nor lumbar tenderness Extremity: COMMON NORMALS: normal to inspection and full ROM NARRATIVE EXTREMITY EXAM: Tenderness palpation of the posterior calf and posterior knee Neuro: COMMON NORMALS: patient oriented x3 SENSORIUM/ORIENTATION: Yes alert Psych: COMMON NORMALS: mental status grossly normal and cooperative Skin: COMMON NORMALS: no rashes or lesions noted and no wounds GENERAL SKIN EXAM: no rashes or lesions noted Course Vital Signs: Vital signs: Vital Signs Temperature 98.1 F 06/14/21 16:38 Pulse Rate 86 06/14/21 16:48 Respiratory Rate 19 H 06/14/21 16:48 Blood Pressure 140/67 06/14/21 16:48 Pulse Oximetry 98 06/14/21 16:48 MDM - Extremity (Nontraumatic) Medical Decision Making Patient comes in from the group home with pain in her right leg. States it started out in the front of her leg and then moved to behind her knee. States she has a history of a previous blood clot. Denies any chest pain or shortness of breath. We will check an ultrasound, and reassess. On reassessment I talked to the patient and her daughter about the test results. Will discharge home at this time with precautions to return for worsening or changing symptoms. Discharge Plan Discharge Patient Disposition: Home Clinical Impression: Acute leg pain Condition: Stable Prescriptions: No Action atorvastatin 40 mg Tablet 40 mg PO BEDTIME@2000 0RF acetaminophen [Tylenol] 325 mg Tablet 650 mg PO Q6H PRN (Reason: Pain) 0RF sucralfate 1 gram Tablet See Rx Instructions .ROUTE .COMPLEX 0RF Rx Instructions: 1 g orally BEFORE MEALS AND AT BEDTIME Zofran 4 mg Tablet 4 mg PO Q6H PRN (Reason: NAUSESA/VOMITING) 0RF clopidogrel 75 mg Tablet 75 mg PO DAILY@0800 0RF magnesium hydroxide [Milk of Magnesia] 400 mg/5 mL Suspension 30 ml PO DAILY PRN (Reason: Constipation) 0RF Novolog U-100 Insulin aspart 100 unit/mL Solution See Rx Instructions .ROUTE .COMPLEX 0RF Rx Instructions: USE PER SLIDING SCALE pantoprazole 40 mg Tablet,Delayed Release (Dr/Ec) 40 mg PO BID@799,1999 0RF ferrous sulfate [iron] 325 mg (65 mg iron) Tablet 325 mg PO BID@799,1999 0RF Enema Disposable 19-7 gram/118 mL Enema 118 ml PA DAILY PRN (Reason: CONSTIAPTION) 0RF Rx Instructions: MAY GIVE IF NO BM 3 DAYS AFTER MOM AND DULCOLAX bisacodyl [Dulcolax (bisacodyl)] 5 mg Tablet,Delayed Release (Dr/Ec) 10 mg PO DAILY PRN (Reason: Constipation) 0RF Rx Instructions: MAY GIVE IF NO BM 3 DAYS AFTER MOM. Remeron 15 mg Tablet 15 mg PO BEDTIME@1999 0RF Novolog Flexpen U-100 Insulin 100 unit/mL (3 mL) Insulin Pen 3 unit SUBCUT TID 0RF Rx Instructions: TAKE BEFORE MEALS Lantus U-100 Insulin 100 unit/mL solution 15 unit SUBCUT BEDTIME@1999 0RF Protonix [address] for susp in packet 40 mg PO BID Qty: 1 2RF albuterol sulfate 2.5 mg /3 mL (0.083 %) Solution For Nebulization 2.5 mg INHALATION Q4H PRN (Reason: Shortness Of Breath) 0RF Discharge Orders: Discharge ED (Routine); Ordered 06/14/21 Ordered By: Osbaldo Lombardi Referrals: Alonso Ngo DO [Primary Care Provider] - Coding Level of Care Code ED 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
[2021-06-14 17:51] VITALS: BP 147/78; PULSE 84; RESP 20; O2SAT 96
== END 2021-06-14 17:52 | disposition home or self-care (01) ==
PROVIDERS: Emergency Provider Emergency Medicine; PCP Internal Medicine
DX: M79.604 Pain in right leg (principal); E11.9 Type 2 diabetes mellitus without complications; Z79.02 Long term (current) use of antithrombotics/antiplatelets; Z79.4 Long term (current) use of insulin
CPT/HCPCS: 93971; 99282

== ENCOUNTER → 2021-07-30 08:30 | Outpatient (BNVA) | payer MEDICAID, SELFPAY | PROVIDERS: PCP Internal Medicine; Visit Provider Podiatrist Foot & Ankle Surgery | DX: E11.8 Type 2 diabetes mellitus with unspecified complications (principal); E11.42 Type 2 diabetes mellitus with diabetic polyneuropathy; M20.41 Other hammer toe(s) (acquired), right foot; M20.42 Other hammer toe(s) (acquired), left foot; I73.9 Peripheral vascular disease, unspecified; L60.3 Nail dystrophy | CPT/HCPCS: 11721; 99203 ==

== ENCOUNTER → 2021-10-29 07:57 | Outpatient (BNVA) | payer MEDICAID, SELFPAY | PROVIDERS: PCP Internal Medicine; Visit Provider Podiatrist Foot & Ankle Surgery | DX: E11.8 Type 2 diabetes mellitus with unspecified complications (principal); E11.42 Type 2 diabetes mellitus with diabetic polyneuropathy; I73.9 Peripheral vascular disease, unspecified; L60.3 Nail dystrophy; M20.41 Other hammer toe(s) (acquired), right foot; M20.42 Other hammer toe(s) (acquired), left foot; Z79.4 Long term (current) use of insulin | CPT/HCPCS: 11721 ==

== ENCOUNTER 2021-12-02 16:55 | Emergency (ER) | payer MEDICAID, SELFPAY ==
--- NOTE | 2021-12-02 17:00 | XRR_ITS ---
PROCEDURE INFORMATION: Exam: XR Chest Exam date and time: 12/02/2021 6:18 PM Age: 85 years old Clinical indication: Other: AMS TECHNIQUE: Imaging protocol: Radiologic exam of the chest. Views: 1 view. COMPARISON: CR XR chest 1V portable [id number] 05/07/2020 12:11 PM FINDINGS: Lungs: Mild atelectasis in the left lung base with a calcified granuloma. The right lung is clear. No consolidation. Pleural spaces: Unremarkable. No pleural effusion. No pneumothorax. Heart/Mediastinum: Unremarkable. No cardiomegaly. Bones/joints: Unremarkable. Soft tissues: Stable right T9-10 paraspinous mass. XR/XR chest 1V portable [id number] IMPRESSION: 1. No acute finding. 2. Stable right T9-10 paraspinous mass. Please refer to prior CT chest report.
--- NOTE | 2021-12-02 17:01 | ECG_ITS ---
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 Measurements Intervals [place] Rate: 80 P: 46 WV: 156 QRS: -45 QRSD: 84 T: 55 QT: 354 QTc: 410 Interpretive Statements SINUS RHYTHM WITH OCCASIONAL SUPRAVENTRICULAR PREMATURE COMPLEXES PATTERN CONSISTENT WITH PULMONARY DISEASE LEFT ANTERIOR FASCICULAR BLOCK [QRS AXIS <= -45, QR IN I, RS IN II] Compared to ECG 10/05/2020 11:44:55 Left anterior fascicular block now present Electronically Signed On 12-03-2021 20:37:29 CDT by Tristan Polanco M.D. [id number]
[2021-12-02 17:02] VITALS: BP 134/84; PULSE 89; RESP 16; TEMP 36.5; O2SAT 96
[2021-12-02 17:23] LABS: Glucose Point of Care 147 mg/dL (70-110)
[2021-12-02 17:48] LABS: Basophils # 0.1 10^3/uL (0.0-0.1); Basophils % 0.9 %; Eosinophils # 0.1 10^3/uL (0.0-0.8); Eosinophils % 1.5 %; Hematocrit 40.3 % (37.0-47.0); Hemoglobin 13.4 g/dL (11.5-15.3); Lymphocytes # 1.2 10^3/uL (0.8-4.8); Lymphocytes % 15.7 %; Mean Corpuscular HGB Conc 33.3 g/dL (30.0-36.0); Mean Corpuscular Hemoglobin 29.6 pg (28.0-34.0); Mean Platelet Volume 10.1 fL (7.4-10.4); Monocytes # 0.6 10^3/uL (0.2-0.9); Neutrophils % 74.4 %; Nucleated Red Blood Cells % 0 %; Platelet Count 255 10^3/cmm (130-400); Red Blood Count 4.53 10^6/uL (4.1-5.3); Red Cell Distribution Width 12.9 % (12.1-15.1); White Blood Count 7.8 10^3/uL (4.0-10.0)
[2021-12-02 18:12] LABS: Alanine Aminotransferase < 5 U/L (0-33); Albumin Level 3.8 g/dL (3.5-5.2); Alkaline Phosphatase 131 U/L (35-105); Aspartate Amino Transferase 12 U/L (0-32); Blood Urea Nitrogen 31 mg/dL (8-23); Calcium 9.4 mg/dL (8.5-10.5); Carbon Dioxide 26 mmol/L (22-29); Chloride 100 mmol/L (98-107); Globulin 3.6 g/dL (1.3-4.6); Glucose 125 mg/dL (65-115); Osmolality Calculated 290 mOsm/kg (285-295); Sodium 136 mmol/L (136-145); Total Bilirubin 0.4 mg/dL (0.15-1.2); Total Protein 7.4 g/dL (6.6-8.7)
--- NOTE | 2021-12-02 19:42 | CTR_ITS ---
PROCEDURE INFORMATION: Exam: CT Head Without Contrast Exam date and time: 12/02/2021 7:53 PM Age: 85 years old Clinical indication: Altered mental status/memory loss; Patient HX: HX of dimentia; Additional info: Confusion TECHNIQUE: Imaging protocol: Computed tomography of the head without contrast. Radiation optimization: All CT scans at this facility use at least one of these dose optimization techniques: automated exposure control; mA and/or kV adjustment per patient size (includes targeted exams where dose is matched to clinical indication); or iterative reconstruction. COMPARISON: MR head wo con* [id number] 05/01/2020 12:[address] head 04/29/2020 RADIATION DOSE METRICS: Total DLP (mGy-cm): 1050.38 FINDINGS: Brain: Diffuse cortical volume loss, in keeping with patient age. Moderate hypodensities in supratentorial periventricular and subcortical white matter, consistent with microangiopathy. No intracranial hemorrhage. Chronic lacunar infarcts in the anterior limb of the right internal capsule and left subinsular region. Cerebral ventricles: No ventriculomegaly. Paranasal sinuses: Visualized sinuses are unremarkable. No fluid levels. Mastoid air cells: Visualized mastoid air cells are well aerated. Bones/joints: Unremarkable. No acute fracture. Soft tissues: Unremarkable. Vasculature: Stable ectasia of the right vertebral artery with a possible 1.2 cm distal aneurysm. No hyperdense artery. CT/CT head wo con* [id number] IMPRESSION: 1. No acute intracranial finding. 2. 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 This is unchanged in retrospect. Further evaluation with CTA is recommended.
--- NOTE | 2021-12-02 19:44 | W.ED.FEMALGU ---
HPI - Female Genitourinary General: Chief complaint: Urogenital-Female Stated complaint: AMS/ CONFUSION Time Seen by Provider: 12/02/21 19:21 Source: patient and family Mode of arrival: EMS Limitations: other (Mild dementia) History of Present Illness: Patient brought in due to continued confusion and generalized weakness and generally shaky for the past couple days. Patient started having confusion on Thursday at the skilled nursing and was eventually diagnosed with a urinary tract infection. Patient was started on Macrobid 100 mg twice a day on Thursday at the skilled nursing. Daughter states that patient is not eating and drinking well. She has had increased confusion today. It was decided to bring the patient to the hospital for evaluation. Patient has no complaints at this time. She denies any pain anywhere. She denies any shortness of breath or chest pain. She denies abdominal pain. Pertinent past history: diabetes Onset (ago): day(s) (5) Severity: moderate Associated symptoms: Deny abdominal pain, headache(s) or nausea Review of Systems Const: Denies: fever(s) or chills Eyes: Denies: change in vision ENMT: Denies: throat pain Card: Denies: chest pain or palpitations Resp: Denies: dyspnea or wheezing GI: Denies: abdominal pain, nausea or vomiting : Denies: flank pain Musc: Denies: neck pain or back pain Skin/Breast: Denies: rash or pruritus Neuro: Reports: other (Shakiness; confusion. Patient has baseline dementia.); Denies: headache(s) or numbness in extremities Psych: Denies: anxiety Maurilio/Lymph: Denies: enlarged lymph nodes PFSH ED PFSH: Medical History Changing skin lesion Diabetes History of CVA (cerebrovascular accident) History of GI bleed Hyperlipidemia Hypertension Left acute arterial ischemic stroke, MCA (middle cerebral artery) Metastatic cancer Paraspinous mass Surgical History History of left hip replacement (~2014) Family History Daughter Diabetes Denies family history of Anesthesia complication Bleeding disorder Social History Smoking and tobacco status: never smoked Alcohol intake: never Adopted: No Caregiver/support person: Yes Lives independently: Yes Housing: House Marital status: Single Current occupational exposures/hazards: No Pets and animals: Yes Pets & animals: cat(s) History of recent travel: No Sexually active: No Current gender identity: Female Mackenzie/Latter Day: [employer] Special mackenzie needs: No Financial difficulty paying for basics: Not Applicable Physical Exam Const: COMMON NORMALS: no acute distress, patient oriented x3, alert and well nourished GENERAL APPEARANCE: cooperative HENMT: COMMON NORMALS: normocephalic and atraumatic HEAD & SCALP: normocephalic and atraumatic Eye: COMMON NORMALS: EOMs intact bilaterally Neck/C-Spine: COMMON NORMALS: full ROM, no lymphadenopathy, supple and no JVD Lymph: LYMPHATIC: no lymphadenopathy noted Chest: COMMONS NORMALS: normal inspection of the chest and normal palpation of entire chest wall Resp: COMMON NORMALS: normal respiratory effort, No retractions, No use of accessory muscles and clear to auscultation bilaterally AUSCULTATION: clear to auscultation bilaterally Cardio: COMMON NORMALS: no JVD, regular rate, regular rhythm and Peripheral pulses 2+ throughout RATE: regular rate RHYTHM: regular rhythm PERIPHERAL PULSES: Peripheral pulses 2+ throughout GI: COMMON NORMALS: Normal to inspection, nondistended, normoactive bowel sounds present, Soft to palpation and non-tender PALPATION: Yes Soft to palpation : COMMON NORMALS: Yes no CVA tenderness BLADDER/KIDNEY EXAM: Yes no CVA tenderness Back/Pelvis: COMMON NORMALS: no CVA tenderness Extremity: COMMON NORMALS: normal to inspection and full ROM Neuro: COMMON NORMALS: patient oriented x3, CN's II-XII intact bilaterally, moves all extremities, no focal motor deficits and no sensory deficits noted SENSORIUM/ORIENTATION: Yes alert Psych: COMMON NORMALS: mental status grossly normal, Normal thought process present, cooperative, normal affect and speech normal SPEECH: Yes normal speech THOUGHT PROCESS: Normal thought process present OTHER: Patient appears to be alert and oriented x3. She knows the month and year. She has no complaints right now. Skin: COMMON NORMALS: no rashes or lesions noted GENERAL SKIN EXAM: no rashes or lesions noted Course Vital Signs: Vital signs: Vital Signs Temperature 97.7 F 09/19/22 17:02 Pulse Rate 71 12/02/21 22:30 Respiratory Rate 14 12/02/21 22:30 Blood Pressure 123/64 12/02/21 22:30 Pulse Oximetry 95 12/02/21 22:30 Oxygen Delivery Me thod 12/02/21 21:00 MDM - Female Medical Decision Making Partially resolved urinary tract infection, mild dehydration Lab Data : 12/02/21 17:35 12/02/21 17:35 Radiology Impressions Chest X-Ray 12/02/21 17:00 IMPRESSION: 1. No acute finding. 2. Stable right T9-10 paraspinous mass. Please refer to prior CT chest report. Head CT 12/02/21 19:42 IMPRESSION: 1. No acute intracranial finding. 2. 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 This is unchanged in retrospect. Further evaluation with CTA is recommended. Laboratory Results WBC 7.8 10^3/uL (4.0-10.0) 12/02/21 17:35 RBC 4.53 10^6/uL (4.1-5.3) 12/02/21 17:35 Hgb 13.4 g/dL (11.5-15.3) 12/02/21 17:35 Hct 40.3 % (37.0-47.0) 12/02/21 17:35 MCV 89.0 fl (81-99) 12/02/21 17:35 MCH 29.6 pg (28.0-34.0) 12/02/21 17:35 MCHC 33.3 g/dL (30.0-36.0) 12/02/21 17:35 RDW 12.9 % (12.1-15.1) 12/02/21 17:35 Plt Count 255 10^3/cmm (130-400) 12/02/21 17:35 MPV 10.1 fL (7.4-10.4) 12/02/21 17:35 Neut % (Auto) 74.4 % 12/02/21 17:35 Lymph % (Auto) 15.7 % 12/02/21 17:35 [place] % (Auto) 7.0 % 12/02/21 17:35 Eos % (Auto) 1.5 % 12/02/21 17:35 Baso % (Auto) 0.9 % 12/02/21 17:35 Neut # (Auto) 5.80 10^3/uL (1.8-7.7) 12/02/21 17:35 Lymph # (Auto) 1.2 10^3/uL (0.8-4.8) 12/02/21 17:35 [place] # (Auto) 0.6 10^3/uL (0.2-0.9) 12/02/21 17:35 Eos # (Auto) 0.1 10^3/uL (0.0-0.8) 12/02/21 17:35 Baso # (Auto) 0.1 10^3/uL (0.0-0.1) 12/02/21 17:35 Nucleated RBC % (auto) 0 % 12/02/21 17:35 Nucleated RBCs # 0.0 /100WBC 12/02/21 17:35 Sodium 136 mmol/L (136-145) 12/02/21 17:35 Potassium 4.0 mmol/L (3.5-5.1) 12/02/21 17:35 Chloride 100 mmol/L (98-107) 12/02/21 17:35 Carbon Dioxide 26 mmol/L (22-29) 12/02/21 17:35 Anion Gap 14.0 (5-19) 12/02/21 17:35 BUN 31 mg/dL (8-23) H 12/02/21 17:35 Creatinine 1.0 mg/dL (0.5-0.9) H 12/02/21 17:35 GFR Calculation Not Reportable 12/02/21 17:35 Glucose 125 mg/dL (65-115) H 12/02/21 17:35 POC Glucose 84 mg/dL (70-110) 12/02/21 20:06 Calculated Osmolality 290 mOsm/kg (285-295) 12/02/21 17:35 Lactate 0.8 mmol/L (0.5-2.2) 12/02/21 20:07 Calcium 9.4 mg/dL (8.5-10.5) 12/02/21 17:35 Total Bilirubin 0.4 mg/dL (0.15-1.2) 12/02/21 17:35 AST 12 U/L (0-32) 12/02/21 17:35 ALT < 5 U/L (0-33) 12/02/21 17:35 Alkaline Phosphatase 131 U/L (35-105) H 12/02/21 17:35 Total Protein 7.4 g/dL (6.6-8.7) 12/02/21 17:35 Albumin 3.8 g/dL (3.5-5.2) 12/02/21 17:35 Globulin 3.6 g/dL (1.3-4.6) 12/02/21 17:35 Urine Color Yellow (Yellow) 12/02/21 20:11 Urine Appearance Clear (CLEAR) 12/02/21 20:11 Urine pH 5 (5-7) 12/02/21 20:11 Ur Specific [place] 1.020 (1.005-1.030) 12/02/21 20:11 Urine Protein 1+ (Negative) H 12/02/21 20:11 Urine Glucose (UA) Norm (Normal) 12/02/21 20:11 Urine Ketones Negative (Negative) 12/02/21 20:11 Urine Blood 2+ (Negative) H 12/02/21 20:11 Urine Nitrate Negative (Negative) 12/02/21 20:11 Urine Bilirubin Neg (Negative) 12/02/21 20:11 Urine Urobilinogen Norm mg/dL (Negative) 12/02/21 20:11 Ur Leukocyte Esterase Trace (Negative) H 12/02/21 20:11 Urine RBC 0-4 /hpf (0-2) H 12/02/21 20:11 Urine WBC 15-25 /hpf (0-5) H 12/02/21 20:11 Ur Squamous Epith Cells 0-4 /hpf (0-5) H 12/02/21 20:11 Amorphous Sediment Not Reportable 12/02/21 20:11 Urine Bacteria 1+ /hpf (NONE) H 12/02/21 20:[address] Head: Radiologist's impression: Ordering Provider/Ordering MD: Herminio Salguero MD Date of Service: 12/02/21 Procedure(s): CT head wo con* [id number] Accession Number(s): [id number] Report Number: [id number] PROCEDURE INFORMATION: Exam: CT Head Without Contrast Exam date and time: 12/02/2021 7:53 PM Age: 85 years old Clinical indication: Altered mental status/memory loss; Patient HX: HX of dimentia; Additional info: Confusion TECHNIQUE: Imaging protocol: Computed tomography of the head without contrast. Radiation optimization: All CT scans at this facility use at least one of these dose optimization techniques: automated exposure control; mA and/or kV adjustment per patient size (includes targeted exams where dose is matched to clinical indication); or iterative reconstruction. COMPARISON: MR head wo con* [id number] 05/01/2020 12:[address] head 04/29/2020 RADIATION DOSE METRICS: Total DLP (mGy-cm): 1050.38 FINDINGS: Brain: Diffuse cortical volume loss, in keeping with patient age. Moderate hypodensities in supratentorial periventricular and subcortical white matter, consistent with microangiopathy. No intracranial hemorrhage. Chronic lacunar infarcts in the anterior limb of the right internal capsule and left subinsular region. Cerebral ventricles: No ventriculomegaly. Paranasal sinuses: Visualized sinuses are unremarkable. No fluid levels. Mastoid air cells: Visualized mastoid air cells are well aerated. Bones/joints: Unremarkable. No acute fracture. Soft tissues: Unremarkable. Vasculature: Stable ectasia of the right vertebral artery with a possible 1.2 cm distal aneurysm. No hyperdense artery. CT/CT head wo con* [id number] IMPRESSION: 1. No acute intracranial finding. 2. 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 This is unchanged in retrospect.? Further evaluation with CTA is recommended. ? Dictated By: Qamar Ricks Signed By: Qamar Ricks Signed Date/Time: 12/02/212025 CXR: Radiologist's impression: Ordering Provider/Ordering MD: Faith Almanzar MD Date of Service: 12/02/21 Procedure(s): XR chest 1V portable [id number] Accession Number(s): [id number] Report Number: [id number] PROCEDURE INFORMATION: Exam: XR Chest Exam date and time: 12/02/2021 6:18 PM Age: 85 years old Clinical indication: Other: AMS TECHNIQUE: Imaging protocol: Radiologic exam of the chest. Views: 1 view. COMPARISON: CR XR chest 1V portable [id number] 05/07/2020 12:11 PM FINDINGS: Lungs: Mild atelectasis in the left lung base with a calcified granuloma. The right lung is clear. No consolidation. Pleural spaces: Unremarkable. No pleural effusion. No pneumothorax. Heart/Mediastinum: Unremarkable. No cardiomegaly. Bones/joints: Unremarkable. Soft tissues: Stable right T9-10 paraspinous mass. XR/XR chest 1V portable [id number] IMPRESSION: 1. No acute finding. 2. Stable right T9-10 paraspinous mass. Please refer to prior CT chest report.? ? Dictated By: Qamar Ricks Signed By: Qamar Ricks Signed Date/Time: 12/02/21 1858 EKG Data EKG 1: I personally reviewed and interpreted this EKG as follows: EKG Data: 12/02/21 EKG interpretation time: 19:49 Interpretation: Normal sinus rhythm with left axis. Left atrial enlargement. Occasional PACs. Normal RI interval, normal QT interval, normal ST segment. Left anterior fascicular block. Discharge Plan Discharge Patient Disposition: Home Clinical Impression: Delirium due to another medical condition Urinary tract infection Qualifiers: Urinary tract infection type: acute cystitis Hematuria presence: with hematuria Qualified Code(s): N30.01 - Acute cystitis with hematuria Condition: Stable Prescriptions: New cephalexin 500 mg capsule 500 mg PO QID 7 Days Qty: 28 0RF Rx Instructions: for infection No Action atorvastatin 40 mg Tablet 40 mg PO BEDTIME@2000 acetaminophen [Tylenol] 325 mg Tablet 650 mg PO Q6H PRN (Reason: Pain) sucralfate 1 gram Tablet See Rx Instructions .ROUTE .COMPLEX Rx Instructions: 1 g orally BEFORE MEALS AND AT BEDTIME ondansetron HCl [Zofran] 4 mg Tablet 4 mg PO Q6H PRN (Reason: NAUSESA/VOMITING) clopidogrel 75 mg Tablet 75 mg PO DAILY@0800 magnesium hydroxide [Milk of Magnesia] 400 mg/5 mL Suspension 30 ml PO DAILY PRN (Reason: Constipation) insulin aspart U-100 [Novolog U-100 Insulin aspart] 100 unit/mL Solution See Rx Instructions .ROUTE .COMPLEX Rx Instructions: USE PER SLIDING SCALE pantoprazole 40 mg Tablet,Delayed Release (Dr/Ec) 40 mg PO BID@0800,1999 ferrous sulfate [iron] 325 mg (65 mg iron) Tablet 325 mg PO BID@0800,1999 Enema Disposable 19-7 gram/118 mL Enema 118 ml RI DAILY PRN (Reason: CONSTIAPTION) Rx Instructions: MAY GIVE IF NO BM 3 DAYS AFTER MOM AND DULCOLAX bisacodyl [Dulcolax (bisacodyl)] 5 mg Tablet,Delayed Release (Dr/Ec) 10 mg PO DAILY PRN (Reason: Constipation) Rx Instructions: MAY GIVE IF NO BM 3 DAYS AFTER MOM. insulin aspart U-100 [Novolog Flexpen U-100 Insulin] 100 unit/mL (3 mL) Insulin Pen 5 unit SUBCUT TID Rx Instructions: TAKE BEFORE MEALS Lantus U-100 Insulin 100 unit/mL solution 15 unit SUBCUT BEDTIME@2000 albuterol sulfate 2.5 mg /3 mL (0.083 %) Solution For Nebulization 2.5 mg INHALATION Q4H PRN (Reason: Shortness Of Breath) tramadol 50 mg Tablet 50 mg PO Q6H PRN (Reason: Pain) Discharge Orders: Discharge ED (Routine); Ordered 12/02/21 Ordered By: Herminio Salguero Referrals: Alonso Ngo DO [Primary Care Provider] - Discharge Diet: Advance as tolerated Discharge Activity: Increase activity as tolerated Patient Instructions: Opioid Safety, Pain Management Activity Restrictions/Additional Instructions: Patient appears to have unresolved urinary tract infection. We will need to discontinue Macrobid and start cephalexin antibiotic tomorrow afternoon. Drink plenty water. Need to encourage drinking water since patient is not drinking water voluntarily. Must keep patient hydrated. Patient was given IV Rocephin here. Follow-up with family doctor as needed. Coding Level of Care Code ED Production Control Expert for Benedicto Fwd Exam Comprehensive
[2021-12-02 20:02] VITALS: BP 132/72; PULSE 75; RESP 16; O2SAT 97
[2021-12-02] MEDS: sodium chloride 0.9% 1,000 ML 999 ML IV (20:14)
[2021-12-02 20:15] LABS: Glucose Point of Care 84 mg/dL (70-110)
[2021-12-02] MEDS: dextrose 50% syringe 50 mL 25 ML IVP (20:53)
[2021-12-02 20:56] LABS: Glucose Urine UA Norm (Normal); Ketones Urine Negative (Negative); Protein Urine 1+ (Negative); Urine Appearance Clear (CLEAR); Urine Color Yellow (Yellow); pH Urine 5 (5-7)
[2021-12-02 20:57] LABS: Add Urine Microscopic? YES; Bilirubin Urine Neg (Negative); Blood Urine 2+ (Negative); Leukocyte Esterase Urine Trace (Negative); Nitrate Urine Negative (Negative); Urobilinogen Urine Norm (Negative)
[2021-12-02 21:00] VITALS: BP 124/69; PULSE 84; RESP 16; O2SAT 95
[2021-12-02 21:00] LABS: Bacteria Urine 1+ /hpf; RBC Urine 0-4 /hpf (0-2); Squamous Epithelial Cell Urine 0-4 /hpf (0-5); WBC Urine 15-25 /hpf (0-5)
[2021-12-02 21:01] LABS: Add Urine Culture? No
[2021-12-02 21:06] LABS: Lactate (Lactic Acid level) 0.8 mmol/L (0.5-2.2)
[2021-12-02 22:30] VITALS: BP 123/64; PULSE 71; RESP 14; O2SAT 95
[2021-12-02] MEDS: cefTRIAXone 1,000 MG in sodium chloride 0.9% (plus) 50 ML 100 MG IV (23:29)
[2021-12-02 23:56] VITALS: BP 158/78; PULSE 74; RESP 17; O2SAT 95
--- NOTE | 2021-12-03 02:41 | ED_ITS ---
HPI - Female Genitourinary General: Chief complaint: Urogenital-Female Stated complaint: AMS/ CONFUSION Time Seen by Provider: 12/02/21 19:21 Source: patient and family Mode of arrival: EMS Limitations: other (Mild dementia) History of Present Illness: See ER chart. Severity: moderate PFSH ED PFSH: Medical History Changing skin lesion Diabetes History of CVA (cerebrovascular accident) History of GI bleed Hyperlipidemia Hypertension Left acute arterial ischemic stroke, MCA (middle cerebral artery) Metastatic cancer Paraspinous mass Surgical History History of left hip replacement (~2014) Family History Daughter Diabetes Denies family history of Anesthesia complication Bleeding disorder Social History Smoking and tobacco status: never smoked Alcohol intake: never Adopted: No Caregiver/support person: Yes Lives independently: Yes Housing: House Marital status: Single Current occupational exposures/hazards: No Pets and animals: Yes Pets & animals: cat(s) History of recent travel: No Sexually active: No Current gender identity: Female Mackenzie/Latter Day: Lutheran Special mackenzie needs: No Financial difficulty paying for basics: Not Applicable Course Vital Signs: Vital signs: Vital Signs Temperature 97.7 F 12/02/21 17:02 Pulse Rate 74 12/02/21 23:56 Respiratory Rate 17 12/02/21 23:56 Blood Pressure 158/78 12/02/21 23:56 Pulse Oximetry 95 12/02/21 23:56 Oxygen Delivery Me thod 12/02/21 21:00 MDM - Female Medical Decision Making See ER chart. Lab Data : 12/02/21 17:35 12/02/21 17:35 Radiology Impressions Chest X-Ray 12/02/21 17:00 IMPRESSION: 1. No acute finding. 2. Stable right T9-10 paraspinous mass. Please refer to prior CT chest report. Head CT 12/02/21 19:42 IMPRESSION: 1. No acute intracranial finding. 2. 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 This is unchanged in retrospect. Further evaluation with CTA is recommended. Laboratory Results WBC 7.8 10^3/uL (4.0-10.0) 12/02/21 17:35 RBC 4.53 10^6/uL (4.1-5.3) 12/02/21 17:35 Hgb 13.4 g/dL (11.5-15.3) 12/02/21 17:35 Hct 40.3 % (37.0-47.0) 12/02/21 17:35 MCV 89.0 fl (81-99) 12/02/21 17:35 MCH 29.6 pg (28.0-34.0) 12/02/21 17:35 MCHC 33.3 g/dL (30.0-36.0) 12/02/21 17:35 RDW 12.9 % (12.1-15.1) 12/02/21 17:35 Plt Count 255 10^3/cmm (130-400) 12/02/21 17: MPV 10.1 fL (7.4-10.4) 12/02/21 17:35 Neut % (Auto) 74.4 % 12/02/21 17:35 Lymph % (Auto) 15.7 % 12/02/21 17:35 [place] % (Auto) 7.0 % 12/02/21 17:35 Eos % (Auto) 1.5 % 12/02/21 17:35 Baso % (Auto) 0.9 % 12/02/21 17:35 Neut # (Auto) 5.80 10^3/uL (1.8-7.7) 12/02/21 17:35 Lymph # (Auto) 1.2 10^3/uL (0.8-4.8) 12/02/21 17:35 Thomas # (Auto) 0.6 10^3/uL (0.2-0.9) 12/02/21 17:35 Eos # (Auto) 0.1 10^3/uL (0.0-0.8) 12/02/21 17:35 Baso # (Auto) 0.1 10^3/uL (0.0-0.1) 12/02/21 17:35 Nucleated RBC % (auto) 0 % 12/02/21 17:35 Nucleated RBCs # 0.0 /100WBC 12/02/21 17:35 Sodium 136 mmol/L (136-145) 12/02/21 17:35 Potassium 4.0 mmol/L (3.5-5.1) 12/02/21 17:35 Chloride 100 mmol/L (98-107) 12/02/21 17:35 Carbon Dioxide 26 mmol/L (22-29) 12/02/21 17:35 Anion Gap 14.0 (5-19) 12/02/21 17:35 BUN 31 mg/dL (8-23) H 12/02/21 17:35 Creatinine 1.0 mg/dL (0.5-0.9) H 12/02/21 17:35 GFR Calculation Not Reportable 12/02/21 17:35 Glucose 125 mg/dL (65-115) H 12/02/21 17:35 POC Glucose 84 mg/dL (70-110) 12/02/21 20:06 Calculated Osmolality 290 mOsm/kg (285-295) 12/02/21 17:35 Lactate 0.8 mmol/L (0.5-2.2) 12/02/21 20:07 Calcium 9.4 mg/dL (8.5-10.5) 12/02/21 17:35 Total Bilirubin 0.4 mg/dL (0.15-1.2) 12/02/21 17:35 AST 12 U/L (0-32) 12/02/21 17:35 ALT < 5 U/L (0-33) 12/02/21 17:35 Alkaline Phosphatase 131 U/L (35-105) H 12/02/21 17:35 Total Protein 7.4 g/dL (6.6-8.7) 12/02/21 17:35 Albumin 3.8 g/dL (3.5-5.2) 12/02/21 17:35 Globulin 3.6 g/dL (1.3-4.6) 12/02/21 17:35 Urine Color Yellow (Yellow) 12/02/21 20:11 Urine Appearance Clear (CLEAR) 12/02/21 20:11 Urine pH 5 (5-7) 12/02/21 20:11 Ur Specific [place] 1.020 (1.005-1.030) 12/02/21 20:11 Urine Protein 1+ (Negative) H 12/02/21 20:11 Urine Glucose (UA) Norm (Normal) 12/02/21 20:11 Urine Ketones Negative (Negative) 12/02/21 20:11 Urine Blood 2+ (Negative) H 12/02/21 20:11 Urine Nitrate Negative (Negative) 12/02/21 20:11 Urine Bilirubin Neg (Negative) 12/02/21 20:11 Urine Urobilinogen Norm mg/dL (Negative) 12/02/21 20:11 Ur Leukocyte Esterase Trace (Negative) H 12/02/21 20:11 Urine RBC 0-4 /hpf (0-2) H 12/02/21 20:11 Urine WBC 15-25 /hpf (0-5) H 12/02/21 20:11 Ur Squamous Epith Cells 0-4 /hpf (0-5) H 12/02/21 20:11 Amorphous Sediment Not Reportable 12/02/21 20:11 Urine Bacteria 1+ /hpf (NONE) H 12/02/21 20:11 EKG Data EKG 1: I personally reviewed and interpreted this EKG as follows: EKG Data: 12/02/21 EKG interpretation time: 19:32 Interpretation: Impression normal sinus rhythm with occasional PVCs. Mild left axis, normal MT interval, normal QT interval, mild left anterior fascicular block. Normal ST segment. Discharge Plan Discharge Patient Disposition: Home Clinical Impression: Delirium due to another medical condition Urinary tract infection Qualifiers: Urinary tract infection type: acute cystitis Hematuria presence: with hematuria Qualified Code(s): N30.01 - Acute cystitis with hematuria Condition: Stable Prescriptions: New cephalexin 500 mg capsule 500 mg PO QID 7 Days Qty: 28 0RF Rx Instructions: for infection No Action atorvastatin 40 mg Tablet 40 mg PO BEDTIME@2000 acetaminophen [Tylenol] 325 mg Tablet 650 mg PO Q6H PRN (Reason: Pain) sucralfate 1 gram Tablet See Rx Instructions .ROUTE .COMPLEX Rx Instructions: 1 g orally BEFORE MEALS AND AT BEDTIME ondansetron HCl [Zofran] 4 mg Tablet 4 mg PO Q6H PRN (Reason: NAUSESA/VOMITING) clopidogrel 75 mg Tablet 75 mg PO DAILY@0800 magnesium hydroxide [Milk of Magnesia] 400 mg/5 mL Suspension 30 ml PO DAILY PRN (Reason: Constipation) insulin aspart U-100 [Novolog U-100 Insulin aspart] 100 unit/mL Solution See Rx Instructions .ROUTE .COMPLEX Rx Instructions: USE PER SLIDING SCALE pantoprazole 40 mg Tablet,Delayed Release (Dr/Ec) 40 mg PO BID@0800,1999 ferrous sulfate [iron] 325 mg (65 mg iron) Tablet 325 mg PO BID@0800,2000 Enema Disposable 19-7 gram/118 mL Enema 118 ml MT DAILY PRN (Reason: CONSTIAPTION) Rx Instructions: MAY GIVE IF NO BM 3 DAYS AFTER MOM AND DULCOLAX bisacodyl [Dulcolax (bisacodyl)] 5 mg Tablet,Delayed Release (Dr/Ec) 10 mg PO DAILY PRN (Reason: Constipation) Rx Instructions: MAY GIVE IF NO BM 3 DAYS AFTER MOM. insulin aspart U-100 [Novolog Flexpen U-100 Insulin] 100 unit/mL (3 mL) Insulin Pen 5 unit SUBCUT TID Rx Instructions: TAKE BEFORE MEALS Lantus U-100 Insulin 100 unit/mL solution 15 unit SUBCUT BEDTIME@1999 albuterol sulfate 2.5 mg /3 mL (0.083 %) Solution For Nebulization 2.5 mg INHALATION Q4H PRN (Reason: Shortness Of Breath) tramadol 50 mg Tablet 50 mg PO Q6H PRN (Reason: Pain) Discharge Orders: Discharge ED (Routine); Ordered 12/02/21 Ordered By: Herminio Salguero Referrals: Alonso Ngo DO [Primary Care Provider] - Discharge Diet: Advance as tolerated Discharge Activity: Increase activity as tolerated Patient Instructions: Opioid Safety, Pain Management Activity Restrictions/Additional Instructions: Patient appears to have unresolved urinary tract infection. We will need to discontinue Macrobid and start cephalexin antibiotic tomorrow afternoon. Drink plenty water. Need to encourage drinking water since patient is not drinking water voluntarily. Must keep patient hydrated. Patient was given IV Rocephin here. Follow-up with family doctor as needed. Coding Level of Care Code ED Prototype Machinist for Benedicto Hanna
== END 2021-12-03 00:52 | disposition home or self-care (01) ==
PROVIDERS: Emergency Medicine; Emergency Provider Family Medicine; PCP Internal Medicine
DX: N30.01 Acute cystitis with hematuria (principal); R41.0 Disorientation, unspecified; R22.2 Localized swelling, mass and lump, trunk; E11.9 Type 2 diabetes mellitus without complications; I10 Essential (primary) hypertension; E78.5 Hyperlipidemia, unspecified; I44.60 Unspecified fascicular block; F03.90 Unspecified dementia, unspecified severity, without behavioral disturbance, psychotic disturbance, mood disturbance, and anxiety; Z79.4 Long term (current) use of insulin; Z86.73 Personal history of transient ischemic attack (TIA), and cerebral infarction without residual deficits
CPT/HCPCS: 36415; 36416; 70450; 71045; 80053; 81001; 82962; 83605; 85025; 87040; 87086; 93005; 96365; 96375; 99285; J0696; J7030

== ENCOUNTER 2021-12-04 13:30 | Inpatient (IN) | payer MEDICAID, SELFPAY ==
[2021-12-04] VITALS (7 sets, daily range): BP systolic 131–201; BP diastolic 74–137; PULSE 73–123; RESP 16–18; TEMP 36.6–37.1; O2SAT 94–98; BMI 25.6; BMI 26.3
[2021-12-04 15:07] LABS: Basophils # 0.1 10^3/uL (0.0-0.1); Basophils % 0.7 %; Eosinophils % 0.3 %; Hematocrit 42.9 % (37.0-47.0); Hemoglobin 13.6 g/dL (11.5-15.3); Lymphocytes # 0.8 10^3/uL (0.8-4.8); Mean Corpuscular HGB Conc 31.7 g/dL (30.0-36.0); Mean Corpuscular Volume 91.5 fl (81-99); Mean Platelet Volume 10.1 fL (7.4-10.4); Monocytes # 0.6 10^3/uL (0.2-0.9); Monocytes % 7.6 %; Neutrophils # 6.06 10^3/uL (1.8-7.7); Nucleated Red Blood Cells % 0 %; Platelet Count 250 10^3/cmm (130-400); Red Blood Count 4.69 10^6/uL (4.1-5.3); Red Cell Distribution Width 12.8 % (12.1-15.1); White Blood Count 7.5 10^3/uL (4.0-10.0)
[2021-12-04 15:24] LABS: Anion Gap 22.3 (5-19); Blood Urea Nitrogen 24 mg/dL (8-23); Calcium 9.4 mg/dL (8.5-10.5); Carbon Dioxide 17 mmol/L (22-29); Chloride 99 mmol/L (98-107); Glucose 196 mg/dL (65-115); Osmolality Calculated 287 mOsm/kg (285-295); Potassium 4.3 mmol/L (3.5-5.1); Sodium 134 mmol/L (136-145)
--- NOTE | 2021-12-04 16:15 | CTR_ITS ---
PROCEDURE INFORMATION: Exam: CT Head Without Contrast Exam date and time: 12/04/2021 4:58 PM Age: 85 years old Clinical indication: Altered mental status/memory loss; Patient HX: AMS, PT combative TECHNIQUE: Imaging protocol: Computed tomography of the head without contrast. Radiation optimization: All CT scans at this facility use at least one of these dose optimization techniques: automated exposure control; mA and/or kV adjustment per patient size (includes targeted exams where dose is matched to clinical indication); or iterative reconstruction. COMPARISON: CT head wo con* [id number] 12/02/2021 7:53 PM RADIATION DOSE METRICS: Total DLP (mGy-cm): 674.18 FINDINGS: Brain: Moderate diffuse cortical volume loss. Severe field opacification of the bilateral external auditory canals, most likely impacted cerumen. hypodensities in supratentorial periventricular and subcortical white matter, consistent with microangiopathy. No intracranial hemorrhage. Cerebral ventricles: No ventriculomegaly. Paranasal sinuses: Visualized sinuses are unremarkable. No fluid levels. Mastoid air cells: Visualized mastoid air cells are well aerated. Bones/joints: Unremarkable. No acute fracture. Soft tissues: Unremarkable. Vasculature: No hyperdense artery. Stable 1.2 cm oval density along the right vertebral artery, suspicious for an aneurysm. CT/CT head wo con* [id number] IMPRESSION: 1. No acute intracranial abnormality. 2. 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
--- NOTE | 2021-12-04 16:16 | ECG_ITS ---
[facility] Test Date: 2021-12-04 Pat Name: Sheri Szymanski Department: Room: Gender: Female Commissary Assistant: : 1935 Requested By: Thiago Ceja Order Number: [id number] [place] MD: Xiomy Roy M.D. Measurements Intervals Belk Rate: 106 P: 54 NM: 147 QRS: -48 QRSD: 89 T: 64 QT: 324 QTc: 430 Interpretive Statements SINUS TACHYCARDIA LEFT ANTERIOR FASCICULAR BLOCK [QRS AXIS <= -45, QR IN I, RS IN II] Compared to ECG 12/02/2021 19:26:17 Sinus rhythm no longer present Electronically Signed On 12-05-2021 8:22:12 CDT by Xiomy Roy M.D. [id number]
--- NOTE | 2021-12-04 16:17 | ED_ITS ---
HPI - General Adult General: Chief complaint: General Medical Stated complaint: throwing food / behavioral Time Seen by Provider: 12/04/21 15:41 Source: family (Daughter) Mode of arrival: EMS Limitations: altered mental status History of Present Illness: This patient returns to the emergency department for the third time in 3 days accompanied by her daughter. Her daughter provides 100% of the history. Her daughter relates that she has been very concerned about her mother being less cooperative and acting out more than she has in the past. She apparently been recently treated for a UTI and that antibiotic's been recently changed. She also apparently has insulin requiring diabetes and has not eaten much today. She is here now with her mother and is requesting additional evaluation. There is no history of recent falls, fevers etc. She is currently a full-time resident in a snf after being discharged from this facility. She does have a history of dementia. Associated symptoms: Reports confusion; Deny chest pain, dyspnea, headache(s), nausea, rash, palpitations or vomiting Review of Systems Const: Denies: fever(s) or chills Eyes: Denies: change in vision ENMT: Denies: odynophagia, nasal discharge or nasal congestion Card: Denies: chest pain or palpitations Resp: Denies: dyspnea, productive cough or non-productive cough GI: Denies: abdominal pain, nausea, vomiting or diarrhea : Denies: flank pain, difficulty voiding, dysuria or urinary frequency Musc: Denies: neck pain, back pain or extremity pain Skin/Breast: Denies: rash or pruritus Neuro: Reports: confusion; Denies: headache(s), difficulty walking, Slurred speech present or seizure-like activity Psych: Reports: anxiety, mood swings and irritability Endo: Denies: polyuria or polydipsia Maurilio/Lymph: Denies: easy bruising All/Imm: Denies: urticaria PFSH ED PFSH: Medical History Changing skin lesion Diabetes History of CVA (cerebrovascular accident) History of GI bleed Hyperlipidemia Hypertension Left acute arterial ischemic stroke, MCA (middle cerebral artery) Metastatic cancer Paraspinous mass Surgical History History of left hip replacement (~2014) Family History Daughter Diabetes Denies family history of Anesthesia complication Bleeding disorder Social History Smoking and tobacco status: never smoked Alcohol intake: never Adopted: No Caregiver/support person: Yes Lives independently: Yes Housing: House Marital status: Single Current occupational exposures/hazards: No Pets and animals: Yes Pets & animals: cat(s) History of recent travel: No Sexually active: No Current gender identity: Female Mackenzie/Yazdanism: Orthodox Special mackenzie needs: No Financial difficulty paying for basics: Not Applicable Physical Exam Narrative: EXAM NARRATIVE: The patient will respond intermittently. He makes good eye contact and tracks my movement about the examination room but at times appears to not want to interact. Const: COMMON NORMALS: no acute distress, average body habitus and alert GENERAL APPEARANCE: well kempt ORIENTATION/CONSCIOUSNESS: Yes awake HENMT: COMMON NORMALS: normocephalic, atraumatic, Normal nasal mucous membranes and turbinates present, moist oral mucous membranes and oropharynx normal HEAD & SCALP: normocephalic and atraumatic FACE & SINUS: normal facial exam NOSE: Normal nasal mucous membranes and turbinates present Eye: COMMON NORMALS: Equal, round and reactive pupils present, EOMs intact bilaterally and conjunctivae normal CONJUNCTIVA: Yes conjunctivae normal PUPIL: Yes Equal, round and reactive pupils present Neck/C-Spine: COMMON NORMALS: full ROM, no lymphadenopathy, supple, no meningeal signs and no JVD Lymph: LYMPHATIC: no lymphadenopathy noted Chest: COMMONS NORMALS: normal inspection of the chest and normal palpation of entire chest wall Resp: COMMON NORMALS: normal respiratory effort, No use of accessory muscles and clear to auscultation bilaterally AUSCULTATION: clear to auscultation bilaterally Cardio: COMMON NORMALS: no JVD, regular rate, regular rhythm, No murmurs present (Cardio) and Peripheral pulses 2+ throughout RATE: regular rate RHYTHM: regular rhythm PERIPHERAL PULSES: Peripheral pulses 2+ throughout GI: COMMON NORMALS: Normal to inspection, nondistended, normoactive bowel sounds present, Soft to palpation, non-tender and no masses PALPATION: Yes Soft to palpation : COMMON NORMALS: Yes no CVA tenderness BLADDER/KIDNEY EXAM: Yes no CVA tenderness Back/Pelvis: COMMON NORMALS: no CVA tenderness, thoracic and lumbar spine normal to inspection, no thoracic nor lumbar tenderness and thoraco-lumbar ROM normal Extremity: COMMON NORMALS: normal to inspection, full ROM, capillary refill normal and no pedal edema Neuro: COMMON NORMALS: moves all extremities and no focal motor deficits SENSORIUM/ORIENTATION: Yes alert MENINGEAL SIGNS: Yes no meningeal signs Psych: APPEARANCE: Yes well kempt ACTIVITY/MOTOR BEHAVIOR: Yes appropriate eye contact SPEECH: Yes minimal MOOD & AFFECT: Yes hostile affect Skin: COMMON NORMALS: no rashes or lesions noted and no wounds GENERAL SKIN EXAM: no rashes or lesions noted Course Reevaluation(s): Reevaluation #1: Nurses state the patient is acting somewhat belligerent and acting out and refusing any kind of intervention and regarding care, IV access etc. I suspect that this may be the underlying etiology of her recurrent emergency department visits especially given the daughters sense of anxiety over how she has been a cting. Time: 17:35 Reevaluation #2: We gave her Zyprexa which the patient seemingly got most of it before she spit some of it out. Had a discussion with her daughters regarding her current presentation. I think this is most likely consistent with the fluctuating mentation that occurs with progressive dementia. She does not have any evidence both clinically or on the last prior ED visits that she has a serious ongoing medical condition such as infection, CVA etc. I was micky with him and thought that perhaps a geriatric psychiatric evaluation might be more indicated in this case. Time: 18:07 Reevaluation #3: Patient has improved after Zyprexa. This has allowed additional work-up concerned about possible underlying medical condition. ABG revealed a pH of 7.34 PCO2 33 PO2 of 81% on room air. Urinalysis is still pending. No other worrisome findings at this time. Time: 20:45 Consultations: Consultation #1: Discussed with hospitalist DR Oliver. He requested serum ketones as well as a lactic acid and then they will come evaluate the patient but did agree that [facility] would be a ultimate option. Time: 22:00 Vital Signs: Vital signs: Vital Signs Temperature 98.7 F 12/04/21 14:02 Pulse Rate 86 12/04/21 21:00 Respiratory Rate 17 12/04/21 21:00 Blood Pressure 131/74 12/04/21 21:00 Pulse Oximetry 98 12/04/21 16:00 Oxygen Delivery Me thod 12/04/21 16:00 MDM - General Adult Medical Decision Making This patient presents to the emergency department for the third time in as many days. She has had some fluctuation in her mental status with some uncooperative and unpredictable outbursts. Previous evaluations have failed to reveal any focal findings to include brain imaging etc. They did note that she had evidence of possible urinary tract infection and has started antibiotic coverage however she has not had any significant change in a short period of time since antibiotics have been started and this has concern family so therefore they ret urned her back to the emergency department. Her evaluation here revealed some uncooperative nature which eventually was controlled with Zyprexa. Work-up was finally instituted with imaging negative for any evidence of acute intracranial changes, pneumonia. Laboratories revealed mild volume depletion as well as a mild mildly low CO2 and a mildly elevated anion gap. It was felt that she would benefit from additional hydration and monitoring and then this will psychiatric transfer for geriatric psych evaluation. Medical Records I reviewed the patient's medical records. Lab Data I reviewed the patient's lab results. : 12/04/21 15:00 12/04/21 15:[address] 12/04/21 16:15 IMPRESSION: 1. No acute intracranial abnormality. 2. 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 Chest X-Ray 12/04/21 20:46 IMPRESSION: No acute findings. Laboratory Results WBC 7.5 10^3/uL (4.0-10.0) 12/04/21 15:00 RBC 4.69 10^6/uL (4.1-5.3) 12/04/21 15:00 Hgb 13.6 g/dL (11.5-15.3) 12/04/21 15:00 Hct 42.9 % (37.0-47.0) 12/04/21 15:00 MCV 91.5 fl (81-99) 12/04/21 15:00 MCH 29.0 pg (28.0-34.0) 12/04/21 15:00 MCHC 31.7 g/dL (30.0-36.0) 12/04/21 15:00 RDW 12.8 % (12.1-15.1) 12/04/21 15:00 Plt Count 250 10^3/cmm (130-400) 12/04/21 15:00 MPV 10.1 fL (7.4-10.4) 12/04/21 15:00 Neut % (Auto) 81.0 % 12/04/21 15:00 Lymph % (Auto) 10.0 % 12/04/21 15:00 [place] % (Auto) 7.6 % 12/04/21 15:00 Eos % (Auto) 0.3 % 12/04/21 15:00 Baso % (Auto) 0.7 % 12/04/21 15:00 Neut # (Auto) 6.06 10^3/uL (1.8-7.7) 12/04/21 15:00 Lymph # (Auto) 0.8 10^3/uL (0.8-4.8) 12/04/21 15:00 [place] # (Auto) 0.6 10^3/uL (0.2-0.9) 12/04/21 15:00 Eos # (Auto) 0.0 10^3/uL (0.0-0.8) 12/04/21 15:00 Baso # (Auto) 0.1 10^3/uL (0.0-0.1) 12/04/21 15:00 Nucleated RBC % (auto) 0 % 12/04/21 15:00 Nucleated RBCs # 0.0 /100WBC 12/04/21 15:00 Sodium 134 mmol/L (136-145) L 12/04/21 15:00 Potassium 4.3 mmol/L (3.5-5.1) 12/04/21 15:00 Chloride 99 mmol/L (98-107) 12/04/21 15:00 Carbon Dioxide 17 mmol/L (22-29) L 12/04/21 15:00 Anion Gap 22.3 (5-19) H 12/04/21 15:00 BUN 24 mg/dL (8-23) H 12/04/21 15:00 Creatinine 1.0 mg/dL (0.5-0.9) H 12/04/21 15:00 GFR Calculation Not Reportable 12/04/21 15:00 Glucose 196 mg/dL (65-115) H 12/04/21 15:00 POC Glucose 231 mg/dL (70-110) H 12/04/21 20:28 Calculated Osmolality 287 mOsm/kg (285-295) 12/04/21 15:00 Calcium 9.4 mg/dL (8.5-10.5) 12/04/21 15:00 Urine Color Yellow (Yellow) 12/04/21 20:56 Urine Appearance Sl hazy (CLEAR) 12/04/21 20:56 Urine pH 5 (5-7) 12/04/21 20:56 Ur Specific [place] 1.020 (1.005-1.030) 12/04/21 20:56 Urine Protein Trace (Negative) 12/04/21 20:56 Urine Glucose (UA) 2+ (Normal) H 12/04/21 20:56 Urine Ketones 3+ (Negative) H 12/04/21 20:56 Urine Blood 2+ (Negative) H 12/04/21 20:56 Urine Nitrate Negative (Negative) 12/04/21 20:56 Urine Bilirubin Neg (Negative) 12/04/21 20:56 Urine Urobilinogen Norm mg/dL (Negative) 12/04/21 20:56 Ur Leukocyte Esterase 2+ (Negative) H 12/04/21 20:56 Urine RBC 5-10 /hpf (0-2) H 12/04/21 20:56 Urine WBC Too numerous to cnt /hpf (0-5) H 12/04/21 20:56 Ur Squamous Epith Cells 0-4 /hpf (0-5) H 12/04/21 20:56 Amorphous Sediment Not Reportable 12/04/21 20:56 Urine Bacteria 3+ /hpf (NONE) H 12/04/21 20:56 Hyaline Casts 0-4 /lpf H 12/04/21 20:56 Fine Granular Casts 0-4 /lpf H 12/04/21 20:56 EKG Data EKG 1: I personally reviewed and interpreted this EKG as follows: Interpretation: EKG reveals a borderline sinus tachycardia 106 bpm. Normal OK interval, QRS duration, QTc interval. She has a leftward axis. This is consistent with a left anterior Heema block. No acute ST-T wave changes noted at this time. Computer generated interpretation: Head CT 12/04/21 16:15 IMPRESSION: 1. No acute intracranial abnormality. 2. 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 Chest X-Ray 12/04/21 20:46 IMPRESSION: No acute findings. Discharge Plan Discharge Patient Disposition: Placed in Observation Clinical Impression: Delirium due to another medical condition, Dementia, Diabetes, Fluid volume depletion Condition: Stable Prescriptions: No Action atorvastatin 40 mg Tablet 40 mg PO BEDTIME@2000 acetaminophen [Tylenol] 325 mg Tablet 650 mg PO Q6H PRN (Reason: Pain) sucralfate 1 gram Tablet See Rx Instructions .ROUTE .COMPLEX Rx Instructions: 1 g orally BEFORE MEALS AND AT BEDTIME ondansetron HCl [Zofran] 4 mg Tablet 4 mg PO Q6H PRN (Reason: NAUSESA/VOMITING) clopidogrel 75 mg Tablet 75 mg PO DAILY@0800 magnesium hydroxide [Milk of Magnesia] 400 mg/5 mL Suspension 30 ml PO DAILY PRN (Reason: Constipation) insulin aspart U-100 [Novolog U-100 Insulin aspart] 100 unit/mL Solution See Rx Instructions .ROUTE .COMPLEX Rx Instructions: USE PER SLIDING SCALE pantoprazole 40 mg Tablet,Delayed Release (Dr/Ec) 40 mg PO BID@0800,1999 ferrous sulfate [iron] 325 mg (65 mg iron) Tablet 325 mg PO BID@0800,1999 Enema Disposable 19-7 gram/118 mL Enema 118 ml OK DAILY PRN (Reason: CONSTIAPTION) Rx Instructions: MAY GIVE IF NO BM 3 DAYS AFTER MOM AND DULCOLAX bisacodyl [Dulcolax (bisacodyl)] 5 mg Tablet,Delayed Release (Dr/Ec) 10 mg PO DAILY PRN (Reason: Constipation) Rx Instructions: MAY GIVE IF NO BM 3 DAYS AFTER MOM. insulin aspart U-100 [Novolog Flexpen U-100 Insulin] 100 unit/mL (3 mL) Insulin Pen 5 unit SUBCUT TID Rx Instructions: TAKE BEFORE MEALS Lantus U-100 Insulin 100 unit/mL solution 15 unit SUBCUT BEDTIME@2000 albuterol sulfate 2.5 mg /3 mL (0.083 %) Solution For Nebulization 2.5 mg INHALATION Q4H PRN (Reason: Shortness Of Breath) tramadol 50 mg Tablet 50 mg PO Q6H PRN (Reason: Pain) cephalexin 500 mg capsule 500 mg PO QID 7 Days Qty: 28 0RF Rx Instructions: for infection Referrals: Alonso Ngo DO [Primary Care Provider] - Coding Level of Care Code ED Help Desk Support for Chg Fwd Exam Comprehensive
[2021-12-04] MEDS: OLANZapine 5 mg ODT 2.5 MG PO (17:45)
[2021-12-04] MEDS: OLANZapine 10 mg VIAL 2.5 MG IM (18:42)
[2021-12-04 18:49] LABS: Glucose Point of Care 256 mg/dL (70-110)
[2021-12-04] MEDS: sodium chloride 0.9% 1,000 ML 999 ML IV (19:59)
[2021-12-04 20:38] LABS: Glucose Point of Care 231 mg/dL (70-110)
--- NOTE | 2021-12-04 20:46 | XRR_ITS ---
PROCEDURE INFORMATION: Exam: XR Chest Exam date and time: 12/04/2021 8:55 PM Age: 85 years old Clinical indication: Other: AMS TECHNIQUE: Imaging protocol: Radiologic exam of the chest. Views: 1 view. COMPARISON: CR (CHEST, ) 12/02/2021 6:18 PM FINDINGS: Lungs: Mild atelectasis in the left lung base. The right lung is clear. Pleural spaces: Unremarkable. No pleural effusion. No pneumothorax. Heart/Mediastinum: Unremarkable. No cardiomegaly. Bones/joints: Unremarkable. XR/XR chest 1V portable [id number] IMPRESSION: No acute findings.
[2021-12-04 21:55] LABS: Protein Urine Trace (Negative); Urine Appearance SL Hazy (CLEAR); Urine Color Yellow (Yellow); pH Urine 5 (5-7)
[2021-12-04 21:56] LABS: Glucose Urine UA 2+ (Normal)
[2021-12-04 21:57] LABS: Add Urine Microscopic? YES; Bilirubin Urine Neg (Negative); Blood Urine 2+ (Negative); Ketones Urine 3+ (Negative); Leukocyte Esterase Urine 2+ (Negative); Nitrate Urine Negative (Negative); Urobilinogen Urine Norm (Negative); WBC Urine TOO NUMEROUS TO CNT /hpf (0-5)
[2021-12-04 21:58] LABS: Add Urine Culture? Yes; Bacteria Urine 3+ /hpf; Fine Granular Casts Urine 0-4 /lpf; Hyaline Casts Urine 0-4 /lpf; Squamous Epithelial Cell Urine 0-4 /hpf (0-5)
[2021-12-04 22:21] LABS: Troponin T (5th) Once 23 ng/L (0-10)
--- NOTE | 2021-12-04 22:44 | PM.HP ---
Providers/Chief Complaint Admitting Physician: Edvin Oliver MD Primary Care Provider: Alonso Ngo DO Chief Complaint: throwing food / behavioral History of Present Illness Sheri Szymanski is a 85 year old female with a past medical history of DVT, off anticoagulation, hypertension hyperlipidemia, insulin-dependent type 2 diabetes mellitus, pancreatitis, history of GI bleed on Plavix requiring transfusion status post EGD showing gastritis, history of left frontal lobe/right lacunar CVA, history of respiratory failure, history of pancreatic tail cyst, who presents [facility] due to altered mental status. Currently patient is alert, but not to person, not to place, to time, she opens her eyes, but falls back asleep. Patient's sister is at bedside, telling me that at the longterm she has been increasingly confused, her blood sugars have been running high so they requested her to come to the emergency room. I spoke to [facility] longterm, at the longterm patient was refusing to take medications refusing to take her insulin, refusing to do things at the longterm requested, she was increasingly confused. At baseline she can carry out conversations, she can ambulate with assistance, no recent falls, recent injuries. No documented fevers, no strokelike symptoms reported, no chest pain reported. Currently patient is opens her eyes, but she does not follow commands, is not alert to person place or time, she falls back asleep,, blood pressure 131/74, pulse 86, respiratory 17, temp 98.7, 98% on room air. This is patient's third ER visit in the last few days due to concerns for confusion, there is also been episodes of agitation towards nursing staff at the longterm. Review of Systems General: Reports: ROS unobtainable due to mental status Medications/Allergies Home Medications Medication Instructions Recorded Confirmed Last Taken Type acetaminophen 325 mg tablet 650 mg PO Q6H PRN Pain 10/04/20 10/29/21 06/05/21 07:56 History (Tylenol) atorvastatin 40 mg tablet 40 mg PO BEDTIME@199910/04/20 10/29/21 06/13/21 20:11 History bisacodyl 5 mg tablet,delayed 10 mg PO DAILY PRN Constipation 10/04/20 10/29/21 Unknown History release (Dulcolax (bisacodyl)) clopidogrel 75 mg tablet 75 mg PO DAILY@00 10/04/20 10/29/21 06/14/21 09:16 History ferrous sulfate 325 mg (65 mg 325 mg PO BID@0800,199910/04/20 10/29/21 06/14/21 09:16 History iron) tablet (iron) insulin aspart U-100 100 unit/mL 5 unit SUBCUT TID 10/04/20 10/29/21 06/14/21 15:40 History (3 mL) subcutaneous pen (Novolog Flexpen U-100 Insulin aspart) insulin aspart U-100 100 unit/mL See Rx Instructions .Route .COMPLEX 10/04/20 10/29/21 06/14/21 15:40 History subcutaneous solution (Novolog U-100 Insulin aspart) insulin glargine 100 unit/mL 15 unit SUBCUT BEDTIME@199910/04/20 10/29/21 06/13/21 20:11 History subcutaneous solution (Lantus U-100 Insulin) magnesium hydroxide 400 mg/5 mL 30 ml PO DAILY PRN Constipation 10/04/20 10/29/21 Unknown History oral suspension (Milk of Magnesia) ondansetron HCl 4 mg tablet 4 mg PO Q6H PRN NAUSESA/VOMITING 10/04/20 10/29/21 09/25/20 History (Zofran) pantoprazole 40 mg tablet,delayed 40 mg PO BID@0800,199910/04/20 10/29/21 06/13/21 15:40 History release sodium phosphates 19 gram-7 118 ml DC DAILY PRN CONSTIAPTION 10/04/20 10/29/21 Unknown History gram/118 mL enema (Enema Disposable) sucralfate 1 gram tablet See Rx Instructions .Route .COMPLEX 10/04/20 10/29/21 06/14/21 15:40 History albuterol sulfate 2.5 mg inhalation Q4H PRN 06/14/21 10/29/21 Unknown History Shortness Of Breath tramadol 50 mg tablet 50 mg PO Q6H PRN Pain 06/14/21 10/29/21 Unknown History cephalexin 500 mg capsule 500 mg PO QID 7 days #28 caps 12/02/21 Unknown Rx Allergies Allergy/AdvReac Type Severity Reaction Status Date / Time No Known Allergies Allergy Verified 12/02/21 17:09 PFSH Acute PFSH: Medical History Changing skin lesion Diabetes History of CVA (cerebrovascular accident) History of GI bleed Hyperlipidemia Hypertension Left acute arterial ischemic stroke, MCA (middle cerebral artery) Metastatic cancer Paraspinous mass Surgical History History of left hip replacement (~2014) Family History Daughter Diabetes Denies family history of Anesthesia complication Bleeding disorder Social History Smoking and tobacco status: never smoked Alcohol intake: never Adopted: No Caregiver/support person: Yes Lives independently: Yes Housing: House Marital status: Single Current occupational exposures/hazards: No Pets and animals: Yes Pets & animals: cat(s) History of recent travel: No Sexually active: No Current gender identity: Female Mackenzie/Latter-Day: Sabianist Special mackenzie needs: No Financial difficulty paying for basics: Not Applicable Vitals/I&O/Wt Last Vital Signs Temp 98.7 F 12/04/21 14:02 Pulse 86 12/04/21 21:00 Resp 17 12/04/21 21:00 BP 131/74 12/04/21 21:00 Pulse Ox 98 12/04/21 16:00 O2 Del Method 12/04/21 16:00 12/04/21 12/04/21 12/04/21 06:59 14:59 22:59 Intake Total 1000 / 1000 Balance 1000 / 1000 Weight last 48 hrs Weight 63.503 kg Physical Exam Const: COMMON NORMALS: no acute distress EXAM LIMITATIONS: altered mental status ORIENTATION/CONSCIOUSNESS: Yes awake and Yes confused; not oriented to person, not oriented to place and not oriented to time HENMT: COMMON NORMALS: normocephalic HEAD & SCALP: normocephalic Neck/C-Spine: COMMON NORMALS: no JVD Resp: COMMON NORMALS: normal respiratory effort, No retractions, No use of accessory muscles and clear to auscultation bilaterally AUSCULTATION: clear to auscultation bilaterally Cardio: COMMON NORMALS: regular rate, regular rhythm, S1 normal heart sound present and S2 normal heart sound present RATE: regular rate RHYTHM: regular rhythm HEART SOUNDS: S1 normal heart sound present and S2 normal heart sound present GI: COMMON NORMALS: Normal to inspection, nondistended, normoactive bowel sounds present, Soft to palpation, non-tender and no masses PALPATION: Yes Soft to palpation and Yes No hepatosplenomegaly present Extremity: COMMON NORMALS: no pedal edema Psych: COMMON NORMALS: mental status grossly normal OTHER: Does not follow neurologic testing Data : 12/04/21 15:00 12/04/21 15:00 A&P Assessment and plan (1) Urinary tract infection: Status: Acute Qualifiers: Hematuria presence: with hematuria Urinary tract infection type: acute cystitis Qualified Code(s): N30.01 - Acute cystitis with hematuria (2) Dementia: Status: Acute (3) Diabetes: Status: Acute Plan Altered mental status -Has evidence of UTI -Also has evidence of dehydration, increased anion gap, creatinine 1, serum ketones negative -CT head no acute abnormality, 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 Plan -Admit to general medical floors -Neurochecks, aspiration precautions, consult speech therapy -Continue Rocephin -Urine cultures, blood cultures -IV fluids -Low-dose sliding scale, Levemir -Lovenox for DVT prophylaxis -Full code Attestations Medical Necessity Statement*: Patient requires hospitalization for altered mental status, outpatient with observation Coding Level of Care Code Acute Facilities Locator for [facility] Diagnoses Urinary tract infection N30.01 Hematuria presence: with hematuria Urinary tract infection type: acute cystitis Dementia F03.90 Diabetes E11.9
[2021-12-04 22:45] LABS: Ketone (Acetest) Serum Negative (Negative)
[2021-12-04] MEDS: insulin glargine 100 units/1 mL 15 UNIT SUBCUT (22:47)
[2021-12-04] MEDS: cefTRIAXone 2,000 MG in sodium chloride 0.9% (plus) 50 ML 100 MG IV (22:49)
[2021-12-04 22:51] LABS: C Reactive Protein 6.2 mg/L (0.0-4.9); Lactate (Lactic Acid level) 0.9 mmol/L (0.5-2.2); Lipase 10 U/L (13-60)
[2021-12-04 22:52] LABS: Glucose Point of Care 239 mg/dL (70-110)
[2021-12-04 22:52] LABS: Magnesium 1.9 mg/dL (1.7-2.3)
[2021-12-04 22:57] LABS: Procalcitonin 0.05 ng/mL (0-0.5)
[2021-12-05] VITALS (10 sets, daily range): BP systolic 108–150; BP diastolic 63–81; PULSE 59–89; RESP 14–17; TEMP 36.5–37.1; O2SAT 92–96
--- NOTE | 2021-12-05 00:01 | PC.NURSE ---
ADMIT NOTE Pt received to floor from ER at 2340. Is alert but appears sleepy. Daughter at bedside on arrival. Says pt has been being treated for UTI at the Long-Term but just kept getting worse. Today was more confused than normal and was agitated and aggressive which she says is not pts usual. Has dementia but daughter says more short term memory loss than anything else. Received Zyprexa per ER report and pt is now calm and cooperative. IV fluids started at 125ml/hr rate and finished up IV Rocephin started in the ER. Daughter will be staying with tonight but for now is going to waiting room to make calls. RN completing admission assessment. Bed alarm on for pt safety.
[2021-12-05 00:28] LABS: NT Pro B Type Natriuretic Pept 437 pg/mL (0-450)
[2021-12-05] MEDS: sucralfate 1 gm Tablet PO ×4 (00:34→20:22)
[2021-12-05] MEDS: sodium chloride 0.9% 1,000 ML 125 ML IV ×4 (00:34→21:50)
[2021-12-05] MEDS: enoxaparin 40 mg/0.4 mL Syringe SUBCUT ×2 (00:35→23:04)
[2021-12-05 03:45] LABS: ABG PCO2 33.7 mmHg (35-45); ABG PH Result 7.34 (7.35-7.45)
[2021-12-05 03:46] LABS: Base Excess ABG -6.5 mmol/L (-2.0-2.0); HCO3 ABG 18.4 mmol/L (22-26); Oxygen Saturation ABG 96.6; PO2 ABG 81.6 mmHg (80.0-100.0); Potassium Level - ABG 4.2 mmol/L (3.5-5.0)
[2021-12-05 03:47] LABS: Arterial Blood Gas Hematocrit 40.3 % (37-47); Blood Gas Drawn By WALCI
[2021-12-05 03:48] LABS: Carboxyhemoglobin 1.1 %THgb (0.4-20.1); HGB O2 Sat 94.9 % (95-100); Ionized Calcium Level - ABG 1.2 mmol/L (1.1-1.4); Methemoglobin 0.7 % (0.4-1.5); Total Hemoglobin 13.2 g/dL (12-16)
[2021-12-05 06:48] LABS: Glucose Point of Care 167 mg/dL (70-110)
[2021-12-05 08:17] LABS: Eosinophils # 0.1 10^3/uL (0.0-0.8); Eosinophils % 1.5 %; Hematocrit 39.2 % (37.0-47.0); Hemoglobin 12.3 g/dL (11.5-15.3); Lymphocytes # 0.7 10^3/uL (0.8-4.8); Lymphocytes % 16.7 %; Mean Corpuscular HGB Conc 31.4 g/dL (30.0-36.0); Mean Corpuscular Hemoglobin 29.2 pg (28.0-34.0); Mean Corpuscular Volume 93.1 fl (81-99); Mean Platelet Volume 9.9 fL (7.4-10.4); Monocytes # 0.3 10^3/uL (0.2-0.9); Monocytes % 7.9 %; Neutrophils # 2.93 10^3/uL (1.8-7.7); Neutrophils % 71.9 %; Nucleated Red Blood Cells % 0 %; Platelet Count 202 10^3/cmm (130-400); Red Blood Count 4.21 10^6/uL (4.1-5.3); Red Cell Distribution Width 12.9 % (12.1-15.1); White Blood Count 4.1 10^3/uL (4.0-10.0)
[2021-12-05] MEDS: ziprasidone 20 mg/mL SDV 10 MG IM (08:40)
[2021-12-05] MEDS: insulin lispro 100 unit/1 mL SUBCUT (08:42)
[2021-12-05 08:49] LABS: Blood Urea Nitrogen 21 mg/dL (8-23); Calcium 8.4 mg/dL (8.5-10.5); Carbon Dioxide 22 mmol/L (22-29); Chloride 106 mmol/L (98-107); Glucose 164 mg/dL (65-115); Magnesium 1.8 mg/dL (1.7-2.3); Osmolality Calculated 295 mOsm/kg (285-295); Phosphorus 2.3 mg/dL (2.5-4.5); Sodium 139 mmol/L (136-145); Thyroid Stimulating Hormone 1.42 uIU/mL (0.27-4.20)
[2021-12-05 09:35] LABS: Estmated Average Glucose 192; Hemoglobin A1C 8.3 % (4.0-6.0)
--- NOTE | 2021-12-05 10:03 | PM.PN ---
Subjective Subjective: Patient seems to be suffering from delirium She did communicate with me she told me her date of , she told me her favorite president is Long Gonzalez Daughter is at the bedside who is very anxious that her mom is aggressive at this point I did tell her that this is delirium related to UTI Patient is not allowing us to give anything to her IVs, she did allow night nurse to give her medications when she got anxiolytics This morning she got intramuscular Geodon 10 mg Vitals/I&O/Wt Last Vital Signs Temp 97.8 F 12/05/21 07:34 Pulse 89 12/05/21 07:34 Resp 17 12/05/21 07:34 BP 150/72 12/05/21 07:34 Pulse Ox 95 12/05/21 07:34 O2 Del Method 12/05/21 07:34 12/04/21 12/05/21 12/05/21 22:59 06:59 14:59 Intake Total 1000 / 1000 120 / 1120 1050 / 1050 Output Total 250 / 250 Balance 1000 / 1000 -130 / 870 1050 / 1050 Weight last 48 hrs Weight 65.317 kg Weight 63.503 kg Physical Exam Narrative: Clinically patient looks dehydrated Awake and alert Oriented to herself Cephalexin delirium Following commands Tangential thoughts Sometimes aggressive towards nursing staff Awake and alert Able to move all extremities without any difficulty S1, S2 Currently on room air Data : 12/05/21 08:06 12/05/21 08:06 Micro: Microbiology 12/05/21 08:06 Blood Culture - Preliminary Blood SPECIMEN COLLECTED 12/04/21 22:40 Blood Culture - Preliminary Blood SPECIMEN COLLECTED A&P Assessment and plan (1) Urinary tract infection: Status: Acute Qualifiers: Hematuria presence: with hematuria Urinary tract infection type: acute cystitis Qualified Code(s): N30.01 - Acute cystitis with hematuria (2) Delirium due to another medical condition: Status: Acute (3) Diabetes: Status: Acute (4) Dementia: Status: Acute (5) Fluid volume depletion: Status: Acute Plan Acute delirium related to UTI with underlying dementia She received intramuscular Geodon this morning Clinically looks dehydrated She definitely needs IV antibiotics and IV fluids This will be our challenge to administer her medications especially when she is aggressive towards the staff DVT prophylaxis on board Full code Daughter at the bedside 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
[2021-12-05] MEDS: pantoprazole DR 40 mg Tablet PO ×2 (10:22→20:23)
[2021-12-05] MEDS: ferrous sulfate EC 325 mg Tablet PO (10:22)
[2021-12-05] MEDS: clopidogrel 75 mg Tablet PO (10:22)
--- NOTE | 2021-12-05 10:54 | PC.NURSE ---
This morning patient was agitated and beginning to become combative. This nurse reported patient's behavior to Dr. Simmons. This nurse received verbal order to administer 10 mg Geodone Intramuscular. Patient's daughter is at bedside. Patient is resting in bed at this time.
[2021-12-05 11:06] LABS: Glucose Point of Care 138 mg/dL (70-110)
--- NOTE | 2021-12-05 12:18 | PC.CHAP ---
Pastoral Care Encounter/Spiritual Assessment Type of Contact [] Declined correctional security officer visit [] Patient/Family/Request visit [] Outpatient visit [] Follow-up visit [] Physician referral [] Code/Alert [x] Routine visit [] Staff referral [] Actively dying [] Patient sleeping [] Family support [] [] Out of room [] Palliative care [] [x] Receiving care in room [] Pre-surgical visit [] Trauma [x] Long length of stay [] ICU visit [x] Other: unable to coomuincate with staff Relational/Emotional Strength [] Patient feels connected with others/family/visitors/staff [] Distress [] Loneliness/isolation [] Abandonment Spirituality of Patient [] Person of [place] [] Attends Latter-Day of their [place] [] Believes in Prayer [] Reads Bible or Yazidism materials [] There are Spiritual issues to be addressed Commercial Truck Driver Interventions [] Prayer [] Active listening [] Non-anxious presence [] Spiritual/emotional support [] Crisis/trauma care [] Spiritual counseling [] Bereavement support [] Provided bereavement packet [] Provided Bible/devotional materials [] Provided toy/stuffed animal, coloring book to patient or family member [] Provided Communion [] Anointing/[place] [] Salvation [] Completed spiritual assessment [] Other: Impact on Illness or Injury [] Angry [] Fearful [] Anxious [] Often cries [] Exhaustion [] Unable to work [] Unable to attend latter day [] Unable to walk/stand [] Unable to read [] Unable to drive [] Unable to eat/drink [] Unable to sleep [] Unable to be with family [] Patient intubated [] Other: Summary unable to coomuincate with staff Time spent with patient 5 mins
[2021-12-05 17:18] LABS: Glucose Point of Care 128 mg/dL (70-110)
[2021-12-05] MEDS: quetiapine 25 mg Tablet PO (17:27)
[2021-12-05] MEDS: atorvastatin 40 mg Tablet PO (20:23)
[2021-12-05 21:47] LABS: Glucose Point of Care 96 mg/dL (70-110)
[2021-12-05] MEDS: cefTRIAXone 1,000 MG in sodium chloride 0.9% (plus) 50 ML 100 MG IV (21:48)
[2021-12-06] VITALS (8 sets, daily range): BP systolic 146–173; BP diastolic 72–88; PULSE 69–102; RESP 16–18; TEMP 36.4–37.2; O2SAT 95–98
[2021-12-06 05:32] LABS: Basophils % 0.7 %; Eosinophils # 0.1 10^3/uL (0.0-0.8); Eosinophils % 2.3 %; Hematocrit 39.6 % (37.0-47.0); Hemoglobin 12.6 g/dL (11.5-15.3); Lymphocytes # 0.8 10^3/uL (0.8-4.8); Lymphocytes % 18.5 %; Mean Corpuscular HGB Conc 31.8 g/dL (30.0-36.0); Mean Corpuscular Hemoglobin 28.6 pg (28.0-34.0); Mean Platelet Volume 10.3 fL (7.4-10.4); Monocytes # 0.3 10^3/uL (0.2-0.9); Neutrophils # 2.99 10^3/uL (1.8-7.7); Nucleated Red Blood Cells % 0 %; Platelet Count 187 10^3/cmm (130-400); Red Cell Distribution Width 12.6 % (12.1-15.1); White Blood Count 4.3 10^3/uL (4.0-10.0)
[2021-12-06 05:55] LABS: Anion Gap 16.3 (5-19); Blood Urea Nitrogen 12 mg/dL (8-23); Calcium 8.2 mg/dL (8.5-10.5); Carbon Dioxide 22 mmol/L (22-29); Chloride 104 mmol/L (98-107); Glucose 99 mg/dL (65-115); Osmolality Calculated 288 mOsm/kg (285-295); Potassium 3.3 mmol/L (3.5-5.1); Sodium 139 mmol/L (136-145)
[2021-12-06] MEDS: sucralfate 1 gm Tablet PO ×2 (06:09→20:47)
[2021-12-06 06:55] LABS: Glucose Point of Care 98 mg/dL (70-110)
--- NOTE | 2021-12-06 10:02 | PM.PN ---
Subjective Subjective: Patient is still very agitated and aggressive and not cooperating with the staff she did not allow me to examine her She still hypertensive and hypokalemic I have added amlodipine and potassium supplementation She is not eating very well Vitals/I&O/Wt Last Vital Signs Temp 98.2 F 12/06/21 07:42 Pulse 102 H 12/06/21 07:42 Resp 16 12/06/21 07:42 BP 173/88 12/06/21 07:42 Pulse Ox 98 12/06/21 07:42 O2 Del Method 12/06/21 07:42 12/05/21 12/06/21 12/06/21 22:59 06:59 14:59 Intake Total 1645.833 / 2695.833 50 / 50 Output Total 300 / 300 Balance 1645.833 / 2695.833 -300 / 2395.833 50 / 50 Weight last 48 hrs Weight 65.317 kg Weight 63.503 kg Physical Exam Narrative: Clinically patient looks dehydrated Nonfocal neuro exam Looks dehydrated S1, S2 Hypertensive Tachycardic Abdomen soft Currently on room air Aggressive and noncooperative Data : 12/06/21 04:36 12/06/21 04:36 Micro: Microbiology 12/04/21 20:56 Urine Culture - Preliminary Urine,Clean Catch 12/05/21 08:06 Blood Culture - Preliminary Blood NEGATIVE TO DATE 12/04/21 22:40 Blood Culture - Preliminary Blood NEGATIVE TO DATE A&P Assessment and plan (1) Urinary tract infection: Status: Acute Qualifiers: Hematuria presence: with hematuria Urinary tract infection type: acute cystitis Qualified Code(s): N30.01 - Acute cystitis with hematuria (2) Delirium due to another medical condition: Status: Acute (3) Dementia: Status: Acute (4) Diabetes: Status: Acute (5) Fluid volume depletion: Status: Acute (6) Gastritis: Status: Acute Plan Hypokalemia: Repleted Signs of dehydration continue IV fluids UTI: Continue ceftriaxone Patient is aggressive and uncooperative Acute delirium with underlying dementia I have added Seroquel 25 mg twice daily She also has as needed intramuscular Haldol Hypertensive added amlodipine She might need psych evaluation if bleeding does not get better by tomorrow Afebrile, no leukocytosis DVT prophylaxis Lovenox Attestations Medical Necessity Statement*: Continue medical management Time Spent in Patient Care: 35 Coding Level of Care Code Acute Geospatial Imagery Intelligence Analyst for Chg Fwd Diagnoses Urinary tract infection N30.01 Hematuria presence: with hematuria Urinary tract infection type: acute cystitis Delirium due to another medical condition F05 Dementia F03.90 Diabetes E11.9 Fluid volume depletion E86.9 Gastritis K29.70
[2021-12-06] MEDS: haloperidol inj 5 mg/mL INJ 1 mL 1 MG IM (10:36)
[2021-12-06 11:36] LABS: Glucose Point of Care 105 mg/dL (70-110)
[2021-12-06] MEDS: sodium chloride 0.9% 1,000 ML 50 ML IV (12:05)
[2021-12-06 12:54] LABS: Alveolar-Arterial Oxygen Gradi 3.2 mmHg (5-10); Blood Gas Allen Test Pos; Blood Gas Operator Identificat WALCI; Blood Gas Sample Site Radial, right; Blood Gas Sample Type Arterial
[2021-12-06 17:10] LABS: Glucose Point of Care 94 mg/dL (70-110)
[2021-12-06] MEDS: atorvastatin 40 mg Tablet PO (20:47)
[2021-12-06] MEDS: pantoprazole DR 40 mg Tablet PO (20:47)
[2021-12-06] MEDS: cefTRIAXone 1,000 MG in sodium chloride 0.9% (plus) 50 ML 100 MG IV (23:34)
[2021-12-07] VITALS (7 sets, daily range): BP systolic 138–161; BP diastolic 76–84; PULSE 74–100; RESP 15–16; TEMP 36.9; O2SAT 96
[2021-12-07] MEDS: sodium chloride 0.9% 1,000 ML 50 ML IV ×2 (04:57→19:59)
[2021-12-07 06:51] LABS: Glucose Point of Care 98 mg/dL (70-110)
--- NOTE | 2021-12-07 07:30 | PC.NURSE ---
Bed alarm sounding, this nurse to room, patient attempting to get out of bed with IV pulled out tip intact, assisted patient to bedside commode, voided 200mL of clear yellow urine, linens changed.
--- NOTE | 2021-12-07 07:57 | PC.NURSE ---
Dr. Simmons notified of patients potassium level yesterday of 3.3, no lab work today due to patient refusing.
[2021-12-07] MEDS: clopidogrel 75 mg Tablet PO (09:06)
--- NOTE | 2021-12-07 09:30 | PC.NURSE ---
Patient refusing to take scheduled morning medication, daughter in room, also encouraging patient, unable to get patient to comply, patient also refuses to eat any breakfast, IV inserted to right forearm coban applied, bed alarm activated, daughter in room.
--- NOTE | 2021-12-07 10:42 | PM.PN ---
Subjective Subjective: Patient still has poor p.o. intake Able to follow commands to some extent Daughter at the bedside Daughter is requesting for hospice consultation I have requested neuropsych evaluation as well patient most likely would benefit from mirtazapine She will go to Alzheimer's unit on Thursday to [facility] I have discontinued her antibiotics, afebrile Urine culture negative IV fluids running at the bedside Vitals/I&O/Wt Last Vital Signs Temp 98.5 F 12/07/21 00:00 Pulse 100 12/07/21 06:00 Resp 15 12/07/21 07:57 BP 157/76 12/07/21 07:57 Pulse Ox 96 12/07/21 00:00 O2 Del Method 12/07/21 00:00 12/06/21 12/07/21 12/07/21 22:59 06:59 14:59 Intake Total 843.333 / 893.333 50 / 50 Output Total 200 / 200 Balance 843.333 / 893.333 -150 / -150 Physical Exam Narrative: She is awake and alert Able to follow commands however after few minutes she shuts her eyes and then pretends she is not listening to anything She is able to move all of her extremities No active signs of stroke Nonfocal neuro exam Signs of dehydration present S1, S2 Currently on room air Abdomen soft Pupils are reactive to light Data : 12/06/21 04:36 12/06/21 04:36 Micro: Microbiology 12/04/21 20:56 Urine Culture - Final Urine,Clean Catch 12/05/21 08:06 Blood Culture - Preliminary Blood NEGATIVE TO DATE A&P Assessment and plan (1) Urinary tract infection: Qualifiers: Hematuria presence: with hematuria Urinary tract infection type: acute cystitis Qualified Code(s): N30.01 - Acute cystitis with hematuria (2) Delirium due to another medical condition: (3) Dementia: (4) Fluid volume depletion: Plan UTI Urine culture negative discontinued ceftriaxone Dehydration continue IV fluids for now Poor p.o. intake anorexia Will add mirtazapine Delirium with underlying dementia Will need Alzheimer's unit For her behavioral issues she has been getting Seroquel twice a day Full code Daughter is requesting hospice consultation I have requested Dr. Hoskins to evaluate her at the bedside as well Medications to be discontinued atorvastatin, Plavix, iron, Discharge on Thursday Attestations Medical Necessity Statement*: Discharge on Thursday Time Spent in Patient Care: 40 Coding Level of Care Code Acute Geosciences Associate Professor for Chg Fwd Diagnoses Urinary tract infection N30.01 Hematuria presence: with hematuria Urinary tract infection type: acute cystitis Delirium due to another medical condition F05 Dementia F03.90 Fluid volume depletion E86.9
--- NOTE | 2021-12-07 13:05 | PC.SLP ---
Attempted to work with the pt at lunch, but she was too agitated to attempt oral intake or sit up.
[2021-12-07] MEDS: LORazepam 0.5 mg Tablet PO (14:47)
--- NOTE | 2021-12-07 16:08 | W.PM.PSYCONS ---
Providers/Reason for Consult Consulting Physican/Specialty*: Alphonso Hoskins MD. Psychiatry. Reason for Consult*: Altered mental status. Attending Physician: Camacho Simmons MD Primary Care Provider: Alonso Ngo DO Psych Consult HPI History of Present Illness Sheri Szymanski is a 85 year old female who presented to the emergency department with the following: Chief complaint: General Medical Stated complaint: throwing food / behavioral Time Seen by Provider: 12/04/21 15:41 Source: family (Daughter) Mode of arrival: EMS Limitations: altered mental status History of Present Illness: This patient returns to the emergency department for the third time in 3 days accompanied by her daughter. Her daughter provides 100% of the history. Her daughter relates that she has been very concerned about her mother being less cooperative and acting out more than she has in the past. She apparently been recently treated for a UTI and that antibiotic's been recently changed. She also apparently has insulin requiring diabetes and has not eaten much today. She is here now with her mother and is requesting additional evaluation. There is no history of recent falls, fevers etc. She is currently a full-time resident in a intermediate after being discharged from this facility. She does have a history of dementia. Associated symptoms: Reports confusion; Deny chest pain, dyspnea, headache(s), nausea, rash, palpitations or vomiting. She was admitted to the [facility] for definitive treatment of those issues. Treatment was initiated for UTI and she was continued on home medications and monitored for improvement. A second consult was requested as there was limited improvement in her mental status as family endorsed a significant alteration from just days earlier. Patient is at today as a impaired historian only mumbling a few comments during the interview. Luckily her daughter was present and provided some historical framework. She reports that patient was recently active several days ago getting up independently in the morning, dressing herself, making her own bed. As recently as a few days ago she went to [facility] and was able to follow the numbers being called enough to have a few wins. And then the changes that were identified in the Emergency Department occurred and since then she has been diminished in her oral communication, psychomotor retarded and losing her independence. That is on history of depression/anxiety but nothing that daughter reports has recently caused any significant issues. Patient was occasionally noting that this freelance writer was in the room and with her daughter's assistance there were a couple of questions that she seemed to take instead of answering but otherwise stoic, mute and not engaging or interacting with this freelance writer. Meds Home Medications and Allergies Home Medications Medication Instructions Recorded Confirmed Last Taken Type acetaminophen 325 mg tablet 650 mg PO Q6H PRN Pain 10/04/20 12/05/21 06/05/21 07:56 History (Tylenol) atorvastatin 40 mg tablet 40 mg PO BEDTIME@199910/04/20 12/05/21 06/13/21 20:11 History bisacodyl 5 mg tablet,delayed 10 mg PO DAILY PRN Constipation 10/04/20 12/05/21 Unknown History release (Dulcolax (bisacodyl)) clopidogrel 75 mg tablet 75 mg PO DAILY@0800 10/04/20 12/05/21 06/14/21 09:16 History insulin aspart U-100 100 unit/mL 7 unit SUBCUT TID 10/04/20 12/05/21 06/14/21 15:40 History (3 mL) subcutaneous pen (Novolog Flexpen U-100 Insulin aspart) insulin aspart U-100 100 unit/mL See Rx Instructions .Route .COMPLEX 10/04/20 12/05/21 06/14/21 15:40 History subcutaneous solution (Novolog U-100 Insulin aspart) insulin glargine 100 unit/mL 15 unit SUBCUT BEDTIME@199910/04/20 12/05/21 06/13/21 20:11 History subcutaneous solution (Lantus U-100 Insulin) magnesium hydroxide 400 mg/5 mL 30 ml PO DAILY PRN Constipation 10/04/20 12/05/21 Unknown History oral suspension (Milk of Magnesia) pantoprazole 40 mg tablet,delayed 40 mg PO BID@0800,199910/04/20 12/05/21 06/13/21 15:40 History release sodium phosphates 19 gram-7 118 ml [place] DAILY PRN CONSTIAPTION 10/04/20 12/05/21 Unknown History gram/118 mL enema (Enema Disposable) albuterol sulfate 2.5 mg inhalation Q4H PRN 06/14/21 12/05/21 Unknown History Shortness Of Breath tramadol 50 mg tablet 50 mg PO Q6H PRN Pain 06/14/21 12/05/21 Unknown History cephalexin 500 mg capsule 500 mg PO QID 7 days #28 caps 12/02/21 12/05/21 Unknown Rx loperamide 2 mg capsule 2 mg PO Q6H PRN Diarrhea 12/05/21 12/05/21 Unknown History sertraline 25 mg tablet (Zoloft) 50 mg PO BEDTIME 12/05/21 12/05/21 Unknown History Allergies Allergy/AdvReac Type Severity Reaction Status Date / Time No Known Allergies Allergy Verified 12/05/21 08:26 Current Medications Current Medications Generic Name Dose Route Start Last Admin Trade Name Freq PRN Reason Stop Dose Admin Amlodipine Besylate 10 mg 12/06/21 10:05 12/07/21 09:27 Amlodipine 10 Mg Tablet PO Not Given DAILY [facility] Enoxaparin Sodium 40 mg 12/05/21 00:30 12/07/21 04:56 Enoxaparin 40 Mg/0.4 Ml Syringe SUBCUT Not Given Q24H [facility] Haloperidol Lactate 1 mg 12/04/21 23:56 12/06/21 10:36 Haloperidol Inj 5 Mg/Ml Inj 1 Ml IM 1 mg Q4H PRN Administration AGITATION Sodium Chloride 1,000 mls @ 50 mls/hr 12/04/21 23:56 12/07/21 04:57 Sodium Chloride 0.9% IV 50 mls/hr .Q20H [facility] Administration Insulin Glargine 15 unit 12/05/21 20:00 12/06/21 23:33 Insulin Glargine 100 Units/1 Ml SUBCUT Not Given BEDTIME@1999 [facility] Insulin Human Lispro 0 unit 12/05/21 08:00 12/07/21 17:36 Insulin Lispro 100 Unit/1 Ml SUBCUT Not Given TIDWM [facility] Protocol Lorazepam 0.5 mg 12/07/21 15:00 12/07/21 14:47 Lorazepam 0.5 Mg Tablet PO 0.5 mg TID [facility] Administration Pantoprazole Sodium 40 mg 12/05/21 08:00 12/07/21 09:[address] 40 Mg Tablet PO Not Given BID@799,1999 [facility] Quetiapine Fumarate 25 mg 12/05/21 18:00 12/07/21 17:35 Quetiapine 25 Mg Tablet PO Not Given BID [facility] Sucralfate 1 gm 12/04/21 23:56 12/07/21 17:35 Sucralfate 1 Gm Tablet PO Not Given AC&BEDTIME FRANK PFSH NPU PFSH: Medical History Changing skin lesion Diabetes History of CVA (cerebrovascular accident) History of GI bleed Hyperlipidemia Hypertension Left acute arterial ischemic stroke, MCA (middle cerebral artery) Metastatic cancer Paraspinous mass Surgical History History of left hip replacement (~2014) Family History Daughter Diabetes Denies family history of Anesthesia complication Bleeding disorder Social History Smoking and tobacco status: never smoked Alcohol intake: never Adopted: No Caregiver/support person: Yes Lives independently: Yes Housing: House Marital status: Single Current occupational exposures/hazards: No Pets and animals: Yes Pets & animals: cat(s) History of recent travel: No Sexually active: No Current gender identity: Female Mackenzie/Latter Day: Presybeterian Special mackenzie needs: No Financial difficulty paying for basics: Not Applicable Mental Status Exam MSE Comments: This is an overweight white female in hospital gown lying in bed with limited grooming and eye contact. No abnormal movements except for significant psychomotor retardation. No waxy flexibility but also on did not just drop back to the bed. Uncooperative with exam in no acute distress. Speech was essentially absent and mute with occasional 1 word or 2 word mumbling on a couple occasions. Mood not described, affect stoic. Thought process nonlinear. Thought content: Patient did not have outwardly or inwardly directed aggression though daughter did report some of her last sentences formed were about already being , there are no delusions reported and no conversation or signs that could identify delusional thinking, do not appear to be attending to internal stimuli. Attention concentration were impaired and memory was unable to be obtained but none were formally tested. She is alert but no signs of orientation. Insight, judgment and impulse control are impaired. Vitals/I&O/Wt Last Vital Signs Temp 98.5 F 12/07/21 00:00 Pulse 75 12/07/21 15:32 Resp 16 12/07/21 15:32 BP 161/82 12/07/21 15:32 Pulse Ox 96 12/07/21 00:00 O2 Del Method 12/07/21 00:00 12/07/21 12/07/21 12/07/21 06:59 14:59 22:59 Intake Total 843.333 / 893.333 50 / 50 Output Total 200 / 200 Balance 843.333 / 893.333 -150 / -150 Data NPU : 12/06/21 04:36 12/06/21 04:36 Micro: Microbiology 12/04/21 20:56 Urine Culture - Final Urine,Clean Catch Microbiology 12/04/21 20:56 Urine,Clean Catch Urine Culture - Final A&P Assessment and plan (1) Urinary tract infection: Qualifiers: Hematuria presence: with hematuria Urinary tract infection type: acute cystitis Qualified Code(s): N30.01 - Acute cystitis with hematuria (2) Delirium due to another medical condition: (3) Dementia: (4) Catatonia: Plan This is an 85-year-old white female with concerns for recent UTI and altered mental status who presents with a likely case of catatonia due to her apparent amotivational presentation. 1. Continue current medication. Start Ativan 0.5 mg p.o. or IM 3 times daily given that she is not receiving the medications orally with purpose. 2. We will continue to follow. Attestations NPU Medical Necessity Statement*: N/A. Please see primary team note for medical necessity details. 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
[2021-12-07] MEDS: haloperidol inj 5 mg/mL INJ 1 mL 1 MG IM (21:16)
[2021-12-07 21:30] LABS: Glucose Point of Care 199 mg/dL (70-110)
[2021-12-07] MEDS: insulin glargine 100 units/1 mL 15 UNIT SUBCUT (22:00)
[2021-12-08] MEDS: enoxaparin 40 mg/0.4 mL Syringe SUBCUT ×2 (00:07→23:50)
[2021-12-08 00:16] VITALS: BP 144/82; PULSE 91; RESP 16; O2SAT 96
[2021-12-08 06:39] LABS: Glucose Point of Care 136 mg/dL (70-110)
[2021-12-08 07:42] VITALS: BP 158/86; PULSE 102; RESP 18; TEMP 36.8; O2SAT 97
--- NOTE | 2021-12-08 09:20 | PC.NURSE ---
Patient refused to take PO meds this morning. This nurse offered patient juice off of breakfast tray and patient threw the juice at this nurse. Call light is in reach and bed alarm is on.
--- NOTE | 2021-12-08 10:12 | PM.PN ---
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 Vitals/I&O/Wt Last Vital Signs Temp 98.3 F 12/08/21 07:42 Pulse 102 H 12/08/21 07:42 Resp 18 12/08/21 07:42 BP 158/86 12/08/21 07:42 Pulse Ox 97 12/08/21 07:42 O2 Del Method 12/08/21 07:42 12/07/21 12/08/21 12/08/21 22:59 06:59 14:59 Intake Total 751.667 / 801.667 Balance 751.667 / 601.667 Physical Exam Narrative: Patient is sitting supine Looks slightly dehydrated IV fluids running at the bedside She does follow commands to some extent Less aggressive today during my evaluation Abdomen soft Currently on room air Nonfocal neuro exam Data : 12/06/21 04:36 12/06/21 04:36 Micro: Microbiology 12/04/21 20:56 Urine Culture - Final Urine,Clean Catch A&P Assessment and plan (1) Catatonia: (2) Urinary tract infection: Qualifiers: Hematuria presence: with hematuria Urinary tract infection type: acute cystitis Qualified Code(s): N30.01 - Acute cystitis with hematuria (3) Delirium due to another medical condition: (4) Diabetes: (5) Fluid volume depletion: Plan Awaiting placement Daughter is requesting for palliative care consult She will go to alf most likely on Thursday Dr. 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
[2021-12-08 11:08] LABS: Glucose Point of Care 130 mg/dL (70-110)
[2021-12-08 11:22] VITALS: PULSE 97; RESP 18; O2SAT 98
[2021-12-08] MEDS: LORazepam 2 mg/mL INJ 1 mL 0.5 MG IVP (12:21)
[2021-12-08] MEDS: sucralfate 1 gm Tablet PO (12:23)
[2021-12-08] MEDS: sodium chloride 0.9% 1,000 ML 50 ML IV (14:31)
[2021-12-08 15:24] VITALS: BP 151/81; PULSE 102; RESP 18; O2SAT 96
[2021-12-08 17:10] LABS: Glucose Point of Care 111 mg/dL (70-110)
--- NOTE | 2021-12-08 17:31 | PC.NURSE ---
This nurse went into patients room to assist patient with supper, patient refused meal. Patient also refused PO meds at this time. Patient is aggressive and combative towards staff. Call light is within reach and bed alarm is set.
[2021-12-08 20:47] VITALS: BP 152/73; PULSE 93; RESP 18; TEMP 36.7; O2SAT 96
[2021-12-08] MEDS: mirtazapine 15 mg Tablet 7.5 MG PO (21:25)
[2021-12-08] MEDS: LORazepam 0.5 mg Tablet PO (21:25)
[2021-12-08 21:33] LABS: Glucose Point of Care 87 mg/dL (70-110)
[2021-12-09] VITALS: BP 140/77; PULSE 77; RESP 15; TEMP 36.4; O2SAT 98
[2021-12-09 04:32] VITALS: BP 160/93; PULSE 92; RESP 18; TEMP 36.4; O2SAT 96
[2021-12-09 06:49] LABS: Glucose Point of Care 98 mg/dL (70-110)
--- NOTE | 2021-12-09 09:56 | P.DS_ITS ---
Discharge Providers Date of Admission: 12/05/21 10:05 Date of Discharge: December 09, 2021 Attending Provider at Admission: Edvin Oliver MD Attending Provider at Discharge: Camacho Simmons MD Primary Care Provider: Alonso Ngo DO Diagnoses at Discharge Discharge Diagnosis (1) Catatonia: Status: Acute (2) Urinary tract infection: Status: Acute Qualifiers: Hematuria presence: with hematuria Urinary tract infection type: acute cystitis Qualified Code(s): N30.01 - Acute cystitis with hematuria (3) Delirium due to another medical condition: Status: Acute (4) Diabetes: Status: Acute (5) Fluid volume depletion: Status: Acute Reason for Visit Reason for Visit: throwing food / behavioral Hospital Course Hospital Course 85-year-old female who presented to the hospital with chief complaint of metabolic encephalopathy related to UTI, her urine culture was unremarkable she never spiked any fever no signs of meningoencephalitis or stroke, she was evaluated by psychiatrist who put her on Ativan for catatonia, she does have dementia her delirium was treated with IV fluid hydration and IV antibiotics. She did not eat at all during her hospitalization, she has been gradually declining for quite some time. Her daughter has decided to pursue hospice care for her because patient is not eating at all, she does not want feeding tube or IV nutrition for her. She has opted for longterm placement with hospice care. Patient does respond to Ativan very well because of Ativan shortage we were not able to give her frequent doses however 1 dose of IV Ativan was given on 12/08. She does become lucid after getting Ativan for quite some time but it is very short-term and then she becomes very aggressive with the staff and her daughter. She has been able to move all of her extremities, does try to answer a few questions and asks us to get out of the room. CT head unremarkable. Chest x-ray unremarkable. Physical Exam Narrative: Patient is keepin g her eyes closed laying supine in h er bed, daughter a t the bedside Look s dehydrated IV fl uids running at th e bedside She does follow commands t o some extent Oper ating today Able t o move all 4 extre mities Abdomen sof t Currently on mia m air Nonfocal jose ro exam Discharge Data Studies Completed and Pending Completed Studies During Hospitalization Category Date Time Status CT head wo con* [id number] Stat Cat Scan 12/04/21 16:15 Completed XR chest 1V portable [id number] Stat Exams 12/04/21 20:46 Completed Pending at discharge Category Date Time Status Blood Culture Stat Lab 12/04/21 22:40 Results COVID [SARS Covid-2 Antigen] Routine Lab 12/09/21 07:37 Uncollected Radiology Impressions Head CT 12/04/21 16:15 IMPRESSION: 1. No acute intracranial abnormality. 2. 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 Chest X-Ray 12/04/21 20:46 IMPRESSION: No acute findings. Laboratory Results WBC 4.3 10^3/uL (4.0-10.0) 12/06/21 04:36 RBC 4.40 10^6/uL (4.1-5.3) 12/06/21 04:36 Hgb 12.6 g/dL (11.5-15.3) 12/06/21 04:36 Hct 39.6 % (37.0-47.0) 12/06/21 04:36 MCV 90.0 fl (81-99) 12/06/21 04:36 MCH 28.6 pg (28.0-34.0) 12/06/21 04:36 MCHC 31.8 g/dL (30.0-36.0) 12/06/21 04:36 RDW 12.6 % (12.1-15.1) 12/06/21 04:36 Plt Count 187 10^3/cmm (130-400) 12/06/21 04:36 MPV 10.3 fL (7.4-10.4) 12/06/21 04:36 Neut % (Auto) 70.0 % 12/06/21 04:36 Lymph % (Auto) 18.5 % 12/06/21 04:36 Gilmer % (Auto) 8.0 % 12/06/21 04:36 Eos % (Auto) 2.3 % 12/06/21 04:36 Baso % (Auto) 0.7 % 12/06/21 04:36 Neut # (Auto) 2.99 10^3/uL (1.8-7.7) 12/06/21 04:36 Lymph # (Auto) 0.8 10^3/uL (0.8-4.8) 12/06/21 04:36 Gilmer # (Auto) 0.3 10^3/uL (0.2-0.9) 12/06/21 04:36 Eos # (Auto) 0.1 10^3/uL (0.0-0.8) 12/06/21 04:36 Baso # (Auto) 0.0 10^3/uL (0.0-0.1) 12/06/21 04:36 Nucleated RBC % (auto) 0 % 12/06/21 04:36 Nucleated RBCs # 0.0 /100WBC 12/06/21 04:36 Specimen Type Arterial 12/04/21 19:32 Sample Site Radial, right 12/04/21 19:32 ABG pH 7.34 (7.35-7.45) L 12/04/21 19:32 ABG pCO2 33.7 mmHg (35-45) L 12/04/21 19:32 ABG pO2 81.6 mmHg (80.0-100.0) 12/04/21 19:32 ABG HCO3 18.4 mmol/L (22-26) L 12/04/21 19:32 ABG O2 Saturation 96.6 12/04/21 19:32 ABG Base Excess -6.5 mmol/L (-2.0-2.0) L 12/04/21 19:32 Rayshawn Test Pos 12/04/21 19:32 A-a O2 Gradient 3.2 mmHg (5-10) L 12/04/21 19:32 Hematocrit 40.3 % (37-47) 12/04/21 19:32 Hgb O2 Saturation 94.9 % (95-100) L 12/04/21 19:32 Carboxyhemoglobin 1.1 %THgb (0.4-20.1) 12/04/21 19:32 Methemoglobin 0.7 % (0.4-1.5) 12/04/21 19:32 Total Hemoglobin 13.2 g/dL (12-16) 12/04/21 19:32 Sodium 138.0 mmol/L (131-143) 12/04/21 19:32 Potassium 4.2 mmol/L (3.5-5.0) 12/04/21 19:32 Glucose 260.0 mg/dL (70-115) H 12/04/21 19:32 Ionized Calcium 1.2 mmol/L (1.1-1.4) 12/04/21 19:32 O2 Delivery Device 12/04/21 19:32 FiO2 21.0 % 12/04/21 19:32 Specimen Drawn By Jw 12/04/21 19:32 Wireless Manager ID Jw 12/04/21 19:32 Sodium 139 mmol/L (136-145) 12/06/21 04:36 Potassium 3.3 mmol/L (3.5-5.1) L 12/06/21 04:36 Chloride 104 mmol/L (98-107) 12/06/21 04:36 Carbon Dioxide 22 mmol/L (22-29) 12/06/21 04:36 Anion Gap 16.3 (5-19) 12/06/21 04:36 BUN 12 mg/dL (8-23) 12/06/21 04:36 Creatinine 0.9 mg/dL (0.5-0.9) 12/06/21 04:36 GFR Calculation Not Reportable 12/06/21 04:36 Glucose 99 mg/dL (65-115) 12/06/21 04:36 POC Glucose 98 mg/dL (70-110) 12/09/21 06:27 Estimat Average Glucose 192 12/05/21 08:06 Hemoglobin A1c 8.3 % (4.0-6.0) H 12/05/21 08:06 Calculated Osmolality 288 mOsm/kg (285-295) 12/06/21 04:36 Lactate 0.9 mmol/L (0.5-2.2) 12/04/21 22:16 Calcium 8.2 mg/dL (8.5-10.5) L 12/06/21 04:36 Phosphorus 2.3 mg/dL (2.5-4.5) L 12/05/21 08:06 Magnesium 1.8 mg/dL (1.7-2.3) 12/05/21 08:06 Troponin T Gen 5 ng/L 23 ng/L (0-10) H 12/04/21 15:00 C-Reactive Protein 6.2 mg/L (0.0-4.9) H 12/04/21 22:16 NT-Pro-B Natriuret Pep 437 pg/mL (0-450) 12/04/21 22:16 Lipase 10 U/L (13-60) L 12/04/21 22:16 Procalcitonin 0.05 ng/mL (0-0.5) 12/04/21 22:16 TSH 1.42 uIU/mL (0.27-4.20) 12/05/21 08:06 Urine Color Yellow (Yellow) 12/04/21 20:56 Urine Appearance Sl hazy (CLEAR) 12/04/21 20:56 Urine pH 5 (5-7) 12/04/21 20:56 Ur Specific Olivia 1.020 (1.005-1.030) 12/04/21 20:56 Urine Protein Trace (Negative) 12/04/21 20:56 Urine Glucose (UA) 2+ (Normal) H 12/04/21 20:56 Urine Ketones 3+ (Negative) H 12/04/21 20:56 Urine Blood 2+ (Negative) H 12/04/21 20:56 Urine Nitrate Negative (Negative) 12/04/21 20:56 Urine Bilirubin Neg (Negative) 12/04/21 20:56 Urine Urobilinogen Norm mg/dL (Negative) 12/04/21 20:56 Ur Leukocyte Esterase 2+ (Negative) H 12/04/21 20:56 Urine RBC 5-10 /hpf (0-2) H 12/04/21 20:56 Urine WBC Too numerous to cnt /hpf (0-5) H 12/04/21 20:56 Ur Squamous Epith Cells 0-4 /hpf (0-5) H 12/04/21 20:56 Amorphous Sediment Not Reportable 12/04/21 20:56 Urine Bacteria 3+ /hpf (NONE) H 12/04/21 20:56 Hyaline Casts 0-4 /lpf H 12/04/21 20:56 Fine Granular Casts 0-4 /lpf H 12/04/21 20:56 Serum Ketones Negative (Negative) 12/04/21 22:16 Vitals Last Vital Signs Temp 97.6 F 12/09/21 04:32 Pulse 92 12/09/21 04:32 Resp 18 12/09/21 04:32 BP 160/93 12/09/21 04:32 Pulse Ox 96 12/09/21 04:32 O2 Del Method 12/08/21 20:47 Discharge Plan Discharge Patient Disposition: Xfer SNF Condition: Stable Prescriptions: New lorazepam 2 mg/mL Solution 0.5 mg IM TID PRN (Reason: Anxiety) Qty: 10 0RF lorazepam 0.5 mg Tablet 0.5 mg PO TID Qty: 20 0RF quetiapine 25 mg Tablet 25 mg PO BID Qty: 60 0RF amlodipine 10 mg Tablet 10 mg PO DAILY Qty: 90 0RF mirtazapine 15 mg Tablet 7.5 mg PO BEDTIME Qty: 90 0RF lisinopril 10 mg tablet 10 mg PO DAILY Qty: 60 0RF Continued acetaminophen [Tylenol] 325 mg Tablet 650 mg PO Q6H PRN (Reason: Pain) magnesium hydroxide [Milk of Magnesia] 400 mg/5 mL Suspension 30 ml PO DAILY PRN (Reason: Constipation) Enema Disposable 19-7 gram/118 mL Enema 118 ml WA DAILY PRN (Reason: CONSTIAPTION) Rx Instructions: MAY GIVE IF NO BM 3 DAYS AFTER MOM AND DULCOLAX bisacodyl [Dulcolax (bisacodyl)] 5 mg Tablet,Delayed Release (Dr/Ec) 10 mg PO DAILY PRN (Reason: Constipation) Rx Instructions: MAY GIVE IF NO BM 3 DAYS AFTER MOM. albuterol sulfate 2.5 mg /3 mL (0.083 %) Solution For Nebulization 2.5 mg INHALATION Q4H PRN (Reason: Shortness Of Breath) Imodium 2 mg Capsule 2 mg PO Q6H PRN (Reason: Diarrhea) Changed pantoprazole 40 mg Tablet,Delayed Release (Dr/Ec) 40 mg PO DAILY Qty: 30 0RF Discontinued atorvastatin 40 mg Tablet 40 mg PO BEDTIME@2000 clopidogrel 75 mg Tablet 75 mg PO DAILY@0800 insulin aspart U-100 [Novolog U-100 Insulin aspart] 100 unit/mL Solution See Rx Instructions .ROUTE .COMPLEX Rx Instructions: USE PER SLIDING SCALE insulin aspart U-100 [Novolog Flexpen U-100 Insulin] 100 unit/mL (3 mL) Insulin Pen 7 unit SUBCUT TID Rx Instructions: TAKE BEFORE MEALS insulin glargine [Lantus U-100 Insulin] 100 unit/mL solution 15 unit SUBCUT BEDTIME@2000 tramadol 50 mg Tablet 50 mg PO Q6H PRN (Reason: Pain) cephalexin 500 mg capsule 500 mg PO QID 7 Days Qty: 28 0RF Zoloft 25 mg Tablet 50 mg PO BEDTIME Discharge Orders: Discharge Order (Routine); Ordered 12/09/21 Ordered By: Camacho Simmons Referrals: [facility] [Outside] [facility] [Outside] Alonso Ngo DO [Primary Care Provider] - Discharge Diet: GI Soft Discharge Activity: Wheelchair as instructed Discharge Attestations Time Spent in Discharge Care*: less than 30 min Quality Metrics Clinical Quality Measures [ No reported AMI, CVA or VTE this stay] Coding Level of Care Code Acute [facility] note Diagnoses Catatonia F06.1 Urinary tract infection N30.01 Hematuria presence: with hematuria Urinary tract infection type: acute cystitis Delirium due to another medical condition F05 Diabetes E11.9 Fluid volume depletion E86.9
[2021-12-09] MEDS: sodium chloride 0.9% 1,000 ML 50 ML IV (10:56)
[2021-12-09 11:07] LABS: Glucose Point of Care 97 mg/dL (70-110)
[2021-12-09 11:33] LABS: SARS Covid-2 Antigen Negative (Negative)
--- NOTE | 2021-12-09 13:06 | PC.NURSE ---
Report called to Christiana RAYO at [facility] facility.
[2021-12-09 16:04] LABS: Glucose Point of Care 78 mg/dL (70-110)
[2021-12-09 16:52] VITALS: BP 160/93; PULSE 92; RESP 18; TEMP 36.4; O2SAT 96
== END 2021-12-09 16:53 | disposition hospice, home (50) | DRG 689 ==
LOC: ER 22:07 → MEDSURG 22:40
PROVIDERS: Family Medicine; Admitting Provider Family Medicine; Emergency Provider Emergency Medicine; PCP Internal Medicine; Visit Provider Internal Medicine
DX: N30.01 Acute cystitis with hematuria (principal); G93.41 Metabolic encephalopathy; F05 Delirium due to known physiological condition; Z86.73 Personal history of transient ischemic attack (TIA), and cerebral infarction without residual deficits; Z86.718 Personal history of other venous thrombosis and embolism; I10 Essential (primary) hypertension; E78.5 Hyperlipidemia, unspecified; E11.65 Type 2 diabetes mellitus with hyperglycemia; Z91.14 Patient's other noncompliance with medication regimen; Z96.642 Presence of left artificial hip joint; G30.9 Alzheimer's disease, unspecified; F02.80 Dementia in other diseases classified elsewhere, unspecified severity, without behavioral disturbance, psychotic disturbance, mood disturbance, and anxiety; E87.6 Hypokalemia; K29.70 Gastritis, unspecified, without bleeding; E86.0 Dehydration; F06.1 Catatonic disorder due to known physiological condition
CPT/HCPCS: 36415; 36416; 36600; 70450; 71045; 80048; 80051; 81001; 81003; 82009; 82330; 82805; 82962; 83036; 83605; 83690; 83735; 83880; 84100; 84145; 84443; 84484; 85025; 86140; 87040; 87086; 87426; 92523; 92526; 92610; 93005; 94664; 96372; G0378; J0696; J1630; J1650; J1815; J2060; J3486; J3490; J7030